=== PATIENT | male | born 1965 | race Caucasian/White ===

== ENCOUNTER 2016-12-16 12:00 | Emergency (ER) | payer SELFPAY ==
[~2016-12-16] VITALS: Ht 167.6 cm; Wt 67.0 kg
[2016-12-16 12:10] VITALS: BP 149/80; PULSE 73; RESP 14; TEMP 98.6; O2SAT 96
--- NOTE | 2016-12-16 12:29 | PD ---
HPI Chief Complaint: Seizure Time Seen by Provider: 12:09 Travel History International Travel<30 days: No Contact w/Intl Traveler<30days: No Traveled to known affect area: No History of Present Illness HPI 51-year-old male with a history of daily alcohol use, reported seizures in the past, presents today after having a questionable seizure today. Patient states that when he gets hot and is outside, he passes out and has seizures. Patient denies any injury today. He states he was working outside and felt lightheaded and then sat down. He states he was told that he had some shaking. He denies any head pain and neck pain, he states he feels fine. He states he is is not currently taking seizure medication. There are no other complaints time my examination. 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 TREE CHILD") Seizures: Yes Tetanus Vaccination: Unknown Influenza Vaccination: No Social History Alcohol Use: Yes (DAILY) Tobacco Use: Yes (2-3PPD) Substance Use: Yes (LORTAB 'EVERY NOW AND THEN") Allergies-Medications (Allergen,Severity, Reaction): Coded Allergies: Penicillin (Verified Allergy, Unknown, UNKNOWN, 12/16/16) Reported Meds & Prescriptions Reported Meds & Active Scripts Active No Active Prescriptions or Reported Medications Review of Systems Except as stated in HPI: all other systems reviewed are Neg Eyes: No: Diploplia, Blurred Vision HENT: No: Neck Pain Cardiovascular: No: Chest Pain or Discomfort, Palpitations Respiratory: No: Cough, Shortness of Breath Gastrointestinal: No: Nausea, Vomiting Genitourinary: Positive: Urgency, Frequency, No: Incontinence Musculoskeletal: No: Weakness, Pain Neurologic: Positive: Syncope, Seizures (possible), No: Weakness, Dizziness, Headache (possible) Physical Exam Narrative GENERAL: Well-nourished, well-developed patient. SKIN: Focused skin assessment warm/dry. HEAD: Normocephalic/atraumatic. EYES: No scleral icterus. No injection or drainage. NECK: Supple, trachea midline. CARDIOVASCULAR: Regular rate and rhythm without murmurs, gallops, or rubs. RESPIRATORY: Breath sounds equal bilaterally. No accessory muscle use. GASTROINTESTINAL: Abdomen soft, non-tender, nondistended. MUSCULOSKELETAL: No cyanosis, or edema. NEUROLOGICAL: Awake and alert. Cranial nerves II through XII intact. Motor grossly within normal limits. Five out of 5 muscle strength in all muscle groups. Normal speech. Data Data Last Documented VS Vital Signs Date Time Temp Pulse Resp B/P Pulse Ox O2 Delivery O2 Flow Rate FiO2 12/16/16 12:10 98.6 73 14 149/80 96 Orders Complete Blood Count With Diff (12/16/16 12:21) Basic Metabolic Panel (Bmp) (12/16/16 12:21) Magnesium (Mg) (12/16/16 12:21) Sodium Chlor 0.9% 1000 Ml Inj (Ns 1000 M (12/16/16 12:30) Labs Laboratory Tests Test 12/16/16 12:25 White Blood Count 5.0 TH/MM3 Red Blood Count 4.79 MIL/MM3 Hemoglobin 15.8 GM/DL Hematocrit 46.3 % Mean Corpuscular Volume 96.8 FL Mean Corpuscular Hemoglobin 33.1 PG Mean Corpuscular Hemoglobin 34.1 % Concent Red Cell Distribution Width 13.3 % Platelet Count 120 TH/MM3 Mean Platelet Volume 10.0 FL Neutrophils (%) (Auto) 66.0 % Lymphocytes (%) (Auto) 24.8 % Monocytes (%) (Auto) 8.2 % Eosinophils (%) (Auto) 0.4 % Basophils (%) (Auto) 0.6 % Neutrophils # (Auto) 3.3 TH/MM3 Lymphocytes # (Auto) 1.2 TH/MM3 Monocytes # (Auto) 0.4 TH/MM3 Eosinophils # (Auto) 0.0 TH/MM3 Basophils # (Auto) 0.0 TH/MM3 CBC Comment DIFF FINAL Differential Comment Sodium Level 139 MEQ/L Potassium Level 3.3 MEQ/L Chloride Level 107 MEQ/L Carbon Dioxide Level 18.3 MEQ/L Anion Gap 14 MEQ/L Blood Urea Nitrogen 7 MG/DL Creatinine 1.23 MG/DL Estimat Glomerular Filtration 62 ML/MIN Rate Random Glucose 102 MG/DL Calcium Level 9.3 MG/DL Magnesium Level 1.6 MG/DL MDM Medical Decision Making Medical Screen Exam Complete: Yes Emergency Medical Condition: Yes Differential Diagnosis Seizure versus syncope versus near-syncope versus dehydration Narrative Course 51 male with a history of question will seizure versus syncopal, presents after having an episode today while working in the hot heat. The patient is nontoxic in awake and appropriate. He is not postictal. There is no urinary incontinence. He's been given 1 L of IV fluid. Patient states that he does not wish to stay in his signed out AGAINST MEDICAL ADVICE. I've informed him that he can return any time. I did encourage that he drink plenty of fluids. AMA: The risks of leaving against medical advice without further evaluation treatment were discussed with the patient. These risks include cardiac dysfunction, cardiac dysrhythmia, possible heart attack, possible stroke or . The patient indicated understanding of these risks and appeared to have the capacity to make this decision. Diagnosis Primary Impression: seizure versus syncope Additional Impression: AGAINST MEDICAL ADVICE Scripts No Active Prescriptions or Reported Meds Disposition: 07 AGAINST MEDICAL ADVICE Condition: Stable Elijah Melara MD Dec 16, 2016 12:29
[2016-12-16] MEDS ORDERED: SODIUM CHLOR 0.9% 1000 ML INJ 1,000 ML IV ONE (12:30)
[2016-12-16 12:44] LABS: AUTOMATED NEUTROPHIL # 3.3 TH/MM3 (1.8-7.7); BASOPHIL % 0.6 % (0.0-2.0); EOSINOPHIL % 0.4 % (0.0-4.0); HEMATOCRIT 46.3 % (39.0-51.0); LYMPH % 24.8 % (9.0-44.0); LYMPHOCYTE # 1.2 TH/MM3 (1.0-4.8); MEAN CELL VOLUME 96.8 FL (80.0-100.0); MEAN CORPUSCULAR HEMOGLOBIN 33.1 PG (27.0-34.0); MEAN CORPUSCULAR HGB CONC 34.1 % (32.0-36.0); MONO % 8.2 % (0.0-8.0); PLATELET COUNT 120 TH/MM3 (150-450); RED BLOOD COUNT 4.79 MIL/MM3 (4.50-5.90); RED CELL DISTRIBUTION WIDTH 13.3 % (11.6-17.2)
[2016-12-16 12:47] LABS: HEMO FLAGS DIFF FINAL
[2016-12-16 12:57] LABS: BICARBONATE 18.3 MEQ/L (21.0-32.0); MAGNESIUM 1.6 MG/DL (1.5-2.5); POTASSIUM 3.3 MEQ/L (3.5-5.1)
== END 2016-12-16 13:15 | disposition left against medical advice (07) ==
LOC: NEPE 12:00
DX: R42 Dizziness and giddiness (principal); R73.03 Prediabetes; F17.200 Nicotine dependence, unspecified, uncomplicated; Z53.29 Procedure and treatment not carried out because of patient's decision for other reasons; Z86.19 Personal history of other infectious and parasitic diseases; Z87.39 Personal history of other diseases of the musculoskeletal system and connective tissue; Z86.69 Personal history of other diseases of the nervous system and sense organs
CPT/HCPCS: 80048; 83735; 85025; 99284

== ENCOUNTER 2017-05-01 17:17 | Emergency (ER) | payer SELFPAY ==
[2017-05-01 18:10] VITALS: BP 164/94; PULSE 110; RESP 22; TEMP 98; O2SAT 100
--- NOTE | 2017-05-01 18:10 | PD ---
HPI . possible overdose Chief Complaint: possible heroin overdose Time Seen by Provider: 17:56 Travel History International Travel<30 days: No Contact w/Intl Traveler<30days: No Traveled to known affect area: No History of Present Illness HPI 51 yr old male polysubstance abuser here via [facility] due to possible heroin overdose. According to paramedics patient was unresponsive and cyanotic. He was given 0.4 mg narcan and immediately became responsive to painful stimuli and became agitated. He is here now requesting to go home. He tells me that he did not overdose intentionally and he did not even overdose. He says he used Heroin yesterday and these people are now mixing heroin with other substances so he thinks it kicked in today. He admits to drinking some beers and says he may have had a seizure. He tells me either way he is not staying. He is not suicidal or homicidal. He is actually quite polite and cooperative, except he keeps insisting he needs to leave. He denies any chest pain, sob, nausea, vomiting, diaphoresis, headache etc. 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") Seizures: Yes Social History Alcohol Use: Yes (DAILY) Tobacco Use: Yes (2-3PPD) Substance Use: Yes (LORTAB 'EVERY NOW AND THEN") Allergies-Medications (Allergen,Severity, Reaction): Coded Allergies: penicillin G (Unverified Allergy, Unknown, UNKNOWN, 04/27/17) Reported Meds & Prescriptions Reported Meds & Active Scripts Active No Active Prescriptions or Reported Medications Review of Systems General / Constitutional: No: Fever Eyes: No: Visual changes HENT: No: Headaches Cardiovascular: No: Chest Pain or Discomfort Respiratory: No: Shortness of Breath Gastrointestinal: No: Abdominal Pain Genitourinary: No: Dysuria Musculoskeletal: No: Pain Skin: No Rash Neurologic: No: Weakness Psychiatric: No: Depression Endocrine: No: Polydipsia Hematologic/Lymphatic: No: Easy Bruising Physical Exam Narrative GENERAL: AAO x 3, no acute distress, Well-nourished, well-developed patient. SKIN: Warm and dry. No visible rashes or bruising. HEAD: Normocephalic and atraumatic. EYES: No scleral icterus. No injection or drainage. EOM intact, PERRLA ENT: No nasal drainage noted. Mucous membranes pink. Airway patent. NECK: Supple, trachea midline. No JVD. CARDIOVASCULAR: Regular rate and rhythm without murmurs, gallops, or rubs. RESPIRATORY: Breath sounds equal bilaterally. No accessory muscle use. No rhonchi or rales. GASTROINTESTINAL: Abdomen soft, non-tender, nondistended. no rebound or guarding EXTREMITIES: No cyanosis or edema. BACK: No obvious deformity. 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 MMSE normal Data Data Last Documented VS Vital Signs Date Time Temp Pulse Resp B/P Pulse Ox O2 Delivery O2 Flow Rate FiO2 05/01/17 18:10 98.0 110 22 164/94 100 Room Air MDM Medical Decision Making Medical Screen Exam Complete: Yes Emergency Medical Condition: Yes Medical Record Reviewed: Yes Differential Diagnosis heroin overdose, seizure disorder, polysubstance abuse, Narrative Course 51 yr old male here after possible heroin overdose that was unintentional. He keeps insisting he is not staying. He is in his right frame of mind and responds appropriately to all questions. MMSE is normal. We have discussed the risks of potential after narcan wears off. He insists he is not staying as he keeps telling me he did not use heroin today. He says he was misdiagnosed by the paramedics. Unfortunately patient is not a harm to himself or others. He is not suicidal or homicidal. He is cooperative and desires to leave. He declines any observation. I have stressed the risks and he continues expressing desire to leave. This is a shade of patel here in the ED. I do need to observe him, but he does not meet criteria for Nunes Act as there is no psychological component. I could place him under Fabi's act, but he is not acutely intoxicated and is in his right frame of mind. His decision making is not impaired in my judgement. I have educated him on the risks of leaving and he tells me, "If I , it's on me. I am sure I did not overdose and these people are misdiagnosing me." He contacted his boss for a ride home. I have discussed the case with my attending Dr. Jean. We have advised patient if he choses to leave, he will have to sign out AMA. I have provided him with that paperwork. He has signed it. Diagnosis Primary Impression: Left against medical advice Scripts No Active Prescriptions or Reported Meds Disposition: 07 AGAINST MEDICAL ADVICE Condition: Stable Antonieta Wyatt May 01, 2017 18:09
== END 2017-05-01 18:12 | disposition left against medical advice (07) ==
LOC: NEPD 17:17
DX: R23.0 Cyanosis (principal); F17.210 Nicotine dependence, cigarettes, uncomplicated; R56.9 Unspecified convulsions; Z53.21 Procedure and treatment not carried out due to patient leaving prior to being seen by health care provider
CPT/HCPCS: 99283

== ENCOUNTER 2017-08-21 08:53 | Emergency (ER) | payer SELFPAY ==
[~2017-08-21] VITALS: Ht 167.6 cm; Wt 66.0 kg
[2017-08-21 09:00] VITALS: BP 160/90; PULSE 59; RESP 16; TEMP 98.2; O2SAT 97
--- NOTE | 2017-08-21 09:23 | PD ---
HPI Chief Complaint: Injury Time Seen by Provider: 09:11 Travel History International Travel<30 days: No Contact w/Intl Traveler<30days: No Traveled to known affect area: No History of Present Illness HPI 52-year-old male presents to emergency Department with right-sided rib pain. Patient states she was hit by a rolled carpet in this area a week and a half ago. Patient denies shortness of breath. Patient denies nausea, vomiting, or changes in urine. His boss had him come down to get checked out. He states he has not been taking anything for pain. Pain is worse with certain movements and cough. It is pinpoint on the right lower lateral thoracic wall. Pain at worst is 8 out of 10. He is allergic to Penicillin. 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") Seizures: Yes Social History Alcohol Use: Yes (DAILY) Tobacco Use: Yes (2-3PPD) Substance Use: Yes (LORTAB 'EVERY NOW AND THEN") Allergies-Medications (Allergen,Severity, Reaction): Coded Allergies: penicillin G (Unverified Allergy, Unknown, UNKNOWN, 04/27/17) Reported Meds & Prescriptions Reported Meds & Active Scripts Active No Active Prescriptions or Reported Medications Review of Systems Except as stated in HPI: all other systems reviewed are Neg General / Constitutional: No: Fever Eyes: No: Visual changes HENT: No: Headaches Cardiovascular: No: Chest Pain or Discomfort Respiratory: No: Shortness of Breath Gastrointestinal: No: Abdominal Pain Genitourinary: No: Dysuria Musculoskeletal: No: Pain Skin: No Rash Neurologic: No: Weakness Psychiatric: No: Depression Endocrine: No: Polydipsia Hematologic/Lymphatic: No: Easy Bruising Physical Exam Narrative GENERAL: Patient appears in mild distress. SKIN: Warm and dry. Color. Normal turgor. HEAD: Atraumatic. Normocephalic. EYES: Pupils equal and round. No scleral icterus. No injection or drainage. ENT: No nasal bleeding or discharge. Mucous membranes pink and moist. NECK: Trachea midline. Supple and nontender. CARDIOVASCULAR: Regular rate and rhythm. RESPIRATORY: No accessory muscle use. Clear to auscultation. Breath sounds equal bilaterally. Patient has point tenderness on the right lateral 10th rib with what appears to be a mild dislocation. No crepitus. No subcutaneous emphysema. GASTROINTESTINAL: Abdomen soft, non-tender, nondistended. Hepatic and splenic margins not palpable. MUSCULOSKELETAL: Extremities without clubbing, cyanosis, or edema. No obvious deformities. NEUROLOGICAL: Awake and alert. No obvious cranial nerve deficits. Motor grossly within normal limits. Five out of 5 muscle strength in the arms and legs. Normal speech. PSYCHIATRIC: Appropriate mood and affect; insight and judgment normal. Data Data Last Documented VS Vital Signs Date Time Temp Pulse Resp B/P (MAP) Pulse Ox O2 Delivery O2 Flow Rate FiO2 08/21/17 09:00 98.2 59 16 160/90 (113) 97 MDM Medical Decision Making Medical Screen Exam Complete: Yes Emergency Medical Condition: No Differential Diagnosis Thoracic wall contusion. Rib pain. Rib fracture. Narrative Course A medical screening exam was performed: At the time of evaluation the presenting medical condition was determined not to be of an emergent nature. The patient was given the option of receiving additional care, but declined. Patient was given options for additional community resources from which to obtain care. The Patient Has Been advised to seek medical attention for their presenting complaint. The patient has been advised to return to the ER at any time if an emergent condition develops Scripts No Active Prescriptions or Reported Meds Condition: Jean Carlos Frances Aug 21, 2017 09:23
== END 2017-08-21 09:28 | disposition left against medical advice (07) ==
LOC: NEPD 08:53
DX: R07.81 Pleurodynia (principal)
CPT/HCPCS: 99281

== ENCOUNTER 2017-10-12 23:52 | Emergency (ER) | payer SELFPAY ==
[2017-10-12 23:59] VITALS: BP 151/79; PULSE 54; RESP 16; TEMP 98.8; O2SAT 95
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
[2017-10-13] MEDS ORDERED: SODIUM CHLOR 0.9% 1000 ML INJ 1,000 ML IV ONE (00:30)
[2017-10-13 00:42] VITALS: O2SAT 100
--- NOTE | 2017-10-13 00:54 | RADRPT ---
EXAM DATE/TIME: 10/13/2017 00:34 [facility] COMPARISON: No previous studies available for comparison. INDICATIONS : Shortness of breath. MEDICAL HISTORY : None. SURGICAL HISTORY : None. ENCOUNTER: Initial ACUITY: 1 day PAIN SCORE: 0/10 LOCATION: Bilateral chest FINDINGS: A single view of the chest demonstrates the lungs to be symmetrically aerated without evidence of mas s, infiltrate or effusion. Minimal basilar atelectasis. The cardiomediastinal contours are unremarka ble. Osseous structures are intact. CONCLUSION: 1. Mild basal atelectasis. No effusion or pneumothorax. Toribio Ma MD on October 13, 2017 at 0:51 Board Certified Radiologist. This report was verified electronically.
[2017-10-13 00:57] LABS: AUTOMATED NEUTROPHIL # 2.8 TH/MM3 (1.8-7.7); BASOPHIL % 0.5 % (0.0-2.0); EOSINOPHIL % 0.5 % (0.0-4.0); HEMATOCRIT 38.1 % (39.0-51.0); HEMOGLOBIN 13.3 GM/DL (13.0-17.0); LYMPH % 29.9 % (9.0-44.0); LYMPHOCYTE # 1.4 TH/MM3 (1.0-4.8); MEAN CELL VOLUME 87.3 FL (80.0-100.0); MEAN CORPUSCULAR HEMOGLOBIN 30.6 PG (27.0-34.0); MEAN PLATELET VOLUME 8.9 FL (7.0-11.0); MONO % 11.7 % (0.0-8.0); MONOCYTE # 0.6 TH/MM3 (0-0.9); NEUT % 57.4 % (16.0-70.0); PLATELET COUNT 114 TH/MM3 (150-450); RED BLOOD COUNT 4.36 MIL/MM3 (4.50-5.90); RED CELL DISTRIBUTION WIDTH 13.5 % (11.6-17.2); WHITE BLOOD COUNT 4.8 TH/MM3 (4.0-11.0)
--- NOTE | 2017-10-13 00:57 | RADRPT ---
EXAM DATE/TIME: 10/13/2017 00:44 [facility] COMPARISON: No previous studies available for comparison. INDICATIONS : Cephalgia and neck pain today. RADIATION DOSE: 32.93 CTDIvol (mGy) MEDICAL HISTORY : Hepatitis C. SURGICAL HISTORY : None. ENCOUNTER: Initial ACUITY: 1 day PAIN SCALE: 4/10 LOCATION: Bilateral head TECHNIQUE: Multiple contiguous axial images were obtained of the head. Using automated exposure control and adj ustment of the mA and/or kV according to patient size, radiation dose was kept as low as reasonably a chievable to obtain optimal diagnostic quality images. DICOM format image data is available electro nically for review and comparison. FINDINGS: CEREBRUM: The ventricles are normal for age. No evidence of midline shift, mass lesion, hemorrhage or acute in farction. No extra-axial fluid collections are seen. POSTERIOR FOSSA: The cerebellum and brainstem are intact. The 4th ventricle is midline. The cerebellopontine angle i s unremarkable. EXTRACRANIAL: The visualized portion of the orbits is intact. SKULL: The calvaria is intact. No evidence of skull fracture. CONCLUSION: 1. No acute intracranial abnormalities. Toribio Ma MD on October 13, 2017 at 0:53 Board Certified Radiologist. This report was verified electronically.
[2017-10-13 01:12] LABS: ALBUMIN 2.9 GM/DL (3.4-5.0); ALT (GPT) 74 U/L (12-78); AST (GOT) 78 U/L (15-37); BICARBONATE 25.5 MEQ/L (21.0-32.0); BLOOD UREA NITROGEN 16 MG/DL (7-18); CALCIUM 8.1 MG/DL (8.5-10.1); CHLORIDE 105 MEQ/L (98-107); CREATININE 1.03 MG/DL (0.60-1.30); GLOMERULAR FILTRATION RATE 76 ML/MIN (>89); GLUCOSE,RANDOM 95 MG/DL (74-106); LIPASE 101 U/L (73-393); SODIUM (NA) 139 MEQ/L (136-145)
[2017-10-13 01:14] LABS: ALKALINE PHOSPHATASE 84 U/L (45-117); TOTAL BILIRUBIN ADULT 0.3 MG/DL (0.2-1.0); TOTAL PROTEIN 7.1 GM/DL (6.4-8.2); TROPONIN I LESS THAN 0.02 NG/ML (0.02-0.05)
[2017-10-13 01:17] LABS: ACETAMINOPHEN LESS THAN 2.0 MCG/ML (10.0-30.0)
[2017-10-13 01:20] LABS: PROTHROMBIN TIME - PATIENT 10.6 SEC (9.8-11.6)
--- NOTE | 2017-10-13 01:25 | RADRPT ---
EXAM DATE/TIME: 10/13/2017 00:44 [facility] COMPARISON: No previous studies available for comparison. INDICATIONS : Cephalgia and neck pain today. RADIATION DOSE: 16.13 CTDIvol (mGy) MEDICAL HISTORY : Hepatitis C. SURGICAL HISTORY : None. ENCOUNTER: Initial ACUITY: 1 day PAIN SCALE: 4/10 LOCATION: Bilateral neck TECHNIQUE: Volumetric scanning of the cervical spine was performed. Multiplanar reconstructions in the sagittal, coronal and oblique axial planes were performed. Using automated exposure control and adjustment o f the mA and/or kV according to patient size, radiation dose was kept as low as reasonably achievable to obtain optimal diagnostic quality images. DICOM format image data is available electronically f or review and comparison. FINDINGS: VERTEBRAE: Normal vertebral body height. ALIGNMENT: No evidence of subluxation. C2-C3: The bony spinal canal is normal in size. No evidence of disc bulge or herniation. The neural forami na are bilaterally patent. C3-C4: The bony spinal canal is normal in size. No evidence of disc bulge or herniation. The neural forami na are bilaterally patent. C4-C5: The bony spinal canal is normal in size. No evidence of disc bulge or herniation. The neural forami na are bilaterally patent. C5-C6: The bony spinal canal is normal in size. No evidence of disc bulge or herniation. The neural forami na are bilaterally patent. C6-C7: The bony spinal canal is normal in size. No evidence of disc bulge or herniation. The neural forami na are bilaterally patent. C7-T1: The bony spinal canal is normal in size. No evidence of disc bulge or herniation. The neural forami na are bilaterally patent. CONCLUSION: 1. No acute findings. Mild degenerative disc disease. Toribio Ma MD on October 13, 2017 at 1:20 Board Certified Radiologist. This report was verified electronically.
[2017-10-13 01:55] VITALS: BP 151/79; PULSE 60; RESP 16; O2SAT 98
[2017-10-13 02:13] LABS: BILIRUBIN, URINE NEG (NEG); BLOOD, URINE NEG (NEG); GLUCOSE,URINE NEG (NEG); KETONE, URINE NEG (NEG); MUCUS URINE FEW /lpf (OCC); NITRITE,URINE NEG (NEG); SQUAMOUS EPITHELIAL CELL URINE 1 /hpf (0-5); URINE COLOR YELLOW (YELLW/STRAW); URINE LEUKOCYTE ESTERASE NEG (NEG)
[2017-10-13 02:56] VITALS: BP 158/91; PULSE 60; RESP 16; O2SAT 98
[2017-10-13] MEDS ORDERED: NAPR-810 PO (03:28)
--- NOTE | 2017-10-13 09:45 | EKG ---
Date Performed: 10/13/2017 Time Performed: 01:16:20 PTAGE: 52 years EKG: SINUS BRADYCARDIA BORDERLINE ECG Since the prior tracing, there has been no significant maegan nge PREVIOUS TRACING : 09/09/2007 08.29 DOCTOR: Jose Jones Interpretating Date/Time 10/13/2017 09:43:49
== END 2017-10-13 03:54 | disposition home or self-care (01) ==
LOC: NEPC 23:52
DX: G44.209 Tension-type headache, unspecified, not intractable (principal); R42 Dizziness and giddiness; F17.210 Nicotine dependence, cigarettes, uncomplicated; R06.09 Other forms of dyspnea; B19.20 Unspecified viral hepatitis C without hepatic coma
CPT/HCPCS: 70450; 71045; 72125; 80053; 80307; 81001; 82550; 82552; 83690; 83880; 84484; 85025; 85610; 85730; 93005; 96360; 99285; J7030

== ENCOUNTER 2017-11-06 11:03 | Emergency (ER) | payer SELFPAY ==
[~2017-11-06] VITALS: Ht 167.6 cm; Wt 71.0 kg
[~2017-11-06 11:03] MED LIST: NAPR-810 PO
[2017-11-06 11:06] VITALS: BP 132/84; PULSE 83; RESP 14; TEMP 98.4; O2SAT 98
[2017-11-06] MEDS ORDERED: IBUPROFEN 600 MG TAB PO ONE (11:30)
[2017-11-06] MEDS ORDERED: LIDOCAINE HCL 1% 20 ML VIAL INFIL ONE (11:30)
[2017-11-06] MEDS ORDERED: TETANUS/DIPHTHERIA TOXOID ADULT 0.5 ML VIAL IM ONE (11:30)
--- NOTE | 2017-11-06 11:33 | PD ---
HPI Chief Complaint: Skin Problem Time Seen by Provider: 11:19 Travel History International Travel<30 days: No Contact w/Intl Traveler<30days: No Traveled to known affect area: No History of Present Illness HPI 52yo M with PMH of alcohol abuse, hep C, seizure here with c/o abscess in left lower extremity. Said it was a bite 4-5 days ago that got bigger. Said he put a needle in it yesterday and it was draining. Pt also has an abscess in left buttocks but that already completely drained and does not hurt much anymore. Denies any fever, trauma, chest pain, sob, n/v, abdominal pain, focal weakness or numbness. PFSH Past Medical History Hx Anticoagulant Therapy: No Cardiovascular Problems: No Chemotherapy: No Cerebrovascular Accident: No Diabetes: No Diminished Hearing: No Hepatitis: Yes (HEP C) Musculoskeletal: Yes (CHRONIC BACK,"FELL OUT OF TREE CHILD") Respiratory: No Seizures: Yes Tetanus Vaccination: < 5 Years Social History Alcohol Use: Yes (2-3 vodka or whiskey drinks per day) Tobacco Use: Yes (1 PPD) Substance Use: Yes (LORTAB 'EVERY NOW AND THEN") Allergies-Medications (Allergen,Severity, Reaction): Coded Allergies: penicillin G (Unverified Allergy, Unknown, UNKNOWN, 11/06/17) Reported Meds & Prescriptions Reported Meds & Active Scripts Active EC-Naprosyn (Naproxen) 500 Mg Tabdr 500 Mg PO BID PRN Review of Systems Except as stated in HPI: all other systems reviewed are Neg Physical Exam Narrative GEN: 52yo M not in distress. SKIN: +3cm by 3cm erythema with central fluctuance left medial calf. 2cm by 2cm erythema in left buttocks with no central fluctuance. HEAD: Normocephalic, atraumatic. CV: S1, S2. Lungs: CTA B/L, equal breath sounds. Abd: soft, NT/ND. Ext: LLE: +Abscess as noted above. FROM in left hip and knee. Distal pulses intact. Sensation intact. NEURO: No focal neurologic deficits. Data Data Last Documented VS Vital Signs Date Time Temp Pulse Resp B/P (MAP) Pulse Ox O2 Delivery O2 Flow Rate FiO2 11/06/17 11:06 98.4 83 14 132/84 (100) 98 Room Air Orders Orders Lidocaine 1% Inj (Xylocaine 1% Inj) (11/06/17 11:30) Tetanus/Diphtheria Tox Adult (Tetanus/Di (11/06/17 11:30) Ibuprofen (Motrin) (11/06/17 11:30) MDM Medical Decision Making Medical Screen Exam Complete: Yes Emergency Medical Condition: Yes Differential Diagnosis Abscess Narrative Course 52yo M with left lower leg abscess for 4-5 days. It is draining a little but still fluctuance and he wants it drained. I&D performed. Updated pt on tetanus. Pt feels better after and is ambulating in the ED without assistance. Procedures Procedure Narrative Abscess Incision and drainage: Chlorhexadine was used to clean area before injecting 5cc of 1% lidocaine. #11 blade scapel use for incision. Purulent discharge drainage. Small amount of 1/ 2 inch iodoform packing used to pack wound. Sterile gauze used to cover wound. Pt tolerating procedure well. Diagnosis Primary Impression: Abscess Patient Instructions: General Instructions Departure Forms: Tests/Procedures Additional Instructions: Please return to the ED in 2 days for wound check. Please return to the ED earlier if symptoms worsen. Med/Other Pt SpecificInfo: Prescription(s) given Scripts Sulfamethoxazole-Trimethoprim (Bactrim DS) 800-160 Mg Tab 1 TAB PO BID for Infection, #14 TAB 0 Refills Prov: Mouna Peck 11/06/17 Disposition: 01 DISCHARGE HOME Condition: Stable LivMouna DO Nov 06, 2017 11:33
[2017-11-06] MEDS ORDERED: BACT800T5 PO (12:30)
== END 2017-11-06 12:46 | disposition home or self-care (01) ==
LOC: NEPD 11:03
DX: L02.416 Cutaneous abscess of left lower limb (principal); F17.200 Nicotine dependence, unspecified, uncomplicated; Z23 Encounter for immunization
CPT/HCPCS: 10061; 90471; 90714

== ENCOUNTER 2017-11-18 10:53 | Emergency (ER) | payer SELFPAY ==
[~2017-11-18 10:53] MED LIST changes: +BACT800T5 PO
== END 2017-11-18 11:46 | disposition left against medical advice (07) ==
LOC: NED 10:53
DX: R21 Rash and other nonspecific skin eruption (principal); Z53.21 Procedure and treatment not carried out due to patient leaving prior to being seen by health care provider
CPT/HCPCS: 99281

== ENCOUNTER 2017-11-29 13:00 | Emergency (ER) | payer SELFPAY ==
[2017-11-29 13:50] VITALS: PULSE 80; RESP 14; TEMP 97.2; O2SAT 99
[2017-11-29 14:35] VITALS: BP 164/92; PULSE 67; RESP 17; O2SAT 98
--- NOTE | 2017-11-29 14:46 | PD ---
HPI Chief Complaint: Nosebleed Time Seen by Provider: 14:24 Travel History International Travel<30 days: No Contact w/Intl Traveler<30days: No Traveled to known affect area: No History of Present Illness HPI 52yo M with no PMH presents to the ED with c/o epistaxis from right nose since 1pm yesterday. Said it wont stop bleeding. Denies any fever, cough, chest pain , sob, n/v, abdominal pain, focal weakness or numbness. Denies any anticoagulation. PFSH Past Medical History Hx Anticoagulant Therapy: No Cardiovascular Problems: No Chemotherapy: No Cerebrovascular Accident: No Diabetes: No Diminished Hearing: No Hepatitis: Yes (HEP C) Musculoskeletal: Yes (CHRONIC BACK,"FELL OUT OF TREE CHILD") Respiratory: No Seizures: Yes Social History Alcohol Use: Yes (2-3 vodka or whiskey drinks per day) Tobacco Use: Yes (1 PPD) Substance Use: Yes (LORTAB 'EVERY NOW AND THEN") Allergies-Medications (Allergen,Severity, Reaction): Coded Allergies: penicillin G (Unverified Allergy, Unknown, UNKNOWN, 11/06/17) Reported Meds & Prescriptions Reported Meds & Active Scripts Active Bactrim DS (Sulfamethoxazole-Trimethoprim) 800-160 Mg Tab 1 Tab PO BID EC-Naprosyn (Naproxen) 500 Mg Tabdr 500 Mg PO BID PRN Review of Systems Except as stated in HPI: all other systems reviewed are Neg Physical Exam Narrative GENERAL: 52yo M not in distress. SKIN: Focused skin assessment warm/dry. HEAD: Atraumatic. Normocephalic. EYES: Pupils equal and round. No scleral icterus. No injection or drainage. ENT: No nasal bleeding or discharge in either nostril. Throat: No blood in posterior pharynx. NECK: Trachea midline. No JVD. CARDIOVASCULAR: Regular rate and rhythm. No murmur appreciated. RESPIRATORY: No accessory muscle use. Clear to auscultation. Breath sounds equal bilaterally. GASTROINTESTINAL: Abdomen soft, non-tender, nondistended. MUSCULOSKELETAL: No obvious deformities. No clubbing. No cyanosis. No edema. NEUROLOGICAL: Awake and alert. No obvious cranial nerve deficits. Motor grossly within normal limits. Normal speech. PSYCHIATRIC: Appropriate mood and affect; insight and judgment normal. Data Data Last Documented VS Vital Signs Date Time Temp Pulse Resp B/P (MAP) Pulse Ox O2 Delivery O2 Flow Rate FiO2 11/29/17 13:50 97.2 80 14 99 MDM Medical Decision Making Medical Screen Exam Complete: Yes Emergency Medical Condition: Yes Differential Diagnosis Epistaxis Narrative Course 52yo M with right nostril epistaxis that has stopped. Pt said his boss wants him to get check out. I ask if he wants me to observe him to make sure he does not have recurrent epistaxis but he said no. Return precautions given. Diagnosis Primary Impression: Epistaxis Patient Instructions: General Instructions Departure Forms: Tests/Procedures, Work Release Enter return to work date: Nov 30, 2017 Additional Instructions: Please follow up with your primary care physician in 2-3 days. Return to the ED if symptoms worsen. Med/Other Pt SpecificInfo: No Change to Meds Disposition: 01 DISCHARGE HOME Condition: Stable Mouna Peck DO Nov 29, 2017 14:46
[2017-11-29 14:51] VITALS: TEMP 98.7
== END 2017-11-29 15:16 | disposition home or self-care (01) ==
LOC: NED 13:00 → NEPD 15:16
DX: R04.0 Epistaxis (principal); B19.20 Unspecified viral hepatitis C without hepatic coma; F17.200 Nicotine dependence, unspecified, uncomplicated
CPT/HCPCS: 99281

== ENCOUNTER 2017-11-29 15:53 | Emergency (ER) | payer SELFPAY | END 2017-11-29 17:41 | disposition left against medical advice (07) | LOC: NED 15:53 | DX: R04.0 Epistaxis (principal); Z53.21 Procedure and treatment not carried out due to patient leaving prior to being seen by health care provider | CPT/HCPCS: 99281 ==

== ENCOUNTER 2017-11-30 10:41 | Observation (INO) | payer SELFPAY ==
[2017-11-30 11:47] VITALS: BP 118/75; PULSE 78; RESP 18; TEMP 97.9; O2SAT 100
--- NOTE | 2017-11-30 13:18 | PD ---
HPI Chief Complaint: Nosebleed Time Seen by Provider: 12:40 Travel History International Travel<30 days: No Contact w/Intl Traveler<30days: No Traveled to known affect area: No History of Present Illness HPI 52-year-old male presents emergency department complaining of a nosebleed since Wednesday. Patient states that he was here yesterday and his nosebleed stopped prior to intervention. Patient states that today he was "just sitting down" when the bleeding started. States he was able to control the bleeding with pressure on his naris but has since restarted. Patient denies fever, chills, chest pain, shortness of breath, heart palpitations. Patient denies any decreased dizziness or weakness. 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 He denies chronic medical issues or medication use. 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 HEAD: Atraumatic. Normocephalic. EYES: Pupils equal and round. No scleral icterus. No injection or drainage. ENT: right nare with active bleeding- appears to be anterior bleeding site along nasal septum, left nare- no obvious source of bleeding. Posterior pharynx with scant blood NECK: Trachea midline. No JVD. CARDIOVASCULAR: Regular rate and rhythm. RESPIRATORY: No accessory muscle use. Clear to auscultation. Breath sounds equal bilaterally. GASTROINTESTINAL: Abdomen soft, non-tender, nondistended. Hepatic and splenic margins not palpable. MUSCULOSKELETAL: Extremities without clubbing, cyanosis, or edema. No obvious deformities. NEUROLOGICAL: Awake and alert. No obvious cranial nerve deficits. Motor grossly within normal limits. Five out of 5 muscle strength in the arms and legs. Normal speech. PSYCHIATRIC: Appropriate mood and affect; insight and judgment normal. Data Data Last Documented VS Vital Signs Date Time Temp Pulse Resp B/P (MAP) Pulse Ox O2 Delivery O2 Flow Rate FiO2 11/30/17 16:02 74 16 120/70 (87) 98 11/30/17 11:47 97.9 Orders Orders Complete Blood Count With Diff (11/30/17 11:51) Comprehensive Metabolic Panel (11/30/17 11:51) Coag Profile (11/30/17 11:51) Phenylephrine 0.5% Jd Spr (Neosynephrin (11/30/17 13:30) Admit Order (Ed Use Only) (11/30/17 16:11) Labs Laboratory Tests Test 11/30/17 13:45 White Blood Count 7.1 TH/MM3 Red Blood Count 3.29 MIL/MM3 Hemoglobin 9.9 GM/DL Hematocrit 29.6 % Mean Corpuscular Volume 90.1 FL Mean Corpuscular Hemoglobin 30.2 PG Mean Corpuscular Hemoglobin Concent 33.6 % Red Cell Distribution Width 13.9 % Platelet Count 127 TH/MM3 Mean Platelet Volume 9.1 FL Neutrophils (%) (Auto) 60.1 % Lymphocytes (%) (Auto) 27.6 % Monocytes (%) (Auto) 10.8 % Eosinophils (%) (Auto) 0.9 % Basophils (%) (Auto) 0.6 % Neutrophils # (Auto) 4.3 TH/MM3 Lymphocytes # (Auto) 2.0 TH/MM3 Monocytes # (Auto) 0.8 TH/MM3 Eosinophils # (Auto) 0.1 TH/MM3 Basophils # (Auto) 0.0 TH/MM3 CBC Comment DIFF FINAL Differential Comment Prothrombin Time 10.7 SEC Prothromb Time International Ratio 1.1 RATIO Activated Partial Thromboplast Time 25.6 SEC Fibrinogen 283 mg/dL Blood Urea Nitrogen 15 MG/DL Creatinine 1.08 MG/DL Random Glucose 83 MG/DL Total Protein 7.1 GM/DL Albumin 2.8 GM/DL Calcium Level 8.2 MG/DL Alkaline Phosphatase 75 U/L Aspartate Amino Transf (AST/SGOT) 63 U/L Alanine Aminotransferase (ALT/SGPT) 64 U/L Total Bilirubin 0.4 MG/DL Sodium Level 136 MEQ/L Potassium Level 3.5 MEQ/L Chloride Level 101 MEQ/L Carbon Dioxide Level 25.9 MEQ/L Anion Gap 9 MEQ/L Estimat Glomerular Filtration Rate 72 ML/MIN MDM Medical Decision Making Medical Screen Exam Complete: Yes Emergency Medical Condition: Yes Differential Diagnosis epistaxis, pharyngitis, tonsillitis Narrative Course 60-year-old male presents emergency department for evaluation of his epistaxis that started Wednesday. States he came to the emergency department yesterday but this stopped prior to arrival. Vital signs stable. Physical exam demonstrates likely anterior bleed right greater than left. Posterior pharynx with scant blood present. Rhonirocket placed in BL nostrils after impregnating with afrin. After reevaluation, continues to have nasal bleeding. The left rhinorocket has become dislodged and pt is reluctant to have it replaced as the initial attempt was uncomfortable. CBC & BMP Diagram 11/30/17 13:45 Total Protein 7.1, Albumin 2.8 L, Calcium Level 8.2 L, Alkaline Phosphatase 75, Aspartate Amino Transf (AST/SGOT) 63 H, Alanine Aminotransferase (ALT/SGPT) 64, Total Bilirubin 0.4 After review of the EMR it appears that patient has significant blood loss likely secondary to his epistaxis. 10/13/2017 H&H 13.3/9.9, I spoke with Dr. Nash, ENT who recommended based off of my findings today that he be admitted with ENT consult. 1635 Dr. Nash called back and states that he could be observed overnight for stability. Says that he would evaluate the patient in the morning. Patient will be admitted to observation for uncontrolled epistaxis with resulting anemia. Consider hematology consult as patient does not have a history of blood dyscrasias, takes aspirin every other day but no other blood thinners or anticoagulants. Says he used IV cocaine once, never snorted cocaine or any other drug. Consider CIWA protocol as patient does drink 3-4 beers daily. No history of DTs that he is aware of though he does feel 'shaky' occasionally if he does not drink alcohol. Diagnosis Primary Impression: Epistaxis Additional Impression: Anemia Qualified Codes: D64.9 - Anemia, unspecified Admitting Information Admitting Physician Requests: Observation Scripts Ferrous Sulfate (Ferrous Sulfate) 325 Mg (65 Mg Iron) Tablet 325 MG PO BIDPC for Nutritional Supplement, #60 TAB 0 Refills Prov: Margie Gardner PA-C 12/01/17 Condition: Stable Debbie Burciaga Nov 30, 2017 13:18
[2017-11-30] MEDS ORDERED: PHENYLEPHRINE HCL 0.5% NASAL SPRAY 15 ML BTL NASAL ONE (13:30)
[2017-11-30 14:32] LABS: AUTOMATED NEUTROPHIL # 4.3 TH/MM3 (1.8-7.7); BASOPHIL % 0.6 % (0.0-2.0); EOSINOPHIL # 0.1 TH/MM3 (0-0.4); EOSINOPHIL % 0.9 % (0.0-4.0); HEMATOCRIT 29.6 % (39.0-51.0); HEMOGLOBIN 9.9 GM/DL (13.0-17.0); LYMPH % 27.6 % (9.0-44.0); MEAN CELL VOLUME 90.1 FL (80.0-100.0); MEAN CORPUSCULAR HEMOGLOBIN 30.2 PG (27.0-34.0); MEAN CORPUSCULAR HGB CONC 33.6 % (32.0-36.0); MEAN PLATELET VOLUME 9.1 FL (7.0-11.0); MONO % 10.8 % (0.0-8.0); MONOCYTE # 0.8 TH/MM3 (0-0.9); NEUT % 60.1 % (16.0-70.0); PLATELET COUNT 127 TH/MM3 (150-450); RED BLOOD COUNT 3.29 MIL/MM3 (4.50-5.90); RED CELL DISTRIBUTION WIDTH 13.9 % (11.6-17.2); WHITE BLOOD COUNT 7.1 TH/MM3 (4.0-11.0)
[2017-11-30 14:42] LABS: INTERNATIONAL NORMALIZED RATIO 1.1 RATIO; PROTHROMBIN TIME - PATIENT 10.7 SEC (9.8-11.6)
[2017-11-30 14:56] LABS: ALBUMIN 2.8 GM/DL (3.4-5.0); ALT (GPT) 64 U/L (12-78); AST (GOT) 63 U/L (15-37); BICARBONATE 25.9 MEQ/L (21.0-32.0); BLOOD UREA NITROGEN 15 MG/DL (7-18); CALCIUM 8.2 MG/DL (8.5-10.1); CHLORIDE 101 MEQ/L (98-107); CREATININE 1.08 MG/DL (0.60-1.30); GLOMERULAR FILTRATION RATE 72 ML/MIN (>89); GLUCOSE,RANDOM 83 MG/DL (74-106); SODIUM (NA) 136 MEQ/L (136-145)
[2017-11-30 14:59] LABS: ALKALINE PHOSPHATASE 75 U/L (45-117); TOTAL BILIRUBIN ADULT 0.4 MG/DL (0.2-1.0); TOTAL PROTEIN 7.1 GM/DL (6.4-8.2)
--- NOTE | 2017-11-30 15:00 | PD ---
Data Data Last Documented VS Vital Signs Date Time Temp Pulse Resp B/P (MAP) Pulse Ox O2 Delivery O2 Flow Rate FiO2 11/30/17 16:02 74 16 120/70 (87) 98 11/30/17 11:47 97.9 Orders Orders Complete Blood Count With Diff (11/30/17 11:51) Comprehensive Metabolic Panel (11/30/17 11:51) Coag Profile (11/30/17 11:51) Phenylephrine 0.5% Jd Spr (Neosynephrin (11/30/17 13:30) Admit Order (Ed Use Only) (11/30/17 16:11) Labs Laboratory Tests Test 11/30/17 13:45 White Blood Count 7.1 TH/MM3 Red Blood Count 3.29 MIL/MM3 Hemoglobin 9.9 GM/DL Hematocrit 29.6 % Mean Corpuscular Volume 90.1 FL Mean Corpuscular Hemoglobin 30.2 PG Mean Corpuscular Hemoglobin Concent 33.6 % Red Cell Distribution Width 13.9 % Platelet Count 127 TH/MM3 Mean Platelet Volume 9.1 FL Neutrophils (%) (Auto) 60.1 % Lymphocytes (%) (Auto) 27.6 % Monocytes (%) (Auto) 10.8 % Eosinophils (%) (Auto) 0.9 % Basophils (%) (Auto) 0.6 % Neutrophils # (Auto) 4.3 TH/MM3 Lymphocytes # (Auto) 2.0 TH/MM3 Monocytes # (Auto) 0.8 TH/MM3 Eosinophils # (Auto) 0.1 TH/MM3 Basophils # (Auto) 0.0 TH/MM3 CBC Comment DIFF FINAL Differential Comment Prothrombin Time 10.7 SEC Prothromb Time International Ratio 1.1 RATIO Activated Partial Thromboplast Time 25.6 SEC Fibrinogen 283 mg/dL Blood Urea Nitrogen 15 MG/DL Creatinine 1.08 MG/DL Random Glucose 83 MG/DL Total Protein 7.1 GM/DL Albumin 2.8 GM/DL Calcium Level 8.2 MG/DL Alkaline Phosphatase 75 U/L Aspartate Amino Transf (AST/SGOT) 63 U/L Alanine Aminotransferase (ALT/SGPT) 64 U/L Total Bilirubin 0.4 MG/DL Sodium Level 136 MEQ/L Potassium Level 3.5 MEQ/L Chloride Level 101 MEQ/L Carbon Dioxide Level 25.9 MEQ/L Anion Gap 9 MEQ/L Estimat Glomerular Filtration Rate 72 ML/MIN [facility] Supervised Visit with HARIS: Yes Narrative Course I, Dr. Richardson, have reviewed the advance practice practitioner's documentation and am in agreement, met with the patient face to face, made the diagnosis, and the medical decision making was done by me. *My assessment and Findings: Patient seen and examined by me in addition to Debbie Gualberto, the patient has had anterior nasal packing and continues to have steady flow and is saturated both packings and is dripping. Appears to be completely anterior as there is no clots posteriorly but we still asked for ENT consultation and will be admitted for observation. Diagnosis Primary Impression: Epistaxis Admitting Information Admitting Physician Requests: Observation Scripts No Active Prescriptions or Reported Meds Condition: Stable Fahad Richardson MD Nov 30, 2017 15:00
[2017-11-30 16:02] VITALS: BP 120/70; PULSE 74; RESP 16; O2SAT 98
[2017-11-30] MEDS ORDERED: BISACODYL 10 MG SUPP RECTAL PRN (16:15)
[2017-11-30] MEDS ORDERED: SENNOSIDES 8.6 MG TAB PO PRN (16:15)
[2017-11-30] MEDS ORDERED: ONDANSETRON HCL 4 MG/2 ML VIAL IVP PRN (16:15)
[2017-11-30] MEDS ORDERED: LACTULOSE SYRUP 20 GM/30 ML CUP PO PRN (16:15)
[2017-11-30] MEDS ORDERED: SODIUM CHLORIDE 0.9% FLUSH 10 ML FLUSH IV FLUSH PRN (16:15)
[2017-11-30] MEDS ORDERED: NALOXONE HCL 0.4 MG/ML AMP IV PUSH PRN (16:15)
[2017-11-30] MEDS ORDERED: MAGNESIUM HYDROXIDE SUSP 30 ML CUP PO PRN (16:15)
[2017-11-30] MEDS ORDERED: OXYMETAZOLINE HCL 0.05% 15 ML NASAL SPRAY NASAL ONE (16:30)
[2017-11-30] MEDS ORDERED: SODIUM CHLOR 0.45% 1000 ML INJ 1,000 ML IV SCH (17:00)
[2017-11-30 17:23] VITALS: BP 144/78; PULSE 73; RESP 18; TEMP 98.3; O2SAT 100
[2017-11-30] MEDS ORDERED: LORazepam 1 MG TAB PO PRN (18:30)
[2017-11-30] MEDS ORDERED: LORazepam 2 MG TAB PO PRN (18:30)
[2017-11-30] MEDS ORDERED: FLUMAZENIL 0.5 MG/5 ML VIAL IV PUSH PRN (18:30)
[2017-11-30] MEDS ORDERED: LORazepam 2 MG/ML VIAL IV PUSH PRN ×4 (18:30)
--- NOTE | 2017-11-30 18:33 | HHI.HP ---
[facility] Primary [facility] Physician No Primary Care Physician Admission Diagnosis anemia, epistaxis Diagnoses: Travel History International Travel<30 Days: No Contact w/Intl Traveler <30 Da: No Traveled to Known Affected Are: No History of Present Illness 32-year-old male with a history of IV drug use, cocaine use who presents with a 3 day history of uncontrolled epistaxis. He denies any injuries. Denies any recent cocaine use. Denies any fevers, chills, headache, chest pain. He does report fatigue over the past several days. Does report lightheadedness today upon standing. Did not pass out. Review of Systems Except as stated in HPI: all other systems reviewed are Neg Past Family Social History Past Medical History History of IV drug use History of cocaine use Past Surgical History Patient denies any surgical history. Reported Medications Patient denies any home meds Allergies: Coded Allergies: penicillin G (Unverified Allergy, Unknown, UNKNOWN, 11/30/17) Family History Patient is uncertain about family history Social History Patient smokes 1 pack per day for many years. Drinks 5 beers per day. History of IV drug use, cocaine use. Denies use over the past year. Physical Exam Vital Signs Vital Signs Date Time Temp Pulse Resp B/P (MAP) Pulse Ox O2 Delivery O2 Flow Rate FiO2 11/30/17 17:23 98.3 73 18 144/78 (100) 100 11/30/17 17:03 11/30/17 16:02 74 16 120/70 (87) 98 11/30/17 11:47 97.9 78 18 118/75 (89) 100 Physical Exam GENERAL: This is a well-nourished, well-developed patient, in no apparent distress. AAOX3. SKIN: No rashes, ecchymoses or lesions. Cool and dry. HEAD: Atraumatic. Normocephalic. No temporal or scalp tenderness. EYES: Pupils equal round and reactive. Extraocular motions intact. No scleral icterus. No injection or drainage. ENT: Nose with evidence of recent bleeding, bilateral Rhino Rocket. No purulent drainage or septal hematoma. Throat without erythema, tonsillar hypertrophy or exudate. Uvula midline. Airway patent. NECK: Trachea midline. No JVD or lymphadenopathy. Supple, nontender, no meningeal signs. CARDIOVASCULAR: Regular rate and rhythm without murmurs, gallops, or rubs. RESPIRATORY: Clear to auscultation. Breath sounds equal bilaterally. No wheezes , rales, or rhonchi. GASTROINTESTINAL: Abdomen soft, non-tender, nondistended. No hepato-splenomegaly , or palpable masses. No guarding. MUSCULOSKELETAL: Extremities without clubbing, cyanosis, or edema. No joint tenderness, effusion, or edema noted. No calf tenderness. Negative Homans sign bilaterally. NEUROLOGICAL: Awake and alert. Cranial nerves II through XII intact. Motor and sensory grossly within normal limits. Five out of 5 muscle strength in all muscle groups. Normal speech. Laboratory Laboratory Tests Test 11/30/17 13:45 White Blood Count 7.1 Red Blood Count 3.29 Hemoglobin 9.9 Hematocrit 29.6 Mean Corpuscular Volume 90.1 Mean Corpuscular Hemoglobin 30.2 Mean Corpuscular Hemoglobin Concent 33.6 Red Cell Distribution Width 13.9 Platelet Count 127 Mean Platelet Volume 9.1 Neutrophils (%) (Auto) 60.1 Lymphocytes (%) (Auto) 27.6 Monocytes (%) (Auto) 10.8 Eosinophils (%) (Auto) 0.9 Basophils (%) (Auto) 0.6 Neutrophils # (Auto) 4.3 Lymphocytes # (Auto) 2.0 Monocytes # (Auto) 0.8 Eosinophils # (Auto) 0.1 Basophils # (Auto) 0.0 CBC Comment DIFF FINAL Differential Comment Prothrombin Time 10.7 Prothromb Time International Ratio 1.1 Activated Partial Thromboplast Time 25.6 Fibrinogen 283 Blood Urea Nitrogen 15 Creatinine 1.08 Random Glucose 83 Total Protein 7.1 Albumin 2.8 Calcium Level 8.2 Alkaline Phosphatase 75 Aspartate Amino Transf (AST/SGOT) 63 Alanine Aminotransferase (ALT/SGPT) 64 Total Bilirubin 0.4 Sodium Level 136 Potassium Level 3.5 Chloride Level 101 Carbon Dioxide Level 25.9 Anion Gap 9 Estimat Glomerular Filtration Rate 72 Result Diagram: 11/30/17 1345 11/30/17 1345 Caprini VTE Risk Assessment Caprini VTE Risk Assessment: No/Low Risk (score <= 1) Caprini Risk Assessment Model Point Value = 1 Point Value = 2 Point Value = 3 Point Value = 5 Age 41-60 Minor surgery BMI > 25 kg/m2 Swollen legs Varicose veins or History of unexplained or recurrent spontaneous Oral contraceptives or hormone replacement Sepsis (< 1 month) Serious lung disease, including pneumonia (< 1 month) Abnormal pulmonary function Acute myocardial infarction Congestive heart failure (< 1 month) History of inflammatory bowel disease Medical patient at bed rest Age 61-74 Arthroscopic surgery Major open surgery (> 45 min) Laparoscopic surgery (> 45 min) Malignancy Confined to bed (> 72 hours) Immobilizing plaster cast Central venous access Age >= 75 History of VTE Family history of VTE Factor V Leiden Prothrombin [id number] Lupus anticoagulant Anticardiolipin antibodies Elevated serum homocysteine Heparin-induced thrombocytopenia Other congenital or acquired thrombophilia Stroke (< 1 month) Elective arthroplasty Hip, pelvis, or leg fracture Acute spinal cord injury (< 1 month) Prophylaxis Regimen Total Risk Factor Score Risk Level Prophylaxis Regimen 0-1 Low Early ambulation 2 Moderate Order ONE of the following: *Sequential Compression Device (SCD) *Heparin 5000 units SQ BID 3-4 Higher Order ONE of the following medications: *Heparin 5000 units SQ TID *Enoxaparin/Lovenox 40 mg SQ daily (WT < 150 kg, CrCl > 30 mL/min) *Enoxaparin/Lovenox 30 mg SQ daily (WT < 150 kg, CrCl > 10-29 mL/min) *Enoxaparin/Lovenox 30 mg SQ BID (WT < 150 kg, CrCl > 30 mL/min) AND/OR *Sequential Compression Device (SCD) 5 or more Highest Order ONE of the following medications: *Heparin 5000 units SQ TID (Preferred with Epidurals) *Enoxaparin/Lovenox 40 mg SQ daily (WT < 150 kg, CrCl > 30 mL/min) *Enoxaparin/Lovenox 30 mg SQ daily (WT < 150 kg, CrCl > 10-29 mL/min) *Enoxaparin/Lovenox 30 mg SQ BID (WT < 150 kg, CrCl > 30 mL/min) AND *Sequential Compression Device (SCD) Assessment and Plan Assessment and Plan //Uncontrolled epistaxis -Status post Rhino Rocket's bilaterally. Order Afrin. Consult ENT. Appreciate assistance. //Symptomatic anemia. Hemoglobin 9.9 from normal baseline. Likely secondary to epistaxis over 3 days. IV fluids continue to monitor. //History of cocaine use. //History of IV drug use = patient denies any recent use. //Tobacco abuse. Cessation counseling provided. //Thrombus cytopenia. Platelets 127. Mild. Likely secondary to chronic liver disease from drinking. //Chronic alcohol use 5 beers per day. Cessation counseling provided. Order CIWA protocol. Discussed Condition With Patient, nurse, ED physician Alok Diaz MD Nov 30, 2017 18:33
[2017-11-30] MEDS ORDERED: OXYMETAZOLINE HCL 0.05% 15 ML NASAL SPRAY NASAL SCH (21:00)
[2017-11-30] MEDS ORDERED: SODIUM CHLORIDE 0.9% FLUSH 10 ML FLUSH IV FLUSH SCH (21:00)
[2017-11-30] MEDS: SODIUM CHLOR 0.9% 1000 ML INJ 1,000 ML IV SCH (21:38)
[2017-12-01 03:26] VITALS: BP 114/70; PULSE 77; RESP 18; TEMP 99.7; O2SAT 99
[2017-12-01] MEDS: SODIUM CHLOR 0.9% 1000 ML INJ 1,000 ML IV SCH (05:49)
[2017-12-01 06:12] LABS: BASOPHIL % 0.8 % (0.0-2.0); EOSINOPHIL # 0.1 TH/MM3 (0-0.4); HEMATOCRIT 24.2 % (39.0-51.0); HEMOGLOBIN 8.3 GM/DL (13.0-17.0); LYMPH % 27.6 % (9.0-44.0); LYMPHOCYTE # 1.4 TH/MM3 (1.0-4.8); MEAN CELL VOLUME 88.9 FL (80.0-100.0); MEAN CORPUSCULAR HEMOGLOBIN 30.5 PG (27.0-34.0); MEAN CORPUSCULAR HGB CONC 34.3 % (32.0-36.0); MEAN PLATELET VOLUME 8.9 FL (7.0-11.0); MONO % 11.6 % (0.0-8.0); MONOCYTE # 0.6 TH/MM3 (0-0.9); PLATELET COUNT 114 TH/MM3 (150-450); RED BLOOD COUNT 2.72 MIL/MM3 (4.50-5.90); RED CELL DISTRIBUTION WIDTH 14.2 % (11.6-17.2)
[2017-12-01 06:41] LABS: ALBUMIN 2.5 GM/DL (3.4-5.0); AST (GOT) 55 U/L (15-37); BICARBONATE 23.7 MEQ/L (21.0-32.0); BLOOD UREA NITROGEN 15 MG/DL (7-18); CALCIUM 8.2 MG/DL (8.5-10.1); CHLORIDE 109 MEQ/L (98-107); CREATININE 0.86 MG/DL (0.60-1.30); GLOMERULAR FILTRATION RATE 94 ML/MIN (>89); GLUCOSE,RANDOM 97 MG/DL (74-106); SODIUM (NA) 140 MEQ/L (136-145)
[2017-12-01 06:52] LABS: ALKALINE PHOSPHATASE 66 U/L (45-117); ALT (GPT) 53 U/L (12-78); TOTAL BILIRUBIN ADULT 0.4 MG/DL (0.2-1.0); TOTAL PROTEIN 6.2 GM/DL (6.4-8.2)
[2017-12-01 07:37] VITALS: BP 149/76; PULSE 79; RESP 18; TEMP 99.7; O2SAT 98
--- NOTE | 2017-12-01 08:23 | HHI.DCPOC ---
Discharge Care Plan Diagnosis: (1) Epistaxis (2) Anemia Goals to Promote Your Health * To prevent worsening of your condition and complications * To maintain your health at the optimal level Directions to Meet Your Goals Take your medications as prescribed Follow your dietary instruction Follow activity as directed Keep your appointments as scheduled Take your immunizations and boosters as scheduled If your symptoms worsen call your PCP, if no PCP go to Urgent Care Center or Emergency Room Smoking is Dangerous to Your Health. Avoid second hand smoke Call the 24-hour hour crisis hotline for domestic abuse at Margie Gardner PA-C Dec 01, 2017 08:23
[2017-12-01] MEDS ORDERED: FERR325T18 PO (08:24)
--- NOTE | 2017-12-01 08:35 | MB ---
cc: Art Nash MD DATE: CHIEF COMPLAINT: Epistaxis. HISTORY OF PRESENT ILLNESS: This is a 52-year-old male with a significant IV drug use history, as well as cocaine use. He shoots up his cocaine. He has had a 3-day history of epistaxis uncontrolled. The patient reports that he has not used cocaine recently. He comes into the emergency room reporting just feeling a little lethargic over the last couple of days, as well as a nosebleed that has been lasting for approximately 3-4 days. The patient currently has a Rhino Rocket in place in the right nostril and has some blood clots that he has spit out; however, he has no active bleeding out of his nose. PAST MEDICAL HISTORY: Significant for the IV drug use, as well as history of cocaine use. He denies any surgical history. Denies any home medications. HE REPORTS AN ALLERGY TO PENICILLIN. SOCIAL HISTORY: Smokes 1 pack a day tobacco for many years. Drinks more than 5 beers a day and has a history of IV drug use and cocaine use. He does tell me at bedside he has been clean for almost a year from the IV cocaine use. PHYSICAL EXAMINATION: HEENT: The right nostril has a Rhino Rocket in place. It is inflated. Left nostril has nothing in place with some blood-stained mucus. Nasal endoscopy performed through the left nostril shows left nostril to have some abrasion to it, likely from the previous left Rhino Rocket. The nasopharynx had some clot to it but no active bright red blood and some blood-tinged mucus. The oropharynx shows some blood-tinged mucus. There is no active bright red blood. NECK: Soft to palpation. No masses, no lesions. HEART: Regular rate and rhythm. LUNGS: Clear to auscultation. ASSESSMENT AND PLAN: The patient with a Rhino Rocket in place for persistent epistaxis. There is no active bleeding. Recommend leaving the Rhino Rocket in place for 72 hours. At that time, he will need to be evaluated again to have it removed. The patient may be discharged with this in place if he is going to be compliant. He would he would need to be on antibiotics while the Rhino Rocket is in place. However, due to his hemoglobin of 9.9, I will defer to his primary physician whether he would want to continue to watch him in the hospital while the Rhino Rocket is in place prior to discharge. Should he stay in the hospital, I will personally remove the Rhino Rocket in 72 hours, which would be Wednesday. If the patient is discharged, he can follow up in my clinic for the removal or return back to the emergency room for an ER physician to remove. Thank you for this consultation. Art Nash MD ATT/MAYRA , 08:13 AM , 08:33 AM
--- NOTE | 2017-12-01 09:47 | HHI.DS ---
Discharge Summary Admission Date Nov 30, 2017 at 16:13 Discharge Date: Dec 03, 2017 Admitting Diagnosis anemia, epistaxis (1) Epistaxis ICD Code: R04.0 - Epistaxis Procedures none Brief History - From Admission 32-year-old male with a history of IV drug use, cocaine use who presents with a 3 day history of uncontrolled epistaxis. He denies any injuries. Denies any recent cocaine use. Denies any fevers, chills, headache, chest pain. He does report fatigue over the past several days. Does report lightheadedness today upon standing. Did not pass out. CBC/BMP: 12/01/17 0550 12/01/17 0550 Significant Findings Laboratory Tests Test 11/30/17 13:45 12/01/17 05:50 Red Blood Count 3.29 MIL/MM3 (4.50-5.90) 2.72 MIL/MM3 (4.50-5.90) Hemoglobin 9.9 GM/DL (13.0-17.0) 8.3 GM/DL (13.0-17.0) Hematocrit 29.6 % (39.0-51.0) 24.2 % (39.0-51.0) Platelet Count 127 TH/MM3 (150-450) 114 TH/MM3 (150-450) Monocytes (%) (Auto) 10.8 % (0.0-8.0) 11.6 % (0.0-8.0) Albumin 2.8 GM/DL (3.4-5.0) 2.5 GM/DL (3.4-5.0) Calcium Level 8.2 MG/DL (8.5-10.1) 8.2 MG/DL (8.5-10.1) Aspartate Amino Transf (AST/SGOT) 63 U/L (15-37) 55 U/L (15-37) Estimat Glomerular Filtration Rate 72 ML/MIN (>89) Total Protein 6.2 GM/DL (6.4-8.2) Chloride Level 109 MEQ/L (98-107) PE at Discharge GENERAL: This is a well-nourished, well-developed patient, in no apparent distress. AAOX3. CARDIOVASCULAR: Regular rate and rhythm without murmurs, gallops, or rubs. RESPIRATORY: Clear to auscultation. Breath sounds equal bilaterally. No wheezes , rales, or rhonchi. GASTROINTESTINAL: Abdomen soft, non-tender, nondistended. No hepato-splenomegaly , or palpable masses. No guarding. MUSCULOSKELETAL: Extremities without clubbing, cyanosis, or edema. No joint tenderness, effusion, or edema noted. No calf tenderness. Negative Homans sign bilaterally. NEUROLOGICAL: Awake and alert. Cranial nerves II through XII intact. Motor and sensory grossly within normal limits. Five out of 5 muscle strength in all muscle groups. Normal speech. Pt update on day of discharge no more bleeding. No n/v/d/c. no fever or chills. Appears in nad However got upset when I told him is cleared by ENT for DC. Hospital Course Uncontrolled epistaxis Status post Rhino Rocket's bilaterally. Order Afrin. Consult ENT. Appreciate assistance. Symptomatic anemia. Hemoglobin 9.9 from normal baseline. Likely secondary to epistaxis over 3 days. IV fluids continue to monitor. History of cocaine use. History of IV drug use patient denies any recent use. Tobacco abuse. Cessation counseling provided. Thrombus cytopenia. Platelets 127. Mild. Likely secondary to chronic liver disease from drinking. Chronic alcohol use 5 beers per day. Cessation counseling provided. Order CIWA protocol. Discussed Condition With Patient, nurse Patient improved, H/H is stable. Start ferrous sulfate PO. No more bleeding. cleared by ENT for DC. Patient is telling me he doesn.t want to be discharged and says he will come back to the ER Pt Condition on Discharge: Stable Discharge Disposition: Discharge Home Discharge Time: > 30 minutes Discharge Instructions DIET: Follow Instructions for: As Tolerated, No Restrictions Activities you can perform: Regular-No Restrictions Other Activity Instructions: Avoid all drugs, including cocaine. Follow up Referrals: Ear Nose Throat - 2-3 Days with Art Nash MD New Medications: Ferrous Sulfate (Ferrous Sulfate) 325 Mg (65 Mg Iron) Tablet 325 MG PO BIDPC for Nutritional Supplement, #60 TAB 0 Refills Radha Awad MD Dec 01, 2017 09:47
== END 2017-12-01 10:11 | disposition home or self-care (01) ==
LOC: NED 10:41 → NEDA 16:13 → NEPFCDU 19:33
PROVIDERS: ADMIT Hospitalist; ATTEND Hospitalist
DX: R04.0 Epistaxis (principal); D64.9 Anemia, unspecified; K76.9 Liver disease, unspecified; B19.20 Unspecified viral hepatitis C without hepatic coma; M54.9 Dorsalgia, unspecified; G89.29 Other chronic pain; F17.200 Nicotine dependence, unspecified, uncomplicated; F14.90 Cocaine use, unspecified, uncomplicated
CPT/HCPCS: 80053; 85025; 85384; 85610; 85730; 96360; 99285; G0378; J7030

== ENCOUNTER 2017-12-07 14:48 | Emergency (ER) | payer SELFPAY ==
[~2017-12-07] VITALS: Ht 168.9 cm; Wt 68.2 kg
[~2017-12-07 14:48] MED LIST changes: -BACT800T5 PO; +FERR325T18 PO; -NAPR-810 PO
[2017-12-07 14:53] VITALS: BP 101/50; PULSE 96; RESP 20; TEMP 98.4; O2SAT 97
[2017-12-07] MEDS ORDERED: CLIN300C5 PO (15:12)
[2017-12-07 15:24] VITALS: BP 97/58; PULSE 90; RESP 16; O2SAT 98
--- NOTE | 2017-12-07 15:45 | PD ---
HPI Chief Complaint: Oral / Dental Pain or Problem Time Seen by Provider: 15:04 Travel History International Travel<30 days: No Contact w/Intl Traveler<30days: No Traveled to known affect area: No History of Present Illness HPI 52-year-old male with history of hepatitis C, seizures, alcoholism presents to the emergency room for evaluation of bilateral lower dental pain for the past 2- 3 days. Patient states pain came on gradually and has progressively worsened. He has not taken anything for symptoms. States he poked his upper outer gumline with a hot needle yesterday and expressed significant purulent, foul- smelling, foul tasting discharge. Patient reports feeling nauseous throughout the night last night. No objective fevers. He does not have a dentist. PFSH Past Medical History Hx Anticoagulant Therapy: No Arthritis: Yes Cancer: No Cardiovascular Problems: No Chemotherapy: No Cerebrovascular Accident: No Diabetes: No Diminished Hearing: No Endocrine: No Genitourinary: No Hepatitis: Yes (HEP C) Immune Disorder: No Musculoskeletal: Yes Neurologic: Yes Psychiatric: No Reproductive: No Respiratory: No Migraines: Yes Seizures: Yes Past Surgical History Abdominal Surgery: No Cardiac Surgery: No Ear Surgery: No Endocrine Surgery: No Eye Surgery: No Genitourinary Surgery: No Gynecologic Surgery: No Oral Surgery: No Thoracic Surgery: No Social History Alcohol Use: Yes (2-3 vodka or whiskey drinks per day) Tobacco Use: Yes (1 PPD) Substance Use: Yes (1 weekly dilaudid pill crushed and injected. ) Allergies-Medications (Allergen,Severity, Reaction): Coded Allergies: penicillin G (Unverified Allergy, Unknown, UNKNOWN, 12/07/17) Reported Meds & Prescriptions Reported Meds & Active Scripts Active Naprosyn (Naproxen) 500 Mg Tab 500 Mg PO BID Clindamycin (Clindamycin HCl) 300 Mg Cap 300 Mg PO Q6H 7 Days Ferrous Sulfate 325 Mg (65 Mg Iron) Tablet 325 Mg PO BIDPC Review of Systems Except as stated in HPI: all other systems reviewed are Neg Physical Exam Narrative GENERAL: Well-nourished, well-developed male in no acute distress. Afebrile. Ambulatory SKIN: Focused skin assessment warm/dry. HEAD: Normocephalic. EYES: No scleral icterus. No injection or drainage. NECK: Supple, trachea midline. No JVD or lymphadenopathy. DENTAL: Significant/severe decay throughout. Significant tenderness to palpation of the right lower gumline. No obvious abscess. No obvious drainage. CARDIOVASCULAR: Regular rate and rhythm without murmurs, gallops, or rubs. RESPIRATORY: Breath sounds equal bilaterally. No accessory muscle use. Data Data Last Documented VS Vital Signs Date Time Temp Pulse Resp B/P (MAP) Pulse Ox O2 Delivery O2 Flow Rate FiO2 12/07/17 15:55 12/07/17 15:24 90 16 98 Room Air 12/07/17 14:53 98.4 Orders Orders Ed Discharge Order (12/07/17 15:45) Naproxen (Naprosyn) (12/07/17 16:00) [facility] Medical Decision Making Medical Screen Exam Complete: Yes Emergency Medical Condition: Yes Medical Record Reviewed: Yes Differential Diagnosis Dental abscess, gingivitis, poor dental hygiene Narrative Course 52-year-old male presents to the emergency room for evaluation of bilateral lower dental pain and swelling for the past 3 days. Physical exam is reassuring. Vital signs stable. Patient is restless. Significant/severe decay throughout. Significant tenderness to palpation and erythema of the right lower gumline. No obvious abscess. No obvious drainage. No evidence of Lucio's angina. Patient will be treated with clindamycin. Told to follow-up with a dentist return for worsening symptoms. He understands and agrees to plan. Diagnosis Primary Impression: Dental abscess Referrals: Primary Care Physician Additional Instructions: Rest and drink plenty of fluids. [place] your teeth twice daily. Clindamycin as directed, until gone. Follow-up with a dentist. Return to the emergency room for worsening symptoms. Med/Other Pt SpecificInfo: Prescription(s) given Scripts Naproxen (Naprosyn) 500 Mg Tab 500 MG PO BID, #20 TAB 0 Refills Prov: Fahad Richardson MD 12/07/17 Clindamycin (Clindamycin) 300 Mg Cap 300 MG PO Q6H for Infection for 7 Days, #28 CAP 0 Refills Prov: Fahad Richardson MD 12/07/17 Disposition: 01 DISCHARGE HOME Condition: Stable Amber Barbosa Dec 07, 2017 15:45
[2017-12-07] MEDS ORDERED: NAPR500 PO (15:55)
[2017-12-07] MEDS ORDERED: NAPROXEN 500 MG TAB PO ONE (16:00)
== END 2017-12-07 16:15 | disposition home or self-care (01) ==
LOC: NEPK 14:48
DX: K04.7 Periapical abscess without sinus (principal); R11.0 Nausea; R56.9 Unspecified convulsions; M19.90 Unspecified osteoarthritis, unspecified site; F17.200 Nicotine dependence, unspecified, uncomplicated; Z88.0 Allergy status to penicillin; Z86.19 Personal history of other infectious and parasitic diseases; Z79.899 Other long term (current) drug therapy
CPT/HCPCS: 99283

== ENCOUNTER 2017-12-11 07:22 | Inpatient (IN) | payer SELFPAY ==
[2017-12-11] VITALS (25 sets, daily range): BP systolic 102–127; BP diastolic 58–87; PULSE 80–110; RESP 18–21; TEMP 98–99.8; O2SAT 97–100
[~2017-12-11] VITALS: Ht 167.6 cm; Wt 69.1 kg
[~2017-12-11 07:22] MED LIST changes: +CLIN300C5 PO; +NAPR500 PO
[2017-12-11] MEDS ORDERED: ASPIRIN 81 MG CHEW TAB PO ONE (07:45)
[2017-12-11] MEDS ORDERED: SODIUM CHLORIDE 0.9% FLUSH 10 ML FLUSH IVF PRN (07:45)
[2017-12-11] MEDS ORDERED: ALUMINUM/MAGNESIUM/SIMETH 30 ML CUP PO ONE (07:45)
[2017-12-11] MEDS ORDERED: LIDOCAINE VISCOUS 2% SOLN 15 ML UDC PO ONE (07:45)
[2017-12-11] MEDS ORDERED: NITROGLYCERIN-D5W 50 MG/250 ML 250 ML ONE (08:10)
[2017-12-11] MEDS ORDERED: NITROGLYCERIN 2% OINT 1 GM PACKET TOPICAL ONE (08:15)
[2017-12-11 08:22] LABS: AUTOMATED NEUTROPHIL # 7.7 TH/MM3 (1.8-7.7); BASOPHIL % 0.3 % (0.0-2.0); HEMATOCRIT 22.3 % (39.0-51.0); HEMOGLOBIN 7.5 GM/DL (13.0-17.0); LYMPH % 14.5 % (9.0-44.0); LYMPHOCYTE # 1.4 TH/MM3 (1.0-4.8); MEAN CELL VOLUME 90.2 FL (80.0-100.0); MEAN CORPUSCULAR HEMOGLOBIN 30.2 PG (27.0-34.0); MEAN CORPUSCULAR HGB CONC 33.5 % (32.0-36.0); MEAN PLATELET VOLUME 8.2 FL (7.0-11.0); MONO % 7.7 % (0.0-8.0); MONOCYTE # 0.8 TH/MM3 (0-0.9); NEUT % 77.5 % (16.0-70.0); PLATELET COUNT 192 TH/MM3 (150-450); RED BLOOD COUNT 2.47 MIL/MM3 (4.50-5.90); RED CELL DISTRIBUTION WIDTH 15.5 % (11.6-17.2); WHITE BLOOD COUNT 9.9 TH/MM3 (4.0-11.0)
[2017-12-11] MEDS ORDERED: HEPARIN SODIUM - IV 10,000 UNITS/10 ML VIAL IV PUSH ONE (08:30)
[2017-12-11] MEDS ORDERED: MORPHINE SULFATE 4 MG/ML INJ IV PUSH ONE (08:30)
[2017-12-11] MEDS ORDERED: HEPARIN-D5W 25,000 U/250 ML 250 ML IV PRN (08:30)
[2017-12-11] MEDS ORDERED: NITROGLYCERIN-D5W 50 MG/250 ML 250 ML IV ONE (08:30)
[2017-12-11] MEDS ORDERED: ONDANSETRON HCL 4 MG/2 ML VIAL IV PUSH ONE (08:30)
--- NOTE | 2017-12-11 08:31 | PD ---
HPI . Chest pain Chief Complaint: STEMI Alert Time Seen by Provider: 07:37 Travel History International Travel<30 days: No Contact w/Intl Traveler<30days: No Traveled to known affect area: No History of Present Illness HPI This patient presents with chief complaint of chest pain. Onset was 2 days ago. He states his pain started after he started taking clindamycin for a toothache. His chest pain is associated with shortness of breath. The pain is rated 8/10. He reports a cough productive of yellow sputum. The patient denies any chronic medical problems. His only medicine is clindamycin. He has no known drug allergies. He denies substance abuse. He admits to smoking and alcohol use. PFSH Past Medical History Hx Anticoagulant Therapy: No Arthritis: Yes Cancer: No Cardiovascular Problems: No Chemotherapy: No Cerebrovascular Accident: No Diabetes: No Diminished Hearing: No Endocrine: No Genitourinary: No Headaches: Yes Hepatitis: Yes (HEP C) Immune Disorder: No Musculoskeletal: Yes Neurologic: Yes Psychiatric: No Reproductive: No Respiratory: No Migraines: Yes Seizures: Yes Tetanus Vaccination: < 5 Years Past Surgical History Surgical History: No Previous Surgery Other Surgery: Yes Social History Alcohol Use: Yes (2-3 vodka or whiskey drinks per day) Tobacco Use: Yes (1 PPD) Substance Use: Yes (1 weekly dilaudid pill crushed and injected. ) Allergies-Medications (Allergen,Severity, Reaction): Coded Allergies: penicillin G (Unverified Allergy, Unknown, UNKNOWN, 12/07/17) Reported Meds & Prescriptions Reported Meds & Active Scripts Active Clindamycin (Clindamycin HCl) 300 Mg Cap 300 Mg PO Q6H 7 Days Review of Systems Except as stated in HPI: all other systems reviewed are Neg Cardiovascular: Positive: Chest Pain or Discomfort Respiratory: Positive: Cough, Shortness of Breath Physical Exam Narrative Vital Signs Date Time Temp Pulse Resp B/P (MAP) Pulse Ox O2 Delivery O2 Flow Rate FiO2 12/11/17 08:19 100 Nasal Cannula 2.00 12/11/17 08:17 110 20 100 Nasal Cannula 2.00 12/11/17 08:15 100 2.00 12/11/17 07:33 106 20 118/84 (95) 100 Nasal Cannula 2.00 12/11/17 07:33 107 18 100 Nasal Cannula 2.00 12/11/17 07:24 99.8 109 18 127/80 (96) 98 GENERAL: Patient looks pretty comfortable. SKIN: warm/dry. Multiple tattoos. HEAD: Normocephalic. Atraumatic. EYES: Pupils equal and round. No scleral icterus. No injection or drainage. ENT: No nasal bleeding or discharge. Mucous membranes pink and moist. NECK: Trachea midline. Full range of motion without pain.. CARDIOVASCULAR: Regular rate and rhythm. Heart sounds are normal. RESPIRATORY: No accessory muscle use. Coarse expiratory wheezing.. Breath sounds equal bilaterally. MUSCULOSKELETAL: No obvious deformities. NEUROLOGICAL: Awake and alert. No obvious cranial nerve deficits. Motor grossly within normal limits. Normal speech. PSYCHIATRIC: Appropriate mood and affect; insight and judgment normal. Data Data Last Documented VS Vital Signs Date Time Temp Pulse Resp B/P (MAP) Pulse Ox O2 Delivery O2 Flow Rate FiO2 12/11/17 09:43 99 119/74 12/11/17 08:19 100 Nasal Cannula 2.00 12/11/17 08:17 20 12/11/17 07:24 99.8 Orders Orders Electrocardiogram (12/11/17 07:39) Basic Metabolic Panel (Bmp) (12/11/17 07:39) Complete Blood Count With Diff (12/11/17 07:39) Magnesium (Mg) (12/11/17 07:39) Troponin I (12/11/17 07:39) Ecg Monitoring (12/11/17 07:39) Iv Access Insert/Monitor (12/11/17 07:39) Oximetry (12/11/17 07:39) Aspirin Chew (Aspirin Chew) (12/11/17 07:45) Sodium Chloride 0.9% Flush (Ns Flush) (12/11/17 07:45) Chest, Pa & Lat (12/11/17 07:39) Al-Mag Hy-Si 40-40-4 Mg/Ml Liq (Mag-Al P (12/11/17 07:45) Lidocaine 2% Viscous (Xylocaine 2% Visco (12/11/17 07:45) Nitroglycerin 2% Oint (Nitroglycerin 2% (12/11/17 08:15) Nitroglycerin-D5w 50 Mg/250 Ml (Nitrogly (12/11/17 08:10) I-Stat Profile (12/11/17 08:13) Nitroglycerin-D5w 50 Mg/250 Ml (Nitrogly (12/11/17 08:30) Heparin Inj (Heparin Inj) (12/11/17 08:30) Heparin Inj (Heparin Inj) (12/11/17 14:30) Heparin Inj (Heparin Inj) (12/11/17 14:30) Heparin-D5w 25,000 U/250 Ml (Heparin-D5w (12/11/17 08:30) Act Partial Throm Time (Ptt) (12/11/17 08:27) Prothrombin Time / Inr (Pt) (12/11/17 08:27) Cbc No Diff, Includes Plts (12/11/17 08:27) Cbc No Diff, Includes Plts (12/14/17 06:00) Act Partial Throm Time (Ptt) (12/11/17 15:27) Occult Blood (Hemoccult) Stool (12/11/17 08:27) Ondansetron Inj (Zofran Inj) (12/11/17 08:30) Morphine Inj (Morphine Inj) (12/11/17 08:30) Echo 2d Comp With Doppler (12/11/17 ) Drug Screen, Random Urine (12/11/17 08:37) Sodium Chlor 0.9% 1000 Ml Inj (Ns 1000 M (12/11/17 09:15) Red Blood Cells (Rbc) (12/11/17 09:06) Blood Product Administration (12/11/17 09:06) Sodium Chlor 0.9% 250 Ml Inj (Ns 250 Ml (12/11/17 09:15) Type And Screen (12/11/17 09:06) Magnesium Sulfate 1 Gm Premix (Magnesium (12/11/17 10:00) Cardiac Catheterization (12/11/17 ) Admit Order (Ed Use Only) (12/11/17 ) Radio Aerial Installer / Telemetry CORNELIUS.Q8H (12/11/17 10:02) Vital Signs (Adult) Q4H (12/11/17 10:02) Diet Heart Healthy (12/11/17 Lunch) Activity Oob With Assistance (12/11/17 10:02) Notify Dr: Other (12/11/17 10:02) Midazolam Inj (Versed Inj) (12/11/17 10:06) Labs Laboratory Tests Test 12/11/17 08:00 12/11/17 08:05 12/11/17 08:13 12/11/17 08:32 Urine Opiates Screen POS Urine Barbiturates Screen NEG Urine Amphetamines Screen NEG Urine Benzodiazepines Screen NEG Urine Cocaine Screen NEG Urine Cannabinoids Screen NEG White Blood Count 9.9 TH/MM3 10.2 TH/MM3 Red Blood Count 2.47 MIL/MM3 2.50 MIL/MM3 Hemoglobin 7.5 GM/DL 7.6 GM/DL Hematocrit 22.3 % 22.7 % Mean Corpuscular Volume 90.2 FL 91.0 FL Mean Corpuscular Hemoglobin 30.2 PG 30.2 PG Mean Corpuscular Hemoglobin Concent 33.5 % 33.3 % Red Cell Distribution Width 15.5 % 15.5 % Platelet Count 192 TH/MM3 191 TH/MM3 Mean Platelet Volume 8.2 FL 8.6 FL Neutrophils (%) (Auto) 77.5 % Lymphocytes (%) (Auto) 14.5 % Monocytes (%) (Auto) 7.7 % Eosinophils (%) (Auto) 0.0 % Basophils (%) (Auto) 0.3 % Neutrophils # (Auto) 7.7 TH/MM3 Lymphocytes # (Auto) 1.4 TH/MM3 Monocytes # (Auto) 0.8 TH/MM3 Eosinophils # (Auto) 0.0 TH/MM3 Basophils # (Auto) 0.0 TH/MM3 CBC Comment DIFF FINAL Differential Comment Blood Urea Nitrogen 20 MG/DL Creatinine 1.38 MG/DL Random Glucose 134 MG/DL Calcium Level 8.1 MG/DL Magnesium Level 1.4 MG/DL Sodium Level 132 MEQ/L Potassium Level 3.3 MEQ/L Chloride Level 102 MEQ/L Carbon Dioxide Level 20.6 MEQ/L Anion Gap 9 MEQ/L Estimat Glomerular Filtration Rate 54 ML/MIN Troponin I 3.13 NG/ML Bedside Hemoglobin 8.5 G/DL Bedside Hematocrit 25.0 % Bedside Sodium 130 MMOL/L Bedside Potassium 4.8 MMOL/L Bedside Chloride 99 MMOL/L Bedside Blood Urea Nitrogen 25 MG/DL Bedside Creatinine 1.4 MG/DL Bedside Glucose 125 MG/DL Prothrombin Time 12.6 SEC Prothromb Time International Ratio 1.2 RATIO Activated Partial Thromboplast Time 28.6 SEC MDM Medical Decision Making Medical Screen Exam Complete: Yes Emergency Medical Condition: Yes Medical Record Reviewed: Yes (Patient's previous EKG was normal.) Interpretation(s) EKG shows a sinus rhythm with a rate of 103. He has some minor ST segment elevation in V1 through V3 with ST segment depression in V4 through V6. Differential Diagnosis Differential diagnosis of chest pain includes but is not limited to musculoskeletal pain, pulmonary embolism, acute coronary syndrome, pneumonia, pleurisy Narrative Course This patient presents with chest pain and shortness of breath. Onset of symptoms was 2 days. It is associated with a cough productive of yellow sputum and his exam shows coarse expiratory wheezing. A chest pain workup was initiated. The patient's EKG is different today from previous. He has some minor ST segment elevation in V1 through V3 with ST segment depression in V4 through V6. Based upon these findings, a STEMI alert was called. Dr. Fitch is here seeing the patient. CBC Diagram 12/11/17 08:05 12/11/17 08:32 BMP Diagram 12/11/17 08:05 Calcium Level 8.1 L, Magnesium Level 1.4 L trop 3.13 Tox screen is positive for opiates Critical Care Narrative Aggregate critical care time was 60 minutes. Time to perform other separately billable procedures was not included in the critical care time. My time did not include minutes spent treating any other patients simultaneously or on activities that did not directly contribute to the patient's treatment. The services I provided to this patient were to treat and/or prevent clinically significant deterioration due to STEMI I provided critical care services requiring my management, as noted below: Chart data review, documentation time, medication orders and management, vital sign assessments/reviewing monitor data, ordering and reviewing lab tests, ordering and interpreting/reviewing x-rays and diagnostic studies, care of the patient and discussion of the patient with the admitting physicians Diagnosis Primary Impression: STEMI (ST elevation myocardial infarction) Qualified Codes: I21.3 - ST elevation (STEMI) myocardial infarction of unspecified site Admitting Information Admitting Physician Requests: Admit Condition: Ting Miller MD Dec 11, 2017 08:31
[2017-12-11 08:38] LABS: BICARBONATE 20.6 MEQ/L (21.0-32.0); CALCIUM 8.1 MG/DL (8.5-10.1); CREATININE 1.38 MG/DL (0.60-1.30); MAGNESIUM 1.4 MG/DL (1.5-2.5)
[2017-12-11 08:53] LABS: HEMATOCRIT 22.7 % (39.0-51.0); HEMOGLOBIN 7.6 GM/DL (13.0-17.0); MEAN CORPUSCULAR HEMOGLOBIN 30.2 PG (27.0-34.0); MEAN CORPUSCULAR HGB CONC 33.3 % (32.0-36.0); MEAN PLATELET VOLUME 8.6 FL (7.0-11.0); PLATELET COUNT 191 TH/MM3 (150-450); RED CELL DISTRIBUTION WIDTH 15.5 % (11.6-17.2); WHITE BLOOD COUNT 10.2 TH/MM3 (4.0-11.0)
[2017-12-11 08:55] LABS: TROPONIN I 3.13 NG/ML (0.02-0.05)
[2017-12-11 09:02] LABS: INTERNATIONAL NORMALIZED RATIO 1.2 RATIO; PROTHROMBIN TIME - PATIENT 12.6 SEC (9.8-11.6)
--- NOTE | 2017-12-11 09:14 | MB ---
cc: Joesph Fitch MD DATE: 12/11/2017 REASON FOR CONSULTATION: Evaluation of chest pain. HISTORY OF PRESENT ILLNESS: Jean Carlos Byrne is a 52-year-old man admitted to the hospital with chest pain. The patient has been to the ER several times. He has a history of intravenous drug use. He tested positive for cocaine 10/13/2017. He says he started taking clindamycin 300 mg every 6 hours 4 days ago for an infected tooth. He states he also had a previous infection on his leg that had to be lanced. He is describing chest pain for the past 2 days. It is a throbbing discomfort, worse when he takes a deep breath. He has had multiple episodes of vomiting for the past 2 days. He has chronic shortness of breath. No orthopnea or PND. He does not have a primary care physician. He smokes a pack a day. There is a mention of alcoholism in the chart; he says he drinks 4 beers a day. The pain has a significant pleuritic quality. His chest x-ray currently is abnormal. He describes having panic attacks as well. He has pain in his chest; however, even when he is not taking a deep breath. PAST MEDICAL HISTORY: Includes IV drug use, hepatitis C, and previous epistaxis. PAST SURGICAL HISTORY: Denies. SOCIAL HISTORY: He says he quit using drugs 5 years ago, but his tox screen 10/13/2017 was positive for cocaine, so that is not accurate. He smokes and drinks as described. 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 He is unmarried. REVIEW OF SYSTEMS: Denies any bleeding. PHYSICAL EXAMINATION: GENERAL: Reveals a somewhat thin, well-developed white male, does not appear to be in acute distress. His skin is warm. His temperature is mildly elevated. SKIN: Notable for multiple tattoos including tattoos on his face. HEENT: Unremarkable. NECK: No JVD. No carotid bruits. CHEST: Shows a few rhonchi. HEART: S1, S2. Regular rate and rhythm. I can hear a I/ systolic murmur by the apex. ABDOMEN: Soft. EXTREMITIES: Reveal intact pulses. No clubbing, cyanosis or edema. DIAGNOSTIC STUDIES: EKG shows sinus rhythm with an LVH, LV strain type pattern. The LV strain type pattern, i.e., the ST depression downsloping and the T-wave inversions are new from his EKG in September. Laboratories are in the process of being done. So far we have a creatinine back at 1.38, which is up from 0.86 ten days ago. Potassium is low at 3.3. Magnesium is low at 1.4. Troponin is not yet back. Hematocrit is 25; it was only 22.3 confirmed by lab. This is down significantly from September when his hematocrit was 38.1. Chest x-ray has been completed. It has not been formally read by radiology, but appears abnormal. IMPRESSION: Chest pain that is pleuritic. He has significant anemia. He has a soft murmur. He has a new strain pattern on his EKG. The pain is pleuritic. This is not a ST-elevation myocardial infarction. I am concerned about endocarditis. Etiology of his anemia is not clear and he appears borderline febrile. PLAN: Right at this point is to get a stat echo, awaiting additional labs. Further therapy to be determined. ADDENDUM: I confronted the patient with his drug use, since he tested positive for cocaine in September and he told me he has not used in 5 years. He says he has not used IV drugs, but that the cocaine he used in September was just a one-time thing. Laboratories have come back and are severely abnormal. Sodium is 130. Creatinine is 1.4 and it was normal previously. The troponin is elevated at 3.13. Magnesium level is low at 1.4. His hematocrit is only 22.7. Platelet count is normal. White count is 10,200. A stat echo showing impaired LV function with an akinetic anterior wall and apex. PLAN: I am giving the patient aggressive hydration. I am going ahead with a heart catheterization this morning, recognizing markedly elevated risks. The cause of the anemia has not been determined. Informed consent has been obtained from the patient. MD JEN Calderón/ONEAL , 08:48 AM , 09:13 AM
[2017-12-11] MEDS ORDERED: SODIUM CHLOR 0.9% 250 ML INJ 250 ML IV ONE (09:15)
[2017-12-11] MEDS ORDERED: SODIUM CHLOR 0.9% 1000 ML INJ 1,000 ML IV ONE (09:15)
--- NOTE | 2017-12-11 09:18 | RADRPT ---
EXAM DATE/TIME: 12/11/2017 07:54 [facility] COMPARISON: CHEST SINGLE AP, October 13, 2017, 0:34. INDICATIONS : Chest pain for 3 days MEDICAL HISTORY : None. SURGICAL HISTORY : None. ENCOUNTER: Initial ACUITY: 3 days PAIN SCORE: 10/10 LOCATION: Bilateral chest FINDINGS: PA and lateral views of the chest demonstrate the lungs to be symmetrically aerated without evidence of mass, infiltrate or effusion. The cardiomediastinal contours are unremarkable. Osseous structure s are intact. CONCLUSION: No acute disease. Nolberto Gentile MD on December 11, 2017 at 9:15 Board Certified Radiologist. This report was verified electronically.
[2017-12-11] MEDS ORDERED: IOHEXOL 350 MG/ML 100 ML BTL (for Cath Lab) OTHER ONE (10:00)
[2017-12-11] MEDS ORDERED: MIDAZOLAM HCL 5 MG/5 ML VIAL ONE (10:06)
[2017-12-11] MEDS ORDERED: diphenhydrAMINE HCL 50 MG/ML VIAL ONE (10:11)
[2017-12-11] MEDS ORDERED: methylPREDNISolone SOD SUCC 125 MG/2 ML VIAL ONE (10:11)
[2017-12-11] MEDS ORDERED: HEPARIN-NS/PF FLUSH BAG 1,000 ML IV FLUSH ONE (10:16)
[2017-12-11] MEDS ORDERED: BIVALIRUDIN 250 MG VIAL ONE (10:32)
[2017-12-11] MEDS ORDERED: CLOPIDOGREL 300 MG TAB ONE (10:47)
[2017-12-11] MEDS ORDERED: SODIUM CHLOR 0.9% 1000 ML INJ 1,000 ML IV SCH (11:01)
--- NOTE | 2017-12-11 11:01 | CATHPROC ---
[facility] Observer HIS Report Study Information Study Number Admission Scheduled Start Study Start [id number] Dec 11 2017 7:22AM 12/11/2017 Dec 11 2017 9:54AM [facility] Cardiac Catheterization Admit Source Facility Department Emergency department [facility] - Deli Manager Physician and Clinical Staff Initial Joesph Wolfe Case Hardener Christiano Ackerman RN Case Hardener Michelle Marcial Recorder Janki Gautam,RT(R) (BS) Scrub Max Rivera RCIS(BS) Procedures Performed Procedure Location (Site) Vessel Name Coronary Angiograms LCA Left Coronary Coronary Angiograms RCA Right Coronary L Heart Cath PTCA ADD ON'S Stent LAD Prox Left Coronary Wire insertion Fem Art (right) Femoral Art Equipment Time Ui Lead Developer Description Size Mfg Part Number Used/Scraped WIRE, BALANCE MIDDLEWEIGHT [id number] 10:32 [employer] 190CM Used 190CM *[id number] TRANSDUCER, TRUWAVE [id number] 09:55 COSME BROOKS * Used W/STOCKCOCK *[id number] [id number] *[id number] [id number] *[id number] PIGTAIL ANG. 145 INFINITI [id number] CATHETER *[id number] *[id number] 10:46 DAIG/ST. [employer] MEDICAL ANGIOSEAL, FR6 VIP FR 6 Used *[id number] 09:55 MEDLINE IND[employer]RIES PACK, CCL CUSTOM * Used *[id number] 09:55 [employer]iz[employer]ive PACER PEN, SKIN DUAL W/ RULER * Used *[id number] 10:41 MEDTRONIC STENT, 4.0 15 INTEGRITY 4.0 15 Used *[id number] 10:35 [employer]dar[employer] 30 LIAT INDEFLATOR Used *[id number]- 09:55 [employer] SHEATH, FR6.5 PRELUDE 11CM FR 6.5 038ACT Used *[id number] 09:55 [employer] WIRE, 3MMJ .035 180CM 180CM Used *[id number] 09:55 NAMIC MANIFOLD, 4 PORT * Used *[id number] 09:55 NYCOMED OMNIPAQUE, 350 MG, 100ML 100ML [id number] Used [id number] 09:55 [employer] MEDICAL BLANKET,WARM AIR CCL * Used *[id number] Equipment Model, Serial, Lot Number and Expiration Data Description Model Number Serial Number Lot Number Expiration Date STENT, 4.0 15 INTEGRITY [id number] 06-02-2019 History: Current Medications Medication Dosage/Unit Route Frequency Last Date/Time Taken HEPARIN ASA History: Allergies Allergy Reaction penicillin G UNKNOWN History: Risk Factors Family History of Hypertension Dyslipidemia Previous DE Previous Heart Failure Premature CAD No No No No No Prior Valve Prior PCI Prior CABG Surgery No No No Cerebrovascular Peripheral Artery Chronic Lung On Dialysis Diabetes Disease Disease Disease No No No No No History: Symptoms/Diagnosis Selection Items Chest pain SOB History: Stress Tests Stress or Imaging Studies Performed No History: Other Disease Selection Items Hepatitis History: Other Current Smoker Method Packs a Day Years Used Pack Years Yes Cigarettes 1 40 40 Labs Hgb (g/dl) Hct (%) WBC (l/cumm) Platelets (thousands) 11.60-17.00 35.00-51.00 4.00-11.00 150.00-450.00 7.6 22.7 10.2 191 Glucose (mg/dl) BUN (mg/dl) Creatinine (mg/dl) BUN:Creatinine (1:x) 74.00-106.00 7.00-18.00 0.50-1.30 10.00-20.00 134 20 1.3 15.4 Na (meq/l) K (meq/l) 136.00-145.00 3.50-5.10 132 3.3 INR (PTT:PT) 0.90-1.10 1.2 Troponin I (ng/ml) CPK-MB (ng/ML) 0.02-0.05 0.50-3.60 3.13 Not Drawn Medication Medication Total Dose (Bolus/Oral) Medication Total Dosage/Unit 1% XYLOCAINE 20 mL ANGIOMAX BOLUS 10.5 mL PLAVIX 600 mg VERSED 1 mg Medications (Bolus/Oral) Medication Time Given Dosage/Unit Administered By Reason VERSED 12/11/2017 10:24:09 AM 1 mg Michelle Marcial 1 mg VERSED given in lab by Michelle Marcial in Right Antecubital via Peripheral IV. 1% XYLOCAINE 12/11/2017 10:25:46 AM 20 mL Joesph Fitch 20 mL 1% XYLOCAINE given in lab by Joesph Fitch in Right Groin via Subcutaneous. ANGIOMAX BOLUS 12/11/2017 10:36:27 AM 10.5 mL Christiano Ackerman 10.5 mL ANGIOMAX BOLUS given in lab by Christiano Ackerman RN in Right Antecubital via Peripheral IV. PLAVIX 12/11/2017 10:50:50 AM 600 mg Michelle Marcial 600 mg PLAVIX given in lab by Michelle Marcial via Oral. Medication (Drip) Medication Time Given Dosage/Unit Concentration/Unit Diluent (ml) Solution ANGIOMAX DRIP 12/11/2017 10:38:56 AM 1.75 mg/kg/hr 250 mg 50 NaCl .9 1.75 mg/kg/hr ANGIOMAX DRIP given in lab by Michelle Marcial via Peripheral IV. Pump/Drip Flow = 24.5 ml/hr using NaCl .9 with a concentration of 250 mg in 50 ml. HEPARIN DRIP STOPPED 12/11/2017 10:00:14 AM 0 units/hr 0 0 units/hr HEPARIN DRIP STOPPED given in lab by Michelle Marcial. Pump/Drip Flow = 0 ml/hr using [Solu tion Name]. IV Solutions 12/11/2017 10:06:20 AM 0 mL (IV) 500 NaCl .9 IV Solutions given in lab by Max Rivera RCIS(RAUL) in Right Hand via Peripheral IV. Pump/Drip Flow = 3 0 ml/hr using NaCl .9. NITROGLYCERIN DRIP 12/11/2017 10:06:16 AM 20 mcg/min 50 mg 250 D5W Patient arrived on 20 mcg/min NITROGLYCERIN DRIP in Right Hand via Peripheral IV. Pump/Drip Flow = 6 ml/hr using D5W with a concentration of 50 mg in 250 ml. NITROGLYCERN DRIP 12/11/2017 10:48:55 AM 0 units/hr 0 STOPPED 0 units/hr NITROGLYCERN DRIP STOPPED given in lab by Michelle Marcial. Pump/Drip Flow = 0 ml/hr using [Solution Name]. Initial Case Assessment Cardiovascular HR Rhythm NIBP Chest Pain 91 reg 123/82 0 Edema Present Skin color Skin None Normal Warm Dry Circulatory - Right Pulses Dorsalis Pedis Femoral 1 3 Scale (0,1,2,3,4,d) Circulatory - Left Pulses Dorsalis Pedis Femoral 1 3 Scale (0,1,2,3,4,d) Circulatory - Lower Extremities Color Lower Right Color Lower Left Normal Normal Neurological State Oriented to time-place- Alert Moves all extremities person Respiration - General Respiration Rate SpO2 (%) O2 (lpm) (B/min) 20 96 2 Chronological Log Time Study Chronological Log 9:59:14 Patient arrived via Bed. 9:59:15 Patient Name, D.O.B, / Armband Verified By R.N. 10:00:14 0 units/hr HEPARIN DRIP STOPPED given in lab by Michelle Marcial. Pump/Drip Flow = 0 ml/hr u sing [Solution Name]. Vitals capture started with the following parameters, Patient=Adult, Interval=5 min, Initial Pr oykkcq=759 mmHg, 10:05:53 Deflation Rate=5 mmHg, Cuff placed on Left Arm 10:05:55 Consent signed by the physician and the patient and verified by the Deli Manager staff. 10:05:56 Pre-op and post- op instructions given; patient acknowledges understanding of instructions. 10:06:02 Verbal Stimulation=2 Physical Stimulation=2 Airway=2 Respiration=2 TOTAL=8. (0=absent, 1=li mited, 2=present) 10:06:04 Presedation assessment performed by Deli Manager RN. 10:06:09 Patient Warmer Placed on the Table. 10:06:11 Disposable Defibrillator Pads Placed On Patient. 10:06:13 Larissa Prominences Protected 10:06:14 A # 20 IV was noted in the Hand (left). Grade = 0 10:06:15 A # 20 IV was noted in the Hand (right). Grade = 0 Patient arrived on 20 mcg/min NITROGLYCERIN DRIP in Right Hand via Peripheral IV. Pump/Drip Fidencio w = 6 ml/hr using 10:06:16 D5W with a concentration of 50 mg in 250 ml. IV Solutions given in lab by Max Rivera RCIS(RAUL) in Right Hand via Peripheral IV. Pump/Drip Fl ow = 30 ml/hr using 10:06:20 NaCl .9. 10:06:21 History and physical on the chart or being dictated. 10:06:22 HR=89 bpm, JFIG=127/82 mmhg, SpO2=96.0 %, Resp=1 B/min, Pain=0, Rubi=10, Shelton=2 Assessment: Initial Case, HR=91 BPM, Rhythm=reg, KLMW=159/82 mmhg, Chest Pain=0, Edema=None, Co susana=Normal, Skin = Warm, Dry Right Pulses: Deonte Ped=1, Femoral=3 Left Pulses: Deonte Ped=1, Femoral=3 10:06:22 Lower Right Extremities: Color=Normal Lower Left Extremities: Color=Normal Neurological: State=Alert, Ox3, RODRIGUEZ Respiration: Resp=20 B/min, SpO2=96 %, O2=2 lpm 10:11:25 HR=90 bpm, YJBI=428/78 mmhg, SpO2=97.0 %, Resp=18 B/min, Pain=0, Rubi=10, Shelton=2 10:12:08 Reference ECG taken 10:12:12 Bilateral groins prepped with 2% chlorhexidine, and draped after a 3 minute waiting time. 10:14:28 MD paged 10:16:24 HR=87 bpm, DIQS=714/82 mmhg, Resp=19 B/min, Pain=0, Rubi=10, Shelton=2 10:19:33 Pressure channel 1 zeroed. 10:20:11 MD arrived 10:21:23 HR=87 bpm, PNHC=054/82 mmhg, SpO2=96.0 %, Resp=23 B/min, Pain=0, Rubi=10, Shelton=2 10:24:09 1 mg VERSED given in lab by Michelel Marcial in Right Antecubital via Peripheral IV. Time Out. Correct patient, correct procedure, correct physician, power injector not loaded with contrast with surgical 10:24:48 team present. Time Out Concurred by MD and individual staff in procedure. 10:25:08 Case Start 10:25:46 20 mL 1% XYLOCAINE given in lab by Joesph Fitch in Right Groin via Subcutaneous. 10:26:27 HR=94 bpm, IVQJ=272/75 mmhg, SpO2=95.0 %, Resp=23 B/min, Pain=0, Rubi=10, Shelton=2 10:27:13 Access site was Right Femoral Artery. 10:27:21 A SHEATH, FR6.5 PRELUDE 11CM FR 6.5 was advanced into the Fem Art (right) using the Percuta neous technique. A PIGTAIL ANG. 145 INFINITI CATHETER FR 6 was advanced over a wire. OMNIPAQUE, 350 MG, 100ML 10 0ML was 10:28:10 used for injections. Recorded Pressure: LV, HR=95, Condition=Condition 1 10:28:43 (Left Ventricle) LV 114/15/25 Recorded Pressure: LV, Ao, HR=93, Condition=Condition 1 10:28:58 (Left Ventricle) LV 116/15/25, (Aorta) Ao 118/77/95 Recorded Pressure: Ao, HR=94, Condition=Condition 1 10:29:10 (Aorta) Ao 116/77/94 10:29:22 Catheter was removed A JL 4.0 INFINITI CATHETER FR 6 was advanced over a wire. OMNIPAQUE, 350 MG, 100ML 100ML was us ed for 10:30:22 injections. 10:31:20 The LCA was injected and visualized at various angles. OMNIPAQUE, 350 MG, 100ML 100ML used . 10:31:26 HR=92 bpm, CRYQ=924/88 mmhg, SpO2=95.0 %, Resp=25 B/min, Pain=0, Rubi=10, Shelton=2 10:32:33 Catheter was removed A 3DRC INFINITI CATHETER FR 6 was advanced over a wire. OMNIPAQUE, 350 MG, 100ML 100ML was used for 10:32:42 injections. 10:33:22 The RCA was injected and visualized at various angles. OMNIPAQUE, 350 MG, 100ML 100ML used . 10:33:42 Catheter was removed A XBLAD 4.0 GUIDE CATHETER FR 6 was advanced over a wire. OMNIPAQUE, 350 MG, 100ML 100ML was us ed for 10:33:52 injections. 10:34:46 OMNIPAQUE, 350 MG, 100ML 100ML and 30 LIAT INDEFLATOR added. 10:36:23 HR=93 bpm, VSDK=961/88 mmhg, SpO2=93.0 %, Resp=25 B/min, Pain=0, Rubi=10, Shelton=2 10:36:27 10.5 mL ANGIOMAX BOLUS given in lab by Christiano Ackerman, RN in Right Antecubital via Peripher al IV. 10:36:36 A WIRE, BALANCE MIDDLEWEIGHT 190CM 190CM was inserted via Fem Art (right). 1.75 mg/kg/hr ANGIOMAX DRIP given in lab by Michelle Marcial via Peripheral IV. Pump/Drip Flow = 24.5 ml/hr using 10:38:56 NaCl .9 with a concentration of 250 mg in 50 ml. An STENT, 4.0 15 INTEGRITY 4.0 15 Bare Metal Stent was inserted through a XBLAD 4.[address] FR 6 over 10:40:53 a WIRE, BALANCE MIDDLEWEIGHT 190CM 190CM. 10:41:24 HR=91 bpm, YJEP=581/91 mmhg, SpO2=95.0 %, Resp=19 B/min, Pain=0, Rubi=10, Shelton=2 A STENT, 4.0 15 INTEGRITY 4.0 15 was deployed using a 30 LIAT INDEFLATOR at 12 atmospheres for 3 0 seconds in 10:41:29 the LAD Prox. 10:42:39 Delivery device removed 10:43:59 Catheter was removed 10:44:01 Wire removed 10:44:05 An injection in the Fem Art (right) was made through the SHEATH, FR6.5 PRELUDE 11CM FR 6.5. 10:45:37 ANGIOSEAL, FR6 VIP FR 6 placement in the Fem Art (right) 10:46:25 HR=92 bpm, EAQR=714/88 mmhg, SpO2=97.0 %, Resp=18 B/min, Pain=0, Rubi=10, Shelton=2 10:46:58 Case End 10:47:03 Catheter(s) removed without difficulty 10:47:09 No case complications noted. 10:47:14 Bedside Report will be given. 10:47:15 Implantable Device card placed in patient's chart. 10:47:18 A Left Heart Cath was performed. 0 units/hr NITROGLYCERN DRIP STOPPED given in lab by Michelle Marcial. Pump/Drip Flow = 0 ml/hr using [Solution 10:48:55 Name]. 10:50:50 600 mg PLAVIX given in lab by Michelle Marcial via Oral. 10:51:24 HR=88 bpm, GJKK=300/94 mmhg, Resp=22 B/min, Pain=0, Rubi=10, Shelton=2 10:52:30 Vitals capture stopped. End Study - Contrast Media Used In Study Contrast Total Opened (mL) Total Used (mL) Total Wasted (mL) Omnipaque 80 80 0 End Study - Maximum Contrast Load Max Contrast Load (mL) 269.2 End Study - Radiation Exposure Fluoro Time (minutes) 4.5 End Study - Sheaths Sheaths Pulled By Sheath Hold Time (min) Joesph Fitch End Study - Patient Disposition Complications Transferred To Interventional Outcome No Telemetry Bed successful
[2017-12-11] MEDS ORDERED: BACITRACIN OINT 0.9 GM PKT TOP ONE (11:15)
[2017-12-11] MEDS ORDERED: SODIUM CHLORIDE 0.9% FLUSH 10 ML FLUSH IV FLUSH PRN (11:15)
[2017-12-11] MEDS ORDERED: MISC INFORMATION XX ONE (11:15)
[2017-12-11] MEDS ORDERED: TEMAZEPAM 15 MG CAP PO PRN (11:15)
[2017-12-11] MEDS ORDERED: ACETAMINOPHEN 325 MG TAB PO PRN (11:15)
[2017-12-11] MEDS ORDERED: ONDANSETRON HCL 4 MG/2 ML VIAL IV PUSH PRN (11:15)
[2017-12-11] MEDS ORDERED: CANGRELOR INJ 50,000 MCG in SODIUM CHLOR 0.9% 250 ML INJ 250 ML IV ONE (12:00)
[2017-12-11] MEDS ORDERED: BIVALIRUDIN INJ 250 MG in SODIUM CHLORIDE 0.9% INJ 50 ML IV SCH (12:00)
--- NOTE | 2017-12-11 12:16 | MA ---
cc: Joesph Fitch MD DATE: 12/11/2017 PROCEDURES PERFORMED: Left heart catheterization, left ventriculography, coronary angiography and direct stenting using a bare metal stent of the proximal left anterior descending coronary artery. Emergency procedure. DESCRIPTION OF PROCEDURE: The patient was brought to the cardiac catheterization lab under emergency conditions. The right groin was prepped and draped in sterile fashion. Using 1% lidocaine for local anesthesia, a 6.5 Estonian sheath was inserted in the right femoral artery. A pigtail catheter was then used to measure left ventricular pressure followed by pullback. Coronary angiography was completed using left 4 and 3 DRC catheters. I used an XB 4 guiding catheter to engage the left main. Intravenous Angiomax was given across the LAD lesion with the BMW wire. I then direct stented utilizing a 4.0 x 15 mm bare metal Integrity stent at 12 atmospheres. Angiography demonstrates a nice step up on both sides of the stent with no residual stenosis. The patient tolerated the procedure well. Angiography was then obtained of the right femoral artery via the sheath, followed by uncomplicated Angio-Seal placement. There were no complications. FINDINGS: 1. Hemodynamics : Left ventricular pressure is 116/15 with an end diastolic pressure of 25. Aortic pressure is 116/77 with a mean of 94. 2. Coronary angiography: Left main coronary artery appears normal. Left anterior descending artery has a 99% proximal stenosis; however, with normal flow distally before the major septal and diagonal. After the major septal and diagonal, the LAD has about 25% disease. The LAD is transapical. Circumflex artery has irregularities only. Right coronary artery is dominant with about 25% proximal and mid smooth areas of plaque disease. 3. Results of stenting: Following stenting of the proximal LAD 0% residual stenosis has been achieved with a nice step up in both sides of the stent and no dissection. CONCLUSIONS: 1. Elevated left ventricular end diastolic pressure. 2. Known to have severe left ventricular dysfunction on his echocardiogram. 3. 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 PLAN: The patient will be kept on aspirin and Plavix, ideally for 1 year. Introduce NATE inhibitor and beta layla as hemodynamics permit. MD JEN Calderón/ONEAL , 10:59 AM , 12:15 PM
[2017-12-11 12:43] LABS: TOTAL BILIRUBIN ADULT 0.7 MG/DL (0.2-1.0); TOTAL PROTEIN 7.4 GM/DL (6.4-8.2)
[2017-12-11 12:48] LABS: ALBUMIN 2.6 GM/DL (3.4-5.0); DIRECT BILIRUBIN ADULT 0.1 MG/DL (0.0-0.2); INDIRECT BILIRUBIN 0.6 MG/DL (0.0-0.8)
[2017-12-11] MEDS: MAGNESIUM SULFATE 1 GM PREMIX 100 ML IV SCH ×2 (13:03→14:16)
[2017-12-11] MEDS: oxyCODONE/ACETAMINOPHEN 10 MG/325 MG TAB PO PRN ×2 (13:04→17:50)
--- NOTE | 2017-12-11 14:23 | EKG ---
Date Performed: 12/11/2017 Time Performed: 07:59:21 PTAGE: 52 years EKG: SINUS TACHYCARDIA Nonspecific ST-T changes. Consider lateral ischemia. These are new compar ed to the prior. PREVIOUS TRACING : 10/13/2017 01.16 DOCTOR: Jose Jones Interpretating Date/Time 12/11/2017 14:21:32
[2017-12-11] MEDS ORDERED: HEPARIN SODIUM - IV 10,000 UNITS/10 ML VIAL IV PUSH PRN ×2 (14:30)
--- NOTE | 2017-12-11 14:30 | ECHRPT ---
Indication: Chest pain, unspecified CONCLUSIONS The left ventricular systolic function is moderately reduced with an estimated ejection fraction 25% Wall thickness is normal. Normal left ventricular size. Anterior and apical akinesis The left atrial size is mildly dilated. Lcjyz-mp-nrhw mitral valve regurgitation. There is moderate tricuspid regurgitation. The estimated pulmonary arterial pressure is 47.9 mmHg. BP: / HR: Rhythm: Sinus MEASUREMENTS (Male / Female) Normal Values Technical Quality:Good 2D ECHO LV Diastolic Diameter PLAX 5.5 cm 4.2 - 5.9 / 3.9 - 5.3 cm LV Systolic Diameter PLAX 4.5 cm IVS Diastolic Thickness 0.9 cm 0.6 - 1.0 / 0.6 - 0.9 cm LVPW Diastolic Thickness 1.0 cm 0.6 - 1.0 / 0.6 - 0.9 cm LV Relative Wall Thickness 0.3 LVOT Diameter 2.1 cm M-MODE Aortic Root Diameter MM 3.0 cm LA Systolic Diameter MM 4.2 cm LA Ao Ratio MM 1.4 AV Cusp Separation MM 2.0 cm DOPPLER AV Peak Velocity 141.0 cm/s AV Peak Gradient 8.0 mmHg LVOT Peak Velocity 107.0 cm/s LVOT Peak Gradient 4.6 mmHg AV Area Cont Eq pk 2.6 cm MR Peak Velocity 257.0 cm/s MR Peak Gradient 26.4 mmHg Mitral E Point Velocity 67.1 cm/s Mitral A Point Velocity 82.9 cm/s Mitral E to A Ratio 0.8 LV E' Lateral Velocity 11.6 cm/s Mitral E to LV E' Lateral Ratio 5.8 LV E' Septal Velocity 8.4 cm/s Mitral E to LV E' Septal Ratio 8.0 TR Peak Velocity 308.0 cm/s TR Peak Gradient 37.9 mmHg Right Atrial Pressure 10.0 mmHg Pulmonary Artery Systolic Pressu 47.9 mmHg Right Ventricular Systolic Press 47.9 mmHg PV Peak Velocity 132.0 cm/s PV Peak Gradient 7.0 mmHg FINDINGS LEFT VENTRICLE The left ventricular systolic function is moderately reduced with an estimated ejection fraction 25% Wall thickness is normal. Normal left ventricular size. Anterior and apical akinesis RIGHT VENTRICLE Normal right ventricular size and systolic function. LEFT ATRIUM The left atrial size is mildly dilated. RIGHT ATRIUM The right atrial size is normal. ATRIAL SEPTUM Normal atrial septal thickness without atrial level shunting by limited color doppler interrogation. AORTA The aortic root and proximal ascending aorta are normal in size on limited imaging. MITRAL VALVE Atxbc-sd-wdji mitral valve regurgitation. AORTIC VALVE Trileaflet aortic valve. No aortic valve stenosis or regurgitation. TRICUSPID VALVE There is moderate tricuspid regurgitation. The estimated pulmonary arterial pressure is 47.9 mmHg. PULMONARY VALVE No pulmonary valve regurgitation or stenosis. VESSELS The inferior vena cava is normal in size. PERICARDIUM No pericardial effusion. Joesph Fitch MD (Electronically Signed) Final Date:11 December 2017 14:30
[2017-12-11] MEDS ORDERED: LORazepam 2 MG/ML VIAL IV PUSH PRN ×4 (19:15)
[2017-12-11] MEDS ORDERED: LORazepam 2 MG TAB PO PRN (19:15)
[2017-12-11] MEDS ORDERED: FLUMAZENIL 0.5 MG/5 ML VIAL IV PUSH PRN (19:15)
[2017-12-11] MEDS ORDERED: FUROSEMIDE 20 MG/2 ML VIAL IV PUSH ONE (19:15)
[2017-12-11] MEDS: SODIUM CHLORIDE 0.9% FLUSH 10 ML FLUSH IV FLUSH SCH (20:08)
[2017-12-11] MEDS: LORazepam 1 MG TAB PO PRN (20:08)
[2017-12-11] MEDS: CARVEDILOL 3.125 MG TAB PO SCH (20:08)
--- NOTE | 2017-12-11 21:21 | HHI.HP ---
[facility] Primary [facility] Physician No Primary Care Physician Admission Diagnosis IN Diagnoses: Chief Complaint: chest pain Travel History International Travel<30 Days: No Contact w/Intl Traveler <30 Da: No Traveled to Known Affected Are: No History of Present Illness 52 y/o male with a history of hep c, and IVDA presented to the ED with chest pain. Patient states he has been having 10/10 sharp midsternal chest pain with no radiation and associated nausea and dizziness. He states it is worse with a deep breath, and better with morphine. He has never been diagnosed with CHF and does not have a pcp. Echo revealed an EF of 25%. He still complains of chest pain, sob with deep breaths. Denies any fever, chills or lower extremity edema. Patient was taken to the laborer [facility] for a NSTEMI and a stent was placed in the LAD. Review of Systems Except as stated in HPI: all other systems reviewed are Neg Past Family Social History Past Medical History Hep C CHF EF 25% IVDA Alcohol abuse Past Surgical History right foot surgery Reported Medications Reported Meds & Active Scripts Active Clindamycin (Clindamycin HCl) 300 Mg Cap 300 Mg PO Q6H 7 Days Allergies: Coded Allergies: penicillin G (Unverified Allergy, Unknown, UNKNOWN, 12/07/17) Active Ordered Medications Current Medications Medications (Trade) Dose Ordered Sig/Jaspreet Route Start Time Stop Time Status Last Admin (NS Flush) 2 ml UNSCH PRN IVF 12/11/17 07:45 Sodium Chloride 250 ml @ 15 mls/hr ONCE ONCE IV 12/11/17 09:15 12/12/17 01:54 (NS Flush) 2 ml UNSCH PRN IV FLUSH 12/11/17 11:15 (NS Flush) 2 ml BID IV FLUSH 12/11/17 21:00 12/11/17 20:08 (Tylenol) 325 mg Q4H PRN PO 12/11/17 11:15 (Percocet 5-325 Mg) 1 tab Q4H PRN PO 12/11/17 11:15 (Percocet 10-325 Mg) 1 tab Q4H PRN PO 12/11/17 11:15 12/11/17 17:50 (Restoril) 15 mg HS PRN PO 12/11/17 11:15 (Aspirin Chew) 162 mg DAILY PO 12/12/17 09:00 (Plavix) 75 mg DAILY PO 12/12/17 09:00 (Zofran Inj) 4 mg Q4H PRN IV PUSH 12/11/17 11:15 (Coreg) 3.125 mg BID PO 12/11/17 21:00 12/11/17 20:08 (Prinivil) 5 mg DAILY PO 12/12/17 09:00 (Lipitor) 10 mg DAILY PO 12/12/17 09:00 (Pneumovax-23 Inj) 25 mcg ONCE ONCE IM 12/12/17 10:00 12/12/17 10:01 (Romazicon Inj) 0.2 mg Q1M PRN IV PUSH 12/11/17 19:15 (Ativan) 1 mg Q4H PRN PO 12/11/17 19:15 12/11/17 20:08 (Ativan Inj) 1 mg Q4H PRN IV PUSH 12/11/17 19:15 (Ativan) 2 mg Q2H PRN PO 12/11/17 19:15 (Ativan Inj) 2 mg Q2H PRN IV PUSH 12/11/17 19:15 (Ativan Inj) 2 mg Q1H PRN IV PUSH 12/11/17 19:15 (Ativan Inj) 2 mg Q15M PRN IV PUSH 12/11/17 19:15 Family History Patient does not know his family history, mom when he was 8 and he did not know his dad Social History Tobacco use: 1 PPD Alcohol use: Daily 4 beers and a pint of vodka Illicit drug use: history of IVDA Physical Exam Vital Signs Vital Signs Date Time Temp Pulse Resp B/P (MAP) Pulse Ox O2 Delivery O2 Flow Rate FiO2 12/11/17 18:22 98.3 81 20 117/79 100 12/11/17 18:00 80 12/11/17 18:00 80 12/11/17 17:18 98.5 86 20 115/74 100 12/11/17 17:00 86 12/11/17 17:00 86 12/11/17 16:45 98.5 84 20 102/66 100 12/11/17 16:30 98.4 90 20 104/58 99 12/11/17 16:13 98.4 89 21 105/66 99 12/11/17 16:00 90 12/11/17 16:00 90 12/11/17 16:00 98.2 93 20 105/66 (79) 100 12/11/17 15:00 96 12/11/17 15:00 96 12/11/17 14:00 88 12/11/17 13:00 100 12/11/17 12:00 91 12/11/17 11:30 98.0 86 20 126/87 (100) 100 12/11/17 10:32 12/11/17 09:43 99 119/74 12/11/17 08:19 100 Nasal Cannula 2.00 12/11/17 08:17 110 20 100 Nasal Cannula 2.00 12/11/17 08:15 100 2.00 12/11/17 07:33 106 20 118/84 (95) 100 Nasal Cannula 2.00 12/11/17 07:33 107 18 100 Nasal Cannula 2.00 12/11/17 07:24 99.8 109 18 127/80 (96) 98 Physical Exam GENERAL: This is a well-nourished patient with mild chest pain SKIN: No rashes, ecchymoses or lesions. Cool and dry. Multiple tattoos noted HEAD: Atraumatic. Normocephalic. EYES: Pupils equal round and reactive. ENT: Nose without bleeding, purulent drainage or septal hematoma. Airway patent. NECK: Trachea midline. No JVD or lymphadenopathy. CARDIOVASCULAR: Regular rate and rhythm, with a systolic 3/6 murmur RESPIRATORY: Clear to auscultation. Breath sounds equal bilaterally. No wheezes , rales, or rhonchi. GASTROINTESTINAL: Abdomen soft, non-tender, nondistended. No guarding. MUSCULOSKELETAL: Extremities without clubbing, cyanosis, or edema. No joint tenderness, effusion, or edema noted. No calf tenderness. NEUROLOGICAL: Awake and alert. Motor and sensory grossly within normal limits. Normal speech. Laboratory Laboratory Tests Test 12/11/17 08:00 12/11/17 08:05 12/11/17 08:13 12/11/17 08:32 Urine Opiates Screen POS Urine Barbiturates Screen NEG Urine Amphetamines Screen NEG Urine Benzodiazepines Screen NEG Urine Cocaine Screen NEG Urine Cannabinoids Screen NEG White Blood Count 9.9 10.2 Red Blood Count 2.47 2.50 Hemoglobin 7.5 7.6 Hematocrit 22.3 22.7 Mean Corpuscular Volume 90.2 91.0 Mean Corpuscular Hemoglobin 30.2 30.2 Mean Corpuscular Hemoglobin Concent 33.5 33.3 Red Cell Distribution Width 15.5 15.5 Platelet Count 192 191 Mean Platelet Volume 8.2 8.6 Neutrophils (%) (Auto) 77.5 Lymphocytes (%) (Auto) 14.5 Monocytes (%) (Auto) 7.7 Eosinophils (%) (Auto) 0.0 Basophils (%) (Auto) 0.3 Neutrophils # (Auto) 7.7 Lymphocytes # (Auto) 1.4 Monocytes # (Auto) 0.8 Eosinophils # (Auto) 0.0 Basophils # (Auto) 0.0 CBC Comment DIFF FINAL Differential Comment Blood Urea Nitrogen 20 Creatinine 1.38 Random Glucose 134 Calcium Level 8.1 Magnesium Level 1.4 Sodium Level 132 Potassium Level 3.3 Chloride Level 102 Carbon Dioxide Level 20.6 Anion Gap 9 Estimat Glomerular Filtration Rate 54 Troponin I 3.13 Bedside Hemoglobin 8.5 Bedside Hematocrit 25.0 Bedside Sodium 130 Bedside Potassium 4.8 Bedside Chloride 99 Bedside Blood Urea Nitrogen 25 Bedside Creatinine 1.4 Bedside Glucose 125 Total Bilirubin 0.7 Direct Bilirubin 0.1 Indirect Bilirubin 0.6 Aspartate Amino Transf (AST/SGOT) 694 Alanine Aminotransferase (ALT/SGPT) 316 Alkaline Phosphatase 113 Total Protein 7.4 Albumin 2.6 Prothrombin Time 12.6 Prothromb Time International Ratio 1.2 Activated Partial Thromboplast Time 28.6 Test 12/11/17 15:41 Activated Partial Thromboplast Time 40.5 Result Diagram: 12/11/17 0832 12/11/17 0805 Imaging Last Impressions Chest X-Ray 12/11/17 0739 Signed Impressions: Service Date/Time: Monday, December 11, 2017 07:54 - CONCLUSION: No acute disease. MD Ana Nogueira VTE Risk Assessment Ana VTE Risk Assessment: Mod/High Risk (score >= 2) Caprini Risk Assessment Model Point Value = 1 Point Value = 2 Point Value = 3 Point Value = 5 Age 41-60 Minor surgery BMI > 25 kg/m2 Swollen legs Varicose veins or History of unexplained or recurrent spontaneous Oral contraceptives or hormone replacement Sepsis (< 1 month) Serious lung disease, including pneumonia (< 1 month) Abnormal pulmonary function Acute myocardial infarction Congestive heart failure (< 1 month) History of inflammatory bowel disease Medical patient at bed rest Age 61-74 Arthroscopic surgery Major open surgery (> 45 min) Laparoscopic surgery (> 45 min) Malignancy Confined to bed (> 72 hours) Immobilizing plaster cast Central venous access Age >= 75 History of VTE Family history of VTE Factor V Leiden Prothrombin [id number] Lupus anticoagulant Anticardiolipin antibodies Elevated serum homocysteine Heparin-induced thrombocytopenia Other congenital or acquired thrombophilia Stroke (< 1 month) Elective arthroplasty Hip, pelvis, or leg fracture Acute spinal cord injury (< 1 month) Prophylaxis Regimen Total Risk Factor Score Risk Level Prophylaxis Regimen 0-1 Low Early ambulation 2 Moderate Order ONE of the following: *Sequential Compression Device (SCD) *Heparin 5000 units SQ BID 3-4 Higher Order ONE of the following medications: *Heparin 5000 units SQ TID *Enoxaparin/Lovenox 40 mg SQ daily (WT < 150 kg, CrCl > 30 mL/min) *Enoxaparin/Lovenox 30 mg SQ daily (WT < 150 kg, CrCl > 10-29 mL/min) *Enoxaparin/Lovenox 30 mg SQ BID (WT < 150 kg, CrCl > 30 mL/min) AND/OR *Sequential Compression Device (SCD) 5 or more Highest Order ONE of the following medications: *Heparin 5000 units SQ TID (Preferred with Epidurals) *Enoxaparin/Lovenox 40 mg SQ daily (WT < 150 kg, CrCl > 30 mL/min) *Enoxaparin/Lovenox 30 mg SQ daily (WT < 150 kg, CrCl > 10-29 mL/min) *Enoxaparin/Lovenox 30 mg SQ BID (WT < 150 kg, CrCl > 30 mL/min) AND *Sequential Compression Device (SCD) Assessment and Plan Problem List: (1) Transaminitis ICD Code: R74.0 - Nonspecific elevation of levels of transaminase and lactic acid dehydrogenase [LDH] (2) Alcohol abuse ICD Code: F10.10 - Alcohol abuse, uncomplicated (3) CHF (congestive heart failure) ICD Code: I50.9 - Heart failure, unspecified Status: Acute (4) Non-STEMI (non-ST elevated myocardial infarction) ICD Code: I21.4 - Non-ST elevation (NSTEMI) myocardial infarction Status: Acute Assessment and Plan 52 y/o male with a history of hep c, and IVDA presented to the ED with chest pain. NSTEMI, troponin 3.3 EKG reveiwed and shows LVH, possible lateral ischemia -Cardiology was consult for cardiac cath, then placement to the LAD -Continue aspirin, Plavix -Pain management with Percocet PO -1 dose IV morphine given for breakthrough pain CHF, new onset Echo reviewed and showed systolic disfunction and EF of 25% -Cont with cardiology recommendations -Patient started on coreg Anemia, hemoglobin 7.5, patient with a history of epistasis one week ago -2 units PRBCs ordered for transfusion, Lasix 20 mg IV given at between units -H&H in a.m. TERI, creatinine 1.38, baseline .86 -IVF x 1 L NS given -Avoid nephrotoxins -Follow-up creatinine in a.m. Transaminitis, ALT 316, AST 694 suspected due to hep C, alcohol abuse, chf, and dehydration -IVF initially given for dehydration -Repeat CMP in a.m.. -Will consult GI if needed Alcohol abuse -[facility] protocol -Seizure precautions DVT prophylaxis: SCDs Discussed Condition With Patient, RN Physician Certification 2 Midnight Certification Type: Admission for Inpatient Services Order for Inpatient Services The services are ordered in accordance with Medicare regulations or non- Medicare payer requirements, as applicable. In the case of services not specified as inpatient-only, they are appropriately provided as inpatient services in accordance with the 2-midnight benchmark. Estimated LOS (days): 2 days is the estimated time the patient will need to remain in the hospital, assuming treatment plan goals are met and no additional complications. Post-Hospital Plan: Home Problem Qualifiers (1) CHF (congestive heart failure): Qualified Codes: I50.21 - Acute systolic (congestive) heart failure Ria Wilks Dec 11, 2017 21:21
[2017-12-11] MEDS ORDERED: MORPHINE SULFATE 2 MG/ML INJ IV PUSH ONE (22:15)
[2017-12-12] VITALS (34 sets, daily range): BP systolic 100–115; BP diastolic 62–76; PULSE 62–126; RESP 16–18; TEMP 97.8–98.7; O2SAT 94–100
[2017-12-12] MEDS: oxyCODONE/ACETAMINOPHEN 10 MG/325 MG TAB PO PRN ×2 (04:14→23:47)
[2017-12-12 04:19] LABS: AUTOMATED NEUTROPHIL # 5.2 TH/MM3 (1.8-7.7); BASOPHIL % 0.4 % (0.0-2.0); EOSINOPHIL % 0.4 % (0.0-4.0); HEMATOCRIT 27.3 % (39.0-51.0); HEMOGLOBIN 9.2 GM/DL (13.0-17.0); LYMPH % 16.9 % (9.0-44.0); LYMPHOCYTE # 1.2 TH/MM3 (1.0-4.8); MEAN CELL VOLUME 90.4 FL (80.0-100.0); MEAN CORPUSCULAR HEMOGLOBIN 30.6 PG (27.0-34.0); MEAN CORPUSCULAR HGB CONC 33.9 % (32.0-36.0); MEAN PLATELET VOLUME 8.4 FL (7.0-11.0); MONO % 11.4 % (0.0-8.0); MONOCYTE # 0.8 TH/MM3 (0-0.9); NEUT % 70.9 % (16.0-70.0); PLATELET COUNT 164 TH/MM3 (150-450); RED BLOOD COUNT 3.02 MIL/MM3 (4.50-5.90); RED CELL DISTRIBUTION WIDTH 15.3 % (11.6-17.2); WHITE BLOOD COUNT 7.3 TH/MM3 (4.0-11.0)
[2017-12-12 04:52] LABS: ALBUMIN 2.1 GM/DL (3.4-5.0); ALKALINE PHOSPHATASE 85 U/L (45-117); ALT (GPT) 235 U/L (12-78); AST (GOT) 329 U/L (15-37); BICARBONATE 24.6 MEQ/L (21.0-32.0); BLOOD UREA NITROGEN 13 MG/DL (7-18); CALCIUM 7.3 MG/DL (8.5-10.1); CALCIUM-PROTEIN CORRECTED 7.9 MG/DL (8.5-10.1); CHLORIDE 103 MEQ/L (98-107); CHOLESTEROL 75 MG/DL (120-200); CHOLESTEROL/ HDL RATIO 2.35 RATIO; CREATININE 1.02 MG/DL (0.60-1.30); FREE T4 1.16 NG/DL (0.76-1.46); GLOMERULAR FILTRATION RATE 77 ML/MIN (>89); GLUCOSE,RANDOM 86 MG/DL (74-106); HDL CHOLESTEROL 31.9 MG/DL (40.0-60.0); LDL CHOLESTEROL 34 MG/DL (0-99); MAGNESIUM 1.5 MG/DL (1.5-2.5); PHOSPHORUS 1.8 MG/DL (2.5-4.9); SODIUM (NA) 134 MEQ/L (136-145); TOTAL BILIRUBIN ADULT 1.2 MG/DL (0.2-1.0); TRIGLYCERIDES 44 MG/DL (42-150)
[2017-12-12] MEDS: LISINOPRIL 5 MG TAB PO SCH (08:04)
[2017-12-12] MEDS: CARVEDILOL 3.125 MG TAB PO SCH ×2 (08:15→21:14)
[2017-12-12] MEDS: ASPIRIN 81 MG CHEW TAB PO SCH (08:15)
[2017-12-12] MEDS: SODIUM CHLORIDE 0.9% FLUSH 10 ML FLUSH IV FLUSH SCH ×2 (08:16→21:21)
[2017-12-12] MEDS ORDERED: CLOPIDOGREL 75 MG TAB PO SCH (09:00)
[2017-12-12] MEDS ORDERED: ATORVASTATIN 10 MG TAB PO SCH (09:00)
--- NOTE | 2017-12-12 09:43 | PD.CARD.PN ---
Subjective Subjective Remarks Coughing frequently, severe pain when he coughs. Still has chest pressure Objective Medications Current Medications Medications (Trade) Dose Ordered Sig/Jaspreet Route Start Time Stop Time Status Last Admin (NS Flush) 2 ml UNSCH PRN IVF 12/11/17 07:45 (NS Flush) 2 ml UNSCH PRN IV FLUSH 12/11/17 11:15 (NS Flush) 2 ml BID IV FLUSH 12/11/17 21:00 12/12/17 08:16 (Tylenol) 325 mg Q4H PRN PO 12/11/17 11:15 (Percocet 5-325 Mg) 1 tab Q4H PRN PO 12/11/17 11:15 (Percocet 10-325 Mg) 1 tab Q4H PRN PO 12/11/17 11:15 12/12/17 04:14 (Restoril) 15 mg HS PRN PO 12/11/17 11:15 (Aspirin Chew) 162 mg DAILY PO 12/12/17 09:00 12/12/17 08:15 (Plavix) 75 mg DAILY PO 12/12/17 09:00 12/12/17 08:15 (Zofran Inj) 4 mg Q4H PRN IV PUSH 12/11/17 11:15 (Coreg) 3.125 mg BID PO 12/11/17 21:00 12/12/17 08:15 (Prinivil) 5 mg DAILY PO 12/12/17 09:00 (Pneumovax-23 Inj) 25 mcg ONCE ONCE IM 12/12/17 10:00 12/12/17 10:01 (Romazicon Inj) 0.2 mg Q1M PRN IV PUSH 12/11/17 19:15 (Ativan) 1 mg Q4H PRN PO 12/11/17 19:15 12/11/17 20:08 (Ativan Inj) 1 mg Q4H PRN IV PUSH 12/11/17 19:15 (Ativan) 2 mg Q2H PRN PO 12/11/17 19:15 (Ativan Inj) 2 mg Q2H PRN IV PUSH 12/11/17 19:15 (Ativan Inj) 2 mg Q1H PRN IV PUSH 12/11/17 19:15 (Ativan Inj) 2 mg Q15M PRN IV PUSH 3/31/18 19:15 Magnesium Sulfate/ Dextrose 100 ml @ 100 mls/hr Q1H IV 12/12/17 09:30 12/12/17 11:29 Vital Signs / I&O Vital Signs Date Time Temp Pulse Resp B/P (MAP) Pulse Ox O2 Delivery O2 Flow Rate FiO2 12/12/17 09:00 68 12/12/17 08:57 100/70 (80) 12/12/17 08:55 126 12/12/17 08:03 68 12/12/17 07:25 97.8 77 18 104/76 (85) 96 12/12/17 07:00 74 12/12/17 06:04 75 12/12/17 05:00 82 12/12/17 04:00 76 12/12/17 03:16 76 12/12/17 03:00 98.7 81 102/74 (83) 97 12/12/17 02:00 74 12/12/17 01:00 80 12/12/17 00:33 98.6 82 103/71 (82) 100 12/12/17 00:00 80 12/11/17 23:00 83 12/11/17 22:00 84 12/11/17 21:53 98.4 82 106/69 99 12/11/17 21:39 98.2 81 105/74 97 12/11/17 21:00 86 12/11/17 20:00 86 12/11/17 19:00 83 12/11/17 19:00 98.3 83 112/72 (85) 100 12/11/17 18:22 98.3 81 20 117/79 100 12/11/17 18:00 80 12/11/17 18:00 80 12/11/17 17:18 98.5 86 20 115/74 100 12/11/17 17:00 86 12/11/17 17:00 86 12/11/17 16:45 98.5 84 20 102/66 100 12/11/17 16:30 98.4 90 20 104/58 99 12/11/17 16:13 98.4 89 21 105/66 99 12/11/17 16:00 90 12/11/17 16:00 90 12/11/17 16:00 98.2 93 20 105/66 (79) 100 12/11/17 15:00 96 12/11/17 15:00 96 12/11/17 14:00 88 12/11/17 13:00 100 12/11/17 12:00 91 12/11/17 11:30 98.0 86 20 126/87 (100) 100 12/11/17 10:32 12/11/17 09:43 99 119/74 I/O 12/11/17 12/11/17 12/11/17 12/12/17 12/12/17 12/12/17 07:00 15:00 23:00 07:00 15:00 23:00 Intake Total 100 ml 1767 ml 880 ml Output Total 350 ml 800 ml Balance 100 ml 1417 ml 80 ml Intake Oral 480 ml 480 ml IV Total 100 ml Packed Cells 400 ml 400 ml Blood Product IV Normal Saline Flush 887 ml Output Urine Total 350 ml 800 ml Physical Exam Alert Chest: few rhonchi, decreased BS CV S1S2 RRR no edema Right groin OK Laboratory Laboratory Tests Test 12/11/17 15:41 12/12/17 03:33 Activated Partial Thromboplast Time 40.5 SEC White Blood Count 7.3 TH/MM3 Red Blood Count 3.02 MIL/MM3 Hemoglobin 9.2 GM/DL Hematocrit 27.3 % Mean Corpuscular Volume 90.4 FL Mean Corpuscular Hemoglobin 30.6 PG Mean Corpuscular Hemoglobin Concent 33.9 % Red Cell Distribution Width 15.3 % Platelet Count 164 TH/MM3 Mean Platelet Volume 8.4 FL Neutrophils (%) (Auto) 70.9 % Lymphocytes (%) (Auto) 16.9 % Monocytes (%) (Auto) 11.4 % Eosinophils (%) (Auto) 0.4 % Basophils (%) (Auto) 0.4 % Neutrophils # (Auto) 5.2 TH/MM3 Lymphocytes # (Auto) 1.2 TH/MM3 Monocytes # (Auto) 0.8 TH/MM3 Eosinophils # (Auto) 0.0 TH/MM3 Basophils # (Auto) 0.0 TH/MM3 CBC Comment DIFF FINAL Differential Comment Blood Urea Nitrogen 13 MG/DL Creatinine 1.02 MG/DL Random Glucose 86 MG/DL Total Protein 6.0 GM/DL Albumin 2.1 GM/DL Calcium Level 7.3 MG/DL Phosphorus Level 1.8 MG/DL Magnesium Level 1.5 MG/DL Alkaline Phosphatase 85 U/L Aspartate Amino Transf (AST/SGOT) 329 U/L Alanine Aminotransferase (ALT/SGPT) 235 U/L Total Bilirubin 1.2 MG/DL Sodium Level 134 MEQ/L Potassium Level 4.1 MEQ/L Chloride Level 103 MEQ/L Carbon Dioxide Level 24.6 MEQ/L Anion Gap 6 MEQ/L Estimat Glomerular Filtration Rate 77 ML/MIN Protein Corrected Calcium 7.9 MG/DL Total Creatine Kinase 44 U/L Triglycerides Level 44 MG/DL Cholesterol Level 75 MG/DL LDL Cholesterol 34 MG/DL HDL Cholesterol 31.9 MG/DL Cholesterol/HDL Ratio 2.35 RATIO Free Thyroxine 1.16 NG/DL Thyroid Stimulating Hormone 3rd Gen 2.390 uIU/ML Imaging Last 48 hours Impressions Chest X-Ray 12/11/17 0739 Signed Impressions: Service Date/Time: Monday, December 11, 2017 07:54 - CONCLUSION: No acute disease. Nolberto Gentile MD Assessment and Plan Problem List: (1) Anemia ICD Codes: D64.9 - Anemia, unspecified Plan: s/p transfusion. ? caused by prior epistaxis (2) Left ventricular dysfunction ICD Codes: I51.9 - Heart disease, unspecified Plan: EF 25%. Suspect secondary to cocaine and NSTEMI combined (3) Angina pectoris ICD Codes: I20.9 - Angina pectoris, unspecified Plan: Perplexing because LAD stent looked pristine. Check Verify Now. Add nitropaste (4) Stented coronary artery ICD Codes: Z95.5 - Presence of coronary angioplasty implant and graft Plan: cont asa/clopidogrel. Change clopidogrel to Brilinta if non-responder (5) Non-STEMI (non-ST elevated myocardial infarction) ICD Codes: I21.4 - Non-ST elevation (NSTEMI) myocardial infarction Plan: BP low so ACEI held this AM (6) Transaminitis ICD Codes: R74.0 - Nonspecific elevation of levels of transaminase and lactic acid dehydrogenase [LDH] Plan: statin DC'd. (7) Cough ICD Codes: R05 - Cough Plan: STAT CXR. Assess for possible CHF vs. COPD/bronchitis (8) Hypomagnesemia ICD Codes: E83.42 - Hypomagnesemia Plan: replete (9) Paroxysmal ventricular tachycardia ICD Codes: I47.2 - Ventricular tachycardia Plan: replete Magnesium Joesph Fitch MD Dec 12, 2017 09:43
[2017-12-12] MEDS ORDERED: PNEUMOCOCCAL POLYVALENT INJ 25 MCG/0.5 ML SYR IM ONE (10:00)
--- NOTE | 2017-12-12 10:18 | RADRPT ---
EXAM DATE/TIME: 12/12/2017 10:00 [place] COMPARISON: CHEST PA & LAT, December 11, 2017, 7:54. INDICATIONS : Shortness of breath. Cough. Chest pain. MEDICAL HISTORY : None. SURGICAL HISTORY : None. ENCOUNTER: Subsequent ACUITY: 3 days PAIN SCORE: 6/10 LOCATION: Bilateral chest FINDINGS: PA and lateral views of the chest were obtained and demonstrate mild cardiomegaly. There is mild hazy opacity at the lung bases and the posterior costophrenic angles are mildly blunted consistent with s mall effusions. There is no perihilar edema. The bony thorax remains intact. CONCLUSION: 1. Mild hazy opacity the lung bases and small effusions. 2. The heart size appears mildly enlarged and the findings could indicate mild congestive heart failu re. Nolberto Gentile MD on December 12, 2017 at 10:15 Board Certified Radiologist. This report was verified electronically.
[2017-12-12] MEDS: MAGNESIUM SULFATE 1 GM PREMIX 100 ML IV SCH ×2 (10:20→11:27)
[2017-12-12] MEDS: NITROGLYCERIN 2% OINT 1 GM PACKET TOPICAL SCH ×3 (10:22→21:14)
--- NOTE | 2017-12-12 10:59 | HHI.PR ---
Subjective Remarks Patient reports persistent cough with deep breathing. He reports chest pain that is coming and going. He feels chest tightness when he breathes. He endorsed some shortness of breath. Objective Vitals Vital Signs Date Time Temp Pulse Resp B/P (MAP) Pulse Ox O2 Delivery O2 Flow Rate FiO2 12/12/17 09:00 68 12/12/17 08:57 100/70 (80) 12/12/17 08:55 126 12/12/17 08:03 68 12/12/17 07:25 97.8 77 18 104/76 (85) 96 12/12/17 07:00 74 12/12/17 06:04 75 12/12/17 05:00 82 12/12/17 04:00 76 12/12/17 03:16 76 12/12/17 03:00 98.7 81 102/74 (83) 97 12/12/17 02:00 74 12/12/17 01:00 80 12/12/17 00:33 98.6 82 103/71 (82) 100 12/12/17 00:00 80 12/11/17 23:00 83 12/11/17 22:00 84 12/11/17 21:53 98.4 82 106/69 99 12/11/17 21:39 98.2 81 105/74 97 12/11/17 21:00 86 12/11/17 20:00 86 12/11/17 19:00 83 12/11/17 19:00 98.3 83 112/72 (85) 100 12/11/17 18:22 98.3 81 20 117/79 100 12/11/17 18:00 80 12/11/17 18:00 80 12/11/17 17:18 98.5 86 20 115/74 100 12/11/17 17:00 86 12/11/17 17:00 86 12/11/17 16:45 98.5 84 20 102/66 100 12/11/17 16:30 98.4 90 20 104/58 99 12/11/17 16:13 98.4 89 21 105/66 99 12/11/17 16:00 90 12/11/17 16:00 90 12/11/17 16:00 98.2 93 20 105/66 (79) 100 12/11/17 15:00 96 12/11/17 15:00 96 12/11/17 14:00 88 12/11/17 13:00 100 12/11/17 12:00 91 12/11/17 11:30 98.0 86 20 126/87 (100) 100 I/O 12/11/17 12/11/17 12/11/17 12/12/17 12/12/17 12/12/17 07:00 15:00 23:00 07:00 15:00 23:00 Intake Total 100 ml 1767 ml 880 ml Output Total 350 ml 800 ml Balance 100 ml 1417 ml 80 ml Intake Oral 480 ml 480 ml IV Total 100 ml Packed Cells 400 ml 400 ml Blood Product IV Normal Saline Flush 887 ml Output Urine Total 350 ml 800 ml Result Diagram: 12/12/17 0333 12/12/17 033 Objective Remarks GENERAL: Innumerable tattoos, appear uncomfortable. CARDIOVASCULAR: Normal rate and regular rhythm. He does have a cardiac rub and a 2 out of 6 MIGUELINA murmur best heard over the tricuspid area RESPIRATORY: Bilateral by basilar crackles, rhonchi and faint expiratory wheezing. Spasmodic cough with breathing. GASTROINTESTINAL: Abdomen soft, non-tender, non-distended. Normal active bowel sounds MUSCULOSKELETAL: Extremities without cyanosis, or edema. NEURO: Alert & Oriented x4 to person, place, time, situation. Moves all ext x4 PSYCH: Appropriate mood and affect. A/P Problem List: (1) Transaminitis ICD Code: R74.0 - Nonspecific elevation of levels of transaminase and lactic acid dehydrogenase [LDH] (2) Alcohol abuse ICD Code: F10.10 - Alcohol abuse, uncomplicated (3) STEMI (ST elevation myocardial infarction) ICD Code: I21.3 - ST elevation (STEMI) myocardial infarction of unspecified site Status: Acute (4) CHF (congestive heart failure) ICD Code: I50.9 - Heart failure, unspecified Status: Acute (5) IVDU (intravenous drug user) ICD Code: F19.90 - Other psychoactive substance use, unspecified, uncomplicated (6) Angina pectoris ICD Code: I20.9 - Angina pectoris, unspecified Assessment and Plan 52 y/o male with a history of hep c, and IVDA presented to the ED with chest pain. Patient currently has evidence of CHF. NSTEMI S/P stent placement. NSTEMI, troponin 3.3 EKG reveiwed and shows LVH, possible lateral ischemia -Cardiology following. Status post stenting of the LAD. EF of 25% on echocardiogram -Continue aspirin, Plavix, NATE inhibitor, Coreg -Pain management with Percocet PO -1 dose IV morphine given for breakthrough pain Acute systolic CHF: -Likely secondary to combination of cocaine abuse and NSTEMI per cardiology - Has been started on IV Lasix. ACEI held this morning due to low blood pressure. -Continue Coreg IVDU: Patient reports having chills. On review of his records, he has had multiple episodes of ER visit for skin abscesses and reports of him injecting needles. However he denies IV drug use within the past year. -Given cardiac exam and his history, concern about endocarditis. Will obtain blood cultures. Anemia, hemoglobin 7.5, patient with a history of epistasis one week ago -2 units PRBCs ordered for transfusion, Lasix 20 mg IV given at twin units -H&H stable this morning. Continue to monitor TERI, creatinine 1.38, baseline .86 -IVF x 1 L NS given -Avoid nephrotoxins -Renal function normalized. Transaminitis, ALT 316, AST 694 suspected due to hep C, alcohol abuse, heart failure. -IVF initially given for dehydration -Improved. Repeat CMP in a.m.. Alcohol abuse -[facility] protocol -Seizure precautions DVT prophylaxis: Start heparin Problem Qualifiers (1) STEMI (ST elevation myocardial infarction): Qualified Codes: I21.3 - ST elevation (STEMI) myocardial infarction of unspecified site Susy Jiménez MD Dec 12, 2017 10:59
[2017-12-12 11:08] LABS: HEMOGLOBIN A1C 4.9 % (4.3-6.0)
[2017-12-12] MEDS: oxyCODONE/ACETAMINOPHEN 5 MG/325 MG TAB PO PRN ×3 (11:28→19:54)
[2017-12-12] MEDS ORDERED: RESP: ALBUTEROL 2.5 MG/IPRATROPIUM 0.5 MG NEB (PRN) NEB (11:30)
--- NOTE | 2017-12-12 12:15 | EKG ---
Date Performed: 12/11/2017 Time Performed: 12:19:16 PTAGE: 52 years EKG: Sinus rhythm Cannot rule out anteroseptal infarct - age undetermined LVH with secondary repolarization abnormalit y Inferior/lateral ST-T changes may be due to hypertrophy and/or ischemia Abnormal ECG PREVIOUS TRACING : 12/11/2017 07.59 Since the previous tracing, no significant change noted DOCTOR: Jose Jones Interpretating Date/Time 12/12/2017 12:12:58
[2017-12-12] MEDS: FUROSEMIDE 40 MG/4 ML VIAL IV PUSH SCH ×2 (12:47→18:19)
[2017-12-12] MEDS: POTASSIUM CHLORIDE 20 MEQ CONTROLLED RELEASE TAB PO SCH ×2 (12:48→18:16)
[2017-12-12] MEDS: predniSONE 20 MG TAB PO SCH ×2 (13:11→18:16)
[2017-12-12] MEDS: HEPARIN SODIUM - SQ 10,000 UNITS/ML VIAL SQ SCH ×2 (14:38→21:17)
[2017-12-12] MEDS ORDERED: TICAGRELOR 90 MG TAB PO ONE (14:45)
[2017-12-12] MEDS: LORazepam 1 MG TAB PO PRN ×2 (15:46→19:53)
[2017-12-13] VITALS (22 sets, daily range): BP systolic 93–119; BP diastolic 54–76; PULSE 64–92; RESP 16–20; TEMP 97.6–97.9; O2SAT 96–98
[2017-12-13] MEDS: LORazepam 1 MG TAB PO PRN (01:35)
[2017-12-13] MEDS: TICAGRELOR 90 MG TAB PO SCH ×2 (04:41→17:31)
[2017-12-13] MEDS: oxyCODONE/ACETAMINOPHEN 10 MG/325 MG TAB PO PRN ×2 (04:42→08:21)
[2017-12-13] MEDS: NITROGLYCERIN 2% OINT 1 GM PACKET TOPICAL SCH ×4 (04:42→20:38)
[2017-12-13 07:44] LABS: HEMATOCRIT 27.8 % (39.0-51.0); HEMOGLOBIN 9.3 GM/DL (13.0-17.0); MEAN CELL VOLUME 90.4 FL (80.0-100.0); MEAN CORPUSCULAR HEMOGLOBIN 30.3 PG (27.0-34.0); MEAN CORPUSCULAR HGB CONC 33.5 % (32.0-36.0); MEAN PLATELET VOLUME 9.1 FL (7.0-11.0); PLATELET COUNT 197 TH/MM3 (150-450); RED BLOOD COUNT 3.08 MIL/MM3 (4.50-5.90); RED CELL DISTRIBUTION WIDTH 15.4 % (11.6-17.2); WHITE BLOOD COUNT 11.1 TH/MM3 (4.0-11.0)
[2017-12-13 07:52] LABS: BICARBONATE 24.9 MEQ/L (21.0-32.0); CALCIUM 8.1 MG/DL (8.5-10.1); CREATININE 0.96 MG/DL (0.60-1.30); DIRECT BILIRUBIN ADULT 0.2 MG/DL (0.0-0.2)
[2017-12-13 07:55] LABS: INDIRECT BILIRUBIN 0.2 MG/DL (0.0-0.8); TOTAL BILIRUBIN ADULT 0.4 MG/DL (0.2-1.0); TOTAL PROTEIN 6.1 GM/DL (6.4-8.2)
--- NOTE | 2017-12-13 07:57 | PD.CARD.PN ---
Subjective Subjective Remarks Still hurts to take deep breath but not as bad Objective Medications Current Medications Medications (Trade) Dose Ordered Sig/Jaspreet Route Start Time Stop Time Status Last Admin (NS Flush) 2 ml UNSCH PRN IV FLUSH 12/11/17 11:15 (NS Flush) 2 ml BID IV FLUSH 12/11/17 21:00 12/12/17 21:21 (Tylenol) 325 mg Q4H PRN PO 12/11/17 11:15 (Percocet 5-325 Mg) 1 tab Q4H PRN PO 12/11/17 11:15 12/12/17 19:54 (Percocet 10-325 Mg) 1 tab Q4H PRN PO 12/11/17 11:15 12/13/17 04:42 (Restoril) 15 mg HS PRN PO 12/11/17 11:15 (Aspirin Chew) 162 mg DAILY PO 12/12/17 09:00 12/12/17 08:15 (Zofran Inj) 4 mg Q4H PRN IV PUSH 12/11/17 11:15 (Coreg) 3.125 mg BID PO 12/11/17 21:00 12/12/17 21:14 (Prinivil) 5 mg DAILY PO 12/12/17 09:00 (Romazicon Inj) 0.2 mg Q1M PRN IV PUSH 12/11/17 19:15 (Ativan) 1 mg Q4H PRN PO 12/11/17 19:15 12/13/17 01:35 (Ativan Inj) 1 mg Q4H PRN IV PUSH 12/11/17 19:15 (Ativan) 2 mg Q2H PRN PO 12/11/17 19:15 (Ativan Inj) 2 mg Q2H PRN IV PUSH 12/11/17 19:15 (Ativan Inj) 2 mg Q1H PRN IV PUSH 12/11/17 19:15 (Ativan Inj) 2 mg Q15M PRN IV PUSH 12/11/17 19:15 (Nitroglycerin 2% Oint) 1 inch Q6H TOPICAL 12/12/17 10:00 12/13/17 04:42 (Duoneb Neb) 1 ampule Q4HR NEB PRN NEB 12/12/17 11:30 12/12/17 11:41 (Lasix Inj) 40 mg BID@0900,1800 IV PUSH 12/12/17 12:30 12/12/17 18:19 (KCl) 20 meq TID PO 12/12/17 13:00 12/12/17 18:16 (Deltasone) 20 mg TID PO 12/12/17 13:30 12/12/17 18:16 (Heparin Inj) 5,000 units Q12HR SQ 12/12/17 13:30 12/12/17 21:17 (Brilinta) 90 mg Q12H PO 12/13/17 06:00 12/13/17 04:41 Vital Signs / I&O Vital Signs Date Time Temp Pulse Resp B/P (MAP) Pulse Ox O2 Delivery O2 Flow Rate FiO2 12/13/17 04:44 66 16 101/65 (77) 98 12/13/17 03:00 69 12/13/17 02:00 68 12/13/17 01:00 68 12/13/17 00:00 72 12/12/17 23:50 75 16 100/66 (77) 94 12/12/17 23:00 70 12/12/17 22:00 78 12/12/17 21:00 76 12/12/17 20:00 72 12/12/17 19:50 97.8 71 16 105/70 (82) 96 12/12/17 19:00 68 12/12/17 18:00 68 12/12/17 17:00 71 12/12/17 16:00 72 12/12/17 15:39 115/66 (82) 12/12/17 15:07 98.3 79 18 100/62 (75) 97 12/12/17 15:00 72 12/12/17 14:19 76 12/12/17 13:00 72 12/12/17 12:00 76 12/12/17 11:19 98.0 76 18 102/62 (75) 96 12/12/17 11:00 74 12/12/17 10:00 62 12/12/17 09:00 68 12/12/17 08:57 100/70 (80) 12/12/17 08:55 126 12/12/17 08:03 68 I/O 12/12/17 12/12/17 12/12/17 12/13/17 12/13/17 12/13/17 07:00 15:00 23:00 07:00 15:00 23:00 Intake Total 880 ml 1188 ml 240 ml Output Total 800 ml 2851 ml 900 ml Balance 80 ml -1663 ml -660 ml Intake Oral 480 ml 1188 ml 240 ml Packed Cells 400 ml Output Urine Total 800 ml 2850 ml 900 ml Stool Total 1 ml # Bowel Movements 0 Physical Exam Alert. He looks better today then yesterday Chest: few rhonchi, decreased BS CV S1S2 RRR, soft S3 no edema Right groin OK Laboratory Laboratory Tests Test 12/12/17 13:00 12/13/17 06:07 Platelet Function P2Y12 React Units 226 PRU White Blood Count 11.1 TH/MM3 Red Blood Count 3.08 MIL/MM3 Hemoglobin 9.3 GM/DL Hematocrit 27.8 % Mean Corpuscular Volume 90.4 FL Mean Corpuscular Hemoglobin 30.3 PG Mean Corpuscular Hemoglobin Concent 33.5 % Red Cell Distribution Width 15.4 % Platelet Count 197 TH/MM3 Mean Platelet Volume 9.1 FL Blood Urea Nitrogen 19 MG/DL Creatinine 0.96 MG/DL Random Glucose 155 MG/DL Albumin 2.0 GM/DL Calcium Level 8.1 MG/DL Aspartate Amino Transf (AST/SGOT) 243 U/L Alanine Aminotransferase (ALT/SGPT) 241 U/L Direct Bilirubin 0.2 MG/DL Sodium Level 134 MEQ/L Potassium Level 4.2 MEQ/L Chloride Level 100 MEQ/L Carbon Dioxide Level 24.9 MEQ/L Anion Gap 9 MEQ/L Estimat Glomerular Filtration Rate 83 ML/MIN Imaging Last 48 hours Impressions Chest X-Ray 12/12/17 0000 Signed Impressions: Service Date/Time: Tuesday, December 12, 2017 10:00 - CONCLUSION: 1. Mild hazy opacity the lung bases and small effusions. 2. The heart size appears mildly enlarged and the findings could indicate mild congestive heart failure. Nolberto Gentile MD Assessment and Plan Problem List: (1) Anemia ICD Codes: D64.9 - Anemia, unspecified (2) Left ventricular dysfunction ICD Codes: I51.9 - Heart disease, unspecified (3) Angina pectoris ICD Codes: I20.9 - Angina pectoris, unspecified (4) Stented coronary artery ICD Codes: Z95.5 - Presence of coronary angioplasty implant and graft (5) Non-STEMI (non-ST elevated myocardial infarction) ICD Codes: I21.4 - Non-ST elevation (NSTEMI) myocardial infarction Status: Acute (6) Transaminitis ICD Codes: R74.0 - Nonspecific elevation of levels of transaminase and lactic acid dehydrogenase [LDH] (7) Cough ICD Codes: R05 - Cough (8) Hypomagnesemia ICD Codes: E83.42 - Hypomagnesemia (9) Paroxysmal ventricular tachycardia ICD Codes: I47.2 - Ventricular tachycardia (10) Pericarditis ICD Codes: I31.9 - Disease of pericardium, unspecified (11) Acute systolic (congestive) heart failure ICD Codes: I50.21 - Acute systolic (congestive) heart failure Assessment and Plan Prednisone has reduced his pericarditis pain. CHF improving. Joesph Fitch MD Dec 13, 2017 07:57
[2017-12-13] MEDS: ASPIRIN 81 MG CHEW TAB PO SCH (08:20)
[2017-12-13] MEDS: SODIUM CHLORIDE 0.9% FLUSH 10 ML FLUSH IV FLUSH SCH ×2 (08:20→20:39)
[2017-12-13] MEDS: POTASSIUM CHLORIDE 20 MEQ CONTROLLED RELEASE TAB PO SCH ×3 (08:21→17:31)
[2017-12-13] MEDS: CARVEDILOL 3.125 MG TAB PO SCH ×2 (08:21→20:39)
[2017-12-13] MEDS: predniSONE 20 MG TAB PO SCH ×3 (08:21→17:32)
[2017-12-13] MEDS: LISINOPRIL 5 MG TAB PO SCH (08:22)
[2017-12-13] MEDS: HEPARIN SODIUM - SQ 10,000 UNITS/ML VIAL SQ SCH ×2 (08:22→20:39)
[2017-12-13] MEDS: FUROSEMIDE 40 MG/4 ML VIAL IV PUSH SCH ×2 (08:25→17:34)
--- NOTE | 2017-12-13 09:15 | EKG ---
Date Performed: 12/12/2017 Time Performed: 07:50:00 PTAGE: 52 years EKG: Sinus rhythm . Cannot rule out septal infarct - age undetermined LVH with secondary repolarization abnormality Inf erior/lateral ST-T changes Abnormal ECG PREVIOUS TRACING : 12/11/2017 12.19 Since the previous tracing, no significant change noted DOCTOR: Carmina Mendoza Interpretating Date/Time 12/13/2017 09:13:06
--- NOTE | 2017-12-13 12:08 | HHI.PR ---
Subjective Remarks Patient reports he is feeling better today. Able to take deeper breath. Still requesting pain medications. Objective Vitals Vital Signs Date Time Temp Pulse Resp B/P (MAP) Pulse Ox O2 Delivery O2 Flow Rate FiO2 12/13/17 11:05 97.9 74 18 93/54 (67) 96 12/13/17 11:05 88 12/13/17 10:20 85 12/13/17 09:50 18 12/13/17 09:41 74 12/13/17 08:47 64 12/13/17 07:29 66 12/13/17 07:29 97.8 76 18 104/68 (80) 98 12/13/17 04:44 66 16 101/65 (77) 98 12/13/17 03:00 69 12/13/17 02:00 68 12/13/17 01:00 68 12/13/17 00:00 72 12/12/17 23:50 75 16 100/66 (77) 94 12/12/17 23:00 70 12/12/17 22:00 78 12/12/17 21:00 76 12/12/17 20:00 72 12/12/17 19:50 97.8 71 16 105/70 (82) 96 12/12/17 19:00 68 12/12/17 18:00 68 12/12/17 17:00 71 12/12/17 16:00 72 12/12/17 15:39 115/66 (82) 12/12/17 15:07 98.3 79 18 100/62 (75) 97 12/12/17 15:00 72 12/12/17 14:19 76 12/12/17 13:00 72 I/O 12/12/17 12/12/17 12/12/17 12/13/17 12/13/17 12/13/17 07:00 15:00 23:00 07:00 15:00 23:00 Intake Total 880 ml 1188 ml 240 ml Output Total 800 ml 2851 ml 900 ml Balance 80 ml -1663 ml -660 ml Intake Oral 480 ml 1188 ml 240 ml Packed Cells 400 ml Output Urine Total 800 ml 2850 ml 900 ml Stool Total 1 ml # Bowel Movements 0 Result Diagram: 12/13/17 0612/13/17 06 Objective Remarks GENERAL: Innumerable tattoos, in no acute distress. Looks better today. CARDIOVASCULAR: Normal rate and regular rhythm. 2 out of 6 MIGUELINA murmur best heard over the tricuspid area. Unable to appreciate rub today. RESPIRATORY: Bilateral by basilar crackles, rhonchi and faint expiratory wheezing. GASTROINTESTINAL: Abdomen soft, non-tender, non-distended. Normal active bowel sounds MUSCULOSKELETAL: Extremities without cyanosis, or edema. NEURO: Alert & Oriented x4 to person, place, time, situation. Moves all ext x4 PSYCH: Appropriate mood and affect. A/P Problem List: (1) Transaminitis ICD Code: R74.0 - Nonspecific elevation of levels of transaminase and lactic acid dehydrogenase [LDH] (2) Alcohol abuse ICD Code: F10.10 - Alcohol abuse, uncomplicated (3) CHF (congestive heart failure) ICD Code: I50.9 - Heart failure, unspecified Status: Acute (4) Non-STEMI (non-ST elevated myocardial infarction) ICD Code: I21.4 - Non-ST elevation (NSTEMI) myocardial infarction Status: Acute Assessment and Plan 52 y/o male with a history of hep c, and IVDA presented to the ED with chest pain. Patient with evidence of CHF. NSTEMI S/P stent placement. NSTEMI, troponin 3.3 EKG reveiwed and shows LVH, possible lateral ischemia -Cardiology following. Status post stenting of the LAD. EF of 25% on echocardiogram -Continue aspirin, Plavix, NATE inhibitor, Coreg -Pain management with Percocet PO -1 dose IV morphine given for breakthrough pain Acute systolic CHF: -Likely secondary to combination of cocaine abuse and NSTEMI per cardiology - Has been started on IV Lasix. ACEI as BP tolerate -Continue Coreg IVDU: Patient reports having chills. On review of his records, he has had multiple episodes of ER visit for skin abscesses and reports of him injecting needles. However he denies IV drug use within the past year. -Given cardiac exam and his history, concern about endocarditis. Blood cultures obtained so far negative Anemia, hemoglobin 7.5, patient with a history of epistasis one week ago -s/p 2 units PRBCs transfusion -H&H stable this morning. Continue to monitor TERI, creatinine 1.38, baseline .86 -IVF x 1 L NS given -Avoid nephrotoxins -Renal function normalized. Transaminitis, ALT 316, AST 694 suspected due to hep C, alcohol abuse, heart failure. -IVF initially given for dehydration -Improved. Repeat CMP in a.m.. Alcohol abuse -[facility] protocol -Seizure precautions DVT prophylaxis: heparin Discharge Planning Possible DC tomorrow if he continues to improve. Cardiology input appreciated. Problem Qualifiers (1) CHF (congestive heart failure): Qualified Codes: I50.21 - Acute systolic (congestive) heart failure Susy Jiménez MD Dec 13, 2017 12:08
[2017-12-13] MEDS: oxyCODONE/ACETAMINOPHEN 5 MG/325 MG TAB PO PRN (13:21)
[2017-12-14] VITALS (19 sets, daily range): BP systolic 103–147; BP diastolic 64–88; PULSE 45–76; RESP 18–20; TEMP 97.2–97.8; O2SAT 96–98
[2017-12-14] MEDS: NITROGLYCERIN 2% OINT 1 GM PACKET TOPICAL SCH ×3 (04:29→16:00)
[2017-12-14] MEDS: TICAGRELOR 90 MG TAB PO SCH ×2 (06:22→18:08)
[2017-12-14 06:50] LABS: HEMATOCRIT 26.6 % (39.0-51.0); HEMOGLOBIN 8.8 GM/DL (13.0-17.0); MEAN CELL VOLUME 91.7 FL (80.0-100.0); MEAN CORPUSCULAR HEMOGLOBIN 30.4 PG (27.0-34.0); MEAN CORPUSCULAR HGB CONC 33.2 % (32.0-36.0); MEAN PLATELET VOLUME 8.7 FL (7.0-11.0); PLATELET COUNT 210 TH/MM3 (150-450); RED BLOOD COUNT 2.91 MIL/MM3 (4.50-5.90); RED CELL DISTRIBUTION WIDTH 15.8 % (11.6-17.2); WHITE BLOOD COUNT 12.2 TH/MM3 (4.0-11.0)
[2017-12-14 07:33] LABS: BICARBONATE 25.1 MEQ/L (21.0-32.0); CALCIUM 8.6 MG/DL (8.5-10.1); CREATININE 0.95 MG/DL (0.60-1.30); MAGNESIUM 1.7 MG/DL (1.5-2.5)
[2017-12-14] MEDS: LORazepam 1 MG TAB PO PRN (09:30)
[2017-12-14] MEDS: oxyCODONE/ACETAMINOPHEN 5 MG/325 MG TAB PO PRN (09:30)
[2017-12-14] MEDS: CARVEDILOL 3.125 MG TAB PO SCH (09:31)
[2017-12-14] MEDS: predniSONE 20 MG TAB PO SCH ×3 (09:31→18:07)
[2017-12-14] MEDS: LISINOPRIL 5 MG TAB PO SCH (09:31)
[2017-12-14] MEDS: SODIUM CHLORIDE 0.9% FLUSH 10 ML FLUSH IV FLUSH SCH (09:32)
[2017-12-14] MEDS: HEPARIN SODIUM - SQ 10,000 UNITS/ML VIAL SQ SCH (09:32)
--- NOTE | 2017-12-14 09:34 | PD.CARD.PN ---
Subjective Subjective Remarks Cough with yellow sputum. Mild SOB Objective Medications Current Medications Medications (Trade) Dose Ordered Sig/Jaspreet Route Start Time Stop Time Status Last Admin (NS Flush) 2 ml UNSCH PRN IV FLUSH 12/11/17 11:15 (NS Flush) 2 ml BID IV FLUSH 12/11/17 21:00 12/13/17 20:39 (Tylenol) 325 mg Q4H PRN PO 12/11/17 11:15 (Percocet 5-325 Mg) 1 tab Q4H PRN PO 12/11/17 11:15 12/13/17 13:21 (Percocet 10-325 Mg) 1 tab Q4H PRN PO 12/11/17 11:15 12/13/17 08:21 (Restoril) 15 mg HS PRN PO 12/11/17 11:15 (Zofran Inj) 4 mg Q4H PRN IV PUSH 12/11/17 11:15 (Coreg) 3.125 mg BID PO 12/11/17 21:00 12/13/17 20:39 (Prinivil) 5 mg DAILY PO 12/12/17 09:00 (Romazicon Inj) 0.2 mg Q1M PRN IV PUSH 12/11/17 19:15 (Ativan) 1 mg Q4H PRN PO 12/11/17 19:15 12/13/17 01:35 (Ativan Inj) 1 mg Q4H PRN IV PUSH 12/11/17 19:15 (Ativan) 2 mg Q2H PRN PO 12/11/17 19:15 (Ativan Inj) 2 mg Q2H PRN IV PUSH 12/11/17 19:15 (Ativan Inj) 2 mg Q1H PRN IV PUSH 12/11/17 19:15 (Ativan Inj) 2 mg Q15M PRN IV PUSH 12/11/17 19:15 12/13/17 20:40 (Nitroglycerin 2% Oint) 1 inch Q6H TOPICAL 12/12/17 10:00 12/14/17 04:29 (Duoneb Neb) 1 ampule Q4HR NEB PRN NEB 12/12/17 11:30 12/12/17 11:41 (Lasix Inj) 40 mg BID@0900,1800 IV PUSH 12/12/17 12:30 12/15/17 05:00 4/2/18 17:34 (Deltasone) 20 mg TID PO 12/12/17 13:30 12/13/17 17:32 (Heparin Inj) 5,000 units Q12HR SQ 12/12/17 13:30 12/13/17 20:39 (Brilinta) 90 mg Q12H PO 12/13/17 06:00 12/14/17 06:22 (Aspirin Chew) 81 mg DAILY PO 12/15/17 09:00 UNV (KCl) 20 meq DAILY PO 12/15/17 09:00 UNV (Lasix) 40 mg DAILY PO 12/15/17 09:00 UNV Vital Signs / I&O Vital Signs Date Time Temp Pulse Resp B/P (MAP) Pulse Ox O2 Delivery O2 Flow Rate FiO2 12/14/17 07:55 56 12/14/17 07:52 97.2 57 18 118/80 (93) 97 12/14/17 05:00 62 12/14/17 04:00 64 12/14/17 03:00 62 12/14/17 03:00 97.6 73 20 147/88 (107) 97 12/14/17 02:00 63 12/14/17 01:00 61 12/14/17 00:00 73 12/14/17 00:00 97.5 73 20 110/70 (83) 98 12/13/17 23:00 67 12/13/17 22:00 92 12/13/17 21:00 82 12/13/17 20:00 84 12/13/17 19:00 90 12/13/17 19:00 97.6 89 20 119/76 (90) 98 12/13/17 18:10 88 12/13/17 17:34 85 12/13/17 16:10 82 12/13/17 15:14 88 12/13/17 15:14 97.9 88 18 111/69 (83) 98 12/13/17 14:34 83 12/13/17 14:22 18 12/13/17 13:23 83 12/13/17 12:16 65 12/13/17 11:05 97.9 74 18 93/54 (67) 96 12/13/17 11:05 88 12/13/17 10:20 85 12/13/17 09:50 18 12/13/17 09:41 74 I/O 12/13/17 12/13/17 12/13/17 12/14/17 12/14/17 12/14/17 06:59 14:59 22:59 06:59 14:59 22:59 Intake Total 240 ml 1200 ml 720 ml Output Total 900 ml Balance -660 ml 1200 ml 720 ml Intake Oral 240 ml 1200 ml 720 ml Output Urine Total 900 ml # Voids 5 4 # Bowel Movements 0 1 0 Physical Exam Alert. Chest: few rhonchi, decreased BS CV S1S2 RRR, soft S3 no edema Right groin OK Yesterday patient had a visitor bring him whiskey - security had to be called. Long talk/confrontation with patient re: alcohol, cocaine, tobacco abuse. He has severe heart disease, severe liver disease, COPD Laboratory Laboratory Tests Test 12/14/17 06:16 White Blood Count 12.2 TH/MM3 Red Blood Count 2.91 MIL/MM3 Hemoglobin 8.8 GM/DL Hematocrit 26.6 % Mean Corpuscular Volume 91.7 FL Mean Corpuscular Hemoglobin 30.4 PG Mean Corpuscular Hemoglobin Concent 33.2 % Red Cell Distribution Width 15.8 % Platelet Count 210 TH/MM3 Mean Platelet Volume 8.7 FL Blood Urea Nitrogen 20 MG/DL Creatinine 0.95 MG/DL Random Glucose 93 MG/DL Calcium Level 8.6 MG/DL Magnesium Level 1.7 MG/DL Sodium Level 136 MEQ/L Potassium Level 5.0 MEQ/L Chloride Level 104 MEQ/L Carbon Dioxide Level 25.1 MEQ/L Anion Gap 7 MEQ/L Estimat Glomerular Filtration Rate 84 ML/MIN Assessment and Plan Problem List: (1) Anemia ICD Codes: D64.9 - Anemia, unspecified (2) Left ventricular dysfunction ICD Codes: I51.9 - Heart disease, unspecified (3) Angina pectoris ICD Codes: I20.9 - Angina pectoris, unspecified (4) Stented coronary artery ICD Codes: Z95.5 - Presence of coronary angioplasty implant and graft (5) Non-STEMI (non-ST elevated myocardial infarction) ICD Codes: I21.4 - Non-ST elevation (NSTEMI) myocardial infarction Status: Acute (6) Transaminitis ICD Codes: R74.0 - Nonspecific elevation of levels of transaminase and lactic acid dehydrogenase [LDH] (7) Cough ICD Codes: R05 - Cough (8) Hypomagnesemia ICD Codes: E83.42 - Hypomagnesemia Plan: IV replete (9) Paroxysmal ventricular tachycardia ICD Codes: I47.2 - Ventricular tachycardia (10) Pericarditis ICD Codes: I31.9 - Disease of pericardium, unspecified (11) Acute systolic (congestive) heart failure ICD Codes: I50.21 - Acute systolic (congestive) heart failure Plan: Change furosemide to PO tomorrow (12) Non-compliance ICD Codes: Z91.19 - Patient's noncompliance with other medical treatment and regimen Plan: Poor compliance - prognosis poor because of this. (13) Cocaine abuse ICD Codes: F14.10 - Cocaine abuse, uncomplicated (14) Alcohol abuse ICD Codes: F10.10 - Alcohol abuse, uncomplicated (15) Bronchitis ICD Codes: J40 - Bronchitis, not specified as acute or chronic Plan: per primary service Assessment and Plan CXR in AM Joesph Fitch MD Dec 14, 2017 09:34
[2017-12-14] MEDS: FUROSEMIDE 40 MG/4 ML VIAL IV PUSH SCH ×2 (09:35→18:08)
[2017-12-14] MEDS: MAGNESIUM SULFATE 1 GM PREMIX 100 ML IV SCH ×2 (10:00→11:16)
--- NOTE | 2017-12-14 11:39 | HHI.PR ---
Subjective Remarks Threatened to live AMA yesterday. Had visitor bring him piotr yesterday. Still SOB. Not happy about being in the Hospital. Objective Vitals Vital Signs Date Time Temp Pulse Resp B/P (MAP) Pulse Ox O2 Delivery O2 Flow Rate FiO2 12/14/17 11:19 66 12/14/17 11:18 97.5 66 18 104/64 (77) 97 12/14/17 10:31 71 12/14/17 10:31 18 12/14/17 09:42 58 12/14/17 07:55 56 12/14/17 07:52 97.2 57 18 118/80 (93) 97 12/14/17 05:00 62 12/14/17 04:00 64 12/14/17 03:00 62 12/14/17 03:00 97.6 73 20 147/88 (107) 97 12/14/17 02:00 63 12/14/17 01:00 61 12/14/17 00:00 73 12/14/17 00:00 97.5 73 20 110/70 (83) 98 12/13/17 23:00 67 12/13/17 22:00 92 12/13/17 21:00 82 12/13/17 20:00 84 12/13/17 19:00 90 12/13/17 19:00 97.6 89 20 119/76 (90) 98 12/13/17 18:10 88 12/13/17 17:34 85 12/13/17 16:10 82 12/13/17 15:14 88 12/13/17 15:14 97.9 88 18 111/69 (83) 98 12/13/17 14:34 83 12/13/17 13:23 83 12/13/17 12:16 65 I/O 12/13/17 12/13/17 12/13/17 12/14/17 12/14/17 12/14/17 07:00 15:00 23:00 07:00 15:00 23:00 Intake Total 240 ml 1200 ml 720 ml Output Total 900 ml Balance -660 ml 1200 ml 720 ml Intake Oral 240 ml 1200 ml 720 ml Output Urine Total 900 ml # Voids 5 4 # Bowel Movements 0 1 0 Result Diagram: 12/14/1716 12/14/17615 Objective Remarks GENERAL: Innumerable tattoos, in no acute distress. Looks better today. CARDIOVASCULAR: Normal rate and regular rhythm. 2 out of 6 MIGUELINA murmur best heard over the tricuspid area. Unable to appreciate rub today. RESPIRATORY: Bilateral by basilar crackles, rhonchi and faint expiratory wheezing. GASTROINTESTINAL: Abdomen soft, non-tender, non-distended. Normal active bowel sounds MUSCULOSKELETAL: Extremities without cyanosis, or edema. NEURO: Alert & Oriented x4 to person, place, time, situation. Moves all ext x4 PSYCH: Appropriate mood and affect. A/P Problem List: (1) Transaminitis ICD Code: R74.0 - Nonspecific elevation of levels of transaminase and lactic acid dehydrogenase [LDH] (2) Alcohol abuse ICD Code: F10.10 - Alcohol abuse, uncomplicated (3) CHF (congestive heart failure) ICD Code: I50.9 - Heart failure, unspecified Status: Acute (4) Non-STEMI (non-ST elevated myocardial infarction) ICD Code: I21.4 - Non-ST elevation (NSTEMI) myocardial infarction Status: Acute Assessment and Plan 52 y/o male with a history of hep c, and IVDA presented to the ED with chest pain. Patient with evidence of CHF. NSTEMI S/P stent placement. NSTEMI, troponin 3.3 EKG reveiwed and shows LVH, possible lateral ischemia -Cardiology following. Status post stenting of the LAD. EF of 25% on echocardiogram -Continue aspirin, Plavix, NATE inhibitor, Coreg -Pain management Acute systolic CHF: -Likely secondary to combination of cocaine abuse and NSTEMI per cardiology - Has been started on IV Lasix.Transitioned to oral. ACEI as BP tolerate -Continue Coreg IVDU: Patient was counseled. Blood cultures obtained so far negative Anemia, hemoglobin 7.5, patient with a history of epistasis one week ago -s/p 2 units PRBCs transfusion -H&H stable this morning. Continue to monitor TERI, creatinine 1.38, baseline .86 -IVF x 1 L NS given -Avoid nephrotoxins -Renal function normalized. Transaminitis, ALT 316, AST 694 suspected due to hep C, alcohol abuse, heart failure. -IVF initially given for dehydration -Improved. Repeat CMP in a.m.. Alcohol abuse -[facility] protocol -Seizure precautions Noncompliance. He is threatening to leave AMA. Patient was extensively counseled. DVT prophylaxis: heparin Discharge Planning Transitioned to oral meds. DC when cleared by Cardiology. Problem Qualifiers (1) CHF (congestive heart failure): Qualified Codes: I50.21 - Acute systolic (congestive) heart failure Susy Jiménez MD Dec 14, 2017 11:39
[2017-12-14] MEDS ORDERED: PRED10PA PO (17:14)
[2017-12-14] MEDS ORDERED: POTA20TA5 PO (17:14)
[2017-12-14] MEDS ORDERED: BRIL90TA PO (17:14)
[2017-12-14] MEDS ORDERED: ASPI81 PO (17:14)
[2017-12-14] MEDS ORDERED: FURO40TA PO (17:14)
[2017-12-14] MEDS ORDERED: LISI-519 PO (17:14)
[2017-12-14] MEDS ORDERED: CARV3.125 PO (17:14)
--- NOTE | 2017-12-14 22:20 | HHI.DS ---
Discharge Summary Admission Date Dec 11, 2017 at 10:05 Admitting Diagnosis SC (1) Transaminitis ICD Code: R74.0 - Nonspecific elevation of levels of transaminase and lactic acid dehydrogenase [LDH] (2) Alcohol abuse ICD Code: F10.10 - Alcohol abuse, uncomplicated (3) CHF (congestive heart failure) ICD Code: I50.9 - Heart failure, unspecified Status: Acute (4) Non-STEMI (non-ST elevated myocardial infarction) ICD Code: I21.4 - Non-ST elevation (NSTEMI) myocardial infarction Status: Acute Brief History - From Admission 52 y/o male with a history of hep c, and IVDA presented to the ED with chest pain. Patient states he has been having 10/10 sharp midsternal chest pain with no radiation and associated nausea and dizziness. He states it is worse with a deep breath, and better with morphine. He has never been diagnosed with CHF and does not have a pcp. Echo revealed an EF of 25%. He still complains of chest pain, sob with deep breaths. Denies any fever, chills or lower extremity edema. Patient was taken to the [facility] and bridge dental lab technician for a NSTEMI and a stent was placed in the LAD. CBC/BMP: 12/14/17 0616 12/14/17 0616 Significant Findings Laboratory Tests Test 12/12/17 03:33 12/12/17 13:00 12/13/17 06:07 12/14/17 06:16 Red Blood Count 3.02 MIL/MM3 (4.50-5.90) 3.08 MIL/MM3 (4.50-5.90) 2.91 MIL/MM3 (4.50-5.90) Hemoglobin 9.2 GM/DL (13.0-17.0) 9.3 GM/DL (13.0-17.0) 8.8 GM/DL (13.0-17.0) Hematocrit 27.3 % (39.0-51.0) 27.8 % (39.0-51.0) 26.6 % (39.0-51.0) Neutrophils (%) (Auto) 70.9 % (16.0-70.0) Monocytes (%) (Auto) 11.4 % (0.0-8.0) Total Protein 6.0 GM/DL (6.4-8.2) 6.1 GM/DL (6.4-8.2) Albumin 2.1 GM/DL (3.4-5.0) 2.0 GM/DL (3.4-5.0) Calcium Level 7.3 MG/DL (8.5-10.1) 8.1 MG/DL (8.5-10.1) Phosphorus Level 1.8 MG/DL (2.5-4.9) Aspartate Amino Transf (AST/SGOT) 329 U/L (15-37) 243 U/L (15-37) Alanine Aminotransferase (ALT/SGPT) 235 U/L (12-78) 241 U/L (12-78) Total Bilirubin 1.2 MG/DL (0.2-1.0) Sodium Level 134 MEQ/L (136-145) 134 MEQ/L (136-145) Estimat Glomerular Filtration Rate 77 ML/MIN (>89) 83 ML/MIN (>89) 84 ML/MIN (>89) Protein Corrected Calcium 7.9 MG/DL (8.5-10.1) Cholesterol Level 75 MG/DL (120-200) HDL Cholesterol 31.9 MG/DL (40.0-60.0) White Blood Count 11.1 TH/MM3 (4.0-11.0) 12.2 TH/MM3 (4.0-11.0) Blood Urea Nitrogen 19 MG/DL (7-18) 20 MG/DL (7-18) Random Glucose 155 MG/DL (74-106) PE at Discharge GENERAL: Innumerable tattoos, in no acute distress. Looks better today. CARDIOVASCULAR: Normal rate and regular rhythm. 2 out of 6 MIGUELINA murmur best heard over the tricuspid area. Unable to appreciate rub today. RESPIRATORY: Bilateral by basilar crackles, rhonchi and faint expiratory wheezing. GASTROINTESTINAL: Abdomen soft, non-tender, non-distended. Normal active bowel sounds MUSCULOSKELETAL: Extremities without cyanosis, or edema. NEURO: Alert & Oriented x4 to person, place, time, situation. Moves all ext x4 PSYCH: Appropriate mood and affect. Susy Jiménez MD Dec 14, 2017 22:20
[2017-12-15] MEDS ORDERED: FUROSEMIDE 40 MG TAB PO SCH (09:00)
[2017-12-15] MEDS ORDERED: ASPIRIN 81 MG CHEW TAB PO SCH (09:00)
[2017-12-15] MEDS ORDERED: POTASSIUM CHLORIDE 20 MEQ CONTROLLED RELEASE TAB PO SCH (09:00)
== END 2017-12-14 18:42 | disposition left against medical advice (07) | DRG 248 ==
LOC: NEPC 07:22 → NEDA 10:05 → HCIS 10:59
PROVIDERS: ADMIT Hospitalist; ATTEND Hospitalist
PROC: 02703DZ Dilation of Coronary Artery, One Artery with Intraluminal Device, Percutaneous Approach (ICD-10-PCS; principal; 2017-12-11)
PROC: 30233N1 Transfusion of Nonautologous Red Blood Cells into Peripheral Vein, Percutaneous Approach (ICD-10-PCS; 2017-12-11)
PROC: 4A023N7 Measurement of Cardiac Sampling and Pressure, Left Heart, Percutaneous Approach (ICD-10-PCS; 2017-12-11)
PROC: B2151ZZ Fluoroscopy of Left Heart using Low Osmolar Contrast (ICD-10-PCS; 2017-12-11)
PROC: B2111ZZ Fluoroscopy of Multiple Coronary Arteries using Low Osmolar Contrast (ICD-10-PCS; 2017-12-11)
DX: I21.4 Non-ST elevation (NSTEMI) myocardial infarction (principal); I50.21 Acute systolic (congestive) heart failure; I47.2 Ventricular tachycardia; N17.9 Acute kidney failure, unspecified; I31.9 Disease of pericardium, unspecified; E83.42 Hypomagnesemia; F14.10 Cocaine abuse, uncomplicated; F10.10 Alcohol abuse, uncomplicated; F17.210 Nicotine dependence, cigarettes, uncomplicated; M19.90 Unspecified osteoarthritis, unspecified site; B19.20 Unspecified viral hepatitis C without hepatic coma; J40 Bronchitis, not specified as acute or chronic; R06.2 Wheezing; D64.9 Anemia, unspecified; R01.1 Cardiac murmur, unspecified; I25.119 Atherosclerotic heart disease of native coronary artery with unspecified angina pectoris; E86.0 Dehydration; Z91.19 Patient's noncompliance with other medical treatment and regimen; Z23 Encounter for immunization
CPT/HCPCS: 36430; 71046; 80048; 80053; 80061; 80076; 80307; 82550; 83036; 83735; 84100; 84439; 84443; 84484; 85025; 85027; 85576; 85610; 85730; 86850; 86900; 86901; 86920; 87040; 90732; 92928; 93005; 93306; 93458; 94664; 96365; 96375; 99152; 99153; C1760; C1769; C1876; C1887; C1893; G0269; J0583; J1200; J1644; J1940; J2060; J2250; J2270; J2405; J2930; J3475; J7030; J7512; P9016; Q9967

== ENCOUNTER 2017-12-17 09:46 | Emergency (ER) | payer SELFPAY ==
[~2017-12-17] VITALS: Ht 167.6 cm; Wt 67.3 kg
[~2017-12-17 09:46] MED LIST changes: +ASPI81 PO; +BRIL90TA PO; +CARV3.125 PO; -CLIN300C5 PO; -FERR325T18 PO; +FURO40TA PO; +LISI-519 PO; -NAPR500 PO; +POTA20TA5 PO; +PRED10PA PO
[2017-12-17 09:56] VITALS: BP 108/67; PULSE 70; RESP 16; TEMP 98.6; O2SAT 97
[2017-12-17] MEDS ORDERED: CEPHALEXIN MONOHYDRATE 500 MG CAP PO ONE (11:00)
[2017-12-17] MEDS ORDERED: CEPH-460 PO (11:01)
--- NOTE | 2017-12-17 11:02 | PD ---
HPI Chief Complaint: Oral / Dental Pain or Problem Time Seen by Provider: 10:53 Travel History International Travel<30 days: No Contact w/Intl Traveler<30days: No Traveled to known affect area: No History of Present Illness HPI Is a 52-year-old man presents to the emergency department complaining of dental pain. History of recent soft tissue infections, as well as VA with stent placement. Is been unable to afford his Brilinta and is not taking aspirin. He was taken off his clindamycin when he came in for his VA. He reports ongoing right-sided tooth pain and facial pain. He otherwise been feeling fatigued, and weak, since his VA. History Past Medical History Narrative Medical VA Social History Alcohol Use: Yes (2-3 vodka or whiskey drinks per day) Tobacco Use: Yes (1 PPD) Allergies-Medications (Allergen,Severity, Reaction): Coded Allergies: penicillin G (Unverified Allergy, Unknown, UNKNOWN, 12/17/17) Reported Meds & Prescriptions Reported Meds & Active Scripts Active Prednisone (21) 10 mg tab Dose Pack (Prednisone) 10 Mg Pack 10 Mg PO DIRECTED Furosemide 40 Mg Tab 40 Mg PO DAILY Potassium Chloride Microencaps 20 Meq Tab 20 Meq PO DAILY Tgt Aspirin (Aspirin) 81 Mg Chw 81 Mg PO DAILY Lisinopril 5 Mg Tab 5 Mg PO DAILY Coreg (Carvedilol) 3.125 Mg Tab 3.125 Mg PO BID Brilinta (Ticagrelor) 90 Mg Tab 90 Mg PO Q12H Review of Systems Except as stated in HPI: all other systems reviewed are Neg Physical Exam Narrative GENERAL: 52-year-old man, generally well-appearing. SKIN: Focused skin assessment warm/dry. HEAD: Atraumatic. Normocephalic. EYES: Pupils equal and round. No scleral icterus. No injection or drainage. ENT: No nasal bleeding or discharge. Mucous membranes pink and moist. Multiple missing teeth. The entire bottom right is completely edentulous. There is tenderness over palpation. No inferior any fluctuance or see any obvious abscess. Poor dentition throughout. NECK: Trachea midline. No JVD. CARDIOVASCULAR: Regular rate and rhythm. No murmur appreciated. RESPIRATORY: No accessory muscle use. Clear to auscultation. Breath sounds equal bilaterally. GASTROINTESTINAL: Abdomen soft, non-tender, nondistended. Hepatic and splenic margins not palpable. MUSCULOSKELETAL: No obvious deformities. Data Data Last Documented VS Vital Signs Date Time Temp Pulse Resp B/P (MAP) Pulse Ox O2 Delivery O2 Flow Rate FiO2 12/17/17 09:56 98.6 70 16 108/67 (81) 97 Orders Orders Cephalexin (Keflex) (12/17/17 11:00) [facility] Medical Decision Making Medical Screen Exam Complete: Yes Emergency Medical Condition: Yes Differential Diagnosis Odontogenic infection, cellulitis, abscess, other Narrative Course Medical decision making 52-year-old man presents emergency department with pain and swelling in the bottom right side of his face. He is not taking his Brilinta he had a recent stent placement. Recommended low-dose aspirin at the very least, Brilinta as prescribed. He states he understands the importance of this. Diagnosis Primary Impression: Pain, dental Additional Instructions: Take antibiotics as prescribed. Follow-up as previously recommended. Return to the emergency department for any new or worsening symptoms. Med/Other Pt SpecificInfo: Prescription(s) given Scripts Cephalexin (Keflex) 500 Mg Capsule 500 MG PO TID for Infection, #21 CAP 0 Refills Prov: Josue Dc MD 12/17/17 Disposition: 01 DISCHARGE HOME Condition: Stable Josue Dc MD Dec 17, 2017 11:02
== END 2017-12-17 11:30 | disposition home or self-care (01) ==
LOC: NEPD 09:46
DX: K08.89 Other specified disorders of teeth and supporting structures (principal); I25.2 Old myocardial infarction; F17.200 Nicotine dependence, unspecified, uncomplicated; Z88.0 Allergy status to penicillin; Z79.899 Other long term (current) drug therapy; Z79.82 Long term (current) use of aspirin
CPT/HCPCS: 99283

== ENCOUNTER 2017-12-22 10:29 | Inpatient (IN) | payer SELFPAY ==
[~2017-12-22] VITALS: Ht 167.6 cm; Wt 63.9 kg
[~2017-12-22 10:29] MED LIST changes: +CEPH-460 PO
[2017-12-22 10:41] VITALS: BP 108/76; PULSE 64; RESP 17; TEMP 98.2
[2017-12-22 10:47] VITALS: BP 108/76; PULSE 65; RESP 17; TEMP 98.1; O2SAT 100
[2017-12-22 10:50] VITALS: BP 108/76; PULSE 65; RESP 17; O2SAT 100
--- NOTE | 2017-12-22 11:30 | RADRPT ---
EXAM DATE/TIME: 12/22/2017 11:17 [place] COMPARISON: CHEST SINGLE AP, October 13, 2017, 0:34. INDICATIONS : Chest pain since yesterday. MEDICAL HISTORY : Hepatitis C. SURGICAL HISTORY : Coronary artery stent. ENCOUNTER: Initial ACUITY: 2 days PAIN SCORE: 4/10 LOCATION: Left chest FINDINGS: A single view of the chest demonstrates the lungs to be symmetrically aerated without evidence of mas s, infiltrate or effusion. The cardiomediastinal contours are unremarkable. Osseous structures are intact. CONCLUSION: No acute disease. Jason Pereira MD FACR on December 22, 2017 at 11:27 Board Certified Radiologist. This report was verified electronically.
[2017-12-22 13:48] LABS: AUTOMATED NEUTROPHIL # 5.5 TH/MM3 (1.8-7.7); BASOPHIL # 0.1 TH/MM3 (0-0.2); BASOPHIL % 0.7 % (0.0-2.0); EOSINOPHIL # 0.1 TH/MM3 (0-0.4); EOSINOPHIL % 0.8 % (0.0-4.0); HEMATOCRIT 38.9 % (39.0-51.0); HEMOGLOBIN 13.8 GM/DL (13.0-17.0); LYMPH % 27.8 % (9.0-44.0); LYMPHOCYTE # 2.6 TH/MM3 (1.0-4.8); MEAN CELL VOLUME 89.1 FL (80.0-100.0); MEAN CORPUSCULAR HEMOGLOBIN 31.7 PG (27.0-34.0); MEAN CORPUSCULAR HGB CONC 35.6 % (32.0-36.0); MEAN PLATELET VOLUME 8.4 FL (7.0-11.0); MONO % 11.9 % (0.0-8.0); MONOCYTE # 1.1 TH/MM3 (0-0.9); NEUT % 58.8 % (16.0-70.0); PLATELET COUNT 360 TH/MM3 (150-450); RED BLOOD COUNT 4.36 MIL/MM3 (4.50-5.90); RED CELL DISTRIBUTION WIDTH 15.4 % (11.6-17.2); WHITE BLOOD COUNT 9.3 TH/MM3 (4.0-11.0)
[2017-12-22 13:50] LABS: PROTHROMBIN TIME - PATIENT 10.1 SEC (9.8-11.6)
--- NOTE | 2017-12-22 14:16 | PD ---
HPI Chief Complaint: Cardiac Complaint Time Seen by Provider: 10:47 Travel History International Travel<30 days: No Contact w/Intl Traveler<30days: No Traveled to known affect area: No History of Present Illness HPI 52-year-old male complains of chest pain. Patient states that the chest pain started 2 days ago. Patient states the pain aching pain intermittent pain localized to left chest. Patient denies any pain radiation. Patient denies palpitation diaphoresis. Patient states that he has intermittent nausea for the past 3 days and dizziness for the past 2 days. Patient denies any fever chills. Patient states that he has some dry cough. Patient status post left heart catheterization and stent placement on December 11, 2017. Patient was discharged home with Brilinta. Patient has been taking Brilinta as directed. Patient has history hypertension. Patient denies history of diabetes. Patient quit smoking after the cardiac cath procedure. PFSH Past Medical History Hx Anticoagulant Therapy: Yes Arthritis: Yes Cancer: No Cardiac Catheterization: Yes Cardiovascular Problems: Yes Chemotherapy: No Cerebrovascular Accident: No Coronary Artery Disease: Yes Diabetes: No Diminished Hearing: No Endocrine: No Genitourinary: No Headaches: Yes Hepatitis: Yes (HEP C) Immune Disorder: No Musculoskeletal: Yes Neurologic: Yes Psychiatric: No Reproductive: No Respiratory: No Migraines: Yes Myocardial Infarction: Yes Seizures: Yes Tetanus Vaccination: < 5 Years Influenza Vaccination: No Past Surgical History Abdominal Surgery: No Cardiac Surgery: No Ear Surgery: No Endocrine Surgery: No Eye Surgery: No Genitourinary Surgery: No Gynecologic Surgery: No Oral Surgery: No Thoracic Surgery: No Other Surgery: Yes Social History Alcohol Use: Yes (2-3 vodka or whiskey drinks per day) Tobacco Use: Yes (1 PPD) Substance Use: No (PAST USE OPIATES) Allergies-Medications (Allergen,Severity, Reaction): Coded Allergies: penicillin G (Verified Allergy, Unknown, UNKNOWN, 12/22/17) Reported Meds & Prescriptions Reported Meds & Active Scripts Active Keflex (Cephalexin) 500 Mg Capsule 500 Mg PO TID Furosemide 40 Mg Tab 40 Mg PO DAILY Potassium Chloride Microencaps 20 Meq Tab 20 Meq PO DAILY Tgt Aspirin (Aspirin) 81 Mg Chw 81 Mg PO DAILY Lisinopril 5 Mg Tab 5 Mg PO DAILY Coreg (Carvedilol) 3.125 Mg Tab 3.125 Mg PO BID Brilinta (Ticagrelor) 90 Mg Tab 90 Mg PO Q12H Review of Systems General / Constitutional: No: Fever Eyes: No: Visual changes HENT: No: Headaches Cardiovascular: Positive: Chest Pain or Discomfort Respiratory: No: Shortness of Breath Gastrointestinal: No: Abdominal Pain Genitourinary: No: Dysuria Musculoskeletal: No: Pain Skin: No Rash Neurologic: No: Weakness Psychiatric: No: Depression Endocrine: No: Polydipsia Hematologic/Lymphatic: No: Easy Bruising Physical Exam Narrative GENERAL: Well-nourished, well-developed patient. SKIN: Focused skin assessment warm/dry. HEAD: Normocephalic. EYES: No scleral icterus. No injection or drainage. NECK: Supple, trachea midline. No JVD or lymphadenopathy. CARDIOVASCULAR: Regular rate and rhythm without murmurs, gallops, or rubs. RESPIRATORY: Breath sounds equal bilaterally. No accessory muscle use. GASTROINTESTINAL: Abdomen soft, non-tender, nondistended. MUSCULOSKELETAL: No cyanosis, or edema. BACK: Nontender without obvious deformity. No CVA tenderness. Neurologic exam normal. Data Data Last Documented VS Vital Signs Date Time Temp Pulse Resp B/P (MAP) Pulse Ox O2 Delivery O2 Flow Rate FiO2 12/22/17 10:50 65 17 108/76 (87) 100 Room Air 12/22/17 10:47 98.1 Orders Orders Electrocardiogram (12/22/17 11:) Complete Blood Count With Diff (12/22/17 11:) Comprehensive Metabolic Panel (12/22/17 11:01) Creatine Kinase (Cpk) (12/22/17 11:) Troponin I (12/22/17 11:) Prothrombin Time / Inr (Pt) (12/22/17 11:) Act Partial Throm Time (Ptt) (12/22/17 11:) Chest, Single Ap (12/22/17 11:) Iv Access Insert/Monitor (12/22/17 11:) Ecg Monitoring (12/22/17 11:) Oximetry (12/22/17 11:) Labs Laboratory Tests Test 12/22/17 12:30 12/22/17 14:15 White Blood Count 9.3 TH/MM3 Red Blood Count 4.36 MIL/MM3 Hemoglobin 13.8 GM/DL Hematocrit 38.9 % Mean Corpuscular Volume 89.1 FL Mean Corpuscular Hemoglobin 31.7 PG Mean Corpuscular Hemoglobin Concent 35.6 % Red Cell Distribution Width 15.4 % Platelet Count 360 TH/MM3 Mean Platelet Volume 8.4 FL Neutrophils (%) (Auto) 58.8 % Lymphocytes (%) (Auto) 27.8 % Monocytes (%) (Auto) 11.9 % Eosinophils (%) (Auto) 0.8 % Basophils (%) (Auto) 0.7 % Neutrophils # (Auto) 5.5 TH/MM3 Lymphocytes # (Auto) 2.6 TH/MM3 Monocytes # (Auto) 1.1 TH/MM3 Eosinophils # (Auto) 0.1 TH/MM3 Basophils # (Auto) 0.1 TH/MM3 CBC Comment DIFF FINAL Differential Comment Prothrombin Time 10.1 SEC Prothromb Time International Ratio 1.0 RATIO Activated Partial Thromboplast Time 21.5 SEC Blood Urea Nitrogen 24 MG/DL Creatinine 1.16 MG/DL Random Glucose 86 MG/DL Total Protein 8.1 GM/DL Albumin 3.0 GM/DL Calcium Level 9.3 MG/DL Alkaline Phosphatase 106 U/L Aspartate Amino Transf (AST/SGOT) 105 U/L Alanine Aminotransferase (ALT/SGPT) 123 U/L Total Bilirubin 0.4 MG/DL Sodium Level 140 MEQ/L Potassium Level 4.1 MEQ/L Chloride Level 108 MEQ/L Carbon Dioxide Level 24.5 MEQ/L Anion Gap 8 MEQ/L Estimat Glomerular Filtration Rate 66 ML/MIN Total Creatine Kinase 41 U/L Troponin I 0.03 NG/ML MDM Medical Decision Making Medical Screen Exam Complete: Yes Emergency Medical Condition: Yes Interpretation(s) EKG shows sinus rhythm, T-wave inversion in anterior lateral leads, essentially unchanged from previous EKG. 1528 PM. Last Impressions Chest X-Ray 12/22/17 1101 Signed Impressions: Service Date/Time: Friday, December 22, 2017 11:17 - CONCLUSION: No acute disease. Jason Pereira MD FACR CBC within normal limits. BUN 24. AST 105. ALT 123. Cardiac enzymes are normal. Differential Diagnosis Differential diagnosis including musculoskeletal, angina, VA, PE, pneumothorax. Narrative Course 52-year-old male with chest pain. History of CAD status post stent placement. Satish Owens MD Dec 22, 2017 14:16
[2017-12-22 14:59] LABS: ALT (GPT) 123 U/L (12-78); AST (GOT) 105 U/L (15-37); BICARBONATE 24.5 MEQ/L (21.0-32.0); BLOOD UREA NITROGEN 24 MG/DL (7-18); CALCIUM 9.3 MG/DL (8.5-10.1); CHLORIDE 108 MEQ/L (98-107); CREATININE 1.16 MG/DL (0.60-1.30); GLOMERULAR FILTRATION RATE 66 ML/MIN (>89); GLUCOSE,RANDOM 86 MG/DL (74-106); SODIUM (NA) 140 MEQ/L (136-145)
[2017-12-22 15:03] LABS: ALKALINE PHOSPHATASE 106 U/L (45-117); TOTAL BILIRUBIN ADULT 0.4 MG/DL (0.2-1.0); TOTAL PROTEIN 8.1 GM/DL (6.4-8.2); TROPONIN I 0.03 NG/ML (0.02-0.05)
--- NOTE | 2017-12-22 16:24 | HHI.FPPN ---
Objective Vitals Vital Signs Date Time Temp Pulse Resp B/P (MAP) Pulse Ox O2 Delivery O2 Flow Rate FiO2 12/22/17 10:50 65 17 108/76 (87) 100 Room Air 12/22/17 10:47 65 17 100 Room Air 12/22/17 10:47 98.1 65 17 108/76 (87) 100 Room Air 12/22/17 10:41 98.2 64 17 108/76 (87) Result Diagram: 12/22/17 1230 12/22/17 1415 Max Nash MD, R3 Dec 22, 2017 16:24
[2017-12-22 16:25] VITALS: BP 135/88; PULSE 57; RESP 19; O2SAT 100
--- NOTE | 2017-12-22 16:27 | HHI.HP ---
HPI Service Family Medicine Primary Care Physician No Primary Care Physician Admission Diagnosis Chest pain Diagnoses: International Travel<30 Days: No Contact w/Intl Traveler<30days: No Known Affected Area: No History of Present Illness CC: "Chest Pain" HPI: Onset: 2 days ago Location: Center of chest Duration: Lasting for several minutes, coming and going over the course of the day. Characteristics: at its worst: 7-8/10 pain in severity. Sharp and sudden pain. No radiation. Currently 3/10 in severity. Aggravating: Worse with walking around. Relieving: Nothing. Symptoms: Associated with SOB. Feels the same as it did with heart attack, however not as bad of a pain. He reports "blacking out" on Wednesday12/18/2017 for approximately 15 minutes, and Wednesday12/19/2017 he stood up, was seeing stars and woke up on the floor. He fell mainly on her right elbow. He did not want to come to ED today, but his boss told him to come into the hospital. He needs anote saying that he can return to work. ROS: + Nightsweats. +Blurry vision (chronic). +Chronic cough that is non productive. +SOB with ambulation (1/2 mile then gets winded). +Stomach pain ( but "they diagnosed me with a bad liver"). +Mixture of diarrhea and constipation. +Constant muscle cramps. +Numbness and tingling in his hands. No runny nose, no throat pain. Past Family Social History Past Medical History Past Medical History: Hep C CHF EF 25% IVDA Alcohol abuse Seizure disorder (possible EtOH withdrawal). Past Surgical History: right foot surgery Coded Allergies: penicillin G (Unverified Allergy, Unknown, UNKNOWN, 12/07/17) Family History Patient does not know his family history, mom when he was 8 and he did not know his dad. Social History Tobacco use: 1 PPD - quit in November 2017. Alcohol use: Daily 4 beers and a 1/2 of pint of vodka. Has cut back since leaving hospital one week ago. He has had withdrawal. Last drink was on 2017. Illicit drug use: history of IVDA (quit heroin 2 years ago). Allergies: Coded Allergies: penicillin G (Verified Allergy, Unknown, UNKNOWN, 12/22/17) Physical Exam Vital Signs Vital Signs Date Time Temp Pulse Resp B/P (MAP) Pulse Ox O2 Delivery O2 Flow Rate FiO2 12/22/17 10:50 65 17 108/76 (87) 100 Room Air 12/22/17 10:47 65 17 100 Room Air 12/22/17 10:47 98.1 65 17 108/76 (87) 100 Room Air 12/22/17 10:41 98.2 64 17 108/76 (87) Physical Exam GENERAL: This is a well-nourished, well-developed patient, in no apparent distress. SKIN: No rashes, ecchymoses or lesions. Cool and dry. HEAD: Atraumatic. Normocephalic. No temporal or scalp tenderness. EYES: Pupils equal round and reactive. Extraocular motions intact. No scleral icterus. No injection or drainage. ENT: Nose without bleeding, purulent drainage or septal hematoma. Throat without erythema, tonsillar hypertrophy or exudate. Uvula midline. Airway patent. NECK: Trachea midline. No JVD or lymphadenopathy. Supple, nontender, no meningeal signs. CARDIOVASCULAR: Regular rate and rhythm without murmurs, gallops, or rubs. RESPIRATORY: Clear to auscultation. Breath sounds equal bilaterally. No wheezes , rales, or rhonchi. GASTROINTESTINAL: Abdomen soft, non-tender, nondistended. No hepato-splenomegaly , or palpable masses. No guarding. MUSCULOSKELETAL: Extremities without clubbing, cyanosis, or edema. No joint tenderness, effusion, or edema noted. No calf tenderness. Negative Homans sign bilaterally. NEUROLOGICAL: Awake and alert. Cranial nerves II through XII intact. Motor and sensory grossly within normal limits. Five out of 5 muscle strength in all muscle groups. Normal speech. Laboratory Laboratory Tests Test 12/22/17 12:30 12/22/17 14:15 White Blood Count 9.3 Red Blood Count 4.36 Hemoglobin 13.8 Hematocrit 38.9 Mean Corpuscular Volume 89.1 Mean Corpuscular Hemoglobin 31.7 Mean Corpuscular Hemoglobin Concent 35.6 Red Cell Distribution Width 15.4 Platelet Count 360 Mean Platelet Volume 8.4 Neutrophils (%) (Auto) 58.8 Lymphocytes (%) (Auto) 27.8 Monocytes (%) (Auto) 11.9 Eosinophils (%) (Auto) 0.8 Basophils (%) (Auto) 0.7 Neutrophils # (Auto) 5.5 Lymphocytes # (Auto) 2.6 Monocytes # (Auto) 1.1 Eosinophils # (Auto) 0.1 Basophils # (Auto) 0.1 CBC Comment DIFF FINAL Differential Comment Prothrombin Time 10.1 Prothromb Time International Ratio 1.0 Activated Partial Thromboplast Time 21.5 Blood Urea Nitrogen 24 Creatinine 1.16 Random Glucose 86 Total Protein 8.1 Albumin 3.0 Calcium Level 9.3 Alkaline Phosphatase 106 Aspartate Amino Transf (AST/SGOT) 105 Alanine Aminotransferase (ALT/SGPT) 123 Total Bilirubin 0.4 Sodium Level 140 Potassium Level 4.1 Chloride Level 108 Carbon Dioxide Level 24.5 Anion Gap 8 Estimat Glomerular Filtration Rate 66 Total Creatine Kinase 41 Troponin I 0.03 Result Diagram: 12/22/17 1230 12/22/17 1415 Caprini VTE Risk Assessment Caprini VTE Risk Assessment: Mod/High Risk (score >= 2) Caprini Risk Assessment Model Point Value = 1 Point Value = 2 Point Value = 3 Point Value = 5 Age 41-60 Minor surgery BMI > 25 kg/m2 Swollen legs Varicose veins or History of unexplained or recurrent spontaneous Oral contraceptives or hormone replacement Sepsis (< 1 month) Serious lung disease, including pneumonia (< 1 month) Abnormal pulmonary function Acute myocardial infarction Congestive heart failure (< 1 month) History of inflammatory bowel disease Medical patient at bed rest Age 61-74 Arthroscopic surgery Major open surgery (> 45 min) Laparoscopic surgery (> 45 min) Malignancy Confined to bed (> 72 hours) Immobilizing plaster cast Central venous access Age >= 75 History of VTE Family history of VTE Factor V Leiden Prothrombin [id number] Lupus anticoagulant Anticardiolipin antibodies Elevated serum homocysteine Heparin-induced thrombocytopenia Other congenital or acquired thrombophilia Stroke (< 1 month) Elective arthroplasty Hip, pelvis, or leg fracture Acute spinal cord injury (< 1 month) Prophylaxis Regimen Total Risk Factor Score Risk Level Prophylaxis Regimen 0-1 Low Early ambulation 2 Moderate Order ONE of the following: *Sequential Compression Device (SCD) *Heparin 5000 units SQ BID 3-4 Higher Order ONE of the following medications: *Heparin 5000 units SQ TID *Enoxaparin/Lovenox 40 mg SQ daily (WT < 150 kg, CrCl > 30 mL/min) *Enoxaparin/Lovenox 30 mg SQ daily (WT < 150 kg, CrCl > 10-29 mL/min) *Enoxaparin/Lovenox 30 mg SQ BID (WT < 150 kg, CrCl > 30 mL/min) AND/OR *Sequential Compression Device (SCD) 5 or more Highest Order ONE of the following medications: *Heparin 5000 units SQ TID (Preferred with Epidurals) *Enoxaparin/Lovenox 40 mg SQ daily (WT < 150 kg, CrCl > 30 mL/min) *Enoxaparin/Lovenox 30 mg SQ daily (WT < 150 kg, CrCl > 10-29 mL/min) *Enoxaparin/Lovenox 30 mg SQ BID (WT < 150 kg, CrCl > 30 mL/min) AND *Sequential Compression Device (SCD) Assessment and Plan Assessment and Plan 52 y/o male with PMHx of [place] with bare metal stent placed in LAD on December 11, 2017 (99% stenosis of proximal LAD, 0% residual stenosis s/p stent), Congestive heart failure with EF of 25%, IVDU quit in 2017, tobacco abuse, hepatitis C, EtOH abuse, seizure disorder/EtOH withdrawal seizures, and cellulitis presenting with chest pain and syncope over the past 2 days. He will be admitted for ACS rule out and medication adjustment. Code Status Full Code. Problem List: (1) CHF (congestive heart failure) ICD Codes: I50.9 - Heart failure, unspecified Status: Acute Plan: S/P bare metal stent on 12/11/2017. Chest pain likely MSK - given reproducibility on palpation. Trend EKG and Troponin q 6 hours. Initial EKG showing no signs of ischemia. Consult cardiology. Continue carvedilol 3.25 mg BID. Aspirin 162 mg chew x 1 and 81 mg daily. Brilinta BID. BP control with lisinopril 5 mg daily and lasix 40 mg PO daily. (2) Stented coronary artery ICD Codes: Z95.5 - Presence of coronary angioplasty implant and graft Plan: As above. ACS rule out. (3) Alcohol abuse ICD Codes: F10.10 - Alcohol abuse, uncomplicated Plan: [facility] protocol. (4) Hypokalemia ICD Codes: E87.6 - Hypokalemia Plan: K+ 4.1 Continue home KCL 20 meq daily. (5) Cellulitis ICD Codes: L03.90 - Cellulitis, unspecified Plan: Continue Keflex 500 mg TID. Continue to monitor progression. no signs of sepsis at current time. (6) Nutrition, metabolism, and development symptoms ICD Codes: R63.8 - Other symptoms and signs concerning food and fluid intake Plan: Fluids: PO DVT: Heparin 5000 BID GI: Omeprazole 40 mg daily. Diet: NPO until chest pain ruled out. SDW Dr. Romina Bell. WDW Dr. Bains. Max Nash MD, R3 Dec 22, 2017 16:26
[2017-12-22] MEDS ORDERED: ONDANSETRON HCL 4 MG/2 ML VIAL IVP PRN (17:00)
[2017-12-22] MEDS ORDERED: SENNOSIDES 8.6 MG TAB PO PRN (17:00)
[2017-12-22] MEDS ORDERED: NITROGLYCERIN 0.4 MG SL 25 TABS/BTL SL PRN (17:00)
[2017-12-22] MEDS ORDERED: LORazepam 2 MG TAB PO PRN (17:00)
[2017-12-22] MEDS ORDERED: LACTULOSE SYRUP 20 GM/30 ML CUP PO PRN (17:00)
[2017-12-22] MEDS ORDERED: LORazepam 2 MG/ML VIAL IV PUSH PRN ×3 (17:00)
[2017-12-22] MEDS ORDERED: MAGNESIUM HYDROXIDE SUSP 30 ML CUP PO PRN (17:00)
[2017-12-22] MEDS ORDERED: LORazepam 1 MG TAB PO PRN (17:00)
[2017-12-22] MEDS ORDERED: FLUMAZENIL 0.5 MG/5 ML VIAL IV PUSH PRN (17:00)
[2017-12-22] MEDS ORDERED: NALOXONE HCL 0.4 MG/ML AMP IV PUSH PRN (17:00)
[2017-12-22] MEDS ORDERED: BISACODYL 10 MG SUPP RECTAL PRN (17:00)
[2017-12-22] MEDS ORDERED: SODIUM CHLORIDE 0.9% FLUSH 10 ML FLUSH IV FLUSH PRN (17:00)
--- NOTE | 2017-12-22 17:03 | EKG ---
Date Performed: 12/22/2017 Time Performed: 10:41:31 PTAGE: 52 years EKG: Sinus rhythm SEPTAL MYOCARDIAL INFARCTION ACUTE NV PREVIOUS TRACING : 12/12/2017 07.50 Since the previous tracing, no significant change not ed DOCTOR: Romain Velazquez Interpretating Date/Time 12/22/2017 17:02:25
[2017-12-22] MEDS: LISINOPRIL 5 MG TAB PO SCH (17:47)
[2017-12-22] MEDS: CEPHALEXIN MONOHYDRATE 500 MG CAP PO SCH (17:47)
[2017-12-22] MEDS: HEPARIN SODIUM - SQ 10,000 UNITS/ML VIAL SQ SCH (17:47)
[2017-12-22] MEDS: PANTOPRAZOLE SOD 40 MG DELAYED RELEASE TAB PO SCH (17:47)
[2017-12-22 17:59] VITALS: BP 118/75; PULSE 54; RESP 18; TEMP 98.2; O2SAT 99
[2017-12-22] MEDS ORDERED: ASPIRIN 81 MG CHEW TAB CHEW ONE (18:00)
[2017-12-22 20:00] VITALS: BP 124/77; PULSE 58; RESP 16; TEMP 99.6; O2SAT 99
--- NOTE | 2017-12-22 21:17 | MB ---
cc: Nawaf Loyola MD, Arthur W MD DATE: 12/22/2017 HISTORY OF PRESENT ILLNESS: Jean Carlos is a very pleasant 52-year-old gentleman who underwent left heart catheterization by Dr. Joesph Fitch on 12/11/2017 under emergent conditions. He had a 4.0, 15 mm bare metal stent placed in the proximal LAD. There was noted to be 25% stenosis after the diagonal vessel. The LAD is transapical. Right coronary had a 25% stenosis. LVEDP was 25 mmHg. By echocardiogram, the patient's EF was 25%, PA pressure 47.9 mmHg. He also had anterior and apical hypokinesis. The patient presents today with recurrent chest pain. He is currently chest pain free in the ER. Otherwise, denies any fevers, chills, cough, GI or bleeding, PND, orthopnea, syncope or dizziness. The pain began 2 days ago. He says he is compliant with his anticoagulation. He has been taking Brilinta. PAST MEDICAL HISTORY: As per history of present illness. He has a history of hepatitis C, migraine headaches, myocardial infarction, seizure disorder. SOCIAL HISTORY: He admits to drinking 2 to 3 vodka or whiskey drinks per day, smokes a pack of cigarettes a day. Previous user of opiates, not currently. ALLERGIES: PENICILLIN. MEDICATIONS PRIOR TO ADMISSION: 1. Keflex 2. Furosemide 40 mg daily. 3. Potassium 20 mEq daily. 4. Aspirin 81 mg daily. 5. Lisinopril 5 mg daily. 6. Coreg 3.125 b.i.d. 7. Brilinta 90 mg q 12 hours. MEDICATIONS IN THE HOSPITAL: 1. Aspirin 81 mg a day. 2. Furosemide 40 mg daily. 3. Potassium 20 mEq daily. 4. Coreg 3.125 b.i.d. 5. Brilinta 90 mg q 12 hours. 6. Cephalexin 500 t.i.d. 7. Lisinopril 5 mg daily. 8. Heparin 5000 units subcutaneous q 12 hours. 9. Pantoprazole 40 daily. PHYSICAL EXAMINATION: VITAL SIGNS: Blood pressure 118/75, pulse ranging between 54 and 65, respiratory rate 18, temperature 98.2, saturations are 100% on room air. GENERAL: He is alert and oriented x3 in no acute distress. NECK: Supple. No JVD. No bruit. CARDIOVASCULAR: S1, S2. No murmurs, rubs or gallops. LUNGS: Clear to auscultation bilaterally. ABDOMEN: Soft, nontender, nondistended with positive bowel sounds. EXTREMITIES: No lower extremity edema. IMAGING STUDIES: Chest x-ray shows no acute disease. CARDIOLOGY STUDIES: EKG shows normal sinus rhythm at 63 beats per minute with slightly asymmetric deeply inverted T waves up to 6 mm V2, V3. LABORATORY DATA: White count 9.3, hemoglobin 13.8, hematocrit 38.9, platelet count 360. Sodium 140, potassium 4.1, chloride 108, bicarb 24.5, BUN 24, creatinine 1.16. AST 105, ALT 123. Troponin 0.03. CK 41. INR is 1.0. DIAGNOSES: 1. Unstable angina. 2. [place] [employer] Class IV angina. 3. Cardiomyopathy. 4. Hepatitis C. 5. Elevated liver enzymes. 6. Tobacco abuse. 7. Alcohol abuse. PLAN: At this point in time, he does appear to be on optimal medical therapy as detailed in his medication list. We will continue these medications. He is currently asymptomatic. I do think a repeat left heart catheterization should be done to rule out any compromise in flow through the stent. Strongly recommend smoking cessation. Further recommendations based on the results of his catheterization. MD ELIA Sim//jadyn , 08:34 PM , 09:02 PM
[2017-12-23] VITALS: BP 109/77; PULSE 50; PULSE 57; RESP 18; TEMP 99.2; O2SAT 99
[2017-12-23] MEDS: TICAGRELOR 90 MG TAB PO SCH ×3 (00:28→22:17)
[2017-12-23] MEDS: SODIUM CHLORIDE 0.9% FLUSH 10 ML FLUSH IV FLUSH SCH ×3 (00:28→21:00)
[2017-12-23] MEDS: CARVEDILOL 3.125 MG TAB PO SCH ×3 (00:28→22:18)
[2017-12-23] MEDS: DOCUSATE SODIUM 50 MG/SENNA 8.6 MG TAB PO SCH ×3 (00:28→22:18)
[2017-12-23 04:00] VITALS: BP 110/70; PULSE 57; RESP 16; TEMP 99.2; O2SAT 98
[2017-12-23 05:15] LABS: AUTOMATED NEUTROPHIL # 5.7 TH/MM3 (1.8-7.7); BASOPHIL # 0.1 TH/MM3 (0-0.2); BASOPHIL % 0.6 % (0.0-2.0); EOSINOPHIL # 0.1 TH/MM3 (0-0.4); EOSINOPHIL % 0.8 % (0.0-4.0); HEMATOCRIT 38.7 % (39.0-51.0); LYMPHOCYTE # 2.6 TH/MM3 (1.0-4.8); MEAN CELL VOLUME 89.4 FL (80.0-100.0); MEAN CORPUSCULAR HGB CONC 33.6 % (32.0-36.0); MEAN PLATELET VOLUME 8.4 FL (7.0-11.0); MONO % 9.6 % (0.0-8.0); MONOCYTE # 0.9 TH/MM3 (0-0.9); PLATELET COUNT 278 TH/MM3 (150-450); RED BLOOD COUNT 4.33 MIL/MM3 (4.50-5.90); RED CELL DISTRIBUTION WIDTH 15.1 % (11.6-17.2); WHITE BLOOD COUNT 9.3 TH/MM3 (4.0-11.0)
[2017-12-23] MEDS: HEPARIN SODIUM - SQ 10,000 UNITS/ML VIAL SQ SCH (06:44)
[2017-12-23 08:00] VITALS: BP 105/68; PULSE 67; RESP 18; TEMP 98.1; O2SAT 100
[2017-12-23] MEDS: CEPHALEXIN MONOHYDRATE 500 MG CAP PO SCH ×3 (08:52→18:00)
[2017-12-23] MEDS: LISINOPRIL 5 MG TAB PO SCH (08:52)
[2017-12-23] MEDS: ASPIRIN 81 MG CHEW TAB PO SCH (08:52)
[2017-12-23] MEDS: PANTOPRAZOLE SOD 40 MG DELAYED RELEASE TAB PO SCH (08:53)
[2017-12-23] MEDS: POTASSIUM CHLORIDE 20 MEQ CONTROLLED RELEASE TAB PO SCH (08:53)
[2017-12-23] MEDS ORDERED: FUROSEMIDE 40 MG TAB PO SCH (09:00)
[2017-12-23] MEDS: LORazepam 2 MG/ML VIAL IV PUSH PRN ×2 (12:00→22:19)
[2017-12-23] MEDS ORDERED: HEPARIN-NS/PF FLUSH BAG 2,000 ML IV FLUSH ONE (12:46)
[2017-12-23] MEDS ORDERED: MIDAZOLAM HCL 2 MG/2 ML VIAL ONE (12:47)
[2017-12-23] MEDS ORDERED: LIDOCAINE HCL 1% PF 30 ML VIAL ONE (12:51)
[2017-12-23] MEDS ORDERED: SODIUM CHLORIDE 0.9% FLUSH 10 ML FLUSH IV FLUSH PRN (13:30)
[2017-12-23] MEDS ORDERED: MISC INFORMATION XX ONE (13:30)
--- NOTE | 2017-12-23 13:43 | CATHPROC ---
[employer] HIS Report Study Information Study Number Admission Scheduled Start Study Start [id number] Dec 22 2017 4:17PM 12/23/2017 Dec 23 2017 11:49AM [place] Service Cardiac Catheterization Admit Source Facility Department Emergency department [facility] - Embroiderer Physician and Clinical Staff Initial Nawaf Ramos Optometric Coordinator Kailey Akers RN Recorder Janki Gautam,RT(R) (BS) Scrub Tayla Rebolledo,GENERAL DENTIST/OWNER TECH2 Procedures Performed Procedure Location (Site) Vessel Name Coronary Angiograms LCA Left Coronary Coronary Angiograms RCA Right Coronary L Heart Cath LV Gram-hand inj. LV LV Ventricle Equipment Time Back Pad Inspector Description Size Mfg Part Number Used/Scraped TRANSDUCER, TRUWAVE [id number] 12:47 COSME BROOKS * Used W/STOCKCOCK *[id number] [id number] *[id number] *[id number] 12:47 MEDLINE INDUSTRIES PACK, CCL CUSTOM * Used *[id number] 12:47 Get Fractal PACER PEN, SKIN DUAL W/ RULER * Used *[id number] 12:47 Appear Here WIRE, 3MMJ .035 180CM 180CM Used *[id number] 12:47 NAMIC MANIFOLD, 4 PORT * Used *[id number] 12:47 NYCOMED OMNIPAQUE, 350 MG, 150ML 150ML [id number] Used [id number] 12:47 OROSCO MEDICAL BLANKET,WARM AIR CCL * Used *[id number] 12:47 TERUMO MEDICAL SHEATH, FR4 TERUMO (10CM) FR 4 Used *[id number] History: Current Medications Medication Dosage/Unit Route Frequency Last Date/Time Taken ASA Beta Dante BRILINTA History: Allergies Allergy Reaction penicillin G UNKNOWN History: Risk Factors Family History of Hypertension Dyslipidemia Previous MT Previous Heart Failure Premature CAD No No No No No Prior Valve Prior PCI Prior PCIDate Prior CABG Surgery No Yes 12/11/2017 No Cerebrovascular Peripheral Artery Chronic Lung On Dialysis Diabetes Disease Disease Disease No No No No No History: Symptoms/Diagnosis Selection Items Chest pain History: Stress Tests Stress or Imaging Studies Performed No History: Other Disease Selection Items Hepatitis History: Other Current Smoker Method Packs a Day Years Used Pack Years Yes Cigarettes 1 40 40 Labs Hgb (g/dl) Hct (%) WBC (l/cumm) Platelets (thousands) 11.60-17.00 35.00-51.00 4.00-11.00 150.00-450.00 13.0 38.7 9.3 278 Glucose (mg/dl) BUN (mg/dl) Creatinine (mg/dl) BUN:Creatinine (1:x) 74.00-106.00 7.00-18.00 0.50-1.30 10.00-20.00 86 24 1.1 21.8 Na (meq/l) K (meq/l) 136.00-145.00 3.50-5.10 140 4.1 INR (PTT:PT) 0.90-1.10 1 Troponin I (ng/ml) CPK (u/l) CPK-MB (ng/ML) 0.02-0.05 26.00-308.00 0.50-3.60 0.03 41 Not Drawn Medication Medication Total Dose (Bolus/Oral) Medication Total Dosage/Unit 1% XYLOCAINE 20 mL FENTANYL 50 mcg VERSED 1 mg Medications (Bolus/Oral) Medication Time Given Dosage/Unit Administered By Reason FENTANYL 12/23/2017 1:08:20 PM 12.5 mcg Kailey Akers 12.5 mcg FENTANYL given in lab by Kailey Akers RN in Left Forearm via Peripheral IV. 1% XYLOCAINE 12/23/2017 1:08:55 PM 20 mL Nawaf Loyola 20 mL 1% XYLOCAINE given in lab by Nawaf Loyola in Right Groin via Subcutaneous. FENTANYL 12/23/2017 1:09:29 PM 12.5 mcg Kailey Akers 12.5 mcg FENTANYL given in lab by Kailey Akers RN in Left Forearm via Peripheral IV. VERSED 12/23/2017 1:09:53 PM 1 mg Nawaf Loyola 1 mg VERSED given in lab by Nawaf Loyola in Left Forearm via Peripheral IV. FENTANYL 12/23/2017 1:16:23 PM 25 mcg Kailey Akers 25 mcg FENTANYL given in lab by Kailey Akers RN in Left Forearm via Peripheral IV. Medication (Drip) Medication Time Given Dosage/Unit Concentration/Unit Diluent (ml) Solution IV Solutions 12/23/2017 12:45:29 PM 0 mL (IV) 500 NaCl .9 Patient arrived on IV Solutions in Left Forearm via Peripheral IV. Pump/Drip Flow = 30 ml/hr using Na Cl .9. Initial Case Assessment Cardiovascular HR Rhythm NIBP Chest Pain 76 reg 100/68 0 Edema Present Skin color Skin None Normal Warm Dry Circulatory - Right Pulses Dorsalis Pedis Femoral 2 3 Scale (0,1,2,3,4,d) Circulatory - Left Pulses Dorsalis Pedis Femoral 2 3 Scale (0,1,2,3,4,d) Circulatory - Lower Extremities Color Lower Right Color Lower Left Normal Normal Neurological State Oriented to time-place- Alert Moves all extremities person Respiration - General Respiration Rate SpO2 (%) (B/min) 17 100 Chronological Log Time Study Chronological Log 12:44:07 Patient arrived via Bed. 12:44:08 Patient Name, D.O.B, / Armband Verified By R.N. 12:44:12 Consent signed by the physician and the patient and verified by the Embroiderer staff. 12:44:13 Pre-op and post- op instructions given; patient acknowledges understanding of instructions. 12:44:59 Verbal Stimulation=2 Physical Stimulation=2 Airway=2 Respiration=2 TOTAL=8. (0=absent, 1=li mited, 2=present) 12:45:00 Presedation assessment performed by Embroiderer RN. 12:45:19 Patient has been NPO for More than 6Hrs. 12:45:25 Skin Breakdown right arm abrasion 12:45:26 Patient Warmer Placed on the Table. 12:45:28 Larissa Prominences Protected 12:45:29 A # 20 IV was noted in the Forearm (left). Grade = 0 12:45:29 Patient arrived on IV Solutions in Left Forearm via Peripheral IV. Pump/Drip Flow = 30 ml/h r using NaCl .9. 12:45:31 History and physical on the chart or being dictated. Assessment: Initial Case, HR=76 BPM, Rhythm=reg, JRCZ=794/68 mmhg, Chest Pain=0, Edema=None, Co susana=Normal, Skin = Warm, Dry Right Pulses: Deonte Ped=2, Femoral=3 Left Pulses: Deonte Ped=2, Femoral=3 12:45:33 Lower Right Extremities: Color=Normal Lower Left Extremities: Color=Normal Neurological: State=Alert, Ox3, RODRIGUEZ Respiration: Resp=17 B/min, WaP2=351 % Vitals capture started with the following parameters, Patient=Adult, Interval=5 min, Initial Pr eeipyh=958 mmHg, 12:52:16 Deflation Rate=5 mmHg, Cuff placed on Left Arm 12:52:39 Bilateral groins prepped with 2% chlorhexidine, and draped after a 3 minute waiting time. 12:52:50 HR=73 bpm, NTAG=754/68 mmhg, AaR8=042.0 %, Resp=15 B/min, Pain=0, Rubi=10, Shelton=2 12:57:00 Reference ECG taken 12:57:45 HR=74 bpm, ZBOA=362/73 mmhg, SpO2=99.0 %, Resp=22 B/min, Pain=0, Rubi=10, Shelton=2 12:58:49 Pressure channel 1 zeroed. 12:58:54 MD paged 12:58:59 MD responded 13:02:48 HR=69 bpm, XLKW=646/73 mmhg, SpO2=99.0 %, Resp=22 B/min, Pain=0, Rubi=10, Shelton=2 13:04:06 MD arrived. Time Out. Correct patient, correct procedure, correct physician, power injector not loaded with contrast with surgical 13:06:58 team present. Time Out Concurred by MD and individual staff in procedure. 13:07:37 Case Start 13:07:47 HR=71 bpm, KOHS=541/72 mmhg, SpO2=99.0 %, Resp=19 B/min, Pain=0, Rubi=10, Shelton=2 13:08:20 12.5 mcg FENTANYL given in lab by Kailey Akers RN in Left Forearm via Peripheral IV. 13:08:55 20 mL 1% XYLOCAINE given in lab by Nawaf Loyola in Right Groin via Subcutaneous. 13:09:29 12.5 mcg FENTANYL given in lab by Kailey Akers RN in Left Forearm via Peripheral IV. 13:09:53 1 mg VERSED given in lab by Nawaf Loyola in Left Forearm via Peripheral IV. 13:09:59 Access site was Right Femoral Artery. 13:10:04 A SHEATH, FR4 TERUMO (10CM) FR 4 was advanced into the Fem Art (right) using the Percutaneo us technique. A JR 4.0 INFINITI CATHETER FR 4 was advanced over a wire. OMNIPAQUE, 350 MG, 150ML 150ML was us ed for 13:10:25 injections. Recorded Pressure: LV, HR=71, Condition=Condition 1 13:11:36 (Left Ventricle) LV 94/1/4 13:11:56 The LV was manually injected with 8 cc's and visualized. OMNIPAQUE, 350 MG, 150ML 150ML use d. Recorded Pressure: LV, Ao, HR=72, Condition=Condition 1 13:12:03 (Left Ventricle) LV 82/0/3, (Aorta) Ao 92/57/76 Recorded Pressure: Ao, HR=68, Condition=Condition 1 13:12:34 (Aorta) Ao 88/61/74 13:12:46 The RCA was injected and visualized at various angles. OMNIPAQUE, 350 MG, 150ML 150ML used . 13:12:50 HR=69 bpm, KJXZ=917/67 mmhg, SpO2=98.0 %, Resp=12 B/min, Pain=0, Rubi=10, Shelton=2 13:13:58 Catheter was removed A JL 4.0 INFINITI CATHETER FR 4 was advanced over a wire. OMNIPAQUE, 350 MG, 150ML 150ML was us ed for 13:14:00 injections. 13:15:06 The LCA was injected and visualized at various angles. OMNIPAQUE, 350 MG, 150ML 150ML used . 13:16:23 25 mcg FENTANYL given in lab by Kailey Akers, BRUCE in Left Forearm via Peripheral IV. 13:16:53 Catheter was removed 13:17:51 HR=76 bpm, SUPL=972/67 mmhg, SpO2=97.0 %, Resp=19 B/min, Pain=0, Rubi=10, Shelton=2 13:18:13 Case End 13:18:34 Sheath removed; pressure applied to access site. 13:19:40 No case complications noted. 13:19:43 Bedside Report will be given. 13:20:40 A Left Heart Cath was performed. 13:22:50 HR=74 bpm, SQKB=299/73 mmhg, SpO2=97.0 %, Resp=22 B/min, Pain=0, Rubi=10, Shelton=2 13:27:47 HR=74 bpm, NIBP=89/71 mmhg, SpO2=98.0 %, Resp=12 B/min, Pain=0, Rubi=10, Shelton=2 13:32:46 HR=66 bpm, NIBP=94/69 mmhg, SpO2=99.0 %, Resp=17 B/min, Pain=0, Rubi=10, Shelton=2 13:37:49 HR=62 bpm, NIBP=96/66 mmhg, YqG4=409.0 %, Resp=20 B/min, Pain=0, Rubi=10, Shelton=2 13:38:49 Sterile dressing applied to site 13:41:06 Patient moved to stretcher 13:42:34 Vitals capture stopped. End Study - Contrast Media Used In Study Contrast Total Opened (mL) Total Used (mL) Total Wasted (mL) Omnipaque 35 35 0 End Study - Maximum Contrast Load Max Contrast Load (mL) 304.5 End Study - Radiation Exposure Fluoro Time (minutes) 1.2 End Study - Sheaths Sheaths Pulled By Sheath Hold Time (min) Tayla Rebolledo End Study - Patient Disposition Complications Transferred To Interventional Outcome No Embroiderer Holding No attempt made
--- NOTE | 2017-12-23 13:55 | MA ---
cc: Nawaf Loyola MD DATE: 12/23/2017 PROCEDURE: Left heart catheterization, left ventriculography, coronary angiography. INDICATION: Unstable angina, [place] Cardiovascular Society class IV angina. Chest pain similar to the chest pain he had prior to PCI on 12/11/2017, status post PCI with bare-metal stent in the proximal LAD on 12/11/2017. Cardiomyopathy. PROCEDURE NOTE: The patient was brought to the cardiac catheterization laboratory, prepped and draped in the usual sterile fashion. 10 mL of 1% lidocaine was used to locally anesthetize the right common femoral artery. A 4-[place]ank[place] sheath was placed in the right common femoral artery, 4-[place] JL4 and JR4 catheters were used to perform left and right coronary angiography and left ventriculography. FINDINGS: LV pressures 95/0-2. Ejection fraction is 45%. I do not see any focal segmental wall motion abnormalities. The right coronary artery is dominant. There is a 40-50% stenosis in the proximal mid-segment and also in the mid-segment. Flow was slightly less than JEANETTE-3. The left main coronary artery has no significant disease angiographically. The left circumflex vessel has no significant disease angiographically. There is a medium-sized ramus intermedius vessel which has a reference vessel diameter of 2.5 mm in diameter with a proximal 20-30% stenosis. The LAD is transapical. The stent in the proximal segment is widely patent, slightly under-deployed and slightly larger than the reference vessel diameter. There appears to be a small diagonal vessel that is jailed but there is no significant stenosis of the ostium or compromise of flow. Flow is JEANETTE-3 into this vessel. The second diagonal artery comes off after the distal edge of the stent. It is a small to medium-sized vessel, reference vessel diameter of 2.25 mm in diameter with a smooth 20% proximal stenosis. The LAD beyond the second diagonal artery has mild diffuse disease, up to 10-20% angiographically. CONCLUSION: 1. Widely patent stent in proximal left anterior descending as detailed above. 2. Otherwise mild to moderate 3-vessel coronary artery disease in a right dominant system. 3. Mild left ventricular systolic dysfunction, ejection fraction of 45% with no obvious focal segmental wall motion abnormalities. 4. Intravascular volume depletion by left ventricular end-diastolic pressure measurement of 2 mmHg. RECOMMENDATIONS: 1. Recommend medical management of coronary artery disease, cardiac risk factor modification. 2. The patient will continue on aspirin and Brilinta. 3. Statin was held due to his markedly elevated liver function studies and history of hepatitis C. 4. We will treat him with beta blockers and NATE inhibitors as clinically tolerated, although his pressures are relatively low in the director geophysical laboratory, in the mid to upper 90s by A-line measurement. 5. Otherwise could consider adjusting medications to possibly put him on a low dose of dihydropyridine calcium channel layla such as diltiazem or verapamil which may help improve the runoff of flow in the right coronary artery and improve his flow to JEANETTE-3. However, again he is relatively hypotensive and at this point I do not think he would tolerate it. MD ELIA Sim/SB , 01:25 PM , 01:54 PM
[2017-12-23] MEDS ORDERED: BACITRACIN OINT 0.9 GM PKT TOP ONE (14:00)
[2017-12-23] MEDS ORDERED: IOHEXOL 350 MG/ML 50 ML BTL (for Cath Lab) OTHER ONE (14:20)
[2017-12-23] MEDS: ACETAMINOPHEN 325 MG TAB PO PRN (15:54)
--- NOTE | 2017-12-23 17:15 | HHI.HP ---
HPI Service Family Medicine Primary Care Physician No Primary Care Physician Admission Diagnosis Chest pain Diagnoses: (1) CHF (congestive heart failure) Diagnosis: Principal (2) Stented coronary artery Diagnosis: Principal (3) Alcohol abuse Diagnosis: Principal (4) Hypokalemia Diagnosis: Principal (5) Cellulitis Diagnosis: Principal (6) Nutrition, metabolism, and development symptoms Diagnosis: Principal International Travel<30 Days: No Contact w/Intl Traveler<30days: No Known Affected Area: No History of Present Illness CC: "Chest Pain" HPI: Onset: 2 days prior to admission Location: Center of chest Duration: Lasting for several minutes, coming and going over the course of the day. Characteristics: at its worst: 7-8/10 pain in severity. Sharp and sudden pain. No radiation. Currently 3/10 in severity. Aggravating: Worse with walking around. Relieving: Nothing. Symptoms: Associated with SOB. Feels the same as it did with heart attack, however not as bad of a pain. He reports "blacking out" on Wednesday12/18/2017 for approximately 15 minutes, and Wednesday12/19/2017 he stood up, was seeing stars and woke up on the floor. He fell mainly on her right elbow. He did not want to come to ED , but his boss told him to come into the hospital. He needs a note saying that he can return to work. He reported today post cath that he had serious lightheadedness whenever he would get up and try to walk. he attributes this to his new meds that he started taking after his cath. he feels fine when he lies in bed. His BP post cath is 90s over 60s with a lower pulse. he has never been on any BP meds at all before his NH. ROS: + Nightsweats. +Blurry vision (chronic). +Chronic cough that is non productive. +SOB with ambulation (1/2 mile then gets winded). +Stomach pain ( but "they diagnosed me with a bad liver"). +Mixture of diarrhea and constipation. +Constant muscle cramps. +Numbness and tingling in his hands. No runny nose, no throat pain. Review of Systems Respiratory: COMPLAINS OF: Shortness of breath Cardiovascular: COMPLAINS OF: Chest pain, Syncope, Dyspnea on Exertion, DENIES : Lower Extremity Edema Gastrointestinal: COMPLAINS OF: Abdominal pain, Constipation, Diarrhea Musculoskeletal: DENIES: Joint pain Past Family Social History Past Medical History Past Medical History: Hep C CHF EF 25% IVDA Alcohol abuse Seizure disorder (possible EtOH withdrawal). Past Surgical History: right foot surgery Coded Allergies: penicillin G (Unverified Allergy, Unknown, UNKNOWN, 12/07/17) Family History Patient does not know his family history, mom when he was 8 and he did not know his dad. Social History Tobacco use: 1 PPD - quit in November 2017. Alcohol use: Daily 4 beers and a 1/2 of pint of vodka. Has cut back since leaving hospital one week ago. He has had withdrawal. Last drink was on 2017. Illicit drug use: history of IVDA (quit heroin 2 years ago). Allergies: Coded Allergies: penicillin G (Verified Allergy, Unknown, UNKNOWN, 12/22/17) Physical Exam Vital Signs Vital Signs Date Time Temp Pulse Resp B/P (MAP) Pulse Ox O2 Delivery O2 Flow Rate FiO2 12/23/17 13:47 99 Room Air 12/23/17 08:00 98.1 67 18 105/68 (80) 100 12/23/17 04:00 57 12/23/17 04:00 99.2 57 16 110/70 (83) 98 12/23/17 00:00 50 12/23/17 00:00 99.2 57 18 109/77 (88) 99 12/22/17 20:00 99.6 58 16 124/77 (93) 99 12/22/17 17:59 98.2 54 18 118/75 (89) 99 Physical Exam GENERAL: This is a well-nourished, well-developed patient, in no apparent distress. resting post cath on a stretcher. multiple tattoos even on his face SKIN: No rashes, ecchymoses or lesions. Cool and dry. HEAD: Atraumatic. Normocephalic. EYES: Pupils equal round and reactive. Extraocular motions intact. No scleral icterus. No injection or drainage. ENT: Nose without bleeding, purulent drainage or septal hematoma. Airway patent. NECK: Trachea midline. No JVD or lymphadenopathy. Supple, nontender, no meningeal signs. CARDIOVASCULAR: Regular rate and rhythm without murmurs, gallops, or rubs. RESPIRATORY: Clear to auscultation. Breath sounds equal bilaterally. No wheezes , rales, or rhonchi. GASTROINTESTINAL: Abdomen soft, non-tender, nondistended. No hepato-splenomegaly , or palpable masses. No guarding. MUSCULOSKELETAL: Extremities without clubbing, cyanosis, or edema. No joint tenderness, effusion, or edema noted. No calf tenderness. NEUROLOGICAL: Awake and alert. Cranial nerves II through XII intact. Motor and sensory grossly within normal limits. Five out of 5 muscle strength in all muscle groups. Normal speech. Laboratory Laboratory Tests Test 12/22/17 22:00 12/23/17 03:45 12/23/17 04:31 Troponin I 0.03 White Blood Count 9.3 Red Blood Count 4.33 Hemoglobin 13.0 Hematocrit 38.7 Mean Corpuscular Volume 89.4 Mean Corpuscular Hemoglobin 30.0 Mean Corpuscular Hemoglobin Concent 33.6 Red Cell Distribution Width 15.1 Platelet Count 278 Mean Platelet Volume 8.4 Neutrophils (%) (Auto) 61.0 Lymphocytes (%) (Auto) 28.0 Monocytes (%) (Auto) 9.6 Eosinophils (%) (Auto) 0.8 Basophils (%) (Auto) 0.6 Neutrophils # (Auto) 5.7 Lymphocytes # (Auto) 2.6 Monocytes # (Auto) 0.9 Eosinophils # (Auto) 0.1 Basophils # (Auto) 0.1 CBC Comment DIFF FINAL Differential Comment B-Type Natriuretic Peptide 161 Result Diagram: 12/23/17 0431 12/22/17 1415 Caprini VTE Risk Assessment Caprini VTE Risk Assessment: Mod/High Risk (score >= 2) Caprini Risk Assessment Model Point Value = 1 Point Value = 2 Point Value = 3 Point Value = 5 Age 41-60 Minor surgery BMI > 25 kg/m2 Swollen legs Varicose veins or History of unexplained or recurrent spontaneous Oral contraceptives or hormone replacement Sepsis (< 1 month) Serious lung disease, including pneumonia (< 1 month) Abnormal pulmonary function Acute myocardial infarction Congestive heart failure (< 1 month) History of inflammatory bowel disease Medical patient at bed rest Age 61-74 Arthroscopic surgery Major open surgery (> 45 min) Laparoscopic surgery (> 45 min) Malignancy Confined to bed (> 72 hours) Immobilizing plaster cast Central venous access Age >= 75 History of VTE Family history of VTE Factor V Leiden Prothrombin [id number] Lupus anticoagulant Anticardiolipin antibodies Elevated serum homocysteine Heparin-induced thrombocytopenia Other congenital or acquired thrombophilia Stroke (< 1 month) Elective arthroplasty Hip, pelvis, or leg fracture Acute spinal cord injury (< 1 month) Prophylaxis Regimen Total Risk Factor Score Risk Level Prophylaxis Regimen 0-1 Low Early ambulation 2 Moderate Order ONE of the following: *Sequential Compression Device (SCD) *Heparin 5000 units SQ BID 3-4 Higher Order ONE of the following medications: *Heparin 5000 units SQ TID *Enoxaparin/Lovenox 40 mg SQ daily (WT < 150 kg, CrCl > 30 mL/min) *Enoxaparin/Lovenox 30 mg SQ daily (WT < 150 kg, CrCl > 10-29 mL/min) *Enoxaparin/Lovenox 30 mg SQ BID (WT < 150 kg, CrCl > 30 mL/min) AND/OR *Sequential Compression Device (SCD) 5 or more Highest Order ONE of the following medications: *Heparin 5000 units SQ TID (Preferred with Epidurals) *Enoxaparin/Lovenox 40 mg SQ daily (WT < 150 kg, CrCl > 30 mL/min) *Enoxaparin/Lovenox 30 mg SQ daily (WT < 150 kg, CrCl > 10-29 mL/min) *Enoxaparin/Lovenox 30 mg SQ BID (WT < 150 kg, CrCl > 30 mL/min) AND *Sequential Compression Device (SCD) Assessment and Plan Assessment and Plan 52 y/o male with PMHx of NH with bare metal stent placed in LAD on December 11, 2017 (99% stenosis of proximal LAD, 0% residual stenosis s/p stent), Congestive heart failure with EF of 25%, IVDU quit in 2017, tobacco abuse, hepatitis C, EtOH abuse, seizure disorder/EtOH withdrawal seizures, and cellulitis presenting with chest pain and syncope over the past 2 days. He will be admitted for ACS rule out and medication adjustment. Problem List: (1) Syncope ICD Codes: R55 - Syncope and collapse Status: Acute Plan: he describes orthostatic sxs. he gets lightheaded or has syncope when he stands up and walks but is fine at rest. will need to check orthostatics and also cut back on meds that are not tolerated. first the lasix will be held unless he needs urgent diuresis. if he is still symptomatic may need to cut or stop the lisinopril for now. hopefully his EF improves with the stent he had. (2) CHF (congestive heart failure) ICD Codes: I50.9 - Heart failure, unspecified Status: Acute Plan: S/P bare metal stent on 12/11/2017. Chest pain likely MSK - given reproducibility on palpation. Trend EKG and Troponin q 6 hours. Initial EKG showing no signs of ischemia. Consulted cardiology. s/p cath 12-23-17 Continue carvedilol 3.25 mg BID. will need to watch his BP and pulse and be sure he tolerates this med and others Aspirin 162 mg chew x 1 and 81 mg daily. Brilinta BID. BP control with lisinopril 5 mg daily and lasix 40 mg PO daily. will hold lasix. his EF was 25% but he was just reperfused so hopefully his heart is improving. he has no edema in his legs or lungs now and he can be diuresed as needed. will also need to be sure he tolerates his lisinopril. ACEs can cause syncope. (3) Stented coronary artery ICD Codes: Z95.5 - Presence of coronary angioplasty implant and graft Status: Acute Plan: As above. ACS rule out. (4) Alcohol abuse ICD Codes: F10.10 - Alcohol abuse, uncomplicated Status: Chronic Plan: [facility] protocol. (5) Hypokalemia ICD Codes: E87.6 - Hypokalemia Status: Acute Plan: K+ 4.1 Continue home KCL 20 meq daily. (6) Cellulitis ICD Codes: L03.90 - Cellulitis, unspecified Plan: Continue Keflex 500 mg TID. Continue to monitor progression. no signs of sepsis at current time. he had cellulitis that started in the buttock and then went to his leg. he reports substantial improvement (7) Nutrition, metabolism, and development symptoms ICD Codes: R63.8 - Other symptoms and signs concerning food and fluid intake Plan: Fluids: PO DVT: Heparin 5000 BID GI: Omeprazole 40 mg daily. Diet: heart healthy. Problem Qualifiers (1) CHF (congestive heart failure): Qualified Codes: I50.9 - Heart failure, unspecified (2) Cellulitis: Qualified Codes: L03.317 - Cellulitis of buttock (3) Syncope: Kailey Bains MD Dec 23, 2017 17:15
--- NOTE | 2017-12-23 19:41 | EKG ---
Date Performed: 12/23/2017 Time Performed: 03:25:37 PTAGE: 52 years EKG: SINUS BRADYCARDIA SEPTAL MYOCARDIAL INFARCTION MARKED T-WAVE ABNORMALITY, CONSIDER ANTEROLA TERAL ISCHEMIA MODERATE T-WAVE ABNORMALITY, CONSIDER INFERIOR ISCHEMIA Since the previous tracing, no significant change noted ABNORMAL ECG PREVIOUS TRACING : 12/19/2017 08.16 DOCTOR: Patrice Orozco Interpretating Date/Time 12/23/2017 19:39:55
--- NOTE | 2017-12-23 19:41 | EKG ---
Date Performed: 12/22/2017 Time Performed: 23:05:24 PTAGE: 52 years EKG: SINUS BRADYCARDIA LEFT VENTRICULAR HYPERTROPHY AND ST-T CHANGE ANTEROSEPTAL MYOCARDIAL INFA RCTION, POSSIBLY RECENT Since the PREVIOUS TRACING , there are inferior ST and T wave changes, consider ischemia/infarct. C linical correlation is recommended PREVIOUS TRACIN12/22/17 @ 1041 DOCTOR: Patrice Orozco Interpretating Date/Time 12/23/2017 19:39:44
[2017-12-23 20:00] VITALS: BP 118/64; PULSE 73; RESP 17; TEMP 98.5; O2SAT 99
[2017-12-24] VITALS: BP 118/65; PULSE 72; PULSE 78; RESP 17; TEMP 99.2; O2SAT 99
[2017-12-24 04:00] VITALS: PULSE 78
[2017-12-24 04:30] VITALS: BP 114/59; PULSE 67; RESP 17; TEMP 98.2; O2SAT 98
[2017-12-24 08:00] VITALS: BP 122/70; PULSE 55; PULSE 65; RESP 19; TEMP 98.9; O2SAT 98
[2017-12-24] MEDS: ACETAMINOPHEN 325 MG TAB PO PRN (09:00)
[2017-12-24] MEDS: SODIUM CHLORIDE 0.9% FLUSH 10 ML FLUSH IV FLUSH SCH (09:00)
[2017-12-24] MEDS ORDERED: FUROSEMIDE 20 MG TAB PO SCH (09:00)
[2017-12-24] MEDS: POTASSIUM CHLORIDE 20 MEQ CONTROLLED RELEASE TAB PO SCH (09:01)
[2017-12-24] MEDS: TICAGRELOR 90 MG TAB PO SCH (09:01)
[2017-12-24] MEDS: DOCUSATE SODIUM 50 MG/SENNA 8.6 MG TAB PO SCH (09:01)
[2017-12-24] MEDS: LISINOPRIL 5 MG TAB PO SCH (09:01)
[2017-12-24] MEDS: PANTOPRAZOLE SOD 40 MG DELAYED RELEASE TAB PO SCH (09:01)
[2017-12-24] MEDS: CARVEDILOL 3.125 MG TAB PO SCH (09:01)
[2017-12-24] MEDS: ASPIRIN 81 MG CHEW TAB PO SCH (09:01)
[2017-12-24] MEDS: CEPHALEXIN MONOHYDRATE 500 MG CAP PO SCH (09:02)
--- NOTE | 2017-12-24 10:07 | HHI.DCPOC ---
Discharge Care Plan Diagnosis: (1) Stented coronary artery (2) Syncope Goals to Promote Your Health * To prevent worsening of your condition and complications, follow up with a primary care physician and a line prep cook after hospital discharge. Directions to Meet Your Goals Take your medications as prescribed Follow your dietary instruction Follow activity as directed Keep your appointments as scheduled Take your immunizations and boosters as scheduled If your symptoms worsen call your PCP, if no PCP go to Urgent Care Center or Emergency Room Smoking is Dangerous to Your Health. Avoid second hand smoke Call the 24-hour hour crisis hotline for domestic abuse at Tone Orellana MD R2 Dec 24, 2017 10:07
[2017-12-24] MEDS ORDERED: PRAV20TA2 PO (10:09)
--- NOTE | 2017-12-24 10:11 | HHI.FPPN ---
Subjective Remarks No acute events overnight. Patient seen and examined this AM. Afebrile, vitals stable. BPs ranging 100s-120s/50s-80s over past 24 hours. Patient denies dizziness, lightheadedness, loos of balance, fevers, CP, dyspnea. He states he feels steady on his feet when he has been ambulating within his room. He otherwise does not have any specific complaints or concerns other than needing follow up as an outpatient as he currently does not have a PCP. (Tone Orellana MD R2) Objective Vitals Vital Signs Date Time Temp Pulse Resp B/P (MAP) Pulse Ox O2 Delivery O2 Flow Rate FiO2 12/24/17 08:00 98.9 65 19 122/70 (87) 98 12/24/17 04:30 98.2 67 17 114/59 (77) 98 12/24/17 04:00 78 12/24/17 00:00 78 12/24/17 00:00 99.2 72 17 118/65 (82) 99 12/23/17 20:00 98.5 73 17 118/64 (82) 99 12/23/17 13:47 99 Room Air I/O 12/23/17 12/23/17 12/23/17 12/24/17 12/24/17 12/24/17 07:00 15:00 23:00 07:00 15:00 23:00 Intake Total 360 ml Balance 360 ml Intake Oral 360 ml # Voids 2 # Bowel Movements 2 (Tone Orellana MD R2) Result Diagram: 12/23/17 0431 12/22/17 1415 Objective Remarks GENERAL: This is a well-nourished, well-developed patient, in no apparent distress. SKIN: No rashes, ecchymoses or lesions. Cool and dry. HEAD: Atraumatic. Normocephalic. No temporal or scalp tenderness. EYES: Extraocular motions intact. No scleral icterus. No injection or drainage. ENT: Throat without erythema, tonsillar hypertrophy or exudate. Uvula midline. Airway patent. NECK: Trachea midline. No JVD or lymphadenopathy. Supple, nontender, no meningeal signs. CARDIOVASCULAR: Regular rate and rhythm without murmurs, gallops, or rubs. RESPIRATORY: Clear to auscultation. Breath sounds equal bilaterally. No wheezes , rales, or rhonchi. GASTROINTESTINAL: Abdomen soft, non-tender, nondistended. MUSCULOSKELETAL: Extremities without edema. NEUROLOGICAL: Awake and alert. Cranial nerves grossly intact. Motor and sensory grossly within normal limits. Normal speech. (Tone Orellana MD R2) A/P Assessment and Plan 52 y/o male with PMHx of DE with bare metal stent placed in LAD on December 11, 2017 (99% stenosis of proximal LAD, 0% residual stenosis s/p stent), Congestive heart failure with EF of 25%, IVDU quit in 2017, tobacco abuse, hepatitis C, EtOH abuse, seizure disorder/EtOH withdrawal seizures, and cellulitis presenting with chest pain and syncope over the past 2 days admitted for ACS rule out and medication adjustment. Discharge Planning Stable for discharge home today Spoke with CM who will help arrange outpatient follow up at a free clinic so patient can establish with a PCP Will have patient follow up with cardiology as outpatient as well (Tone Orellana MD R2) Attending Attestation Patient seen and examined. Case reviewed and discussed with the resident team. Agree with plan of care as discussed with me and documented in the resident note. he is doing very well with his EF already up to 45% from 25%. Hope for even more improvement. will cut back some of his meds as he had very orthostatic sxs. probably his EF will rise even more and he will be able to handle more meds in the future. he has cut back on his drinking from 18 beers a day to 4 so can consider some statin meds but will give lower dose to see if tolerated. follow up appts were arranged (Kailey Bains MD) Problem List: (1) Syncope ICD Codes: R55 - Syncope and collapse Status: Acute Plan: he describes orthostatic sxs. he gets lightheaded or has syncope when he stands up and walks but is fine at rest. will discontinue meds that are not tolerated. Discontinued lasix as his EF has significantly improved s/p stent placement Discontinued lisinopril 5mg daily Continue coreg 3.125 mg po bid Instructed patient on si/sxs of pre-syncope to look out for as an outpatient (2) CHF (congestive heart failure) ICD Codes: I50.9 - Heart failure, unspecified Status: Acute Plan: S/P bare metal stent on 12/11/2017. Chest pain likely MSK - given reproducibility on palpation. Trend EKG and Troponin q 6 hours. Initial EKG showing no signs of ischemia. Consulted cardiology. s/p cath 12-23-17 Continue carvedilol 3.25 mg BID Aspirin 81 mg daily Brilinta BID will hold lasix. his EF was 25% but he was just reperfused and his EF is noted to be 45% on his recent cath by cardiology this admission. he has no edema in his legs or lungs now and he can be diuresed as needed. Discontinued ACEs as can cause syncope (3) Stented coronary artery ICD Codes: Z95.5 - Presence of coronary angioplasty implant and graft Status: Acute Plan: As above. ACS rule out. (4) Alcohol abuse ICD Codes: F10.10 - Alcohol abuse, uncomplicated Status: Chronic Plan: [facility] protocol. (5) Hypokalemia ICD Codes: E87.6 - Hypokalemia Status: Acute Plan: K+ 4.1 Continue home KCL 20 meq daily. (6) Cellulitis ICD Codes: L03.90 - Cellulitis, unspecified Plan: Continue Keflex 500 mg TID. Continue to monitor progression. no signs of sepsis at current time. he had cellulitis that started in the buttock and then went to his leg. he reports substantial improvement (7) Nutrition, metabolism, and development symptoms ICD Codes: R63.8 - Other symptoms and signs concerning food and fluid intake Plan: Fluids: PO DVT: Heparin 5000 BID GI: Omeprazole 40 mg daily. Diet: heart healthy (Tone Orellana MD R2) Problem Qualifiers (1) Syncope: (2) CHF (congestive heart failure): Qualified Codes: I50.9 - Heart failure, unspecified (3) Cellulitis: Qualified Codes: L03.317 - Cellulitis of buttock Tone Orellana MD R2 Dec 24, 2017 10:10 Kailey Bains MD Dec 25, 2017 09:43
[2017-12-24 11:00] VITALS: BP 118/66; PULSE 62; RESP 19; TEMP 97.7; O2SAT 100
[2017-12-24 12:23] LABS: ALBUMIN 2.8 GM/DL (3.4-5.0); ALT (GPT) 96 U/L (12-78); AST (GOT) 79 U/L (15-37); BICARBONATE 18.7 MEQ/L (21.0-32.0); BLOOD UREA NITROGEN 26 MG/DL (7-18); CALCIUM 8.9 MG/DL (8.5-10.1); CHLORIDE 111 MEQ/L (98-107); CREATININE 1.22 MG/DL (0.60-1.30); GLOMERULAR FILTRATION RATE 63 ML/MIN (>89); GLUCOSE,RANDOM 98 MG/DL (74-106); SODIUM (NA) 138 MEQ/L (136-145)
[2017-12-24 12:25] LABS: ALKALINE PHOSPHATASE 92 U/L (45-117); TOTAL BILIRUBIN ADULT 0.3 MG/DL (0.2-1.0); TOTAL PROTEIN 7.3 GM/DL (6.4-8.2)
--- NOTE | 2017-12-24 13:11 | HHI.DS ---
Discharge Summary Admission Date Dec 23, 2017 at 13:31 Discharge Date: Dec 24, 2017 Admitting Diagnosis Chest pain (1) Syncope Diagnosis: Principal Plan: he describes orthostatic sxs. he gets lightheaded or has syncope when he stands up and walks but is fine at rest. will discontinue meds that are not tolerated. Discontinued lasix as his EF has significantly improved s/p stent placement Discontinued lisinopril 5mg daily Continue coreg 3.125 mg po bid Instructed patient on si/sxs of pre-syncope to look out for as an outpatient ICD Codes: R55 - Syncope and collapse Status: Acute (2) CHF (congestive heart failure) Diagnosis: Principal Plan: S/P bare metal stent on 12/11/2017. Chest pain likely MSK - given reproducibility on palpation. Trend EKG and Troponin q 6 hours. Initial EKG showing no signs of ischemia. Consulted cardiology. s/p cath 12-23-17 Continue carvedilol 3.25 mg BID Aspirin 81 mg daily Brilinta BID will hold lasix. his EF was 25% but he was just reperfused and his EF is noted to be 45% on his recent cath by cardiology this admission. he has no edema in his legs or lungs now and he can be diuresed as needed. Discontinued ACEs as can cause syncope ICD Codes: I50.9 - Heart failure, unspecified Status: Acute (3) Stented coronary artery Diagnosis: Principal Plan: As above. ACS rule out. ICD Codes: Z95.5 - Presence of coronary angioplasty implant and graft Status: Acute (4) Alcohol abuse Diagnosis: Secondary Plan: [facility] protocol. ICD Codes: F10.10 - Alcohol abuse, uncomplicated Status: Chronic (5) Hypokalemia Diagnosis: Secondary Plan: K+ 4.1 Continue home KCL 20 meq daily. ICD Codes: E87.6 - Hypokalemia Status: Acute (6) Cellulitis Diagnosis: Secondary Plan: Continue Keflex 500 mg TID. Continue to monitor progression. no signs of sepsis at current time. he had cellulitis that started in the buttock and then went to his leg. he reports substantial improvement ICD Codes: L03.90 - Cellulitis, unspecified (7) Nutrition, metabolism, and development symptoms Diagnosis: Secondary Plan: Fluids: PO DVT: Heparin 5000 BID GI: Omeprazole 40 mg daily. Diet: heart healthy ICD Codes: R63.8 - Other symptoms and signs concerning food and fluid intake Consultants Cardiology Procedures Cardiac cath 12/23 per cardiology report: 1. Widely patent stent in proximal left anterior descending as detailed above. 2. Otherwise mild to moderate 3-vessel coronary artery disease in a right dominant system. 3. Mild left ventricular systolic dysfunction, ejection fraction of 45% with no obvious focal segmental wall motion abnormalities. 4. Intravascular volume depletion by left ventricular end-diastolic pressure measurement of 2 mmHg. Brief History CC: "Chest Pain" HPI: Onset: 2 days prior to admission Location: Center of chest Duration: Lasting for several minutes, coming and going over the course of the day. Characteristics: at its worst: 7-8/10 pain in severity. Sharp and sudden pain. No radiation. Currently 3/10 in severity. Aggravating: Worse with walking around. Relieving: Nothing. Symptoms: Associated with SOB. Feels the same as it did with heart attack, however not as bad of a pain. He reports "blacking out" on Wednesday12/18/2017 for approximately 15 minutes, and Wednesday12/19/2017 he stood up, was seeing stars and woke up on the floor. He fell mainly on her right elbow. He did not want to come to ED , but his boss told him to come into the hospital. He needs a note saying that he can return to work. He reported today post cath that he had serious lightheadedness whenever he would get up and try to walk. he attributes this to his new meds that he started taking after his cath. he feels fine when he lies in bed. His BP post cath is 90s over 60s with a lower pulse. he has never been on any BP meds at all before his DE. ROS: + Nightsweats. +Blurry vision (chronic). +Chronic cough that is non productive. +SOB with ambulation (1/2 mile then gets winded). +Stomach pain ( but "they diagnosed me with a bad liver"). +Mixture of diarrhea and constipation. +Constant muscle cramps. +Numbness and tingling in his hands. No runny nose, no throat pain. CBC/BMP: 12/23/17 0431 12/24/17 1110 Significant Findings Laboratory Tests Test 12/22/17 12:30 12/22/17 14:15 12/22/17 22:00 12/23/17 04:31 Red Blood Count 4.36 MIL/MM3 (4.50-5.90) 4.33 MIL/MM3 (4.50-5.90) Hematocrit 38.9 % (39.0-51.0) 38.7 % (39.0-51.0) Monocytes (%) (Auto) 11.9 % (0.0-8.0) 9.6 % (0.0-8.0) Monocytes # (Auto) 1.1 TH/MM3 (0-0.9) Activated Partial Thromboplast Time 21.5 SEC (24.3-30.1) Blood Urea Nitrogen 24 MG/DL (7-18) Albumin 3.0 GM/DL (3.4-5.0) Aspartate Amino Transf (AST/SGOT) 105 U/L (15-37) Alanine Aminotransferase (ALT/SGPT) 123 U/L (12-78) Chloride Level 108 MEQ/L (98-107) Estimat Glomerular Filtration Rate 66 ML/MIN (>89) B-Type Natriuretic Peptide 161 PG/ML (0-100) Test 12/24/17 11:10 Blood Urea Nitrogen 26 MG/DL (7-18) Albumin 2.8 GM/DL (3.4-5.0) Aspartate Amino Transf (AST/SGOT) 79 U/L (15-37) Alanine Aminotransferase (ALT/SGPT) 96 U/L (12-78) Chloride Level 111 MEQ/L (98-107) Carbon Dioxide Level 18.7 MEQ/L (21.0-32.0) Estimat Glomerular Filtration Rate 63 ML/MIN (>89) Imaging CXR 12/22 no acute disease PE at Discharge GENERAL: This is a well-nourished, well-developed patient, in no apparent distress. SKIN: No rashes, ecchymoses or lesions. Cool and dry. HEAD: Atraumatic. Normocephalic. No temporal or scalp tenderness. EYES: Extraocular motions intact. No scleral icterus. No injection or drainage. ENT: Throat without erythema, tonsillar hypertrophy or exudate. Uvula midline. Airway patent. NECK: Trachea midline. No JVD or lymphadenopathy. Supple, nontender, no meningeal signs. CARDIOVASCULAR: Regular rate and rhythm without murmurs, gallops, or rubs. RESPIRATORY: Clear to auscultation. Breath sounds equal bilaterally. No wheezes , rales, or rhonchi. GASTROINTESTINAL: Abdomen soft, non-tender, nondistended. MUSCULOSKELETAL: Extremities without edema. NEUROLOGICAL: Awake and alert. Cranial nerves grossly intact. Motor and sensory grossly within normal limits. Normal speech. Hospital Course Patient was admitted due to chest pain and for ACS rule out. Cardiology consulted given his recent stent placement. Performed a cardiac cath as documented above. Patient was noted to have pre-syncopal symptoms and low blood pressure. Per cardiology recommendations, patient would benefit from beta- layla and NATE-I therapy however if tolerated given his low blood pressure and orthostatic symptoms. EF on cath noted to be at 45%. Patient without si/sxs of CHF during his hospitalization. Lasix po was discontinued along with his home lisinopril. Patient is continued on coreg 3.125 mg po bid as well as dual antiplatelet therapy with aspirin and brilinta. Patient was also started on pravastatin as he may be able to better afford this, started on a low dose given his mildly elevated LFTs and h/o etoh abuse. Pt Condition on Discharge: Stable Discharge Disposition: Discharge Home Discharge Instructions DIET: Follow Instructions for: Heart Healthy Diet Activities you can perform: Weight Bearing as [place] Follow up Referrals: Cardiology - 1 Week with Nawaf Loyola MD Cardiology PCP Follow-up - 1 Week PCP Follow-up New Medications: Pravastatin (Pravastatin) 20 Mg Tab 20 MG PO DAILY for Cholesterol Management, #60 TAB 0 Refills Continued Medications: Aspirin (Tgt Aspirin) 81 Mg Chw 81 MG PO DAILY, #30 EA Carvedilol (Coreg) 3.125 Mg Tab 3.125 MG PO BID, #60 TAB Cephalexin (Keflex) 500 Mg Capsule 500 MG PO TID for Infection, #21 CAP 0 Refills Ticagrelor (Brilinta) 90 Mg Tab 90 MG PO Q12H, #60 TAB Discontinued Medications: Furosemide (Furosemide) 40 Mg Tab 40 MG PO DAILY, #30 TAB Lisinopril (Lisinopril) 5 Mg Tab 5 MG PO DAILY, #30 TAB Tone Orellana MD R2 Dec 24, 2017 13:11
--- NOTE | 2017-12-24 16:25 | PD.CARD.PN ---
Subjective Subjective Remarks assymptomatic Objective Vital Signs / I&O Vital Signs Date Time Temp Pulse Resp B/P (MAP) Pulse Ox O2 Delivery O2 Flow Rate FiO2 12/24/17 11:00 97.7 62 19 118/66 (83) 100 12/24/17 08:00 55 12/24/17 08:00 98.9 65 19 122/70 (87) 98 12/24/17 04:30 98.2 67 17 114/59 (77) 98 12/24/17 04:00 78 12/24/17 00:00 78 12/24/17 00:00 99.2 72 17 118/65 (82) 99 12/23/17 20:00 98.5 73 17 118/64 (82) 99 I/O 12/23/17 12/23/17 12/23/17 12/24/17 12/24/17 12/24/17 07:00 15:00 23:00 07:00 15:00 23:00 Intake Total 360 ml Balance 360 ml Intake Oral 360 ml # Voids 2 # Bowel Movements 2 Physical Exam GENERAL: SKIN: Warm and dry. HEAD: Normocephalic. EYES: No scleral icterus. No injection or drainage. NECK: Supple, trachea midline. No JVD or lymphadenopathy. CARDIOVASCULAR: Regular rate and rhythm without murmurs, gallops, or rubs. RESPIRATORY: Breath sounds equal bilaterally. No accessory muscle use. GASTROINTESTINAL: Abdomen soft, non-tender, nondistended. MUSCULOSKELETAL: No cyanosis, or edema. BACK: Nontender without obvious deformity. No CVA tenderness. Laboratory Laboratory Tests Test 12/24/17 11:10 Blood Urea Nitrogen 26 MG/DL Creatinine 1.22 MG/DL Random Glucose 98 MG/DL Total Protein 7.3 GM/DL Albumin 2.8 GM/DL Calcium Level 8.9 MG/DL Alkaline Phosphatase 92 U/L Aspartate Amino Transf (AST/SGOT) 79 U/L Alanine Aminotransferase (ALT/SGPT) 96 U/L Total Bilirubin 0.3 MG/DL Sodium Level 138 MEQ/L Potassium Level 4.0 MEQ/L Chloride Level 111 MEQ/L Carbon Dioxide Level 18.7 MEQ/L Anion Gap 8 MEQ/L Estimat Glomerular Filtration Rate 63 ML/MIN Assessment and Plan Problem List: (1) Angina pectoris ICD Codes: I20.9 - Angina pectoris, unspecified (2) Left ventricular dysfunction ICD Codes: I51.9 - Heart disease, unspecified (3) CHF (congestive heart failure) ICD Codes: I50.9 - Heart failure, unspecified Status: Acute (4) Stented coronary artery ICD Codes: Z95.5 - Presence of coronary angioplasty implant and graft Status: Acute Assessment and Plan 1.) CAD - angina resolved, patent stent proximal lad, continue aspirin, b[place]anta Problem Qualifiers (1) CHF (congestive heart failure): Qualified Codes: I50.9 - Heart failure, unspecified Nawaf Loyola MD Dec 24, 2017 16:25
== END 2017-12-24 12:02 | disposition home or self-care (01) | DRG 287 ==
LOC: NEPC 10:29 → NEDA 16:17 → NEDH 20:26 → OBSVTOIN 12-23 13:31 → N04B 12-23 20:15
PROVIDERS: ADMIT Family Medicine; ATTEND Family Medicine
PROC: B2151ZZ Fluoroscopy of Left Heart using Low Osmolar Contrast (ICD-10-PCS; 2017-12-23)
PROC: B2111ZZ Fluoroscopy of Multiple Coronary Arteries using Low Osmolar Contrast (ICD-10-PCS; 2017-12-23)
PROC: 4A023N7 Measurement of Cardiac Sampling and Pressure, Left Heart, Percutaneous Approach (ICD-10-PCS; principal; 2017-12-23 12:15)
DX: R55 Syncope and collapse (principal); I11.0 Hypertensive heart disease with heart failure; I42.9 Cardiomyopathy, unspecified; I50.9 Heart failure, unspecified; I95.9 Hypotension, unspecified; I25.110 Atherosclerotic heart disease of native coronary artery with unstable angina pectoris; L03.317 Cellulitis of buttock; B19.20 Unspecified viral hepatitis C without hepatic coma; F10.10 Alcohol abuse, uncomplicated; E86.9 Volume depletion, unspecified; E87.6 Hypokalemia; M19.90 Unspecified osteoarthritis, unspecified site; Z79.82 Long term (current) use of aspirin; I25.2 Old myocardial infarction; Z95.5 Presence of coronary angioplasty implant and graft; Z88.0 Allergy status to penicillin; Z87.891 Personal history of nicotine dependence
CPT/HCPCS: 71045; 80053; 82550; 83735; 83880; 84484; 85025; 85610; 85730; 93005; 93458; 96372; 99152; C1769; C1893; G0378; J1644; J2060; J2250; J3010; Q9967

== ENCOUNTER 2018-02-18 15:25 | Emergency (ER) | payer SELFPAY ==
[~2018-02-18 15:25] MED LIST changes: -FURO40TA PO; -LISI-519 PO; +PRAV20TA2 PO; -PRED10PA PO
== END 2018-02-18 15:40 | disposition left against medical advice (07) ==
LOC: NED 15:25
DX: M54.9 Dorsalgia, unspecified (principal)
CPT/HCPCS: 99281

== ENCOUNTER 2018-03-28 10:34 | Inpatient (IN) ==
[2018-03-28] MEDS ORDERED: Morphine Inj 4 MG/ML Vial IV.PUSH ONE (16:28)
[2018-03-28] MEDS ORDERED: Dexamethasone Inj 20 MG/5 ML Vial IV.PUSH ONE (16:31)
--- NOTE | 2018-03-28 16:58 | ED ---
HPI General Chief Complaint: Back Pain/Injury Stated Complaint: Back pain Time Seen by Provider: 03/28/18 16:23 Source: patient Mode of arrival: ambulatory Limitations: no limitations History of Present Illness Complaint: back pain Onset (ago): month(s) (1) Duration: constant and progressively worsening Location: left lower back Severity: severe Radiation: left leg Relieving factors: none Exacerbating factors: none Associated symptoms: denies other symptoms Related Data Home Medications Medication Instructions Recorded Confirmed No Known Home Medications 03/28/18 03/28/18 Allergies Allergy/AdvReac Type Severity Reaction Status Date / Time penicillin G Allergy Unknown UNKNOWN Verified 12/22/17 10:49 Review of Systems Except as stated in HPI: all other systems reviewed are negative [facility] Medical History Medical History Myocardial infarction (Acute) Seizure (Acute) Social History Social History Substance History: Past History Second Hand Smoke Exposure: Yes Smoking Status: Current every day smoker Tobacco Type: Cigarettes How Often Do You Have a Drink Containing Alcohol: 4 or more times a week Recent Travel in [facility] within the Last 8 Weeks: No Recent Out of Country Travel within the Last 8 Weeks: No Immunization History Tetanus Immunization: Unsure Exam Const General: cooperative and healthy appearing [facility] Head: normal to inspection, normocephalic and atraumatic Eyes General: appearance normal, both eyes and all related structures EOM: EOM intact bilaterally Neck Neck: normal visual inspection and full ROM Chest Chest: normal inspection of the chest Resp Effort & Inspection: normal respiratory effort and able to speak in complete sentences Cardio Rate: regular rate Rhythm: regular rhythm Back/Spine/Pelvis Back: no CVA tenderness and back tenderness (Tender over the left SI joint) Thoracic/Lumbar Spine: straight leg raise positive Skin General: no rashes or lesions noted and other (Multiple tattoos) Neuro General: alert, awake, oriented x3, moves all extremities and CN's II-XI intact bilaterally Extrem General: normal to inspection and full ROM Psych Appearance: grossly normal Mental Status: mental status grossly normal Speech and Movement: speech and movement normal Mood: congruent mood Affect: normal affect Attitude: cooperative Thought Process: normal Thought Content: normal Judgment: judgment good Course Initial Documented Vital Signs Temperature 97.5 F L 03/28/18 10:49 Pulse Rate 66 03/28/18 10:49 Respiratory Rate 16 03/28/18 10:49 Blood Pressure 146/75 H 03/28/18 10:49 Pulse Oximetry 98 03/28/18 10:49 Last Documented Vital Signs Temperature 98.0 F 03/30/18 16:00 Pulse Rate 52 L 03/30/18 16:00 Respiratory Rate 19 03/30/18 16:00 Blood Pressure 156/76 H 03/30/18 16:00 Pulse Oximetry 99 03/30/18 16:00 Sign Out Sign Out Data: Patient Sign Out occurred on 03/28/18 at 17:18. Patient's care was discussed, and care was transferred from Ting Smith to Brie Christie. Sign Out Comment: This patient is being evaluated for left buttock to left lower extremity pain. MRI is pending. Last updated by Ting Smith at 03/28/18 17:17 Post-Handoff Eval: Patient is a 52-year-old male who was signed out to me by Dr. Smith at change of shift. Patient reports that for the past month, he has been having back pain. Patient reports that pain is worse to his left lower back, patient reports that he has been feeling numbness to his left lower extremity. 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 Patient reports remote history of IV drug abuse about 15 years ago. Patient reports that over the past month, he has been having difficulty with ambulation. Reports that symptoms have been progressively worse, that is why he presented to the emergency room today. MRI of the L-spine shows an abnormal appearance of L5-S1 on the left side with evidence of central, left lateral and far lateral disc protrusion and associated edema in the marrow to the left. There is definite neural impingement as well as loss of delineation of the nerve root within the neural foramen. There is moderate distention of the urinary bladder of uncertain significance. Neurosurgery was called to review case. Care reviewed with Dr. Nickerson at 8:32pm, will review images care reviewed with Dr. Nickerson, he appears to have L5-S1 discitis, request that patient be admitted to the hospital and medicine service, plan to hold on antibiotics, request IR for bone biopsy and ID evaluation. case reviewed with Dr. Pérez who accepts pt to service Medical Decision Making MDM Narrative Medical decision making narrative: This patient presents with a one-month history of left buttock to left lower extremity pain. This pain has been getting progressively worse and has been unrelieved by Aleve. He gives a remote history of IV drug abuse. He denies fevers or any concerning neurological complaints such as bowel or bladder overflow incontinence. I have ordered an MRI of his L-spine. He is being treated with IV morphine and Decadron as well as ODT Zofran. Lab Data Result diagrams: 03/29/18 06:23 03/29/18 06:21 Lab Results 03/28/18 03/28/18 03/28/18 Range/Units 20:40 20:40 22:25 WBC 7.0 (4.0-11.0) th/mm3 RBC 4.29 L (4.50-5.90) mil/mm3 Hgb 11.7 L (13.0-17.0) gm/dL Hct 35.7 L (39.0-51.0) % MCV 83.3 (80.0-100.0) fL MCH 27.2 (27.0-34.0) pg MCHC 32.6 (32.0-36.0) % RDW 16.2 (11.6-17.2) % Plt Count 220 (150-450) th/mm3 MPV 8.3 (7.0-11.0) fL Prelim Diff (Auto) Slide review pending Neut % (Auto) 82.8 H (16.0-70.0) % Lymph % (Auto) 13.7 (9.0-44.0) % [place] % (Auto) 3.0 (0.0-8.0) % Eos % (Auto) 0.2 (0.0-4.0) % Baso % (Auto) 0.3 (0.0-2.0) % Neut # (Auto) 5.8 (1.8-7.7) th/mm3 Lymph # (Auto) 1.0 (1.0-4.8) th/mm3 [place] # (Auto) 0.2 (0.0-0.9) th/mm3 Eos # (Auto) 0.0 (0.0-0.4) th/mm3 Baso # (Auto) 0.0 (0.0-0.2) th/mm3 WBC Differential . Diff Scan Auto diff confirmed Differential Comment . Platelet Estimate Normal (Normal) Platelet Morphology Normal (Normal) RBC Morphology Normal (Normal) PT (9.8-11.6) sec INR Ratio APTT (24.3-30.1) sec Sodium 136 (136-145) meq/L Potassium 3.9 (3.5-5.1) meq/L Chloride 104 (98-107) meq/L Carbon Dioxide 20.4 L (21.0-32.0) meq/L Anion Gap 12 (5-15) meq/L BUN 14 (7-18) mg/dL Creatinine 0.93 (0.60-1.30) mg/dL Estimated GFR 86 L (>89) mL/min Random Glucose 110 H (74-106) mg/dL Calcium 9.8 (8.5-10.1) mg/dL Total Bilirubin 0.4 (0.2-1.0) mg/dL AST 63 H (15-37) U/L ALT 55 (12-78) U/L Alkaline Phosphatase 103 (45-117) U/L Total Protein 8.0 (6.4-8.2) g/dL Albumin 2.7 L (3.4-5.0) g/dL Lipase 48 L (73-393) U/L Urine Color Yellow (Yellw/Straw) Urine Clarity Clear (Clear) Urine pH 5.0 (5.0-8.5) Ur Specific [place] 1.010 (1.002-1.035) Urine Protein Negative (Neg-Trace) mg/dL Urine Glucose (UA) Negative (Negative) mg/dL Urine Ketones Negative (Negative) mg/dL Urine Occult Blood Negative (Negative) Urine Nitrate Negative (Negative) Urine Bilirubin Negative (Negative) Urine Urobilinogen Less than 2 (Less than 2) mg/dL Ur Leukocyte Esterase Negative (Negative) Urine RBC Less than 1 (0-3) /hpf Urine WBC 3 (0-5) /hpf Ur Squamous Epith Cells <1 (0-5) /hpf Micro UA Comment Culture not ind Urine Culture Comments Culture not ind 03/29/18 03/29/18 03/29/18 Range/Units 06:21 06:23 10:51 WBC 2.6 L D (4.0-11.0) th/mm3 RBC 4.49 L (4.50-5.90) mil/mm3 Hgb 12.0 L (13.0-17.0) gm/dL Hct 37.2 L (39.0-51.0) % MCV 82.8 (80.0-100.0) fL MCH 26.8 L (27.0-34.0) pg MCHC 32.4 (32.0-36.0) % RDW 16.1 (11.6-17.2) % Plt Count 225 (150-450) th/mm3 MPV 8.2 (7.0-11.0) fL Prelim Diff (Auto) Neut % (Auto) 70.9 H (16.0-70.0) % Lymph % (Auto) 26.8 (9.0-44.0) % [place] % (Auto) 2.2 (0.0-8.0) % Eos % (Auto) 0.0 (0.0-4.0) % Baso % (Auto) 0.1 (0.0-2.0) % Neut # (Auto) 1.8 (1.8-7.7) th/mm3 Lymph # (Auto) 0.7 L (1.0-4.8) th/mm3 [place] # (Auto) 0.1 (0.0-0.9) th/mm3 Eos # (Auto) 0.0 (0.0-0.4) th/mm3 Baso # (Auto) 0.0 (0.0-0.2) th/mm3 WBC Differential . Diff Scan Differential Comment Auto diff final Platelet Estimate (Normal) Platelet Morphology (Normal) RBC Morphology (Normal) PT 11.1 (9.8-11.6) sec INR 1.1 Ratio APTT 26.8 (24.3-30.1) sec Sodium 140 (136-145) meq/L Potassium 4.0 (3.5-5.1) meq/L Chloride 109 H (98-107) meq/L Carbon Dioxide 20.2 L (21.0-32.0) meq/L Anion Gap 11 (5-15) meq/L BUN 16 (7-18) mg/dL Creatinine 0.87 (0.60-1.30) mg/dL Estimated GFR Greater than 89 (>89) mL/min Random Glucose 114 H (74-106) mg/dL Calcium 9.2 (8.5-10.1) mg/dL Total Bilirubin (0.2-1.0) mg/dL AST (15-37) U/L ALT (12-78) U/L Alkaline Phosphatase (45-117) U/L Total Protein (6.4-8.2) g/dL Albumin (3.4-5.0) g/dL Lipase (73-393) U/L Urine Color (Yellw/Straw) Urine Clarity (Clear) Urine pH (5.0-8.5) Ur Specific [place] (1.002-1.035) Urine Protein (Neg-Trace) mg/dL Urine Glucose (UA) (Negative) mg/dL Urine Ketones (Negative) mg/dL Urine Occult Blood (Negative) Urine Nitrate (Negative) Urine Bilirubin (Negative) Urine Urobilinogen (Less than 2) mg/dL Ur Leukocyte Esterase (Negative) Urine RBC (0-3) /hpf Urine WBC (0-5) /hpf Ur Squamous Epith Cells (0-5) /hpf Micro UA Comment Urine Culture Comments Imaging Data Radiologist's impression: Lumbar Spine MRI 03/28/18 16:29 CONCLUSION: 1. Abnormal appearance to the L5-S1 level on the left side with evidence of central, left lateral, and far lateral disc protrusion and associated edema in the marrow of the left L5 and S1 vertebral bodies without loss of height of the vertebral body. There is definite neural impingement and loss of delineation of the nerve root within the neural foramen. 2. Moderate distention of the urinary bladder of uncertain significance. Lumbar Spine MRI 03/30/18 00:00 CONCLUSION: 1. There is discogenic edema at the level of L5-S1 in a pattern characteristic of Modic type I changes. There is no evidence of discitis or osteomyelitis. 2. Broad-based bulging and left lateral disc protrusion L5-S1. 3. Bilateral facet arthritis at L4-5 and L5-S1 Discharge Plan Discharge Disposition Patient Disposition: 30 Still Patient Discharge Details Diagnosis: Discitis of lumbar region Physicians Team ED Provider: Brie Christie Primary Care Provider: Primary Care Physici,No Attending Provider: Jimy Walter Other Providers: Lex Nickerson ; Shruti Loyola Status ED Status: Left Department Discharge Information Discharge Date/Time: 03/29/18 14:45
--- NOTE | 2018-03-28 19:30 | MR ---
EXAM DATE: 03/28/2018 7:15 PM EDT AGE/SEX: 52 years / Male INDICATIONS: . Fall at work about one month ago. CLINICAL DATA: This is the patient's initial encounter. Patient reports that signs and symptoms have been present for 1 month and indicates a pain score of 9/10. MEDICAL/SURGICAL HISTORY: Mesenteric ischemia. Hypertension. Seizures. Carotid stent. Right f oot sx, Right finger sx. COMPARISON: No prior exams available for comparison. TECHNIQUE: Multiplanar, multisequence MRI of the lumbar spine was performed without contrast. Patie nt was scanned in a sitting position; neutral, flexion, and extension scans were performed in the sa gittal plane. FINDINGS: There is normal alignment of vertebral bodies of the lumbar spine and preservation of vertebral body height. There is abnormal signal in the L5 and S1 vertebral bodies on left side characterized by T1 a nd T2 prolongation. There is also soft tissue thickening anterior to L5 and S1 levels. The conus is a t the T12-L1 level. T12-L1: The thecal sac has a normal diameter. No evidence of disc bulge or protrusion. The neural foramina are patent bilaterally. L1-L2: The thecal sac has a normal diameter. No evidence of disc bulge or protrusion. The neural foramina are patent bilaterally. L2-L3: The thecal sac has a normal diameter. No evidence of disc bulge or protrusion. The neural foramina are patent bilaterally. L3-L4: The thecal sac has a normal diameter. No evidence of disc bulge or protrusion. The neural foramina are patent bilaterally. L4-L5: The thecal sac has a normal diameter. No evidence of disc bulge or protrusion. The neural foramina are patent bilaterally. L5-S1: There is central and left-sided protrusion of the disc which extends into the neural foramen on the left side. There also appears to be a far lateral protrusion of the disc into the soft tissue s to the left of the vertebral body. There is loss of fat within the neural foramen and evidence of n eural impingement. There is also edema in the soft tissues about the L5 and S1 level on the left side . Intervertebral disc space height is maintained. CONCLUSION: 1. Abnormal appearance to the L5-S1 level on the left side with evidence of central, left lateral, a nd far lateral disc protrusion and associated edema in the marrow of the left L5 and S1 vertebral bod ies without loss of height of the vertebral body. There is definite neural impingement and loss of de lineation of the nerve root within the neural foramen. 2. Moderate distention of the urinary bladder of uncertain significance. Electronically signed by: Hernan Stratton MD 03/28/2018 7:29 PM EDT
[2018-03-28 21:22] LABS: Baso % (Auto) 0.3 % (0.0-2.0); Eos % (Auto) 0.2 % (0.0-4.0); Hematocrit 35.7 % (39.0-51.0); Hemoglobin 11.7 gm/dL (13.0-17.0); Lymph % (Auto) 13.7 % (9.0-44.0); Mean Corpuscular HGB Conc 32.6 % (32.0-36.0); Mean Corpuscular Hemoglobin 27.2 pg (27.0-34.0); Mean Corpuscular Volume 83.3 fL (80.0-100.0); Mean Platelet Volume 8.3 fL (7.0-11.0); Mono # (Auto) 0.2 th/mm3 (0.0-0.9); Neut # (Auto) 5.8 th/mm3 (1.8-7.7); Neut % (Auto) 82.8 % (16.0-70.0); Platelet Count 220 th/mm3 (150-450); Red Blood Count 4.29 mil/mm3 (4.50-5.90); Red Cell Distribution Width 16.2 % (11.6-17.2)
[2018-03-28 21:23] LABS: Albumin 2.7 g/dL (3.4-5.0); Anion Gap 12 meq/L (5-15); Aspartate Aminotransferase 63 U/L (15-37); Blood Urea Nitrogen 14 mg/dL (7-18); Calcium 9.8 mg/dL (8.5-10.1); Carbon Dioxide 20.4 meq/L (21.0-32.0); Chloride 104 meq/L (98-107); Glomerular Filtration Rate 86 mL/min (>89); Glucose,Random 110 mg/dL (74-106); Lipase 48 U/L (73-393); Potassium 3.9 meq/L (3.5-5.1); Sodium 136 meq/L (136-145)
[2018-03-28 21:25] LABS: Alanine Aminotransferase 55 U/L (12-78)
[2018-03-28 21:26] LABS: Alkaline Phosphatase 103 U/L (45-117)
[2018-03-28 21:51] LABS: Platelet Estimate Normal (Normal); Platelet Morphology Normal (Normal); RBC Morphology Normal (Normal)
[2018-03-28 22:53] LABS: Bilirubin,Urine Negative (Negative); Clarity,Urine Clear (Clear); Color,Urine Yellow (Yellw/Straw); Glucose,Urine (UA) Negative (Negative); Leukocyte Esterase,Urine Negative (Negative); Nitrite,Urine Negative (Negative); Squamous Epithelial Cell,Urine <1 /hpf (0-5)
[2018-03-28] MEDS ORDERED: Acetaminophen 325 MG Tablet PO PRN (23:50)
[2018-03-28] MEDS ORDERED: Bisacodyl 10 MG Supp RECTAL PRN (23:50)
--- NOTE | 2018-03-29 00:10 | P.HP ---
History of Present Illness Service: [facility] Primary Care Physician: No Primary Care Physician Chief Complaint: back pain History of Present Illness: 52-year-old male with a past medical history significant for hypertension and hyperlipidemia presents to the emergency department for the evaluation of acutely worsening lower back pain. The patient reports that his pain started approximately 1 month ago and has been progressively worsening since that time. He reports he has left lower extremity numbness that is in his toes and left foot. He denies any loss of strength. No bowel or bladder incontinence. No fevers/chills. The patient does have a very remote history of IV drug abuse with last use being approximately 15 years ago. No chest pain or shortness of breath. No abdominal pain. No nausea/vomiting/diarrhea. Inpatient Certification: I certify that the inpatient services were ordered in accordance with Medicare regulations governing the order. This includes certification that hospital inpatient services are reasonable and necessary and in the case of services not specified as inpatient-only under 42 CFR 419.22(n), that they are appropriately provided as inpatient services in accordance to with the 2-midnight benchmark under 43 CFR 412.3(e) Review of Systems All other systems reviewed negative except as stated in HPI [facility] - History History Provided By: Patient - Medical History Medical History: Medical History (Last Updated 03/29/18 @ 00:04 by Brie Pérez MD) HLD (hyperlipidemia) HTN (hypertension) Myocardial infarction Seizure - Surgical History Surgical History: Surgical History (Last Updated 03/29/18 @ 00:04 by rBie Pérez MD) H/O hand surgery History of foot surgery - Tobacco History Second Hand Smoke Exposure: Yes Tobacco Use In Past 30 Days: Yes Smoking Status: Current every day smoker Tobacco Type: Cigarettes - Alcohol History How Often Do You Have a Drink Containing Alcohol: 4 or more times a week - Substance Use History Substance History: Active Abuse, Past History, Unable to Obtain - Travel History Recent Travel in the [place] Within the Last 8 Weeks: No Recent Travel Out of the Country Within the Last 8 Weeks: No - Immunization History Tetanus Immunization: Unsure Medications and Allergies Active Medications: Active Medications Acetaminophen (Tylenol) 650 mg PO Q4H PRN PRN Reason: Temp > 100.4 Al Hydroxide/Mg Hydroxide (Milk Of Magnesia Liq) 30 ml PO Q12H PRN PRN Reason: Mild Constipation Bisacodyl (Dulcolax Supp) 10 mg RECTAL DAILY PRN PRN Reason: SEVERE CONSITIPATION Dexamethasone Sodium Phosphate (Decadron Inj) 4 mg IV.PUSH Q6HR ROS[place] Sodium Chloride (Ns Inj) 1,000 mls @ 100 mls/hr IV.CONT .Q10H [place]AM[place] Lactulose (Lactulose Liq) 30 ml PO DAILY PRN PRN Reason: SEVERE CONSITIPATION Morphine Sulfate (Morphine Inj) 4 mg IV.PUSH Q4H PRN PRN Reason: pain 6-10 Ondansetron HCl (Zofran Inj) 4 mg IV.PUSH Q6H PRN PRN Reason: NAUSEA OR VOMITING Senna/Docusate Sodium (Aliya-Colace) 1 tab PO BID ROSAMARIA Sennosides (Senokot) 17.2 mg PO Q12H PRN PRN Reason: Moderate Constipation Sodium Chloride (Ns Flush) 2 ml IV.FLUSH PRN PRN PRN Reason: FLUSH AFTER USING IV ACCESS Temazepam (Restoril) 15 mg PO HS PRN PRN Reason: INSOMNIA Allergies Allergy/AdvReac Type Severity Reaction Status Date / Time penicillin G Allergy Unknown UNKNOWN Verified 12/22/17 10:49 Home Medications Medication Instructions Recorded Confirmed Type No Known Home Medications 03/28/18 03/28/18 History Exam Vital signs: Vital Signs 03/28/18 10:49 03/28/18 16:20 03/28/18 22:33 Temperature 97.5 F L 97.7 F Pulse Rate 66 63 51 L Respiratory Rate 16 17 16 Blood Pressure 146/75 H 163/74 H 143/84 H Pulse Oximetry 98 100 98 Intake & Output 03/28/18 03/28/18 03/29/18 06:59 18:59 06:59 Weight 65.771 kg Narrative: Gen.: No acute distress Head: Normocephalic. Atraumatic. EENT: Pupils equal round and reactive to light. Nose without drainage. Airway intact. Throat without injection. Cardiovascular: Regular rate and rhythm. No murmurs, rubs or gallops. Respiratory: Lungs clear to auscultation bilaterally. No wheezes or rhonchi. Abdomen: Soft, nontender, nondistended. No peritoneal signs. Musculoskeletal: No gross deformities. No edema. Skin: No obvious rashes or erythema. Neuro: Decreased sensation in the left lower extremity foot and toes. 5/5 strength throughout. Cranial nerves II through XII intact. Psych: Appropriate mood and affect Results - Labs CBC & Chem 7: 03/28/18 20:40 03/28/18 20:40 Labs: Laboratory Results - last 24 hr 03/28/18 03/28/18 03/28/18 20:40 20:40 22:25 WBC 7.0 RBC 4.29 L Hgb 11.7 L Hct 35.7 L MCV 83.3 MCH 27.2 MCHC 32.6 RDW 16.2 Plt Count 220 MPV 8.3 Prelim Diff (Auto) Slide review pending Neut % (Auto) 82.8 H Lymph % (Auto) 13.7 [place] % (Auto) 3.0 Eos % (Auto) 0.2 Baso % (Auto) 0.3 Neut # (Auto) 5.8 Lymph # (Auto) 1.0 [place] # (Auto) 0.2 Eos # (Auto) 0.0 Baso # (Auto) 0.0 WBC Differential . Diff Scan Auto diff confirmed Differential Comment . Platelet Estimate Normal Platelet Morphology Normal RBC Morphology Normal Sodium 136 Potassium 3.9 Chloride 104 Carbon Dioxide 20.4 L Anion Gap 12 BUN 14 Creatinine 0.93 Estimated GFR 86 L Random Glucose 110 H Calcium 9.8 Total Bilirubin 0.4 AST 63 H ALT 55 Alkaline Phosphatase 103 Total Protein 8.0 Albumin 2.7 L Lipase 48 L Urine Color Yellow Urine Clarity Clear Urine pH 5.0 Ur Specific [place] 1.010 Urine Protein Negative Urine Glucose (UA) Negative Urine Ketones Negative Urine Occult Blood Negative Urine Nitrate Negative Urine Bilirubin Negative Urine Urobilinogen Less than 2 Ur Leukocyte Esterase Negative Urine RBC Less than 1 Urine WBC 3 Ur Squamous Epith Cells <1 Micro UA Comment Culture not ind Urine Culture Comments Culture not ind - Imaging Impressions Lumbar Spine MRI 03/28/18 16:29 CONCLUSION: 1. Abnormal appearance to the L5-S1 level on the left side with evidence of central, left lateral, and far lateral disc protrusion and associated edema in the marrow of the left L5 and S1 vertebral bodies without loss of height of the vertebral body. There is definite neural impingement and loss of delineation of the nerve root within the neural foramen. 2. Moderate distention of the urinary bladder of uncertain significance. Caprini VTE Risk Assessment Caprini VTE Risk Assessment: Moderate/High Risk (score >= 2) Caprini Risk Assessment Model: Point Value = 1 Point Value = 2 Point Value = 3 Point Value = 5 Age 41-60 Minor surgery BMI > 25 kg/m2 Swollen legs Varicose veins or History of unexplained or recurrent spontaneous Oral contraceptives or hormone replacement Sepsis (< 1 month) Serious lung disease, including pneumonia (< 1 month) Abnormal pulmonary function Acute myocardial infarction Congestive heart failure (< 1 month) History of inflammatory bowel disease Medical patient at bed rest Age 61-74 Arthroscopic surgery Major open surgery (> 45 min) Laparoscopic surgery (> 45 min) Malignancy Confined to bed (> 72 hours) Immobilizing plaster cast Central venous access Age >= 75 History of VTE Family history of VTE Factor V Leiden Prothrombin [id number] Lupus anticoagulant Anticardiolipin antibodies Elevated serum homocysteine Heparin-induced thrombocytopenia Other congenital or acquired thrombophilia Stroke (< 1 month) Elective arthroplasty Hip, pelvis, or leg fracture Acute spinal cord injury (< 1 month) Prophylaxis Regimen: Total Risk Factor Score Risk Level Prophylaxis Regimen 0-1 Low Early ambulation 2 Moderate Order ONE of the following: *Sequential Compression Device (SCD) *Heparin 5000 units SQ BID 3-4 Higher Order ONE of the following medications: *Heparin 5000 units SQ TID *Enoxaparin/Lovenox 40 mg SQ daily (WT < 150 kg, CrCl > 30 mL/min) *Enoxaparin/Lovenox 30 mg SQ daily (WT < 150 kg, CrCl > 10-29 mL/min) *Enoxaparin/Lovenox 30 mg SQ BID (WT < 150 kg, CrCl > 30 mL/min) AND/OR *Sequential Compression Device (SCD) 5 or more Highest Order ONE of the following medications: *Heparin 5000 units SQ TID (Preferred with Epidurals) *Enoxaparin/Lovenox 40 mg SQ daily (WT < 150 kg, CrCl > 30 mL/min) *Enoxaparin/Lovenox 30 mg SQ daily (WT < 150 kg, CrCl > 10-29 mL/min) *Enoxaparin/Lovenox 30 mg SQ BID (WT < 150 kg, CrCl > 30 mL/min) AND *Sequential Compression Device (SCD) Assessment and Plan - Plan Assessment/plan: 1. Possible discitis Patient with back pain and MRI significant for abnormal appearance of the L5-S1 level Neurosurgery consulted, appreciate recommendations. Per neurosurgery, no IV antibiotics at this time Infectious disease consulted, appreciate assistance Interventional radiology consulted to evaluate for possible biopsy of the disc IV Decadron Blood cultures pending 2. Hypertension/hyperlipidemia Patient does not take any home medications Monitor blood pressure Clonidine as needed FEN NPO Electrolytes: Monitor and replete as needed NS at 100 cc/hour
[2018-03-29 07:36] LABS: Baso % (Auto) 0.1 % (0.0-2.0); Hematocrit 37.2 % (39.0-51.0); Lymph # (Auto) 0.7 th/mm3 (1.0-4.8); Lymph % (Auto) 26.8 % (9.0-44.0); Mean Corpuscular HGB Conc 32.4 % (32.0-36.0); Mean Corpuscular Hemoglobin 26.8 pg (27.0-34.0); Mean Corpuscular Volume 82.8 fL (80.0-100.0); Mean Platelet Volume 8.2 fL (7.0-11.0); Mono # (Auto) 0.1 th/mm3 (0.0-0.9); Mono % (Auto) 2.2 % (0.0-8.0); Neut # (Auto) 1.8 th/mm3 (1.8-7.7); Neut % (Auto) 70.9 % (16.0-70.0); Platelet Count 225 th/mm3 (150-450); Red Blood Count 4.49 mil/mm3 (4.50-5.90); Red Cell Distribution Width 16.1 % (11.6-17.2); White Blood Count 2.6 th/mm3 (4.0-11.0)
[2018-03-29 08:02] LABS: Anion Gap 11 meq/L (5-15); Blood Urea Nitrogen 16 mg/dL (7-18); Calcium 9.2 mg/dL (8.5-10.1); Carbon Dioxide 20.2 meq/L (21.0-32.0); Chloride 109 meq/L (98-107); Glomerular Filtration Rate Greater Than 89 mL/min (>89); Glucose,Random 114 mg/dL (74-106); Sodium 140 meq/L (136-145)
[2018-03-29] MEDS: Senna/Docusate Sodium 8.6/50 MG Tablet PO SCH ×2 (08:37→20:20)
[2018-03-29] MEDS: Morphine Inj 4 MG/ML Vial IV.PUSH PRN ×3 (11:03→23:19)
[2018-03-29 11:41] LABS: Activated Partial Thrombo Time 26.8 sec (24.3-30.1); INR 1.1 Ratio; Prothrombin Time 11.1 sec (9.8-11.6)
--- NOTE | 2018-03-29 11:55 | P.CONID ---
History of Present Illness Service: ID Consult date: 03/29/18 Requesting Physician: Brie Pérez Reason for Consult: diskitis Primary Care Provider: No Primary Care Physician Family Provider: No Primary Care Physician Chief Complaint: back pain History of Present Illness: 52 yo male with very remote IVDU (15-20 yr ago - per pt) presented with 1 month of worsening low bacvk pain radiating to both lower extremeties worse on the LLE He denies incontinenece, no problems urinating + subjective fevers, chills, night sweats No prior trauma NO fever WBC is low 2.6 with ANC of 1800 MRI done without contrast and showed showed Abnormal appearance to the L5-S1 level on the left side with evidence of central, left lateral, and far lateral disc protrusion and associated edema in the marrow of the left L5 and S1 vertebral bodies without loss of height of the vertebral body, definite neural impingement and loss of delineation of the nerve root within the neural foramen and moderate distention of the urinary bladder Pt is scheduled for CT guided bx for culture blood c lx are negative 12/15 @ 1 day Review of Systems All other systems reviewed negative except as stated in HPI PMFSH - History History Provided By: Patient - Medical History Medical History: Medical History (Last Reviewed 05/30/18 @ 06:48 by Shruti Loyola MD) HLD (hyperlipidemia) HTN (hypertension) Myocardial infarction Seizure - Surgical History Surgical History: Surgical History (Last Reviewed 05/30/18 @ 06:48 by Shruti Loyola MD) H/O hand surgery History of foot surgery - Family History Family History: Family History (Last Updated 05/30/18 @ 06:49 by Shruti Loyola MD) Other Family history non-contributory - Social History I have reviewed the patient's Social History: Yes - Tobacco History Second Hand Smoke Exposure: Yes Tobacco Use In Past 30 Days: Yes Smoking Status: Current every day smoker Tobacco Type: Cigarettes - Alcohol History How Often Do You Have a Drink Containing Alcohol: 4 or more times a week - Substance Use History Substance History: Active Abuse, Past History (IVDU 15-20 yrs ago), Unable to Obtain - Travel History Recent Travel in the [place] Within the Last 8 Weeks: No Recent Travel Out of the Country Within the Last 8 Weeks: No - Immunization History Tetanus Immunization: Unsure Medications and Allergies Active Medications: Active Medications Acetaminophen (Tylenol) 650 mg PO Q4H PRN PRN Reason: Temp > 100.4 Al Hydroxide/Mg Hydroxide (Milk Of Magnesia Liq) 30 ml PO Q12H PRN PRN Reason: Mild Constipation Bisacodyl (Dulcolax Supp) 10 mg RECTAL DAILY PRN PRN Reason: SEVERE CONSITIPATION Clonidine HCl (Catapres) 0.1 mg PO Q6H PRN PRN Reason: SBP>160, DBP>90 Dexamethasone Sodium Phosphate (Decadron Inj) 4 mg IV.PUSH Q6HR [facility] Last Admin: 03/29/18 11:03 Dose: 4 mg Sodium Chloride (Ns Inj) 1,000 mls @ 100 mls/hr IV.CONT .Q10H [facility] Lactulose (Lactulose Liq) 30 ml PO DAILY PRN PRN Reason: SEVERE CONSITIPATION Morphine Sulfate (Morphine Inj) 4 mg IV.PUSH Q4H PRN PRN Reason: pain 6-10 Last Admin: 03/29/18 11:03 Dose: 4 mg Ondansetron HCl (Zofran Odt) 4 mg PO Q6H PRN PRN Reason: NAUSEA OR VOMITING Last Admin: 03/29/18 11:04 Dose: 4 mg Senna/Docusate Sodium (Aliya-Colace) 1 tab PO BID [facility] Last Admin: 03/29/18 08:37 Dose: Not Given Sennosides (Senokot) 17.2 mg PO Q12H PRN PRN Reason: Moderate Constipation Sodium Chloride (Ns Flush) 2 ml IV.FLUSH PRN PRN PRN Reason: FLUSH AFTER USING IV ACCESS Temazepam (Restoril) 15 mg PO HS PRN PRN Reason: INSOMNIA Allergies Allergy/AdvReac Type Severity Reaction Status Date / Time penicillin G Allergy Unknown UNKNOWN Verified 04/28/18 18:48 Exam Vital signs: Vital Signs 03/28/18 16:20 03/28/18 22:33 03/28/18 23:50 Temperature 97.7 F Pulse Rate 63 51 L 64 Respiratory Rate 17 16 16 Blood Pressure 163/74 H 143/84 H 136/78 Pulse Oximetry 100 98 99 03/29/18 05:50 Temperature Pulse Rate 51 L Respiratory Rate 15 Blood Pressure 145/75 H Pulse Oximetry 100 Intake & Output 03/28/18 03/29/18 03/29/18 18:59 06:59 18:59 Weight 65.771 kg - Constitutional no acute distress, average body habitus, disheveled, cooperative - Routine HEENT Exam Head: Present: normocephalic, atraumatic Eye: Present: EOMI, PERRL ENT: Present: mucous membranes moist, oropharynx clear - Routine Neck Exam Present: supple, full ROM Comments: no lymphadenopathy - Routine Respiratory Exam Present: decreased breath sounds, CTA bilaterally - Routine Cardiovascular Exam Present: RRR, S1, S2 Comments: no murmurs , rubs, gallops well perfused perifery - Routine Abdominal Exam Present: soft, normoactive bowel sounds Comments: no orgnomegally or masses - Routine Exam Comments: no palpable bladder distention - Routine Extremities Exam Comments: no cyanosis clubbing or edema - Routine Back/Spine/Pelvis Exam Back/Spine: Present: vertebral tenderness (lower lumbar area) - Routine Skin Exam Present: intact, warm Comments: no rash, lesions - Routine Neurological Exam Present: alert, oriented X3, CN II-XII intact, sensory deficit (decresed sensatyion to L foot), motor deficit (decreased motor in LLE unable to wiggle toes on the L ) Results - Labs CBC & Chem 7: 04/06/18 05:15 04/06/18 05:15 Labs: Laboratory Results - last 24 hr 03/28/18 03/28/18 03/28/18 20:40 20:40 22:25 WBC 7.0 RBC 4.29 L Hgb 11.7 L Hct 35.7 L MCV 83.3 MCH 27.2 MCHC 32.6 RDW 16.2 Plt Count 220 MPV 8.3 Prelim Diff (Auto) Slide review pending Neut % (Auto) 82.8 H Lymph % (Auto) 13.7 [facility] % (Auto) 3.0 Eos % (Auto) 0.2 Baso % (Auto) 0.3 Neut # (Auto) 5.8 Lymph # (Auto) 1.0 [facility] # (Auto) 0.2 Eos # (Auto) 0.0 Baso # (Auto) 0.0 WBC Differential . Diff Scan Auto diff confirmed Differential Comment . Platelet Estimate Normal Platelet Morphology Normal RBC Morphology Normal PT INR APTT Sodium 136 Potassium 3.9 Chloride 104 Carbon Dioxide 20.4 L Anion Gap 12 BUN 14 Creatinine 0.93 Estimated GFR 86 L Random Glucose 110 H Calcium 9.8 Total Bilirubin 0.4 AST 63 H ALT 55 Alkaline Phosphatase 103 Total Protein 8.0 Albumin 2.7 L Lipase 48 L Urine Color Yellow Urine Clarity Clear Urine pH 5.0 Ur Specific [place] 1.010 Urine Protein Negative Urine Glucose (UA) Negative Urine Ketones Negative Urine Occult Blood Negative Urine Nitrate Negative Urine Bilirubin Negative Urine Urobilinogen Less than 2 Ur Leukocyte Esterase Negative Urine RBC Less than 1 Urine WBC 3 Ur Squamous Epith Cells <1 Micro UA Comment Culture not ind Urine Culture Comments Culture not ind 03/29/18 03/29/18 03/29/18 06:21 06:23 10:51 WBC 2.6 L D RBC 4.49 L Hgb 12.0 L Hct 37.2 L MCV 82.8 MCH 26.8 L MCHC 32.4 RDW 16.1 Plt Count 225 MPV 8.2 Prelim Diff (Auto) Neut % (Auto) 70.9 H Lymph % (Auto) 26.8 [facility] % (Auto) 2.2 Eos % (Auto) 0.0 Baso % (Auto) 0.1 Neut # (Auto) 1.8 Lymph # (Auto) 0.7 L [facility] # (Auto) 0.1 Eos # (Auto) 0.0 Baso # (Auto) 0.0 WBC Differential . Diff Scan Differential Comment Auto diff final Platelet Estimate Platelet Morphology RBC Morphology PT 11.1 INR 1.1 APTT 26.8 Sodium 140 Potassium 4.0 Chloride 109 H Carbon Dioxide 20.2 L Anion Gap 11 BUN 16 Creatinine 0.87 Estimated GFR Greater than 89 Random Glucose 114 H Calcium 9.2 Total Bilirubin AST ALT Alkaline Phosphatase Total Protein Albumin Lipase Urine Color Urine Clarity Urine pH Ur Specific [place] Urine Protein Urine Glucose (UA) Urine Ketones Urine Occult Blood Urine Nitrate Urine Bilirubin Urine Urobilinogen Ur Leukocyte Esterase Urine RBC Urine WBC Ur Squamous Epith Cells Micro UA Comment Urine Culture Comments - Imaging Impressions Lumbar Spine MRI 03/28/18 16:29 CONCLUSION: 1. Abnormal appearance to the L5-S1 level on the left side with evidence of central, left lateral, and far lateral disc protrusion and associated edema in the marrow of the left L5 and S1 vertebral bodies without loss of height of the vertebral body. There is definite neural impingement and loss of delineation of the nerve root within the neural foramen. 2. Moderate distention of the urinary bladder of uncertain significance. Assessment and Plan - Plan Diskitis L5-S1 + LLE deficit MRI with contrast - no contraindications agree with CT guided aspiration for culture will start abx after aspiration (cefepime, vancomycin) fu blood clx
[2018-03-29] MEDS: Sod Chloride 0.9% Inj 1,000 ML IV.CONT SCH ×2 (14:31→23:58)
--- NOTE | 2018-03-29 16:03 | P.CONNS ---
History of Present Illness Service: Neurosurgery Consult date: 03/29/18 Requesting Physician: Brie Christie Reason for Consult: Discitis Primary Care Provider: No Primary Care Physician Family Provider: No Primary Care Physician Chief Complaint: back pain Review of Systems CONSTITUTIONAL: INTEGUMENTARY: HEENT: NECK: RESPIRATORY: CARDIOVASCULAR: GASTROINTESTINAL: GENITOURINARY: MUSCULOSKELETAL: HAEMATOLOGIC/LYMPHATIC: IMMUNOLOGIC: PSYCHIATRIC: NEUROLOGICAL: PMFSH - History History Provided By: Patient - Medical History Medical History: Medical History (Last Updated 03/29/18 @ 00:04 by Brie Pérez MD) HLD (hyperlipidemia) HTN (hypertension) Myocardial infarction Seizure - Surgical History Surgical History: Surgical History (Last Updated 03/29/18 @ 00:04 by Brie Pérez MD) H/O hand surgery History of foot surgery - Tobacco History Second Hand Smoke Exposure: Yes Tobacco Use In Past 30 Days: Yes Smoking Status: Current every day smoker Tobacco Type: Cigarettes - Alcohol History How Often Do You Have a Drink Containing Alcohol: 4 or more times a week - Substance Use History Substance History: Past History - Travel History Recent Travel in the [place] Within the Last 8 Weeks: No Recent Travel Out of the Country Within the Last 8 Weeks: No - Immunization History Tetanus Immunization: Unsure Hx Influenza Vaccine This Season: No Medications and Allergies Active Medications: Active Medications Acetaminophen (Tylenol) 650 mg PO Q4H PRN PRN Reason: Temp > 100.4 Al Hydroxide/Mg Hydroxide (Milk Of Magnesia Liq) 30 ml PO Q12H PRN PRN Reason: Mild Constipation Bisacodyl (Dulcolax Supp) 10 mg RECTAL DAILY PRN PRN Reason: SEVERE CONSITIPATION Clonidine HCl (Catapres) 0.1 mg PO Q6H PRN PRN Reason: SBP>160, DBP>90 Last Admin: 03/29/18 14:31 Dose: 0.1 mg Dexamethasone Sodium Phosphate (Decadron Inj) 4 mg IV.PUSH Q6HR [facility] Last Admin: 03/29/18 11:03 Dose: 4 mg Sodium Chloride (Ns Inj) 1,000 mls @ 100 mls/hr IV.CONT .Q10H [facility] Last Admin: 03/29/18 14:31 Dose: 100 mls/hr Lactulose (Lactulose Liq) 30 ml PO DAILY PRN PRN Reason: SEVERE CONSITIPATION Morphine Sulfate (Morphine Inj) 4 mg IV.PUSH Q4H PRN PRN Reason: pain 6-10 Last Admin: 03/29/18 11:03 Dose: 4 mg Ondansetron HCl (Zofran Odt) 4 mg PO Q6H PRN PRN Reason: NAUSEA OR VOMITING Last Admin: 03/29/18 11:04 Dose: 4 mg Senna/Docusate Sodium (Aliya-Colace) 1 tab PO BID [facility] Last Admin: 03/29/18 08:37 Dose: Not Given Sennosides (Senokot) 17.2 mg PO Q12H PRN PRN Reason: Moderate Constipation Sodium Chloride (Ns Flush) 2 ml IV.FLUSH PRN PRN PRN Reason: FLUSH AFTER USING IV ACCESS Temazepam (Restoril) 15 mg PO HS PRN PRN Reason: INSOMNIA Allergies Allergy/AdvReac Type Severity Reaction Status Date / Time penicillin G Allergy Unknown UNKNOWN Verified 12/22/17 10:49 Home Medications Medication Instructions Recorded Confirmed Type No Known Home Medications 03/28/18 03/28/18 History Exam Vital signs: Vital Signs 03/28/18 16:20 03/28/18 22:33 03/28/18 23:50 Temperature 97.7 F Pulse Rate 63 51 L 64 Respiratory Rate 17 16 16 Blood Pressure 163/74 H 143/84 H 136/78 Pulse Oximetry 100 98 99 03/29/18 05:50 03/29/18 09:00 03/29/18 12:39 Temperature Pulse Rate 51 L 60 58 L Respiratory Rate 15 16 16 Blood Pressure 145/75 H 130/60 136/78 Pulse Oximetry 100 98 98 03/29/18 14:35 Temperature 97.2 F L Pulse Rate 52 L Respiratory Rate 18 Blood Pressure 174/85 H Pulse Oximetry 99 Intake & Output 03/28/18 03/29/18 03/29/18 18:59 06:59 18:59 Weight 65.771 kg Narrative: GENERAL: SKIN: HEENT: NECK: RESPIRATORY: CARDIOVASCULAR: GASTROINTESTINAL: GENITOURINARY: MUSCULOSKELETAL: HAEMATOLOGIC/LYMPHATIC: IMMUNOLOGIC: PSYCHIATRIC: NEUROLOGICAL: Results - Laboratory Findings CBC and BMP: 03/29/18 06:23 03/29/18 06:21 Abnormal lab findings: Abnormal Labs 03/28/18 03/28/18 03/29/18 20:40 20:40 06:21 WBC RBC 4.29 L Hgb 11.7 L Hct 35.7 L MCH Neut % (Auto) 82.8 H Lymph # (Auto) Chloride 109 H Carbon Dioxide 20.4 L 20.2 L Estimated GFR 86 L Random Glucose 110 H 114 H AST 63 H Albumin 2.7 L Lipase 48 L 03/29/18 06:23 WBC 2.6 L D RBC 4.49 L Hgb 12.0 L Hct 37.2 L MCH 26.8 L Neut % (Auto) 70.9 H Lymph # (Auto) 0.7 L Chloride Carbon Dioxide Estimated GFR Random Glucose AST Albumin Lipase - Diagnostic Findings Additional findings: MRI lumbar spine w/o contrast : "CONCLUSION: 1. Abnormal appearance to the L5-S1 level on the left side with evidence of central, left lateral, and far lateral disc protrusion and associated edema in the marrow of the left L5 and S1 vertebral bodies without loss of height of the vertebral body. There is definite neural impingement and loss of delineation of the nerve root within the neural foramen. 2. Moderate distention of the urinary bladder of uncertain significance. Electronically signed by: Hernan Stratton MD 03/28/2018 7:29 PM EDT" Assessment and Plan - Plan Impression: Past 24 hrs: Afebrile. Intermittent bradycardia. Intermittently elevated SBP. Reviewed labs for today: Interval development of leukopenia. Mild improvement in haemoglobin level. INR & aPTT WNL. Sodium 140. eGFR >89. Blood cultures x2 w/o growth x1 day. Plan:
[2018-03-29] MEDS ORDERED: fentaNYL Citrate Inj 250 MCG/5 ML Ampul ONE (16:16)
--- NOTE | 2018-03-29 16:38 | P.RAD ---
Post Procedure Progress Note - Pre Procedure Diagnosis (1) Discitis of lumbar region - Post Procedure Diagnosis (1) Discitis of lumbar region - Procedure Information Procedure Date: 03/29/18 Supervising Radiologist: Yosef Pereira MD Estimated blood loss (mL): 0 - Plan of Activity Patient to Unit: Nursing Unit Patient Condition: Fair Additional Comments: L5/S1 disc aspirated on the left side full dictated report to follow See PACS Report for procedural detail/treatment.
--- NOTE | 2018-03-29 22:01 | P.CONNS ---
History of Present Illness Service: Neurosurgery Consult date: 03/29/18 Reason for Consult: Possible lumbar discitis Primary Care Provider: No Primary Care Physician Family Provider: No Primary Care Physician Chief Complaint: back pain History of Present Illness: 52-year-old male complains of approximately 1 month of progressive severe low back pain. Mild intermittent lower extremity numbness and paresthesias up until the past couple of weeks, when the numbness in the left lateral calf and the left foot has become more constant and more pronounced. The pain in the left low back buttock with occasional radiation to the left lateral thigh has also been worse over the past couple of weeks. No definite bowel or bladder dysfunction. No definite fevers chills or sweats. Has a remote history of IV drug abuse. Review of Systems Constitutional: Reports body ache(s), Denies chills Eyes: Denies blurry vision, Denies double vision Ears, Nose, Mouth, and Throat: Denies dizziness, Denies headache(s) Cardiovascular: Denies chest pain, Denies irregular heart rhythm Respiratory: Denies chest congestion, Denies shortness of breath Gastrointestinal: Denies abdominal pain, Denies nausea Genitourinary: Denies urinary hesitancy, Denies urinary incontinence Musculoskeletal: Reports back pain, Reports body aches, Reports radiating pain into limb, Reports tingling, Denies abnormal walking, Denies neck pain Neurologic: Reports numbness, Reports radiating pain, Reports tingling, Denies headache(s) Hematologic/Lymphatic: Denies easy bleeding PMFSH - History History Provided By: Patient - Medical History Medical History: Medical History (Last Reviewed 03/29/18 @ 21:59 by Lex Nickerson MD) HLD (hyperlipidemia) HTN (hypertension) Myocardial infarction Seizure - Surgical History Surgical History: Surgical History (Last Reviewed 03/29/18 @ 21:59 by Lex Nickerson MD) H/O hand surgery History of foot surgery - Tobacco History Second Hand Smoke Exposure: Yes Tobacco Use In Past 30 Days: Yes Smoking Status: Current every day smoker Tobacco Type: Cigarettes - Alcohol History How Often Do You Have a Drink Containing Alcohol: 4 or more times a week - Substance Use History Substance History: Past History - Travel History Recent Travel in the [place] Within the Last 8 Weeks: No Recent Travel Out of the Country Within the Last 8 Weeks: No - Immunization History Tetanus Immunization: Unsure Hx Influenza Vaccine This Season: No Medications and Allergies Active Medications: Active Medications Acetaminophen (Tylenol) 650 mg PO Q4H PRN PRN Reason: Temp > 100.4 Al Hydroxide/Mg Hydroxide (Milk Of Magnesia Liq) 30 ml PO Q12H PRN PRN Reason: Mild Constipation Bisacodyl (Dulcolax Supp) 10 mg RECTAL DAILY PRN PRN Reason: SEVERE CONSITIPATION Clonidine HCl (Catapres) 0.1 mg PO Q6H PRN PRN Reason: SBP>160, DBP>90 Last Admin: 03/29/18 14:31 Dose: 0.1 mg Dexamethasone Sodium Phosphate (Decadron Inj) 4 mg IV.PUSH Q6HR [facility] Last Admin: 03/29/18 18:42 Dose: 4 mg Sodium Chloride (Ns Inj) 1,000 mls @ 100 mls/hr IV.CONT .Q10H [facility] Last Admin: 03/29/18 14:31 Dose: 100 mls/hr Lactulose (Lactulose Liq) 30 ml PO DAILY PRN PRN Reason: SEVERE CONSITIPATION Morphine Sulfate (Morphine Inj) 4 mg IV.PUSH Q4H PRN PRN Reason: pain 6-10 Last Admin: 03/29/18 18:42 Dose: 4 mg Ondansetron HCl (Zofran Odt) 4 mg PO Q6H PRN PRN Reason: NAUSEA OR VOMITING Last Admin: 03/29/18 11:04 Dose: 4 mg Senna/Docusate Sodium (Aliya-Colace) 1 tab PO BID [facility] Last Admin: 03/29/18 20:20 Dose: Not Given Sennosides (Senokot) 17.2 mg PO Q12H PRN PRN Reason: Moderate Constipation Sodium Chloride (Ns Flush) 2 ml IV.FLUSH PRN PRN PRN Reason: FLUSH AFTER USING IV ACCESS Temazepam (Restoril) 15 mg PO HS PRN PRN Reason: INSOMNIA Allergies Allergy/AdvReac Type Severity Reaction Status Date / Time penicillin G Allergy Unknown UNKNOWN Verified 12/22/17 10:49 Home Medications Medication Instructions Recorded Confirmed Type No Known Home Medications 03/28/18 03/28/18 History Exam Vital signs: Vital Signs 03/28/18 22:33 03/28/18 23:50 03/29/18 05:50 Temperature Pulse Rate 51 L 64 51 L Respiratory Rate 16 16 15 Blood Pressure 143/84 H 136/78 145/75 H Pulse Oximetry 98 99 100 03/29/18 09:00 03/29/18 12:39 03/29/18 14:35 Temperature 97.2 F L Pulse Rate 60 58 L 52 L Respiratory Rate 16 18 Blood Pressure 130/60 136/78 174/85 H Pulse Oximetry 98 98 99 03/29/18 16:45 03/29/18 17:00 03/29/18 20:00 Temperature 98.0 F 97.9 F Pulse Rate 62 44 L 49 L Respiratory Rate 18 17 Blood Pressure 134/81 133/77 149/85 H Pulse Oximetry 95 96 99 Intake & Output 03/29/18 03/29/18 03/30/18 06:59 18:59 06:59 Other: # Voids 2 Date of Last Bowel Movement 03/28/18 Narrative: General: Normally developed gentleman, moderate discomfort. Respirations clear and regular Abdomen soft nontender Cardiac: Pulse regular Extremities: No significant edema or cyanosis. No significant long bone or joint deformity. Neurologic: Awake and alert Oriented X 3 Speech is clear Conversant and appropriate Follow simple commands well Answers questions appropriately Reasonable judgment and insight Recent and remote memory are intact No evidence of anxiety or depression Pupils are equal and reactive to accommodation. Extra-ocular movements, visual pino to confrontation, facial sensorimotor, tongue, palate, sternocleidomastoid testing, hearing to finger rub testing, and bilateral shoulder shrug are all intact. Sensation is intact to light touch in all extremities except for moderate numbness to light touch in the primarily L5 distribution of the left calf and foot. Strength normal major flexion and extension groups all extremities, except for/ 5 left tibialis anterior and extensor hallucis longus with complaining of back pain with distal left lower extremity motor testing Sharri's absent bilaterally No ankle clonus Plantar responses absent bilateral Fine motor movements intact upper extremities Results - Laboratory Findings CBC and BMP: 03/29/18 06:23 03/29/18 06:21 Abnormal lab findings: Abnormal Labs 03/28/18 03/28/18 03/29/18 20:40 20:40 06:21 WBC RBC 4.29 L Hgb 11.7 L Hct 35.7 L MCH Neut % (Auto) 82.8 H Lymph # (Auto) Chloride 109 H Carbon Dioxide 20.4 L 20.2 L Estimated GFR 86 L Random Glucose 110 H 114 H AST 63 H Albumin 2.7 L Lipase 48 L 03/29/18 06:23 WBC 2.6 L D RBC 4.49 L Hgb 12.0 L Hct 37.2 L MCH 26.8 L Neut % (Auto) 70.9 H Lymph # (Auto) 0.7 L Chloride Carbon Dioxide Estimated GFR Random Glucose AST Albumin Lipase Assessment and Plan - Plan Impression: 1. MRI images reviewed by the undersigned. Suspicious for L5-S1 discitis without definite abscess formation. Plan: L5-S1 CT scan guided disc biopsy. Would prefer to hold IV antibiotics pending biopsy. Appears neurologically normal at the present time Follow-up MRI has been requested and pending.
[2018-03-30] MEDS: Morphine Inj 4 MG/ML Vial IV.PUSH PRN ×4 (03:31→23:18)
[2018-03-30] MEDS: Senna/Docusate Sodium 8.6/50 MG Tablet PO SCH ×2 (08:01→21:48)
[2018-03-30] MEDS ORDERED: Gadobutrol PF 7.5 MMOL/7.5 ML Vial (for RAD) IV.SIG ONE (09:34)
--- NOTE | 2018-03-30 10:03 | P.PN ---
Subjective Interval history: Follow-up for lumbar area discitis. Patient is currently doing well. He is about to go to MRI for contrast MRI study of the lumbar spine. No fever or chills. He complains of significant pain, however. Physical Exam Vital signs: Vital Signs 03/29/18 12:39 03/29/18 14:35 03/29/18 16:45 Temperature 97.2 F L 98.0 F Pulse Rate 58 L 52 L 62 Respiratory Rate 18 Blood Pressure 136/78 174/85 H 134/81 Pulse Oximetry 98 99 95 03/29/18 17:00 03/29/18 20:00 03/30/18 00:00 Temperature 97.9 F 97.7 F Pulse Rate 44 L 49 L 60 Respiratory Rate Blood Pressure 133/77 149/85 H 110/67 Pulse Oximetry 96 99 97 03/30/18 08:00 Temperature 97.4 F L Pulse Rate 52 L Respiratory Rate 19 Blood Pressure 156/89 H Pulse Oximetry 100 Intake & Output 03/29/18 03/30/18 03/30/18 18:59 06:59 18:59 Intake Total 1720 / 1720 Output Total 300 / 300 Balance 1420 / 1420 Weight 66 kg Intake: IV 1000 / 1000 NS Inj 1,000 ML @ 100 mls/hr IV 1000 / 1000 .CONT .Q10H ROSAM[facility]IA Rx#:[id number] Oral 720 / 720 Output: Urine 300 / 300 Other: # Voids 2 3 Date of Last Bowel Movement 03/28/18 03/30/18 Narrative: GENERAL: Alert, oriented 3, NAD. SKIN: Warm and dry. HEAD: Normocephalic. EYES: No scleral icterus. No injection or drainage. NECK: Supple, trachea midline. No JVD or lymphadenopathy. CARDIOVASCULAR: Regular rate and rhythm without murmurs, gallops, or rubs. RESPIRATORY: Breath sounds equal bilaterally. No accessory muscle use. GASTROINTESTINAL: Abdomen soft, non-tender, nondistended. MUSCULOSKELETAL: No cyanosis, or edema. BACK: Nontender without obvious deformity. No CVA tenderness. Results - Labs CBC & Chem 7: 03/29/18 06:23 03/29/18 06:21 Laboratory Results - last 24 hr 03/29/18 10:51 PT 11.1 INR 1.1 APTT 26.8 Microbiology 03/29/18 16:31 Abscess - Other Gram Stain - Final 03/28/18 20:40 Blood - Peripheral Aerobic Blood Culture - Preliminary No growth in 1 day 03/28/18 20:40 Blood - Peripheral Anaerobic Blood Culture - Preliminary No growth in 1 day 03/28/18 20:45 Blood - Peripheral Aerobic Blood Culture - Preliminary No growth in 1 day 03/28/18 20:45 Blood - Peripheral Anaerobic Blood Culture - Preliminary No growth in 1 day - Imaging Lumbar Spine MRI 03/28/18 16:29 CONCLUSION: 1. Abnormal appearance to the L5-S1 level on the left side with evidence of central, left lateral, and far lateral disc protrusion and associated edema in the marrow of the left L5 and S1 vertebral bodies without loss of height of the vertebral body. There is definite neural impingement and loss of delineation of the nerve root within the neural foramen. 2. Moderate distention of the urinary bladder of uncertain significance. Assessment and Plan - Plan 52-year-old male with a past medical history significant for hypertension and hyperlipidemia as well as remote history of IVDU presents to the emergency department for the evaluation of acutely worsening lower back pain. MRI L spine showed abnormal L5-S1. This raised concern for discitis. Neurosurgery as well as ID were consulted. Probable discitis L5-S1 -Appreciate ID and neurosurgery input. -Status post aspiration by interventional radiology on 03/29/2018. Microbiology pending. -ID plans to start cefepime and vancomycin. -Patient was on IV pain medication. Will add oral pain medication as well. Hypertension -Blood pressure mildly elevated. Will consider antihypertensive if needed. Full code. Ambulation.
[2018-03-30] MEDS: Sod Chloride 0.9% Inj 1,000 ML IV.CONT SCH ×2 (10:31→21:48)
--- NOTE | 2018-03-30 10:35 | MR ---
EXAM DATE: 03/30/2018 9:51 AM EDT AGE/SEX: 52 years / Male INDICATIONS: Osteomyelitis. CLINICAL DATA: This is the patient's subsequent encounter. Patient reports that signs and symptoms h ave been present for 3 days and indicates a pain score of 4/10. MEDICAL/SURGICAL HISTORY: Hypertension. Myocardial infarction. . Right fot and finger surgery. Aspiration of lumbar. COMPARISON: [facility] – [place], LUMBAR SPINE W/O CONTRAST, 03/28/2018. . TECHNIQUE: Multiplanar, multisequence MRI examination of the lumbar spine was performed without and with 6 ml Gadavist (gadobutrol) contrast as a single exam dose. FINDINGS: The most caudal-appearing lumbar vertebra is numbered as L5. Vertebra: Homogeneous signal. Normal alignment. No compression fracture injuries are demonstrated. There is discogenic edema at the level of L5-S1 consistent with Modic type I changes. This is not dis citis or osteomyelitis. There are mild degenerative changes involving the lumbar spine. There are no significant changes compared to the prior study. Conus: Normal level and configuration. Post Contrast: There is some enhancement along the endplates of L5 and S1 consistent with discogenic edema of Modic type I changes. T12-L1: The thecal sac has a normal diameter. No evidence of disc bulge or protrusion. The neural foramina are patent bilaterally. L1-L2: The thecal sac has a normal diameter. No evidence of disc bulge or protrusion. The neural foramina are patent bilaterally. L2-L3: The thecal sac has a normal diameter. No evidence of disc bulge or protrusion. The neural foramina are patent bilaterally. L3-L4: The thecal sac has a normal diameter. No evidence of disc bulge or protrusion. The neural foramina are patent bilaterally. L4-L5: The thecal sac has a normal diameter. No evidence of disc bulge or protrusion. The neural foramina are patent bilaterally. There is bilateral facet arthritis. L5-S1: There is some broad-based bulging and some left lateral disc protrusion with some narrowing of the far left neural foramina. The right neural foramina is patent. These findings are stable angelika red to the prior study. There is some mild bilateral facet arthritis. No significant spinal canal maryanne nosis. CONCLUSION: 1. There is discogenic edema at the level of L5-S1 in a pattern characteristic of Modic type I ledesma es. There is no evidence of discitis or osteomyelitis. 2. Broad-based bulging and left lateral disc protrusion L5-S1. 3. Bilateral facet arthritis at L4-5 and L5-S1 Electronically signed by: Lincoln Malone MD 03/30/2018 10:34 AM EDT
--- NOTE | 2018-03-30 12:56 | P.PNNS ---
Subjective Interval history: 03/30: attempted to see patient during morning rounds with Dr. Scott, pt not in room <Roxanna Ayalaaux - Last Filed: 03/30/18 12:54> Physical Exam Vital signs: Vital Signs 03/29/18 14:35 03/29/18 16:45 03/29/18 17:00 Temperature 97.2 F L 98.0 F Pulse Rate 52 L 62 44 L Respiratory Rate 18 18 18 Blood Pressure 174/85 H 134/81 133/77 Pulse Oximetry 99 95 96 03/29/18 20:00 03/30/18 00:00 03/30/18 08:00 Temperature 97.9 F 97.7 F 97.4 F L Pulse Rate 49 L 60 52 L Respiratory Rate 17 17 19 Blood Pressure 149/85 H 110/67 156/89 H Pulse Oximetry 99 97 100 Intake & Output 03/29/18 03/30/18 03/30/18 18:59 06:59 18:59 Intake Total 1720 / 1720 1000 / 1000 Output Total 300 / 300 Balance 1420 / 1420 1000 / 1000 Weight 66 kg Intake: IV 1000 / 1000 1000 / 1000 NS Inj 1,000 ML @ 100 mls/hr IV 1000 / 1000 1000 / 1000 .CONT .Q10H ROSAMARIA Rx#:[id number] Oral 720 / 720 Output: Urine 300 / 300 Other: # Voids 2 3 Date of Last Bowel Movement 03/28/18 03/30/18 <Roxanna Ayalaaux - Last Filed: 03/30/18 12:54> Vital signs: Vital Signs 03/29/18 20:00 03/30/18 00:00 03/30/18 08:00 Temperature 97.9 F 97.7 F 97.4 F L Pulse Rate 49 L 60 52 L Respiratory Rate 17 17 19 Blood Pressure 149/85 H 110/67 156/89 H Pulse Oximetry 99 97 100 03/30/18 12:00 03/30/18 16:00 Temperature 97.4 F L 98.0 F Pulse Rate 58 L 52 L Respiratory Rate 19 19 Blood Pressure 137/80 156/76 H Pulse Oximetry 99 99 Intake & Output 03/30/18 03/30/18 03/31/18 06:59 18:59 06:59 Intake Total 1720 / 1720 2300 / 2300 Output Total 300 / 300 Balance 1420 / 1420 2300 / 2300 Weight 66 kg Intake: IV 1000 / 1000 1100 / 1100 NS Inj 1,000 ML @ 100 mls/hr IV 1000 / 1000 1000 / 1000 .CONT .Q10H ROSAMARIA Rx#:[id number] Maxipime Inj 2,000 MG In NS Inj 100 / 100 100 ML @ 200 mls/hr IV.SIG Q8H ROSAMARIA Rx#:[id number] Oral 720 / 720 1200 / 1200 Output: Urine 300 / 300 Other: # Voids 3 4 Date of Last Bowel Movement 03/28/18 03/30/18 Narrative: The patient is alert, awake. Comfortable, in no acute distress. Speech is fluent. Cranial nerve examination: pupils to be equal, round and reactive to light. Extra-ocular movements are intact. Facial motor and sensory function are normal and symmetrical. Gross hearing appears intact. Sternocleidomastoid and trapezius muscles are symmetrical. Other cranial nerves are intact. Neck is soft and supple with a good range of motion without pain. Muscle strength is normal in all muscle groups of both upper and lower extremities. Sensory examination is intact to light touch and pin prick in both the upper and lower extremities. Deep tendon reflexes are symmetrical in both upper and lower extremities. There is a bilateral plantar flexion response. Cerebellar examination is unremarkable, without deficits. Lungs are clear Heart regular rhythm is regular rate Skin warm and dry <Carlos Scott - Last Filed: 03/30/18 19:59> Assessment and Plan - Plan Impression: suspected L5-S1 discitis without definite abscess formation. Plan: follow up biopsy, cont medical management antibiotic treatment <Mahnaz Ayala - Last Filed: 03/30/18 12:54> - Plan Nonoperative treatment Neuro checks IV antibiotics Follow up cultures Pulmonary: aggressive pulmonary toilette, nasotracheal suction, and breathing treatments with nebulizers. Daily PT and OT Renal: Continue to monitor closely urine output, BUN and creatinine Endocrine: Continue to Monitor serial Acu checks and SSI as needed in detail ID continue to monitor for signs of infection Continue Protonix for stress ulcer prophylaxis Continue Jayant hose and SCD's for DVT prophylaxis Further recommendations will be provided depending on the patient's clinical evaluation and follow up studies. The exam, history, and the medical decision-making described in the above note were completed with the assistance of the mid-level provider. I reviewed and agree with the findings presented. I attest that I had a [id number] encounter with the patient on the same day, and personally performed and documented my assessment and findings in the medical record. <Carlos Scott - Last Filed: 03/30/18 19:59>
--- NOTE | 2018-03-30 15:31 | P.PNID ---
Subjective Remarks: pt has MRI L spine with contrast done dw Dr Malone: no e/o infection , no diskitis c/w DJD Aspiration Gstain negative, clx growing gram neg rods 24 hrs pt comnt to co pain mostly on th L side pof lower back and rdiating down LLE no fever + subjective night sweats blood clx negative Antibiotics: none Allergies/Adverse Reactions: Allergies penicillin G Allergy (Unknown, Verified 12/22/17 10:49) UNKNOWN Objective Vital Signs 03/29/18 16:45 03/29/18 17:00 03/29/18 20:00 Temperature 98.0 F 97.9 F Pulse Rate 62 44 L 49 L Respiratory Rate 18 18 17 Blood Pressure 134/81 133/77 149/85 H Pulse Oximetry 95 96 99 03/30/18 00:00 03/30/18 08:00 03/30/18 12:00 Temperature 97.7 F 97.4 F L 97.4 F L Pulse Rate 60 52 L 58 L Respiratory Rate 17 19 19 Blood Pressure 110/67 156/89 H 137/80 Pulse Oximetry 97 100 99 Intake & Output 03/29/18 03/30/18 03/30/18 18:59 06:59 18:59 Intake Total 1720 / 1720 1000 / 1000 Output Total 300 / 300 Balance 1420 / 1420 1000 / 1000 Weight 66 kg Intake: IV 1000 / 1000 1000 / 1000 NS Inj 1,000 ML @ 100 mls/hr IV 1000 / 1000 1000 / 1000 .CONT .Q10H ROSAMARIA Rx#:[id number] Oral 720 / 720 Output: Urine 300 / 300 Other: # Voids 2 3 Date of Last Bowel Movement 03/28/18 03/30/18 03/29/18 16:31 Abscess - Other Gram Stain - Final 03/29/18 16:31 Abscess - Other Wound Culture - Preliminary gram negative rods 03/29/18 16:31 Other Acid Fast Bacilli Smear - Pending 03/29/18 16:31 Other Mycobacterial Culture - Pending 03/28/18 20:40 Blood - Peripheral Aerobic Blood Culture - Preliminary No growth in 2 days 03/28/18 20:40 Blood - Peripheral Anaerobic Blood Culture - Preliminary No growth in 2 days 03/28/18 20:45 Blood - Peripheral Aerobic Blood Culture - Preliminary No growth in 2 days 03/28/18 20:45 Blood - Peripheral Anaerobic Blood Culture - Preliminary No growth in 2 days 03/29/18 16:31 Other Fungal Smear - Pending 03/29/18 16:31 Other Fungal Culture - Pending Lab - Hematology Results 03/28/18 03/29/18 20:40 06:23 WBC 7.0 2.6 L D RBC 4.29 L 4.49 L Hgb 11.7 L 12.0 L Hct 35.7 L 37.2 L MCV 83.3 82.8 MCH 27.2 26.8 L MCHC 32.6 32.4 RDW 16.2 16.1 Plt Count 220 225 MPV 8.3 8.2 Prelim Diff (Auto) Slide review pending Neut % (Auto) 82.8 H 70.9 H Lymph % (Auto) 13.7 26.8 [place] % (Auto) 3.0 2.2 Eos % (Auto) 0.2 0.0 Baso % (Auto) 0.3 0.1 Neut # (Auto) 5.8 1.8 Lymph # (Auto) 1.0 0.7 L [place] # (Auto) 0.2 0.1 Eos # (Auto) 0.0 0.0 Baso # (Auto) 0.0 0.0 WBC Differential . . Diff Scan Auto diff confirmed Differential Comment . Auto diff final Platelet Estimate Normal Platelet Morphology Normal RBC Morphology Normal Lab - Chemistry Results 03/28/18 03/29/18 20:40 06:21 Sodium 136 140 Potassium 3.9 4.0 Chloride 104 109 H Carbon Dioxide 20.4 L 20.2 L Anion Gap 12 11 BUN 14 16 Creatinine 0.93 0.87 Estimated GFR 86 L Greater than 89 Random Glucose 110 H 114 H Calcium 9.8 9.2 Total Bilirubin 0.4 AST 63 H ALT 55 Alkaline Phosphatase 103 Total Protein 8.0 Albumin 2.7 L Lipase 48 L Imaging: ITS Impressions Lumbar Spine MRI 03/30/18 00:00 CONCLUSION: 1. There is discogenic edema at the level of L5-S1 in a pattern characteristic of Modic type I changes. There is no evidence of discitis or osteomyelitis. 2. Broad-based bulging and left lateral disc protrusion L5-S1. 3. Bilateral facet arthritis at L4-5 and L5-S1 Physical Exam: GENERAL: NAD SKIN: Warm and dry. HEAD: Atraumatic. Normocephalic. EYES: Pupils equal and round. No scleral icterus. No injection or drainage. ENT: No nasal bleeding or discharge. Mucous membranes pink and moist. NECK: Trachea midline. No JVD. CARDIOVASCULAR: Regular rate and rhythm. RESPIRATORY: No accessory muscle use. Clear to auscultation. Breath sounds equal bilaterally. GASTROINTESTINAL: Abdomen soft, non-tender, nondistended. Hepatic and splenic margins not palpable. MUSCULOSKELETAL: Extremities without clubbing, cyanosis, or edema. BACK: no obvious deformities. Ternder to palppation inlower lumbar area and L paraspinal area NEUROLOGICAL: Awake and alert. No obvious cranial nerve deficits. Motor grossly within normal limits. Five out of 5 muscle strength in the arms and legs. Normal speech. PSYCHIATRIC: Appropriate mood and affect; insight and judgment normal. Assessment and Plan - Plan Diskitis L5-S1, GNB + LLE deficit start cefepime fu blood clx ralph Malone
[2018-03-31] MEDS ORDERED: hydrALAZINE 25 MG Tablet PO ONE (00:55)
[2018-03-31] MEDS: Morphine Inj 4 MG/ML Vial IV.PUSH PRN ×5 (04:18→21:37)
[2018-03-31] MEDS: Sod Chloride 0.9% Inj 1,000 ML IV.CONT SCH ×2 (05:45→16:07)
[2018-03-31 07:26] LABS: Calcium 8.1 mg/dL (8.5-10.1); Carbon Dioxide 24.3 meq/L (21.0-32.0); Magnesium 1.6 mg/dL (1.5-2.5)
[2018-03-31 07:34] LABS: Potassium 4.1 meq/L (3.5-5.1)
[2018-03-31] MEDS: Senna/Docusate Sodium 8.6/50 MG Tablet PO SCH ×2 (08:16→20:24)
--- NOTE | 2018-03-31 10:37 | P.PNIM ---
Subjective Interval history: Mr. Byrne was bradycardic with HR 38-45 bpm overnight; other VS unremarkable. Patient reports continued back pain. In discussing bradycardia, patient states that he rarely gets dizzy but generally does not. Patient reports prior cardiac stenting but states that he has not refilled his Brilinta or aspirin since 1 month following stenting. Patient has occasional left sided chest pain but not currently. No respiratory complaints, abnormal urination, or abnormal bowel movements. Physical Exam Vital signs: Vital Signs 03/30/18 12:00 03/30/18 16:00 03/30/18 20:00 Temperature 97.4 F L 98.0 F 97.8 F Pulse Rate 58 L 52 L 49 L Respiratory Rate 18 Blood Pressure 137/80 156/76 H 171/82 H Pulse Oximetry 99 99 96 03/30/18 21:50 03/31/18 00:00 03/31/18 04:00 Temperature 97.9 F 97.4 F L Pulse Rate 47 L 45 L 42 L Respiratory Rate 18 18 Blood Pressure 153/87 H 181/99 H 199/88 H Pulse Oximetry 97 98 98 03/31/18 04:54 03/31/18 05:52 03/31/18 08:00 Temperature 97.9 F Pulse Rate 38 L 45 L 41 L Respiratory Rate 18 18 18 Blood Pressure 184/91 H 187/100 H 178/89 H Pulse Oximetry 100 98 Intake & Output 03/30/18 03/31/18 03/31/18 18:59 06:59 18:59 Intake Total 2300 / 2300 2820 / 2820 Balance 2300 / 2300 2820 / 2820 Intake: IV 1100 / 1100 2100 / 2100 NS Inj 1,000 ML @ 100 mls/hr IV 1000 / 1000 2000 / 2000 .CONT .Q10H ROSAMARIA Rx#:[id number] Maxipime Inj 2,000 MG In NS Inj 100 / 100 100 / 100 100 ML @ 200 mls/hr IV.SIG Q8H ROSAMARIA Rx#:[id number] Oral 1200 / 1200 720 / 720 Other: # Voids 4 3 Date of Last Bowel Movement 03/30/18 03/30/18 Narrative: Gen: NAD Skin: Abundant tattoos present CV: Bradycardic with regular rhythm; normal perfusion Resp: CTAB; normal rate Abdomen: No pain to palpation; normal BS MSK: Grossly normal strength and ROM Neuro: Grossly normal CN; grossly normal peripheral motor/sensory function Results - Labs CBC & Chem 7: 03/29/18 06:23 03/31/18 06:35 Laboratory Results - last 24 hr 03/31/18 06:35 Sodium 138 Potassium 4.1 Chloride 107 Carbon Dioxide 24.3 Anion Gap 7 BUN 21 H Creatinine 0.90 Estimated GFR 89 Random Glucose 143 H Calcium 8.1 L Magnesium 1.6 Microbiology 03/29/18 16:31 Abscess - Other Gram Stain - Final 03/29/18 16:31 Abscess - Other Wound Culture - Preliminary gram negative rods 03/28/18 20:40 Blood - Peripheral Aerobic Blood Culture - Preliminary No growth in 2 days 03/28/18 20:40 Blood - Peripheral Anaerobic Blood Culture - Preliminary No growth in 2 days 03/28/18 20:45 Blood - Peripheral Aerobic Blood Culture - Preliminary No growth in 2 days 03/28/18 20:45 Blood - Peripheral Anaerobic Blood Culture - Preliminary No growth in 2 days - Imaging Impressions Lumbar Spine MRI 03/30/18 00:00 CONCLUSION: 1. There is discogenic edema at the level of L5-S1 in a pattern characteristic of Modic type I changes. There is no evidence of discitis or osteomyelitis. 2. Broad-based bulging and left lateral disc protrusion L5-S1. 3. Bilateral facet arthritis at L4-5 and L5-S1 Assessment and Plan - Assessment (1) IVDU (intravenous drug user) Code(s): F19.90 - Other psychoactive substance use, unspecified, uncomplicated Status: Acute (2) Discitis of lumbar region Code(s): M46.46 - Discitis, unspecified, lumbar region Status: Acute - Plan Mr. Byrne is a 52-year-old male with a past medical history significant for hypertension and hyperlipidemia as well as remote history of IVDU presented to the emergency department for the evaluation of acutely worsening lower back pain. MRI L spine showed abnormal L5-S1; raised concern for discitis. Neurosurgery as well as ID were consulted. Probable discitis L5-S1 Impression: MRI lumbar spine 03/30- discogenic edema at L5-S1 suggestive of Modic 1. Bulging at L5-S1 -Status post aspiration by interventional radiology on 03/29/2018. Microbiology pending; Enterobacter -Appreciate ID and neurosurgery input. -Neurosurgery consulted -Continue Neurochecks -Continue antibiotics, follow-up cultures -ID consulted. -Cefepime changed to Ceftriaxone -Plan for 6 weeks IV antibiotics -Will check CBC, CMP, ESR, CRP -Daily PT/OT -Pain control -Continue Percocet 7.5/325 for pain control Hypertension -Blood pressure moderately elevated recently with SBP in 170's -Continue PRN Hydralazine -Will restart prior home Lisinopril 10mg daily CAD Impression: s/p stenting -12/2017 (presumed drug eluding); patient stopped anticoagulation/f/u afterwards -Patient restarted on ASA, Brilinta Bradycardia Impression: Not associated with chest pain or dizziness -EKG obtained -sinus bradycardia; no heart block appreciated -Will continue to monitor; patient to notify nursing staff with any chest pain or dizziness, etc DVT PPX SCD's, patient ambulating Code Status: Full code
[2018-03-31] MEDS: hydrALAZINE 10 MG Tablet PO PRN (13:34)
--- NOTE | 2018-03-31 17:14 | P.PNID ---
Subjective Remarks: pain the same or slightly better ambulates w/o assistance grew out Enterobacter cloacae mehta S no fever + subjective night sweats blood clx negative Antibiotics: cefepime Allergies/Adverse Reactions: Allergies penicillin G Allergy (Unknown, Verified 12/22/17 10:49) UNKNOWN Objective Vital Signs 03/30/18 20:00 03/30/18 21:50 03/31/18 00:00 Temperature 97.8 F 97.9 F Pulse Rate 49 L 47 L 45 L Respiratory Rate 18 20 18 Blood Pressure 171/82 H 153/87 H 181/99 H Pulse Oximetry 96 97 98 03/31/18 04:00 03/31/18 04:54 03/31/18 05:52 Temperature 97.4 F L Pulse Rate 42 L 38 L 45 L Respiratory Rate 18 18 18 Blood Pressure 199/88 H 184/91 H 187/100 H Pulse Oximetry 98 100 03/31/18 08:00 03/31/18 12:00 03/31/18 16:00 Temperature 97.9 F 97.3 F L 98.0 F Pulse Rate 41 L 41 L 48 L Respiratory Rate 18 18 19 Blood Pressure 178/89 H 181/99 H 180/86 H Pulse Oximetry 98 98 100 Intake & Output 03/30/18 03/31/18 03/31/18 18:59 06:59 18:59 Intake Total 2300 / 2300 2820 / 2820 1100 / 1100 Balance 2300 / 2300 2820 / 2820 1100 / 1100 Intake: IV 1100 / 1100 2100 / 2100 1100 / 1100 NS Inj 1,000 ML @ 100 mls/hr IV 1000 / 1000 2000 / 2000 1000 / 1000 .CONT .Q10H ROSAMARIA Rx#:[id number] Maxipime Inj 2,000 MG In NS Inj 100 / 100 100 / 100 100 / 100 100 ML @ 200 mls/hr IV.SIG Q8H ROSAMARIA Rx#:[id number] Oral 1200 / 1200 720 / 720 Other: # Voids 4 3 Date of Last Bowel Movement 03/30/18 03/30/18 03/29/18 16:31 Other Fungal Smear - Final 03/29/18 16:31 Other Fungal Culture - Pending 03/29/18 16:31 Other Acid Fast Bacilli Smear - Final No acid fast bacilli seen 03/29/18 16:31 Other Mycobacterial Culture - Pending 03/29/18 16:31 Abscess - Other Gram Stain - Final 03/29/18 16:31 Abscess - Other Wound Culture - Final Enterobacter cloacae 03/28/18 20:40 Blood - Peripheral Aerobic Blood Culture - Preliminary No growth in 3 days 03/28/18 20:40 Blood - Peripheral Anaerobic Blood Culture - Preliminary No growth in 3 days 03/28/18 20:45 Blood - Peripheral Aerobic Blood Culture - Preliminary No growth in 3 days 03/28/18 20:45 Blood - Peripheral Anaerobic Blood Culture - Preliminary No growth in 3 days Lab - Chemistry Results 03/31/18 06:35 Sodium 138 Potassium 4.1 Chloride 107 Carbon Dioxide 24.3 Anion Gap 7 BUN 21 H Creatinine 0.90 Estimated GFR 89 Random Glucose 143 H Calcium 8.1 L Magnesium 1.6 Imaging: ITS Impressions Lumbar Spine MRI 03/30/18 00:00 CONCLUSION: 1. There is discogenic edema at the level of L5-S1 in a pattern characteristic of Modic type I changes. There is no evidence of discitis or osteomyelitis. 2. Broad-based bulging and left lateral disc protrusion L5-S1. 3. Bilateral facet arthritis at L4-5 and L5-S1 Physical Exam: GENERAL: NAD SKIN: Warm and dry. CARDIOVASCULAR: Regular rate and rhythm. RESPIRATORY: No accessory muscle use. Clear to auscultation. Breath sounds equal bilaterally. GASTROINTESTINAL: Abdomen soft, non-tender, nondistended. Hepatic and splenic margins not palpable. MUSCULOSKELETAL: Extremities without clubbing, cyanosis, or edema. BACK: no obvious deformities. Ternder to palppation inlower lumbar area and L paraspinal area NEUROLOGICAL: Awake and alert. No obvious cranial nerve deficits. Motor grossly within normal limits. Five out of 5 muscle strength in the arms and legs. Normal speech.He is moving his L toes better now PSYCHIATRIC: Appropriate mood and affect; insight and judgment normal. Assessment and Plan - Plan Diskitis L5-S1, Enterobacter cloacea + LLE deficit -improved change cefepime to CFTX PICC line' 6 weeks of IV abx weekly monitoring parameters; CBC CMP ESR CRP
[2018-04-01] MEDS: Morphine Inj 4 MG/ML Vial IV.PUSH PRN ×5 (01:38→20:03)
[2018-04-01] MEDS: Sod Chloride 0.9% Inj 1,000 ML IV.CONT SCH ×2 (01:41→12:22)
[2018-04-01] MEDS: hydrALAZINE 10 MG Tablet PO PRN (09:43)
[2018-04-01] MEDS: Senna/Docusate Sodium 8.6/50 MG Tablet PO SCH ×2 (09:44→20:15)
[2018-04-01 09:53] LABS: Baso % (Auto) 0.1 % (0.0-2.0); Hematocrit 37.2 % (39.0-51.0); Hemoglobin 12.1 gm/dL (13.0-17.0); Lymph # (Auto) 0.9 th/mm3 (1.0-4.8); Lymph % (Auto) 7.7 % (9.0-44.0); Mean Corpuscular HGB Conc 32.4 % (32.0-36.0); Mean Corpuscular Hemoglobin 27.1 pg (27.0-34.0); Mean Corpuscular Volume 83.5 fL (80.0-100.0); Mean Platelet Volume 8.3 fL (7.0-11.0); Mono # (Auto) 0.4 th/mm3 (0.0-0.9); Mono % (Auto) 3.8 % (0.0-8.0); Neut # (Auto) 9.7 th/mm3 (1.8-7.7); Neut % (Auto) 88.4 % (16.0-70.0); Platelet Count 246 th/mm3 (150-450); Red Blood Count 4.45 mil/mm3 (4.50-5.90); Red Cell Distribution Width 16.4 % (11.6-17.2)
[2018-04-01 09:55] LABS: Calcium 8.9 mg/dL (8.5-10.1); Carbon Dioxide 23.6 meq/L (21.0-32.0); Potassium 3.3 meq/L (3.5-5.1)
--- NOTE | 2018-04-01 12:18 | P.PNIM ---
Subjective Interval history: Mr. Byrne was afebrile with persistent bradycardia (HR ~40-47) and HTN (SBP 160's-170's) overnight. Patient reports continued back pain; he is still working with physical therapy and ambulating in room. Patient denies recent chest pain, shortness of breath, or abnormal urination. Patient taking stool softeners; no recent BM Physical Exam Vital signs: Vital Signs 03/31/18 16:00 03/31/18 20:00 04/01/18 00:00 Temperature 98.0 F 97.7 F 97.8 F Pulse Rate 48 L 47 L 40 L Respiratory Rate 19 18 18 Blood Pressure 180/86 H 175/97 H 160/85 H Pulse Oximetry 100 99 97 04/01/18 08:00 Temperature 97.8 F Pulse Rate 40 L Respiratory Rate 16 Blood Pressure 189/92 H Pulse Oximetry 100 Intake & Output 03/31/18 04/01/18 04/01/18 18:59 06:59 18:59 Intake Total 4200 / 4200 1820 / 1820 Output Total 300 / 300 Balance 4200 / 4200 1520 / 1520 Intake: IV 1200 / 1200 1100 / 1100 NS Inj 1,000 ML @ 100 mls/hr IV 1000 / 1000 1000 / 1000 .CONT .Q10H [facility] Rx#:[id number] Maxipime Inj 2,000 MG In NS Inj 200 / 200 100 ML @ 200 mls/hr IV.SIG Q8H [facility] Rx#:[id number] Rocephin Inj 2,000 MG In NS Inj 100 / 100 100 ML @ 200 mls/hr IV.SIG Q24H [facility] Rx#:[id number] Oral 1500 / 1500 720 / 720 Other 1500 / 1500 Output: Urine 300 / 300 Other: # Voids 3 2 # Bowel Movements 1 Narrative: Gen: patient appears in pain; no acute distress Skin: Abundant tattoos present CV: Bradycardic with regular rhythm; normal perfusion Resp: CTAB; normal rate Abdomen: No pain to palpation; normal BS MSK: Grossly normal strength and ROM Neuro: Grossly normal CN; grossly normal peripheral motor/sensory function Results - Labs CBC & Chem 7: 04/01/18 09:17 04/01/18 09:17 Laboratory Results - last 24 hr 04/01/18 04/01/18 09:17 09:17 WBC 11.0 RBC 4.45 L Hgb 12.1 L Hct 37.2 L MCV 83.5 MCH 27.1 MCHC 32.4 RDW 16.4 Plt Count 246 MPV 8.3 Neut % (Auto) 88.4 H Lymph % (Auto) 7.7 L [place] % (Auto) 3.8 Eos % (Auto) 0.0 Baso % (Auto) 0.1 Neut # (Auto) 9.7 H Lymph # (Auto) 0.9 L [place] # (Auto) 0.4 Eos # (Auto) 0.0 Baso # (Auto) 0.0 WBC Differential . Differential Comment Auto diff final Sodium 137 Potassium 3.3 L D Chloride 103 Carbon Dioxide 23.6 Anion Gap 10 BUN 17 Creatinine 0.92 Estimated GFR 87 L Random Glucose 166 H Calcium 8.9 D Microbiology 03/28/18 20:40 Blood - Peripheral Aerobic Blood Culture - Preliminary No growth in 4 days 03/28/18 20:40 Blood - Peripheral Anaerobic Blood Culture - Preliminary No growth in 4 days 03/28/18 20:45 Blood - Peripheral Aerobic Blood Culture - Preliminary No growth in 4 days 03/28/18 20:45 Blood - Peripheral Anaerobic Blood Culture - Preliminary No growth in 4 days 03/29/18 16:31 Other Fungal Smear - Final 03/29/18 16:31 Other Acid Fast Bacilli Smear - Final No acid fast bacilli seen 03/29/18 16:31 Abscess - Other Gram Stain - Final 03/29/18 16:31 Abscess - Other Wound Culture - Final Enterobacter cloacae Assessment and Plan - Assessment (1) IVDU (intravenous drug user) Code(s): F19.90 - Other psychoactive substance use, unspecified, uncomplicated Status: Acute (2) Discitis of lumbar region Code(s): M46.46 - Discitis, unspecified, lumbar region Status: Acute - Plan Mr. Byrne is a 52-year-old male with a past medical history significant for hypertension and hyperlipidemia as well as remote history of IVDU presented to the emergency department for the evaluation of acutely worsening lower back pain. MRI L spine showed abnormal L5-S1; raised concern for discitis. Neurosurgery as well as ID were consulted. Discitis L5-S1 Impression: MRI lumbar spine 03/30- discogenic edema at L5-S1 suggestive of Modic 1. Bulging at L5-S1 -Status post aspiration by interventional radiology on 03/29/2018. PICC placed Microbiology-03/29 wound culture- Enterobacter (pansensitive) -Appreciate ID and neurosurgery input. -Neurosurgery consulted -Continue Neurochecks -Continue antibiotics per ID -Daily PT/OT -Protonix for stress ulcer PPX -ID consulted. -Cefepime changed to Ceftriaxone -Plan for 6 weeks IV antibiotics -Monitor CBC, CMP, ESR, CRP -Pain control -Due to continued pain and likely pain contribution to HTN, will increase Percocet from 7.5/325 to 10/325mg for pain control Hypertension -Blood pressure moderately elevated recently with SBP in 170's -Continue PRN Hydralazine -Will increase Lisinopril to 20mg daily CAD Impression: s/p stenting -12/2017 (presumed drug eluding); patient stopped anticoagulation/f/u afterwards -Patient restarted on ASA, Brilinta Bradycardia Impression: Not associated with chest pain or dizziness -EKG obtained -sinus bradycardia; no heart block appreciated -Will continue to monitor; patient to notify nursing staff with any chest pain or dizziness, etc DVT PPX SCD's, patient ambulating Discharge Planning: Pending completion of IV antibiotic treatment x6 weeks
[2018-04-01] MEDS ORDERED: Heparin Central Flush 100 UNIT/ML 5 ML Vial IV.FLUSH PRN (13:48)
--- NOTE | 2018-04-01 14:55 | ECG ---
Date Performed: 03/31/2018 Time Performed: 05:12:12 PTAGE: 52 years EKG: Sinus bradycardia Prolonged QT interval Possible septal infarct - age undetermined Abnormal ECG PREVIOUS TRACING :12/23/2017 @03.25 When compared to the prior EKG, the anterolateral ST segmen ts have returned to baseline and the patient is now profoundly bradycardic. DOCTOR: Sana Hayden Interpretating Date/Time 04/01/2018 14:54:06
[2018-04-01] MEDS ORDERED: Lisinopril 10 MG Tablet PO SCH (16:00)
--- NOTE | 2018-04-01 17:31 | P.PNNS ---
Subjective Interval history: Pt awake and alert. Complains of low back pain radiating into the posterior thighs to the knees. Complains of numbness in his toes. He had a PICC line placed and is on Rocephin for cultures that grew Enterobacter cloacae. Physical Exam Vital signs: Vital Signs 03/31/18 20:00 04/01/18 00:00 04/01/18 08:00 Temperature 97.7 F 97.8 F 97.8 F Pulse Rate 47 L 40 L 40 L Respiratory Rate 18 18 16 Blood Pressure 175/97 H 160/85 H 189/92 H Pulse Oximetry 99 97 100 04/01/18 12:00 Temperature 97.3 F L Pulse Rate 46 L Respiratory Rate 17 Blood Pressure 161/76 H Pulse Oximetry 100 Intake & Output 03/31/18 04/01/18 04/01/18 18:59 06:59 18:59 Intake Total 4200 / 4200 1820 / 1820 1000 / 1000 Output Total 300 / 300 Balance 4200 / 4200 1520 / 1520 1000 / 1000 Intake: IV 1200 / 1200 1100 / 1100 1000 / 1000 NS Inj 1,000 ML @ 100 mls/hr IV 1000 / 1000 1000 / 1000 1000 / 1000 .CONT .Q10H [facility] Rx#:[id number] Maxipime Inj 2,000 MG In NS Inj 200 / 200 100 ML @ 200 mls/hr IV.SIG Q8H [facility] Rx#:[id number] Rocephin Inj 2,000 MG In NS Inj 100 / 100 100 ML @ 200 mls/hr IV.SIG Q24H [facility] Rx#:[id number] Oral 1500 / 1500 720 / 720 Other 1500 / 1500 Output: Urine 300 / 300 Other: # Voids 3 2 # Bowel Movements 1 - Constitutional moderate distress (Complains of low back pain.), thin - Routine HEENT Exam Head: Present: normocephalic Eye: Present: PERRL - Routine Respiratory Exam Present: CTA bilaterally. Absent: rales, respiratory distress, rhonchi - Routine Cardiovascular Exam Present: RRR, S1, S2. Absent: murmur - Routine Abdominal Exam Present: soft, normoactive bowel sounds. Absent: tenderness, distended - Routine Extremities Exam Absent: cyanosis, edema - Routine Skin Exam Present: intact, scars (Pt has tract henry in his medial calfs from prior IV drug use 15 years ago) - Routine Neurological Exam Present: alert, oriented X3. Absent: sensory deficit, motor deficit - Routine Psychiatric Exam Present: normal affect Assessment and Plan - Assessment (1) Discitis of lumbar region Code(s): M46.46 - Discitis, unspecified, lumbar region Status: Acute - Plan Nonoperative treatment for his discitis. Cultures grew Enterobacter cloacae and pt is on Rocephin IV Continue Neuro checks Continue IV antibiotics per ID Follow up cultures Daily PT and OT Continue Protonix for stress ulcer prophylaxis Continue Jayant hose and SCD's for DVT prophylaxis
[2018-04-01] MEDS: Lisinopril 20 MG Tablet PO SCH (20:04)
[2018-04-02] MEDS: Sod Chloride 0.9% Inj 1,000 ML IV.CONT SCH ×2 (00:17→07:44)
[2018-04-02] MEDS: Morphine Inj 4 MG/ML Vial IV.PUSH PRN ×5 (00:29→19:57)
[2018-04-02] MEDS: Temazepam 15 MG Capsule PO PRN ×2 (00:36→21:23)
[2018-04-02] MEDS: oxyCODONE/Acetaminophen 10/325 Tablet PO PRN ×4 (01:39→21:20)
[2018-04-02 07:41] LABS: Calcium 8.6 mg/dL (8.5-10.1); Carbon Dioxide 25.4 meq/L (21.0-32.0); Potassium 3.1 meq/L (3.5-5.1)
[2018-04-02] MEDS: Heparin Central Flush 100 UNIT/ML 5 ML Vial IV.FLUSH SCH (08:29)
[2018-04-02] MEDS: Lisinopril 20 MG Tablet PO SCH (08:29)
[2018-04-02] MEDS: Senna/Docusate Sodium 8.6/50 MG Tablet PO SCH ×2 (08:30→20:01)
--- NOTE | 2018-04-02 11:13 | P.PNIM ---
Subjective Interval history: Mr. Byrne was afebrile with continued HTN (SBP 160's-170's) with bradycardia (HR ~40's) overnight. Patient slept well and reports some improvement in pain control on Percocet 7.5-> 10. Patient denies dizziness or lightheadedness. No respiratory, urinary, or BM complaints. Physical Exam Vital signs: Vital Signs 04/01/18 12:00 04/01/18 20:00 04/02/18 00:00 Temperature 97.3 F L 97.9 F 97.4 F L Pulse Rate 46 L 48 L 48 L Respiratory Rate 17 18 17 Blood Pressure 161/76 H 171/95 H 161/87 H Pulse Oximetry 100 100 99 04/02/18 08:00 Temperature 97.7 F Pulse Rate 42 L Respiratory Rate 17 Blood Pressure 166/85 H Pulse Oximetry 99 Intake & Output 04/01/18 04/02/18 04/02/18 18:59 06:59 18:59 Intake Total 1999 / 1999 480 / 480 Balance 1999 / 1999 480 / 480 Intake: IV 1100 / 1100 NS Inj 1,000 ML @ 100 mls/hr IV 1000 / 1000 .CONT .Q10H [facility] Rx#:[id number] Rocephin Inj 2,000 MG In NS Inj 100 / 100 100 ML @ 200 mls/hr IV.SIG Q24H [facility] Rx#:[id number] Oral 480 / 480 Other 900 / 900 Other: Other Intake Source Saline Solution # Voids 2 Narrative: Gen: no acute distress, appears comfortable Skin: Abundant tattoos present CV: Bradycardic with regular rhythm; normal perfusion Resp: CTAB; normal rate Abdomen: No pain to palpation; normal BS MSK: Grossly normal strength and ROM Neuro: Grossly normal CN; grossly normal peripheral motor/sensory function Results - Labs CBC & Chem 7: 04/01/18 09:17 04/02/18 06:15 Laboratory Results - last 24 hr 04/02/18 06:15 Sodium 136 Potassium 3.1 L Chloride 100 Carbon Dioxide 25.4 Anion Gap 11 BUN 20 H Creatinine 0.97 Estimated GFR 82 L Random Glucose 225 H Calcium 8.6 Microbiology 03/28/18 20:40 Blood - Peripheral Aerobic Blood Culture - Preliminary No growth in 4 days 03/28/18 20:40 Blood - Peripheral Anaerobic Blood Culture - Preliminary No growth in 4 days 03/28/18 20:45 Blood - Peripheral Aerobic Blood Culture - Preliminary No growth in 4 days 03/28/18 20:45 Blood - Peripheral Anaerobic Blood Culture - Preliminary No growth in 4 days Assessment and Plan - Assessment (1) IVDU (intravenous drug user) Code(s): F19.90 - Other psychoactive substance use, unspecified, uncomplicated Status: Acute (2) Discitis of lumbar region Code(s): M46.46 - Discitis, unspecified, lumbar region Status: Acute - Plan Mr. Byrne is a 52-year-old male with a past medical history significant for hypertension and hyperlipidemia as well as remote history of IVDU presented to the emergency department for the evaluation of acutely worsening lower back pain. MRI L spine showed abnormal L5-S1; raised concern for discitis. Neurosurgery as well as ID were consulted. Discitis L5-S1 Impression: MRI lumbar spine 03/30- discogenic edema at L5-S1 suggestive of Modic 1. Bulging at L5-S1 -Status post aspiration by interventional radiology on 03/29/2018. PICC placed Microbiology-03/29 wound culture- Enterobacter (pansensitive) -Appreciate ID and neurosurgery input. -Neurosurgery consulted -Continue Neurochecks -Continue antibiotics per ID -Daily PT/OT -Protonix for stress ulcer PPX -ID consulted. -Cefepime changed to Ceftriaxone -Plan for 6 weeks IV antibiotics -Monitor CBC, CMP, ESR, CRP -Pain control -Continue Percocet 10/325 (increased from 7.5/325 04/01) and breakthrough Morphine Hypertension -Blood pressure moderately elevated recently with SBP in 170's -Continue PRN Hydralazine -Will increase Lisinopril to 40mg daily CAD Impression: s/p stenting -12/2017 (presumed drug eluding); patient stopped anticoagulation/f/u afterwards -Patient restarted on ASA, Brilinta -Will plan to place call to Cardiology to arrange outpatient appt since patient did not f/u previously Bradycardia Impression: Not associated with chest pain or dizziness -EKG obtained -sinus bradycardia; no heart block appreciated -Will continue to monitor; patient to notify nursing staff with any chest pain or dizziness, etc DVT PPX SCD's, patient ambulating Discharge Planning: Pending completion of IV antibiotic treatment x6 weeks
[2018-04-03] MEDS: Sod Chloride 0.9% Inj 1,000 ML IV.CONT SCH ×3 (00:13→14:15)
[2018-04-03] MEDS: Morphine Inj 4 MG/ML Vial IV.PUSH PRN ×6 (00:14→21:23)
[2018-04-03] MEDS: oxyCODONE/Acetaminophen 10/325 Tablet PO PRN ×4 (03:17→22:14)
[2018-04-03] MEDS: Senna/Docusate Sodium 8.6/50 MG Tablet PO SCH ×2 (08:48→20:12)
[2018-04-03] MEDS: Lisinopril 20 MG Tablet PO SCH (08:49)
[2018-04-03] MEDS: Heparin Central Flush 100 UNIT/ML 5 ML Vial IV.FLUSH SCH (09:01)
--- NOTE | 2018-04-03 16:30 | P.PNIM ---
Subjective Interval history: Mr. Byrne was afebrile with intermittent HTN overnight (max SBP 194); HR ~ low 50's. Patient reports that he is doing ok at this time. Patient states that he has pain radiating to left lower extremity and continued back pain. Patient does not report chest pain, shortness of breath, or abnormal urination/ BM. Physical Exam Vital signs: Vital Signs 04/02/18 19:59 04/02/18 20:00 04/02/18 21:50 Temperature 97.4 F L Pulse Rate 51 L Respiratory Rate 18 20 18 Blood Pressure 174/88 H Pulse Oximetry 99 04/03/18 00:00 04/03/18 00:16 04/03/18 04:18 Temperature 97.6 F Pulse Rate 48 L Respiratory Rate 20 18 18 Blood Pressure 159/94 H Pulse Oximetry 100 04/03/18 04:40 04/03/18 08:00 04/03/18 12:00 Temperature 97.3 F L 97.2 F L Pulse Rate 44 L 60 Respiratory Rate 18 17 17 Blood Pressure 194/103 H 138/69 Pulse Oximetry 99 98 Intake & Output 04/02/18 04/03/18 04/03/18 18:59 06:59 18:59 Intake Total 2584 / 2584 1200 / 1200 Balance 2584 / 2584 1200 / 1200 Intake: IV 100 / 100 Rocephin Inj 2,000 MG In NS Inj 100 / 100 100 ML @ 200 mls/hr IV.SIG Q24H [facility] Rx#:[id number] Oral 2484 / 2484 1200 / 1200 Other: # Voids 4 3 Date of Last Bowel Movement 04/01/18 04/02/18 Narrative: Gen: no acute distress, appears comfortable Skin: Abundant tattoos present CV: Bradycardic with regular rhythm; normal perfusion Resp: CTAB; normal rate Abdomen: No pain to palpation; normal BS MSK: Grossly normal strength and ROM Neuro: Grossly normal CN; grossly normal peripheral motor/sensory function Results - Labs CBC & Chem 7: 04/01/18 09:17 04/02/18 06:15 Assessment and Plan - Assessment (1) IVDU (intravenous drug user) Code(s): F19.90 - Other psychoactive substance use, unspecified, uncomplicated Status: Acute (2) Discitis of lumbar region Code(s): M46.46 - Discitis, unspecified, lumbar region Status: Acute - Plan Mr. Byrne is a 52-year-old male with a past medical history significant for hypertension and hyperlipidemia as well as remote history of IVDU presented to the emergency department for the evaluation of acutely worsening lower back pain. MRI L spine showed abnormal L5-S1; raised concern for discitis. Neurosurgery as well as ID were consulted. Discitis L5-S1 Impression: MRI lumbar spine 03/30- discogenic edema at L5-S1 suggestive of Modic 1. Bulging at L5-S1 -Status post aspiration by interventional radiology on 03/29/2018. PICC placed Microbiology-03/29 wound culture- Enterobacter (pansensitive) -Appreciate ID and neurosurgery input. -Neurosurgery consulted -Continue Neuro checks -Continue antibiotics per ID -Daily PT/OT -Protonix for stress ulcer PPX -ID consulted. -Cefepime changed to Ceftriaxone -Plan for 6 weeks IV antibiotics -Monitor CBC, CMP, ESR, CRP -Pain control -Continue Percocet 10/325 (increased from 7.5/325 04/01) and breakthrough Morphine -Will add Gabapentin 300mg HS Hypertension -Blood pressure moderately elevated recently with SBP in 170's -Continue PRN Hydralazine -Continue Lisinopril 40mg daily -Will add Amlodipine 5mg daily CAD Impression: s/p stenting -12/2017 (presumed drug eluding); patient stopped anticoagulation/f/u afterwards -Patient restarted on ASA, Brilinta -Will plan to place call to Cardiology to arrange outpatient appt since patient did not f/u previously Bradycardia Impression: Not associated with chest pain or dizziness -EKG obtained -sinus bradycardia; no heart block appreciated -Will continue to monitor; patient to notify nursing staff with any chest pain or dizziness, etc DVT PPX SCD's, patient ambulating Discharge Planning: Pending completion of IV antibiotic treatment x6 weeks
[2018-04-03] MEDS: amLODIPine 5 MG Tablet PO SCH (17:52)
[2018-04-03] MEDS: Gabapentin 300 MG Capsule PO SCH (20:12)
[2018-04-03] MEDS: Temazepam 15 MG Capsule PO PRN (21:23)
[2018-04-04] MEDS: Morphine Inj 4 MG/ML Vial IV.PUSH PRN ×5 (01:18→22:13)
[2018-04-04] MEDS: oxyCODONE/Acetaminophen 10/325 Tablet PO PRN ×4 (04:47→23:32)
--- NOTE | 2018-04-04 08:59 | P.PNIM ---
Subjective Interval history: Mr. Byrne was afebrile with stable vital signs overnight (mild HTN, HR in 50' s). Patient reports continued lower back pain radiating to left lower extremity. He also reports left toe numbness which he states has been persistent for 1.5 mo. He states that he ambulates to bathroom and has been working with PT. No reported chest pain, shortness of breath, or urinary complaints. Patient does not report significant constipation. Physical Exam Vital signs: Vital Signs 04/03/18 12:00 04/03/18 16:00 04/03/18 20:00 Temperature 97.2 F L 97.7 F 97.4 F L Pulse Rate 60 46 L 58 L Respiratory Rate 17 17 18 Blood Pressure 138/69 144/86 H 159/85 H Pulse Oximetry 98 98 99 04/03/18 21:53 04/04/18 00:00 04/04/18 02:15 Temperature 97.5 F L Pulse Rate 52 L Respiratory Rate 18 18 16 Blood Pressure 144/86 H Pulse Oximetry 100 04/04/18 05:47 04/04/18 06:30 Temperature Pulse Rate Respiratory Rate 17 18 Blood Pressure Pulse Oximetry Intake & Output 04/03/18 04/04/18 04/04/18 18:59 06:59 18:59 Intake Total 2422 / 2422 600 / 600 Balance 2422 / 2422 600 / 600 Weight 66 kg Intake: IV 100 / 100 Rocephin Inj 2,000 MG In NS Inj 100 / 100 100 ML @ 200 mls/hr IV.SIG Q24H [facility] Rx#:[id number] Oral 2322 / 2322 600 / 600 Other: # Voids 4 4 Date of Last Bowel Movement 04/04/18 # Bowel Movements 1 1 Narrative: Gen: no acute distress, appears comfortable Skin: Abundant tattoos present CV:regular rate and regular rhythm; normal perfusion Resp: CTAB; normal rate Abdomen: No pain to palpation; normal BS MSK: Grossly normal strength and ROM Back: No thoracic or lumbar spinous process tenderness. Some L paraspinal pain reported Neuro: Grossly normal CN; grossly normal peripheral motor/sensory function with exception of numbness of L toes which patient states is chronic Results - Labs CBC & Chem 7: 04/01/18 09:17 04/02/18 06:15 Assessment and Plan - Assessment (1) IVDU (intravenous drug user) Code(s): F19.90 - Other psychoactive substance use, unspecified, uncomplicated Status: Acute (2) Discitis of lumbar region Code(s): M46.46 - Discitis, unspecified, lumbar region Status: Acute - Plan Mr. Byrne is a 52-year-old male with a past medical history significant for hypertension and hyperlipidemia as well as remote history of IVDU presented to the emergency department for the evaluation of acutely worsening lower back pain. MRI L spine showed abnormal L5-S1; raised concern for discitis. Neurosurgery as well as ID were consulted. Discitis L5-S1 Impression: MRI lumbar spine 03/30- discogenic edema at L5-S1 suggestive of Modic 1. Bulging at L5-S1 -Status post aspiration by interventional radiology on 03/29/2018. PICC placed Microbiology-03/29 wound culture- Enterobacter (pansensitive) -Appreciate ID and neurosurgery input. -Neurosurgery consulted -Continue Neuro checks -Continue antibiotics per ID -Daily PT/OT -Protonix for stress ulcer PPX -ID consulted. -Cefepime changed to Ceftriaxone -Plan for 6 weeks IV antibiotics -Monitor CBC, CMP, ESR, CRP -Pain control -Continue Percocet 10/325 (increased from 7.5/325 04/01) and breakthrough Morphine -Continue Gabapentin 300mg HS -Will add Flexeril 5mg for pain control Hypertension Impression: BP recently improved but persistent HTN -Continue PRN Hydralazine -Continue Lisinopril 40mg daily -Will add Amlodipine 5mg daily CAD Impression: s/p stenting -12/2017 (presumed drug eluding); patient stopped anticoagulation/f/u afterwards -Patient restarted on ASA, Brilinta -Will plan to place call to Cardiology to arrange outpatient appt since patient did not f/u previously Bradycardia Impression: HR 40's-50's. Not associated with chest pain or dizziness -EKG obtained -sinus bradycardia; no heart block appreciated -Will continue to monitor; patient to notify nursing staff with any chest pain or dizziness, etc DVT PPX SCD's, patient ambulating Discharge Planning: Pending completion of IV antibiotic treatment x6 weeks
[2018-04-04 10:20] LABS: Calcium 9.3 mg/dL (8.5-10.1); Carbon Dioxide 27.7 meq/L (21.0-32.0); Potassium 4.3 meq/L (3.5-5.1)
[2018-04-04] MEDS: Senna/Docusate Sodium 8.6/50 MG Tablet PO SCH ×2 (10:37→22:15)
[2018-04-04] MEDS: Heparin Central Flush 100 UNIT/ML 5 ML Vial IV.FLUSH SCH (10:38)
[2018-04-04] MEDS: amLODIPine 5 MG Tablet PO SCH (10:39)
[2018-04-04] MEDS: Lisinopril 20 MG Tablet PO SCH (10:39)
[2018-04-04] MEDS: Sod Chloride 0.9% Inj 1,000 ML IV.CONT SCH ×3 (12:06→23:31)
[2018-04-04] MEDS: Gabapentin 300 MG Capsule PO SCH (22:14)
[2018-04-04] MEDS: Temazepam 15 MG Capsule PO PRN (23:33)
[2018-04-05] MEDS: Morphine Inj 4 MG/ML Vial IV.PUSH PRN ×5 (02:11→19:49)
[2018-04-05] MEDS: oxyCODONE/Acetaminophen 10/325 Tablet PO PRN ×3 (05:26→17:37)
[2018-04-05 05:59] LABS: Baso % (Auto) 0.2 % (0.0-2.0); Hematocrit 36.1 % (39.0-51.0); Hemoglobin 11.8 gm/dL (13.0-17.0); Lymph # (Auto) 0.9 th/mm3 (1.0-4.8); Lymph % (Auto) 6.1 % (9.0-44.0); Mean Corpuscular HGB Conc 32.7 % (32.0-36.0); Mean Corpuscular Hemoglobin 27.4 pg (27.0-34.0); Mean Corpuscular Volume 83.8 fL (80.0-100.0); Mean Platelet Volume 8.6 fL (7.0-11.0); Mono % (Auto) 7.4 % (0.0-8.0); Neut # (Auto) 12.1 th/mm3 (1.8-7.7); Neut % (Auto) 86.3 % (16.0-70.0); Platelet Count 242 th/mm3 (150-450); Red Blood Count 4.31 mil/mm3 (4.50-5.90); Red Cell Distribution Width 17.4 % (11.6-17.2); White Blood Count 14.1 th/mm3 (4.0-11.0)
[2018-04-05 07:39] LABS: Erythrocyte Sedimentation Rate 11 mm/hr (0-20)
[2018-04-05] MEDS: Lisinopril 20 MG Tablet PO SCH (09:18)
[2018-04-05] MEDS: Heparin Central Flush 100 UNIT/ML 5 ML Vial IV.FLUSH SCH (09:20)
[2018-04-05] MEDS: Senna/Docusate Sodium 8.6/50 MG Tablet PO SCH ×2 (09:21→20:15)
[2018-04-05] MEDS: amLODIPine 5 MG Tablet PO SCH (09:21)
--- NOTE | 2018-04-05 10:01 | P.PNNS ---
Subjective Interval history: Pt awake and alert. Complains of low back pain radiating into the left lateral thigh to the knee. He states the numbness in feet has improved some with Neurontin. He states he is participating with PT exercises. He continues to get his IV antibiotics. Physical Exam Vital signs: Vital Signs 04/04/18 12:00 04/04/18 16:00 04/04/18 20:00 Temperature 97.2 F L 97.1 F L 97.5 F L Pulse Rate 60 57 L 53 L Respiratory Rate 19 18 20 Blood Pressure 141/72 H 122/71 167/88 H Pulse Oximetry 100 98 98 04/05/18 00:00 04/05/18 09:27 Temperature 97.2 F L Pulse Rate 52 L 63 Respiratory Rate 20 Blood Pressure 142/77 H Pulse Oximetry 98 Intake & Output 04/04/18 04/05/18 04/05/18 18:59 06:59 18:59 Intake Total 1200 / 1200 720 / 720 1100 / 1100 Balance 1200 / 1200 720 / 720 1100 / 1100 Intake: IV 1100 / 1100 NS Inj 1,000 ML @ 100 mls/hr IV 1000 / 1000 .CONT .Q10H [facility] Rx#:[id number] Rocephin Inj 2,000 MG In NS Inj 100 / 100 100 ML @ 200 mls/hr IV.SIG Q24H [facility] Rx#:[id number] Oral 1200 / 1200 720 / 720 Other: # Voids 8 2 - Constitutional no acute distress, thin, cooperative - Routine HEENT Exam Head: Present: normocephalic, atraumatic Eye: Present: PERRL. Absent: conjunctival icterus - Routine Neck Exam Present: supple, trachea midline - Routine Respiratory Exam Present: CTA bilaterally. Absent: rales, respiratory distress, rhonchi, wheezes - Routine Cardiovascular Exam Present: RRR, S1, S2. Absent: murmur - Routine Abdominal Exam Present: soft, normoactive bowel sounds. Absent: tenderness, distended - Routine Skin Exam Absent: cyanosis, erythema - Routine Neurological Exam Present: alert, motor deficit (Mild difficulty with left hip flexion but relates this to discomfort and stiffness in mucles.), moving all extremities, normal speech. Absent: altered mental status - Routine Psychiatric Exam Present: normal affect. Absent: agitated Assessment and Plan - Assessment (1) Discitis of lumbar region Code(s): M46.46 - Discitis, unspecified, lumbar region Status: Acute - Plan Nonoperative treatment for his discitis. Cultures grew Enterobacter cloacae and pt is on Rocephin IV Continue Neuro checks Continue IV antibiotics per ID Follow up cultures Daily PT and OT Continue Protonix for stress ulcer prophylaxis Continue Jayant hose and SCD's for DVT prophylaxis
[2018-04-05] MEDS: Gabapentin 300 MG Capsule PO SCH ×2 (10:28→20:15)
--- NOTE | 2018-04-05 10:32 | P.PNIM ---
Subjective Interval history: Mr. Byrne was afebrile with stable VS overnight. Patient reports continued lower back pain and pain in proximal left leg; he also reports continued left toe numbness which improved with Gabapentin. Patient states that he has mild constipation. No chest pain, shortness of breath , or abnormal urination reported. Physical Exam Vital signs: Vital Signs 04/04/18 12:00 04/04/18 16:00 04/04/18 20:00 Temperature 97.2 F L 97.1 F L 97.5 F L Pulse Rate 60 57 L 53 L Respiratory Rate 19 18 20 Blood Pressure 141/72 H 122/71 167/88 H Pulse Oximetry 100 98 98 04/05/18 00:00 04/05/18 09:27 Temperature 97.2 F L Pulse Rate 52 L 63 Respiratory Rate 20 Blood Pressure 142/77 H Pulse Oximetry 98 Intake & Output 04/04/18 04/05/18 04/05/18 18:59 06:59 18:59 Intake Total 1200 / 1200 720 / 720 1100 / 1100 Balance 1200 / 1200 720 / 720 1100 / 1100 Intake: IV 1100 / 1100 NS Inj 1,000 ML @ 100 mls/hr IV 1000 / 1000 .CONT .Q10H [facility] Rx#:[id number] Rocephin Inj 2,000 MG In NS Inj 100 / 100 100 ML @ 200 mls/hr IV.SIG Q24H ROS[facility]IA Rx#:[id number] Oral 1200 / 1200 720 / 720 Other: # Voids 8 2 Narrative: Gen: no acute distress, appears comfortable Skin: Abundant tattoos present CV:regular rate and regular rhythm; normal perfusion Resp: CTAB; normal rate Abdomen: No pain to palpation; normal BS MSK: Grossly normal strength and ROM Back: Not examined today Neuro: Grossly normal CN; grossly normal peripheral motor/sensory function with exception of chronic numbness of L toes Results - Labs CBC & Chem 7: 04/05/18 05:30 04/04/18 09:24 Laboratory Results - last 24 hr 04/05/18 04/05/18 05:30 05:30 WBC 14.1 H RBC 4.31 L Hgb 11.8 L Hct 36.1 L MCV 83.8 MCH 27.4 MCHC 32.7 RDW 17.4 H Plt Count 242 MPV 8.6 Neut % (Auto) 86.3 H Lymph % (Auto) 6.1 L Keith % (Auto) 7.4 Eos % (Auto) 0.0 Baso % (Auto) 0.2 Neut # (Auto) 12.1 H Lymph # (Auto) 0.9 L Keith # (Auto) 1.0 H Eos # (Auto) 0.0 Baso # (Auto) 0.0 WBC Differential . Differential Comment Auto diff final ESR 11 C-Reactive Protein Less than 0.29 Assessment and Plan - Assessment (1) IVDU (intravenous drug user) Code(s): F19.90 - Other psychoactive substance use, unspecified, uncomplicated Status: Acute (2) Discitis of lumbar region Code(s): M46.46 - Discitis, unspecified, lumbar region Status: Acute - Plan Mr. Byrne is a 52-year-old male with a past medical history significant for hypertension and hyperlipidemia as well as remote history of IVDU presented to the emergency department for the evaluation of acutely worsening lower back pain. MRI L spine showed abnormal L5-S1; raised concern for discitis. Neurosurgery as well as ID were consulted. Discitis L5-S1 Impression: MRI lumbar spine 03/30- discogenic edema at L5-S1 suggestive of Modic 1. Bulging at L5-S1 -Status post aspiration by interventional radiology on 03/29/2018. PICC placed Microbiology-03/29 wound culture- Enterobacter (pansensitive) -Appreciate ID and neurosurgery input. -Neurosurgery consulted -Continue Neuro checks -Continue antibiotics per ID -Daily PT/OT -Protonix for stress ulcer PPX -ID consulted. -Cefepime changed to Ceftriaxone -Plan for 6 weeks IV antibiotics -Monitor CBC, CMP, ESR, CRP -Pain control -Continue Percocet 10/325 and breakthrough Morphine -Increase Gabapentin to 300mg BID -Continue Flexeril 5mg PRN Hypertension Impression: BP recently improved but persistent HTN -Continue PRN Hydralazine -Continue Lisinopril 40mg daily -Continue Amlodipine 5mg daily CAD Impression: s/p stenting -12/2017 (presumed drug eluding); patient stopped anticoagulation/f/u afterwards -Patient restarted on ASA, Brilinta -Will plan to place call to Cardiology to arrange outpatient appt since patient did not f/u previously Bradycardia Impression: HR 50's; was previously in low 40's. Not associated with chest pain or dizziness -EKG obtained -sinus bradycardia; no heart block appreciated -Will continue to monitor; patient to notify nursing staff with any chest pain or dizziness, etc DVT PPX SCD's, patient ambulating Discharge Planning: Pending completion of IV antibiotic treatment x6 weeks
[2018-04-05] MEDS: Sod Chloride 0.9% Inj 1,000 ML IV.CONT SCH ×3 (10:35→15:25)
[2018-04-06] MEDS: oxyCODONE/Acetaminophen 10/325 Tablet PO PRN ×3 (00:09→12:46)
[2018-04-06] MEDS: Morphine Inj 4 MG/ML Vial IV.PUSH PRN ×3 (01:10→09:21)
[2018-04-06 05:43] LABS: Baso % (Auto) 0.1 % (0.0-2.0); Hematocrit 36.5 % (39.0-51.0); Hemoglobin 11.7 gm/dL (13.0-17.0); Lymph # (Auto) 0.9 th/mm3 (1.0-4.8); Lymph % (Auto) 5.8 % (9.0-44.0); Mean Corpuscular Hemoglobin 27.1 pg (27.0-34.0); Mean Corpuscular Volume 84.7 fL (80.0-100.0); Mean Platelet Volume 8.9 fL (7.0-11.0); Mono # (Auto) 1.1 th/mm3 (0.0-0.9); Mono % (Auto) 7.5 % (0.0-8.0); Neut # (Auto) 13.1 th/mm3 (1.8-7.7); Neut % (Auto) 86.6 % (16.0-70.0); Platelet Count 238 th/mm3 (150-450); Red Blood Count 4.31 mil/mm3 (4.50-5.90); White Blood Count 15.1 th/mm3 (4.0-11.0)
[2018-04-06 06:00] LABS: Calcium 9.1 mg/dL (8.5-10.1); Carbon Dioxide 30.3 meq/L (21.0-32.0); Potassium 4.6 meq/L (3.5-5.1)
[2018-04-06] MEDS: Heparin Central Flush 100 UNIT/ML 5 ML Vial IV.FLUSH SCH (09:23)
[2018-04-06] MEDS: Gabapentin 300 MG Capsule PO SCH (09:26)
[2018-04-06] MEDS: Lisinopril 20 MG Tablet PO SCH (09:26)
[2018-04-06] MEDS: amLODIPine 5 MG Tablet PO SCH (09:26)
[2018-04-06] MEDS: Senna/Docusate Sodium 8.6/50 MG Tablet PO SCH (09:26)
--- NOTE | 2018-04-06 10:59 | P.DCO ---
Post Hospital Infusion Therapy Location of Infusion Therapy: Ambulatory Infusion Therapy Order Patient Weight: 65 kg - Diagnosis (1) Discitis of lumbar region Code(s): M46.46 - Discitis, unspecified, lumbar region - Administer Medication Ceftriaxone Dose: 2 grams IV Directions: q 24 hours Start Treatment: 04/07/18 Stop Treatment: 05/11/18 - Additional Information Venous Access: PICC Line Additional Instructions: [x] Peripheral flush and dressing changes per protocol [x] Implanted port and central online services manager: * Implanted port: 10 ml Normal Saline followed by 5 ml Heparin 100 units/ml Heparin flush after each use and monthly to maintain. [] May leave port accessed during therapy. [] May leave peripheral site accessed for duration of therapy. [x] If patient has SOB or respiratory distress, check oxygen saturation. If less than 90% or clinical signs of respiratory distress, administer oxygen at 2 L/min. via nasal cannula and notify physician. [x] Anaphylaxis/Reaction orders: * Stop infusion. * Keep IV line open with saline flush. * Notify physician. * Monitor vital signs every 15 minutes until symptoms resolve. * Check Oxygen saturation; Oxygen at 2 L/min. via nasal cannula if less than 90% or clinical signs of respiratory distress. * Administer diphenhydramine (Benadryl) 25 mg IV STAT, (unless patient has received as pre-med). May repeat once, if necessary. * Solu-Cortef 250 mg IVP over 30-60 seconds, use 100 mg vials for each dissolution. * Epinephrine (1mg/1 ml) 0.3 mg subcutaneously or IVP now with any signs of respiratory distress. * Check with physician for new additional pre-med orders if patient is re- challenged or re-treated. [x] May remove PICC line when treatment complete, after confirming with Physician. [x] If the patient is admitted to the hospital, the ED, or transferred via [facility] , complete transfer form including medication reconciliation order sheet. Weekly Labs: CBC w/diff, CMP, CRP, SED Rate Allergies penicillin G Allergy (Unknown, Verified 12/22/17 10:49) UNKNOWN
--- NOTE | 2018-04-06 12:20 | P.PNIM ---
Subjective Interval history: Mr. Byrne was afebrile with stable vital signs overnight. No chest pain, shortness of breath, or abnormal urination. Continued constipation. After discussion with case management, patient is frustrated regarding discharge to hotel facility he does not like. Despite this, patient agreeable to discharge with continued IV antibiotics daily via home health. Physical Exam Vital signs: Vital Signs 04/05/18 15:22 04/05/18 16:00 04/05/18 20:00 Temperature 97.3 F L 97.2 F L Pulse Rate 54 L 55 L Respiratory Rate 18 18 18 Blood Pressure 124/73 126/76 Pulse Oximetry 99 97 04/05/18 23:47 04/06/18 08:00 Temperature 97.5 F L 97.5 F L Pulse Rate 59 L 51 L Respiratory Rate 18 18 Blood Pressure 120/78 176/84 H Pulse Oximetry 98 97 Intake & Output 04/05/18 04/06/18 04/06/18 18:59 06:59 18:59 Intake Total 2280 / 2280 480 / 480 Balance 2280 / 2280 480 / 480 Weight 65 kg 65 kg Intake: IV 1200 / 1200 NS Inj 1,000 ML @ 100 mls/hr IV 1000 / 1000 .CONT .Q10H [facility] Rx#:[id number] Rocephin Inj 2,000 MG In NS Inj 200 / 200 100 ML @ 200 mls/hr IV.SIG Q24H [facility] Rx#:[id number] Oral 1080 / 1080 480 / 480 Other: # Voids 4 3 Date of Last Bowel Movement 04/05/18 04/05/18 # Bowel Movements 1 Narrative: Gen: no acute distress, appears comfortable Skin: Abundant tattoos present CV:regular rate and regular rhythm; normal perfusion Resp: CTAB; normal rate Abdomen: No pain to palpation; normal BS MSK: Grossly normal strength and ROM Neuro: Grossly normal CN; grossly normal peripheral motor/sensory function with exception of chronic numbness of L toes Psych: Somewhat agitated about possibility of discharge to hotel Results - Labs CBC & Chem 7: 04/06/18 05:15 04/06/18 05:15 Laboratory Results - last 24 hr 04/06/18 04/06/18 05:15 05:15 WBC 15.1 H RBC 4.31 L Hgb 11.7 L Hct 36.5 L MCV 84.7 MCH 27.1 MCHC 32.0 RDW 17.0 Plt Count 238 MPV 8.9 Neut % (Auto) 86.6 H Lymph % (Auto) 5.8 L Mcintosh % (Auto) 7.5 Eos % (Auto) 0.0 Baso % (Auto) 0.1 Neut # (Auto) 13.1 H Lymph # (Auto) 0.9 L Mcintosh # (Auto) 1.1 H Eos # (Auto) 0.0 Baso # (Auto) 0.0 WBC Differential . Differential Comment Auto diff final Sodium 135 L Potassium 4.6 Chloride 97 L Carbon Dioxide 30.3 Anion Gap 8 BUN 29 H Creatinine 1.05 Estimated GFR 74 L Random Glucose 234 H Calcium 9.1 Microbiology 03/29/18 16:31 Other Fungal Smear - Final 03/29/18 16:31 Other Fungal Culture - Preliminary No growth in 1 week 03/29/18 16:31 Other Acid Fast Bacilli Smear - Final No acid fast bacilli seen 03/29/18 16:31 Other Mycobacterial Culture - Preliminary No growth in 1 week Assessment and Plan - Assessment (1) IVDU (intravenous drug user) Code(s): F19.90 - Other psychoactive substance use, unspecified, uncomplicated Status: Acute (2) Discitis of lumbar region Code(s): M46.46 - Discitis, unspecified, lumbar region Status: Acute - Plan Mr. Byrne is a 52-year-old male with a past medical history significant for hypertension and hyperlipidemia as well as remote history of IVDU presented to the emergency department for the evaluation of acutely worsening lower back pain. MRI L spine showed abnormal L5-S1; raised concern for discitis. Neurosurgery as well as ID were consulted. Discitis L5-S1 Impression: MRI lumbar spine 03/30- discogenic edema at L5-S1 suggestive of Modic 1. Bulging at L5-S1 -Status post aspiration by interventional radiology on 03/29/2018. PICC placed Microbiology-03/29 wound culture- Enterobacter (pansensitive) -Appreciate ID and neurosurgery input. -Neurosurgery consulted -Cleared for discharge home -Continue antibiotics per ID -ID consulted. -Cefepime changed to Ceftriaxone -Plan for 6 weeks IV antibiotics (05/11 stop date) with home health care -Monitor CBC, CMP, ESR (11 04/05), CRP (<0.29 04/05) -Pain control -Continue Percocet 10/325 at home -Continue Gabapentin 300mg BID; counselled about uptitration -Continue Flexeril 5mg PRN -Will continue PT at home Hypertension Impression: BP recently improved -Continue PRN Hydralazine -Continue Lisinopril 40mg daily -Continue Amlodipine 5mg daily Leukocytosis Impression: WBC 7 on admission-> 15.1 04/06. No pulmonary symptoms, UA negative -Suspect due to Decadron while inpatient -Recommended outpatient CBC CAD Impression: s/p stenting -12/2017. Records reviewed- bare metal. patient stopped anticoagulation/f/u afterwards -Patient restarted on ASA, Brilinta -Since bare metal > 1mo, patient discharged home on aspirin -Patient agrees cardiology follow-up or going to ED with chest pain Bradycardia Impression: HR 50's; was previously in low 40's. Not associated with chest pain or dizziness -EKG obtained -sinus bradycardia; no heart block appreciated DVT PPX SCD's, patient ambulating Discharge Planning: d/c home today with plan for outpatient HH care with Rocephin until 05/11
--- NOTE | 2018-04-06 12:23 | P.DCO ---
- Home Health Nursing Order: Signs/symptoms of disease process, Medication education-adverse effect, IV medication administration - Forensic Scientist Order: To evaluate: Living conditions/environment, Support services Order: To provide: Long range planning - Certification I have seen patient Jean Carlos Byrne on 04/06/18. My clinical findings support the need for the requested home health care services because: Deconditioned with increased weakness I certify that my clinical findings support that this patient is homebound because: Unsteady gait/balance
--- NOTE | 2018-04-06 16:51 | IR ---
EXAM DATE: 03/29/2018 9:00 PM EDT AGE/SEX: 52 years / Male INDICATIONS: Patient presents with discitis in need of lumbar five-sacral one disc aspiration. CLINICAL DATA: This is the patient's initial encounter. Patient reports that signs and symptoms have been present for 1 day and indicates a pain score of 9/10. MEDICAL/SURGICAL HISTORY: . HLD HTN History of seizures Myocardial infarction . Hand surgery F oot surgery COMPARISON: . FLUORO TIME (min): 5 IMAGE SERIES: 3 SEDATION TIME (min): 10 MEDICATION(S): 3.5 mg midazolam (Versed) IV 150 mcg fentanyl (Sublimaze) IV DEVICE(s): 20 gauge 6 inch spinal needle SPECIMEN(S): Core specimen(s) obtained and submitted to laboratory for pathologic evaluation. . . PROCEDURE: 1. Fluoroscopically guided needle biopsy. 2. Conscious sedation with continuous EKG and Oximetry monitoring. The risks, benefits and alternatives to the procedure were explained and verbal and written consent w as obtained. The site was prepped in sterile fashion. Full sterile technique was used, including cap, mask, steri le gloves and gown and a large sterile sheet. Hand hygiene and 2% chlorhexidine and/or betadine/alco hol prep was utilized per protocol for cutaneous antisepsis. The skin and subcutaneous tissues were infiltrated with local anesthetic solution. The patient's MRI was reviewed prior to the procedure. There is abnormal signal along the anterior an d right-sided of the disc. With fluoroscopic guidance the L5-S1 disc was entered from a right-sided approach. A 22-gauge needle was advanced into the disc.. Conscious sedation was performed with the prescribed dosages and duration as above in the presence of an independent trained radiology nurse to assist in the monitoring of the patient. EKG and oximetry remained stable throughout the procedure. 1. Uncomplicated needle biopsy of the L5-S1 disc as above. Electronically signed by: Yosef Pereira MD 04/06/2018 4:50 PM EDT
--- NOTE | 2018-04-10 15:07 | P.DS ---
Date of admission: 03/28/18 20:20 Primary care physician: No Primary Care Physician Attending physician on discharge: Yvan Sarabia Anticipated date of discharge: 04/06/18 Brief History from admission: 52-year-old male with a past medical history significant for hypertension and hyperlipidemia presents to the emergency department for the evaluation of acutely worsening lower back pain. The patient reports that his pain started approximately 1 month ago and has been progressively worsening since that time. He reports he has left lower extremity numbness that is in his toes and left foot. He denies any loss of strength. No bowel or bladder incontinence. No fevers/chills. The patient does have a very remote history of IV drug abuse with last use being approximately 15 years ago. No chest pain or shortness of breath. No abdominal pain. No nausea/vomiting/diarrhea. DS: Diagnosis - Discharge Diagnosis (1) IVDU (intravenous drug user) Status: Acute (2) Discitis of lumbar region Status: Acute DS: Medications - Discharge Medications Prescriptions: amlodipine [Norvasc] 5 mg PO DAILY #30 tab aspirin 81 mg PO DAILY #30 tab cyclobenzaprine 5 mg PO Q8H PRN #30 tab PRN Reason: Back Pain famotidine 20 mg PO BID #30 tab gabapentin [Neurontin] 300 mg PO BID #120 cap lisinopril 40 mg PO DAILY #60 tab nicotine 1 patch TRANSDERMAL DAILY #30 ea prednisone 10 mg PO DAILY #5 tab prednisone See Label Instructions .ROUTE .COMPLEX #15 tab sennosides-docusate sodium [Senna Plus] 1 tab PO BID #30 tab DS: Summary Hospital Course: Mr. Byrne is a 52-year-old male with a PMH of HTN, hyperlipidemia, CAD prior stenting, and remote IVDU who presented to the ED for the evaluation of acutely worsening lower back pain. MRI L spine showed abnormal L5-S1; raised concern for discitis. Neurosurgery as well as ID were consulted. Patient underwent aspiration 03/29/2018 by IR; which grew Enterobacter. Surgery was not recommended by Neurosurgery. Patient was initially treated with Cefepime; this was changed to Ceftriaxone by ID with plan to continue treatment for 6 weeks. Patient was persistently hypertensive during hospitalization; he was uptitrated on Hydralazine, Lisinopril, and Amlodipine prior to discharge. He was restarted on Aspirin prior to discharge for history of CAD and bare metal stenting. Patient was also treated with Decadron while inpatient; he was discharged home on Prednisone taper. Patient discharged to [facility] for continued IV antibiotics ( until 05/11) with plans for further physical therapy as outpatient. - Time Spent with Patient Total time spent providing and/or coordinating discharge services: - Quality: VTE Deep Vein Thrombosis/Pulmonary Embolism Present on Admission: No Exam Vital signs: T 97.8 HR 58 RR 19 138/77 O2 Sat 98% Narrative: Gen: no acute distress, appears comfortable Skin: Abundant tattoos present CV:regular rate and regular rhythm; normal perfusion Resp: CTAB; normal rate Abdomen: No pain to palpation; normal BS MSK: Grossly normal strength and ROM Neuro: Grossly normal CN; grossly normal peripheral motor/sensory function with exception of chronic numbness of L toes Psych: Somewhat agitated about possibility of discharge to [facility] Results Procedures completed during hospitalization: 03/29- needle aspiration of lumbar spine L5-S1 by IR Labs on day of discharge: Preliminary micro results at discharge 03/29/18 16:31 Fungal Culture - Preliminary Other No growth in 1 week 03/29/18 16:31 Mycobacterial Culture - Preliminary Other No growth in 1 week - Impressions ITS Impressions Needle Biopsy/Aspiration X-Ray 03/29/18 00:00 CONCLUSION: Lumbar Spine MRI 03/30/18 00:00 CONCLUSION: 1. There is discogenic edema at the level of L5-S1 in a pattern characteristic of Modic type I changes. There is no evidence of discitis or osteomyelitis. 2. Broad-based bulging and left lateral disc protrusion L5-S1. 3. Bilateral facet arthritis at L4-5 and L5-S1 Discharge Plan - Discharge Disposition Patient Disposition: W/Home Health Service - Discharge Condition Condition: Stable - Discharge Order Discharge Orders: Discharge Order (Routine); Ordered 04/06/18 Ordered By: Yvan Sarabia - Discharge Details Anticipated Discharge Date: 04/06/18 - Physicians Team Primary Care Provider: Primary Care Physici,Verónica Attending Provider: Yvan Sarabia Other Providers: Lex Nickerson MD ; Shruti Loyola MD ; [facility]
== END 2018-04-06 19:21 | disposition home health service (06) ==
LOC: NEPD 10:34 → NEDA 20:20 → N07 03-29 14:11
PROVIDERS: ADMIT Family Medicine; ATTEND Family Medicine